=== PATIENT | female | born 1950 | race Caucasian/White ===

== ENCOUNTER → 2016-08-13 | Outpatient (CLI) | payer MEDICARE, OTHER ==
[2016-08-13 12:12] LABS: Basophils # (A) 0.1 k/uL (0-0.2); Basophils % (A) 1 %; CH 32.1; CHCM 31.8; Eosinophils # (A) 0.2 k/uL (0-0.7); Eosinophils % (A) 2 %; HCT 37.5 % (34.0-46.0); HDW 2.83; HGB 11.8 gm/dL (11.4-16.0); Hypochromasia Slight; Luc # (Auto) 0.12; Luc % (Auto) 2; Lymphocytes # (A) 3.8 k/uL (1.0-4.8); Lymphocytes % (A) 47 %; MCHC 31.5 g/dL (31.0-37.0); MCV 101.5 fL (80.0-100.0); Macrocytosis Slight; Mean Platelet Volume 7.6; Monocytes # (A) 0.3 k/uL (0-1.0); Monocytes % (A) 4 %; Neutrophils # (A) 3.6 k/uL (1.3-7.7); Neutrophils % (A) 45 %; RDW 14.5 % (11.5-15.5); WBC (Perox) 8.42
[2016-08-13 12:37] LABS: ALT 26 U/L (9-52); AST 19 U/L (14-36); Alkaline Phosphatase 141 U/L (38-126); Anion Gap 15 mmol/L; Blood Urea Nitrogen 16 mg/dL (7-17); Calcium 9.3 mg/dL (8.4-10.2); Carbon Dioxide 22 mmol/L (22-30); Chloride 106 mmol/L (98-107); Glucose 99 mg/dL (74-99); Non-African American GFR(MDRD) 53 (>60 ml/min/1.73 sqM); Potassium 3.7 mmol/L (3.5-5.1); Sodium 143 mmol/L (137-145); Total Bilirubin 0.4 mg/dL (0.2-1.3); Total Protein 7.9 g/dL (6.3-8.2)
[2016-08-13 13:02] LABS: Hepatitis B Surface Ag Index 0.06
[2016-08-13 13:08] LABS: Hepatitis B Core IgM Index 0.02
[2016-08-13 13:19] LABS: Hepatitis C Virus IgG Index 3.09
[2016-08-13 13:22] LABS: Hepatitis C Virus IgG Ab Reactive (Negative)
== END | disposition home or self-care (01) ==
LOC: LABWHC1 11:02
PROVIDERS: ATTEND Physician Assistant
DX: R19.7 Diarrhea, unspecified (principal)
CPT/HCPCS: 36415; 80053; 80074; 85025

== ENCOUNTER → 2016-08-23 | Outpatient (CLI) | payer MEDICARE, OTHER ==
--- NOTE | 2016-08-23 12:42 | MR ---
EXAMINATION TYPE: MR cervical spine wo con DATE OF EXAM: 08/23/2016 11:46 AM COMPARISON: NONE HISTORY: 66-year-old female neck pain TECHNIQUE: Multiplanar, multisequence images of the cervical spine were acquired. FINDINGS: No craniocervical junction abnormality, predental space widening, or prevertebral soft tissue swellin g. Multilevel mild to moderate variable disc desiccation. There is mild disc interspace narrowing at C5- C6 with disc osteophyte complex formation and contiguous left uncovertebral joint arthropathy. Scattered ligamentum flavum thickening and facet arthropathy is also present. Hyperintense round lesion within the left C7 vertebral body compatible with a matrix hemangioma. Jeffry tional hemangioma seen within T1 and T4 vertebral bodies. No suspicious bone marrow replacement. Alignment is maintained. At C2-C3, there is ligamentum flavum thickening and facet arthropathy. Changes result in no significa nt spinal canal or neuroforaminal stenosis. At C3-C4, there is mild uncovertebral joint and facet degenerative change. Changes minimally narrow t he left neuroforamen. No spinal canal stenosis. At C4-C5, there is minimal disc osteophyte complex with ligamentum flavum thickening and mild facet a nd uncovertebral joint arthropathy. Changes result in minimal bilateral neuroforaminal narrowing with out significant spinal canal stenosis. At C5-C6, there is disc osteophyte complex formation eccentric toward the left with contiguous uncove rtebral joint arthropathy. There is ligamentum flavum thickening with facet degenerative changes well . Changes result in moderate narrowing of the spinal canal with abutment of both the ventral and dors al cord and ventral cord flattening. There is also moderate left greater than right neuroforaminal st enosis. Small amount of increased midline dorsal T2 cord signal change is present at this level. At C6-C7, there is mild disc osteophyte complex with facet and uncovertebral joint arthropathy. Holman es result in mild narrowing of the spinal canal with abutment of the ventral cord. Additional right d orsal cord signal change is present along the midline at this level. There is mild bilateral neurofor aminal stenosis. At C7-T1, facet degenerative change without significant spinal canal or neuroforaminal stenosis. 9 mm T2 hyperintense nodule within the right lobe of the thyroid gland. No craniocervical junction abnormality, predental space widening, or prevertebral soft tissue swellin g. IMPRESSION: 1. Moderate multilevel spondylotic change. Degenerative disc disease with ligamentum flavum thickenin g is greatest at C5-C6 with changes causing moderate spinal canal stenosis. There is abutment of both the dorsal and ventral cord with slight ventral cord flattening and the appearance of some compressi ve myelomalacia in the dorsal cord at this level. 2. Along with facet and uncovertebral joint arthropathy, there is moderate left greater than right ne uroforaminal stenoses here at C5-C6. 3. Mild overall spinal canal stenosis at C6-C7 with additional compressive myelomalacia in the dorsal cord here. 4. Variable minimal to mild neuroforaminal stenoses as outlined above.
== END | disposition home or self-care (01) ==
LOC: RADMRIMAIN 11:05
PROVIDERS: ATTEND Physician Assistant
DX: M48.02 Spinal stenosis, cervical region (principal); M99.71 Connective tissue and disc stenosis of intervertebral foramina of cervical region; M50.322 Other cervical disc degeneration at C5-C6 level; M47.812 Spondylosis without myelopathy or radiculopathy, cervical region
CPT/HCPCS: 72141

== ENCOUNTER 2016-08-29 08:38 | Day surgery (SDC) | payer MEDICARE, OTHER ==
[2016-08-24 10:00] VITALS: BMI 23.8
[~2016-08-29 08:38] MED LIST: LACTATED RINGERS 1,000 ML IV SCH; LIDOCAINE 1% 20 ML VIAL (10MG/ML) FOR IV START INTRADERMA PRN
[2016-08-29] MEDS ORDERED: LIDOCAINE 1% 20 ML VIAL (10MG/ML) FOR IV START INTRADERMA ONE (09:32)
[2016-08-29 09:35] VITALS: RESP 18; TEMP 969
[2016-08-29] MEDS ORDERED: PROPOFOL 10 MG/ML 20 ML VIAL IV ONE (10:06)
--- NOTE | 2016-08-29 10:27 | P.PCN ---
Date of Procedure: 08/29/16 Procedure(s) Performed: Brief history: Patient is a pleasant 65-year-old white female, scheduled for an elective upper endoscopy as well as colonoscopy as a part of evaluation of abdominal pain, severe diarrhea for the last few months duration. She is lately have been having bowel movements anywhere from rectum to 8 a day which are loose to watery in consistency but denies any blood or mucus in the stool. Procedure performed: Esophagogastroduodenoscopy with biopsy Colonoscopy with biopsies Preoperative diagnosis: Abdominal pain and chronic diarrhea Anesthesia: MAC Procedure: After informed consent was obtained from the patient was brought into the endoscopy unit and IV conscious sedation was administered by anesthesia under continuous monitoring. Initially upper endoscopy was done. The Olympus GF 160 video endoscope was inserted inserted into the mouth and esophagus intubated without any difficulty and was gradually advanced into the stomach and duodenum and carefully examined. The bulb and second part of the duodenum appeared normal. Biopsies were done from this area to rule out celiac disease. The scope was then withdrawn into the stomach adequately insufflated with air and upon careful examination the antrum had mild gastritis and biopsies were also done from this area. The body, cardia and fundus appeared normal. The scope was then withdrawn into the esophagus. The GE junction was located at 40 cm to the incisors. It appeared regular with no erythema erosions or ulcerations. Rest of the esophagus appeared normal. Patient tolerated the procedure well. At this time the patient continued to remain sedation. Initial digital rectal examination was normal. Olympus CF 160 video colonoscope was then inserted into the rectum and gradually advanced to the cecum without any difficulty. Careful examination was performed as the scope was gradually being withdrawn. The prep was excellent. The cecum, ascending colon, transverse colon, descending colon, sigmoid colon and rectum appeared normal. There was a 5 mL proximal rectal polyp that was removed by biopsy. Random biopsies were done from ascending and descending colon to rule out microscopic/collagenous colitis Retroflexion was performed in the rectum and no lesions were noted. Scattered sigmoid diverticulosis seen. Patient tolerated the procedure well. Impression: 1. Upper endoscopy revealed mild antral diffuse gastritis but no evidence of peptic ulcer disease or esophagitis 2. Colonoscopy revealed 5 mm proximal rectal polyp and scattered sigmoid diverticulosis. Recommendations: Findings of this examination were discussed with the patient as well as her family. She was advised to follow with the biopsy results. In the meantime she 'll continue with her current medications and she'll be seen in the office in 2- 3 weeks.
[2016-08-29 11:04] VITALS: BP 132/77; PULSE 74
[2016-08-29] MEDS ORDERED: LACTATED RINGERS 1,000 ML IV ONE (11:09)
== END 2016-08-29 11:25 | disposition home or self-care (01) ==
LOC: ORWHC2ENDO 08:38
PROVIDERS: ATTEND Internal Medicine Gastroenterology
DX: K29.50 Unspecified chronic gastritis without bleeding (principal); K62.1 Rectal polyp; K57.30 Diverticulosis of large intestine without perforation or abscess without bleeding; I25.10 Atherosclerotic heart disease of native coronary artery without angina pectoris; I10 Essential (primary) hypertension; E78.5 Hyperlipidemia, unspecified; Z95.5 Presence of coronary angioplasty implant and graft; J44.9 Chronic obstructive pulmonary disease, unspecified; F41.9 Anxiety disorder, unspecified; K21.9 Gastro-esophageal reflux disease without esophagitis; Z79.02 Long term (current) use of antithrombotics/antiplatelets; Z79.891 Long term (current) use of opiate analgesic; Z79.899 Other long term (current) drug therapy; Z88.2 Allergy status to sulfonamides; Z88.8 Allergy status to other drugs, medicaments and biological substances; Z91.09 Other allergy status, other than to drugs and biological substances; Z72.0 Tobacco use
CPT/HCPCS: 88305; 88342; 45380; 43239; J2704; 99153

== ENCOUNTER → 2016-09-06 | Outpatient (CLI) | payer MEDICARE, OTHER ==
[2016-09-06 15:33] LABS: CH 32.7; CHCM 32.2; MCHC 32.4 g/dL (31.0-37.0); Macrocytosis Slight; Mean Platelet Volume 6.5; RBC 3.63 m/uL (3.80-5.40); RDW 14.1 % (11.5-15.5); WBC 6.3 k/uL (3.8-10.6)
[2016-09-06 15:42] LABS: Calcium 9.7 mg/dL (8.4-10.2); Magnesium 1.6 mg/dL (1.6-2.3); Potassium 3.5 mmol/L (3.5-5.1); Total Bilirubin 0.4 mg/dL (0.2-1.3)
[2016-09-06 15:51] LABS: % Iron Saturation 16.2 % (20-50)
[2016-09-07 15:25] LABS: HCV Qualitative Result Not detected (Not detected)
== END | disposition home or self-care (01) ==
LOC: LABWHC1 14:52
PROVIDERS: ATTEND Physician Assistant
DX: D63.1 Anemia in chronic kidney disease (principal); N18.2 Chronic kidney disease, stage 2 (mild); F41.9 Anxiety disorder, unspecified; B18.2 Chronic viral hepatitis C
CPT/HCPCS: 36415; 80053; 82607; 82728; 82746; 83540; 83550; 83735; 84439; 84481; 85027; 87522

== ENCOUNTER → 2016-10-18 | Outpatient (CLI) | payer MEDICARE, OTHER ==
[2016-10-18 14:18] LABS: CH 32.7; CHCM 32.6; HCT 36.6 % (34.0-46.0); HDW 2.59; HGB 12.2 gm/dL (11.4-16.0); MCH 33.5 pg (25.0-35.0); MCHC 33.2 g/dL (31.0-37.0); MCV 100.7 fL (80.0-100.0); Mean Platelet Volume 6.7; RBC 3.64 m/uL (3.80-5.40); RDW 13.4 % (11.5-15.5); WBC 8.4 k/uL (3.8-10.6)
[2016-10-18 14:35] LABS: Calcium 9.5 mg/dL (8.4-10.2); Potassium 3.6 mmol/L (3.5-5.1); Total Bilirubin 0.5 mg/dL (0.2-1.3); Total Protein 7.7 g/dL (6.3-8.2)
== END ==
LOC: LABWHC1 13:29
PROVIDERS: ATTEND Physician Assistant
DX: R19.7 Diarrhea, unspecified (principal); B99.9 Unspecified infectious disease
CPT/HCPCS: 36415; 80053; 82705; 85027; 87045; 87046; 87324; 87328; 87329

== ENCOUNTER 2016-10-19 18:00 | Emergency (ER) | payer MEDICARE, OTHER ==
[2016-10-19 18:17] VITALS: RESP 18
[2016-10-19] MEDS ORDERED: SODIUM CHLORIDE 0.9% 1,000 ML IV STA (18:36)
[2016-10-19 19:37] LABS: Basophils % (A) 1 %; CHCM 33.2; Eosinophils # (A) 0.2 k/uL (0-0.7); Eosinophils % (A) 2 %; HCT 38.4 % (34.0-46.0); HDW 2.61; HGB 12.8 gm/dL (11.4-16.0); Luc # (Auto) 0.17; Luc % (Auto) 3; Lymphocytes # (A) 3.1 k/uL (1.0-4.8); Lymphocytes % (A) 44 %; MCH 33.4 pg (25.0-35.0); MCHC 33.4 g/dL (31.0-37.0); MCV 99.9 fL (80.0-100.0); Mean Platelet Volume 7.7; Monocytes # (A) 0.3 k/uL (0-1.0); Monocytes % (A) 4 %; Neutrophils # (A) 3.2 k/uL (1.3-7.7); Neutrophils % (A) 47 %; RBC 3.84 m/uL (3.80-5.40); RDW 13.5 % (11.5-15.5); WBC 6.9 k/uL (3.8-10.6); WBC (Perox) 7.04
--- NOTE | 2016-10-19 19:37 | ED ---
Recheck HPI - General Chief Complaint: Recheck/Abnormal Lab/Rx Stated Complaint: abnormal labs Time Seen by Provider: 10/19/16 18:36 Source: patient Mode of arrival: ambulatory Limitations: no limitations - History of Present Illness Initial Comments: This patient is 66-year-old woman who presents after receiving a call from her primary physician. The patient has history of chronic urinary tract infections. She states that over the last 1-2 weeks she has been following up with the urologist in an attempt to get to the bottom of this. She states that a urinary sample was sent when she was in the clinic, and she received a call today that the antibiotic coverage needs to be changed based on the results of the culture. The patient phoned Dr. Ponce who is going to see her on Saturday. When the patient called her primary physician back to let him know about this he felt she should be seen in the emergency department to ensure that nothing needed to be done over the weekend. The patient states she does not feel any different than she usually does. She has some suprapubic pressure type pain but states that this is been there for quite a long time and it has not worsened. She is denying fever or chills. No palpitations or syncope. MD Complaint: abnormal lab -: days(s) Returns Today for: Called Because of Abnormal Lab/Test Symptoms Since Prior Visit: no new symptoms Context: called for abnormal lab result Associated Symptoms: none - Related Data Home Medications Medication Instructions Recorded Confirmed Ergocalciferol [Vitamin D2 50,000 unit PO MOFR 01/17/15 10/19/16 (DRISDOL)] Montelukast Sodium [Singulair] 10 mg PO DAILY 02/11/15 10/19/16 HYDROcodone/APAP 10-325MG [Paton 1 tab PO TID PRN 10/21/15 10/19/16 10-325] tiZANidine [Zanaflex] 4 mg PO QID PRN 10/21/15 10/19/16 ALPRAZolam [Xanax] 2 mg PO QID 04/09/16 10/19/16 Lidocaine 5% Patch [Lidoderm 5% 1 patch TRANSDERM DAILY 04/09/16 10/19/16 Patch] Lipase/Protease/Amylase [Pancreaze 4,200 unit PO AC-TID 04/09/16 10/19/16 Dr] Loperamide [Imodium] 4 mg PO QID PRN 04/09/16 10/19/16 cycloSPORINE 0.05% OPHTH SOLN 1 drop BOTH EYES BID 04/09/16 10/19/16 [Restasis] Albuterol Nebulized [Ventolin 2.5 mg INHALATION RT-QID PRN 04/26/16 10/19/16 Nebulized] Budesonide-Formot 160-4.5 Mcg 2 puff INHALATION RT-BID 04/26/16 10/19/16 [Symbicort 160-4.5 Mcg Inhaler] Formoterol Fumarate [Perforomist] 20 mcg INHALATION RT-TID 04/26/16 10/19/16 Potassium Chloride 10 % Oral Liquid 1 tbsp PO TID 04/26/16 10/19/16 Aspirin EC [Ecotrin] 325 mg PO DAILY 08/24/16 10/19/16 Clopidogrel [Plavix] 75 mg PO DAILY 08/24/16 10/19/16 Fenofibrate Nanocrystallized 145 mg PO DAILY 08/24/16 10/19/16 [Tricor] Magnesium Oxide [Mag-Ox] 400 mg PO DAILY 08/24/16 10/19/16 [place]-3 Acid Ethyl Esters [Lovaza] 1 gm PO BID 08/24/16 10/19/16 Ondansetron HCl [Zofran] 8 mg PO Q6H PRN 08/24/16 10/19/16 Pantoprazole Sodium [Protonix] 40 mg PO DAILY 08/24/16 10/19/16 Rosuvastatin Calcium [Crestor] 40 mg PO DAILY 08/24/16 10/19/16 Previous Rx's Medication Instructions Recorded Nitroglycerin Sl Tabs [Nitrostat] 0.4 mg SUBLINGUAL Q5M PRN #25 tab 02/15/15 Nitrofurantoin Monohyd/M-Cryst 100 mg PO Q12HR #6 cap 10/19/16 [Macrobid] Allergies Allergy/AdvReac Type Severity Reaction Status Date / Time cortisone [Cortisone] Allergy Swelling Verified 10/19/16 18:55 NSAIDS (Non-Steroidal Allergy Nausea & Verified 10/19/16 18:55 Anti-Inflamma Vomiting & Diarrhea Sulfa (Sulfonamide Allergy Rash/Hives Verified 10/19/16 18:55 Antibiotics) tetracaine Allergy Unknown Verified 10/19/16 18:55 tetracaine HCl Allergy Unknown Verified 10/19/16 18:55 [From Pontocaine] adhesive AdvReac blisters Verified 10/19/16 18:55 aspirin AdvReac Unknown Verified 10/19/16 18:55 merocaine Allergy Unknown Uncoded 10/19/16 18:17 Review of Systems ROS Statement: Those systems with pertinent positive or pertinent negative responses have been documented in the HPI. ROS Other: All systems not noted in ROS Statement are negative. Constitutional: Denies: fever, chills Respiratory: Denies: cough, dyspnea Cardiovascular: Denies: chest pain, palpitations, syncope Gastrointestinal: Reports: as per HPI, abdominal pain, diarrhea, constipation. Denies: nausea, vomiting, melena, hematochezia Genitourinary: Reports: dysuria, hematuria. Denies: urgency, frequency Musculoskeletal: Denies: back pain Skin: Denies: rash Neurological: Denies: headache, weakness, numbness Past Medical History Past Medical History: Coronary Artery Disease (CAD), CVA/TIA Additional Past Medical History / Comment(s): HX OF TIA'S -RIGHT SIDED WEAKNESS , IBS, NEUROPATHY IN HANDS & FEET., HERNIATED DISC, OSTEOPOROSIS, BACK PAIN, HIATAL HERNIA, USES C-PAP MACHINE, DISCOID LUPUS, HX OF STOMACH BLEED FROM MOTRIN, STATES 61 % KIDNEY FUNCTION, HX OF MULTIPLE UTI'S., BELLS PALSY (1999), OCCASIONAL FALLS- BROKE HER RIGHT FOOT 5 WEEKS AGO, USES WALKER- HAS ORDERED A MOTOR W/C., HAVING DIFFICULTY SWALLOWING. History of Any Multi-Drug Resistant Organisms: ESBL Date of last positivie culture/infection: 06/04/15 MDRO Source:: Urine-ESBL E.coli Past Surgical History: Heart Catheterization With Stent Additional Past Surgical History / Comment(s): HEART CATHS WITH STENTS(1999) & ( DECEMBER 2014), UMBILICAL HERNIA, HAMMER TOES, BUNIONS , SURGERY FOR PHLEBITIS IN HER LEG. Past Anesthesia/Blood Transfusion Reactions: No Reported Reaction Date of Last Stent Placement:: 2014 Past Psychological History: Anxiety, Depression, Panic Disorder Smoking Status: Current every day smoker Past Alcohol Use History: None Reported Additional Past Alcohol Use History / Comment(s): SMOKES 1/2 PPD OR LESS. HAS BEEN SMOKING SINCE 28 YRS OLD ( 39YEARS) Past Drug Use History: None Reported - Past Family History Sister(s) Family Medical History: Cancer, CVA/TIA Mother Family Medical History: Coronary Artery Disease (CAD) Father Family Medical History: Cancer, CVA/TIA, Diabetes Mellitus, Hyperlipidemia, Hypertension Additional Family Medical History / Comment(s): ETOH, BLADDER CANCER, BELLS PALSY General Exam Limitations: no limitations General appearance: alert, in no apparent distress Head exam: Present: atraumatic, normocephalic Eye exam: Present: normal appearance. Absent: scleral icterus, conjunctival injection ENT exam: Present: mucous membranes dry Respiratory exam: Present: wheezes (Trace expiratory wheeze). Absent: respiratory distress, rales, rhonchi, stridor Cardiovascular Exam: Present: regular rate, normal rhythm, normal heart sounds. Absent: systolic murmur, diastolic murmur, rubs, gallop GI/Abdominal exam: Present: soft, normal bowel sounds. Absent: distended, tenderness, guarding, rebound, rigid, mass, pulsatile mass Extremities exam: Present: normal inspection, normal capillary refill. Absent: pedal edema, calf tenderness Back exam: Present: normal inspection. Absent: CVA tenderness (R), CVA tenderness (L) Neurological exam: Present: alert Skin exam: Present: warm, dry, intact, normal color. Absent: rash Course Vital Signs 10/19/16 10/19/16 18:14 20:49 Temperature 98.3 F 98.1 F Pulse Rate 93 81 Respiratory 18 18 Rate Blood Pressure 126/59 111/62 O2 Sat by Pulse 95 96 Oximetry Medical Decision Making - Lab Data Result diagrams: 10/19/16 19:10 10/19/16 19:10 Lab Results 10/19/16 10/19/16 10/19/16 Range/Units 19:10 19:10 19:10 WBC 6.9 (3.8-10.6) k/uL RBC 3.84 (3.80-5.40) m/uL Hgb 12.8 (11.4-16.0) gm/dL Hct 38.4 (34.0-46.0) % MCV 99.9 (80.0-100.0) fL MCH 33.4 (25.0-35.0) pg MCHC 33.4 (31.0-37.0) g/dL RDW 13.5 (11.5-15.5) % Plt Count 203 (150-450) k/uL Neutrophils % 47 % Lymphocytes % 44 % Monocytes % 4 % Eosinophils % 2 % Basophils % 1 % Neutrophils # 3.2 (1.3-7.7) k/uL Lymphocytes # 3.1 (1.0-4.8) k/uL Monocytes # 0.3 (0-1.0) k/uL Eosinophils # 0.2 (0-0.7) k/uL Basophils # 0.0 (0-0.2) k/uL Sodium 143 (137-145) mmol/L Potassium 3.4 L (3.5-5.1) mmol/L Chloride 106 (98-107) mmol/L Carbon Dioxide 22 (22-30) mmol/L Anion Gap 15 mmol/L BUN 14 (7-17) mg/dL Creatinine 1.13 H (0.52-1.04) mg/dL Est GFR (MDRD) Af Amer 59 (>60 ml/min/1.73 sqM) Est GFR (MDRD) Non-Af 48 (>60 ml/min/1.73 sqM) Glucose 91 (74-99) mg/dL Calcium 9.3 (8.4-10.2) mg/dL Phosphorus 4.4 (2.5-4.5) mg/dL Magnesium 1.7 (1.6-2.3) mg/dL Total Bilirubin 0.7 (0.2-1.3) mg/dL AST 17 (14-36) U/L ALT 13 (9-52) U/L Alkaline Phosphatase 113 (38-126) U/L Total Creatine Kinase 50 (30-135) U/L CK-MB (CK-2) 0.7 (0.0-2.4) ng/mL CK-MB (CK-2) Rel Index 1.4 Troponin I <0.012 (0.000-0.034) ng/mL Total Protein 7.9 (6.3-8.2) g/dL Albumin 4.4 (3.5-5.0) g/dL Urine Color Urine Appearance (Clear) Urine pH (5.0-8.0) Ur Specific [place] (1.001-1.035) Urine Protein (Negative) Urine Glucose (UA) (Negative) Urine Ketones (Negative) Urine Blood (Negative) Urine Nitrite (Negative) Urine Bilirubin (Negative) Urine Urobilinogen (<2.0) mg/dL Ur Leukocyte Esterase (Negative) Urine RBC (0-5) /hpf Urine WBC (0-5) /hpf Ur Squamous Epith Cells (0-4) /hpf Urine Bacteria (None) /hpf Urine Mucus (None) /hpf 10/19/16 Range/Units 19:33 WBC (3.8-10.6) k/uL RBC (3.80-5.40) m/uL Hgb (11.4-16.0) gm/dL Hct (34.0-46.0) % MCV (80.0-100.0) fL MCH (25.0-35.0) pg MCHC (31.0-37.0) g/dL RDW (11.5-15.5) % Plt Count (150-450) k/uL Neutrophils % % Lymphocytes % % Monocytes % % Eosinophils % % Basophils % % Neutrophils # (1.3-7.7) k/uL Lymphocytes # (1.0-4.8) k/uL Monocytes # (0-1.0) k/uL Eosinophils # (0-0.7) k/uL Basophils # (0-0.2) k/uL Sodium (137-145) mmol/L Potassium (3.5-5.1) mmol/L Chloride (98-107) mmol/L Carbon Dioxide (22-30) mmol/L Anion Gap mmol/L BUN (7-17) mg/dL Creatinine (0.52-1.04) mg/dL Est GFR (MDRD) Af Amer (>60 ml/min/1.73 sqM) Est GFR (MDRD) Non-Af (>60 ml/min/1.73 sqM) Glucose (74-99) mg/dL Calcium (8.4-10.2) mg/dL Phosphorus (2.5-4.5) mg/dL Magnesium (1.6-2.3) mg/dL Total Bilirubin (0.2-1.3) mg/dL AST (14-36) U/L ALT (9-52) U/L Alkaline Phosphatase (38-126) U/L Total Creatine Kinase (30-135) U/L CK-MB (CK-2) (0.0-2.4) ng/mL CK-MB (CK-2) Rel Index Troponin I (0.000-0.034) ng/mL Total Protein (6.3-8.2) g/dL Albumin (3.5-5.0) g/dL Urine Color Light Yellow Urine Appearance Cloudy H (Clear) Urine pH 6.0 (5.0-8.0) Ur Specific [place] 1.005 (1.001-1.035) Urine Protein Negative (Negative) Urine Glucose (UA) Negative (Negative) Urine Ketones Negative (Negative) Urine Blood Negative (Negative) Urine Nitrite Negative (Negative) Urine Bilirubin Negative (Negative) Urine Urobilinogen <2.0 (<2.0) mg/dL Ur Leukocyte Esterase Moderate H (Negative) Urine RBC 2 (0-5) /hpf Urine WBC 10 H (0-5) /hpf Ur Squamous Epith Cells 5 H (0-4) /hpf Urine Bacteria Rare H (None) /hpf Urine Mucus Rare H (None) /hpf Disposition Clinical Impression: Urinary tract infection Disposition: HOME SELF-CARE Condition: Good Instructions: Urinary Tract Infection in Women (ED) Prescriptions: Nitrofurantoin Monohyd/M-Cryst [Macrobid] 100 mg PO Q12HR #6 cap Referrals: Pilar George DO [Primary Care Provider] - 1-2 days
[2016-10-19 19:43] LABS: Calcium 9.3 mg/dL (8.4-10.2); Magnesium 1.7 mg/dL (1.6-2.3); Phosphorous 4.4 mg/dL (2.5-4.5); Potassium 3.4 mmol/L (3.5-5.1); Total Bilirubin 0.7 mg/dL (0.2-1.3); Total Protein 7.9 g/dL (6.3-8.2)
[2016-10-19 19:49] LABS: Creatine Kinase 50 U/L (30-135)
[2016-10-19 20:02] LABS: Appearance,Urine Cloudy (Clear); Bacteria,Urine Rare /hpf; Bilirubin,Urine Negative (Negative); Glucose,Urine (UA) Negative (Negative); Ketones,Urine Negative (Negative); Leukocyte Esterase,Urine Moderate (Negative); Mucus,Urine Rare /hpf; Nitrite,Urine Negative (Negative); Particle Count 7249; Protein,Urine Negative (Negative); RBC,Urine 2 /hpf (0-5); Specific Gravity,Urine 1.005 (1.001-1.035); Squamous Epithelial Cell,Urine 5 /hpf (0-4); UA Billing (MACRO vs. MICRO) MICRO; Urobilinogen,Urine <2.0 mg/dL (<2.0); WBC,Urine 10 /hpf (0-5)
[2016-10-19 20:02] LABS: Creatine Kinase MB 0.7 ng/mL (0.0-2.4); Troponin I <0.012 ng/mL (0.000-0.034)
[2016-10-19] MEDS ORDERED: HYDROcodone/APAP 5-325MG 1 EACH TAB PO STA (21:23)
[2016-10-19] MEDS ORDERED: NITROFURANTOIN MONOHYD/M-CRYST 100 MG CAP PO STA (21:23)
[2016-10-19 21:37] VITALS: BP 142/71; PULSE 90; TEMP 98.5
== END 2016-10-19 21:36 | disposition home or self-care (01) ==
LOC: EC 18:00
DX: N39.0 Urinary tract infection, site not specified (principal); I25.10 Atherosclerotic heart disease of native coronary artery without angina pectoris; F41.9 Anxiety disorder, unspecified; Z79.82 Long term (current) use of aspirin; Z79.899 Other long term (current) drug therapy; Z79.02 Long term (current) use of antithrombotics/antiplatelets; Z95.5 Presence of coronary angioplasty implant and graft; Z87.440 Personal history of urinary (tract) infections; Z86.73 Personal history of transient ischemic attack (TIA), and cerebral infarction without residual deficits; Z88.1 Allergy status to other antibiotic agents; F17.200 Nicotine dependence, unspecified, uncomplicated; Z88.6 Allergy status to analgesic agent; Z88.4 Allergy status to anesthetic agent; Z88.8 Allergy status to other drugs, medicaments and biological substances; Z88.2 Allergy status to sulfonamides
CPT/HCPCS: 36415; 80053; 82550; 82553; 83735; 84100; 84484; 85025; 81001; 87040; 87086; 96365; 96360; 99283; J0696

== ENCOUNTER → 2016-12-17 | Outpatient (CLI) | payer MEDICARE, OTHER ==
[2016-12-17 11:28] LABS: Appearance,Urine Clear (Clear); Bilirubin,Urine Negative (Negative); Glucose,Urine (UA) Negative (Negative); Ketones,Urine Negative (Negative); Leukocyte Esterase,Urine Negative (Negative); Nitrite,Urine Negative (Negative); Protein,Urine Negative (Negative); Specific Gravity,Urine 1.005 (1.001-1.035); UA Billing (MACRO vs. MICRO) CHEM; Urobilinogen,Urine <2.0 mg/dL (<2.0)
[2016-12-17 11:33] LABS: Basophils # (A) 0.1 k/uL (0-0.2); Basophils % (A) 1 %; CHCM 32.3; Eosinophils # (A) 0.1 k/uL (0-0.7); Eosinophils % (A) 2 %; HCT 39.5 % (34.0-46.0); HDW 2.62; HGB 12.5 gm/dL (11.4-16.0); Luc # (Auto) 0.14; Luc % (Auto) 2; Lymphocytes # (A) 2.9 k/uL (1.0-4.8); Lymphocytes % (A) 36 %; MCH 32.4 pg (25.0-35.0); MCHC 31.5 g/dL (31.0-37.0); MCV 102.7 fL (80.0-100.0); Macrocytosis Slight; Mean Platelet Volume 7.4; Monocytes # (A) 0.2 k/uL (0-1.0); Monocytes % (A) 3 %; Neutrophils # (A) 4.6 k/uL (1.3-7.7); Neutrophils % (A) 57 %; RBC 3.85 m/uL (3.80-5.40); RDW 13.3 % (11.5-15.5); WBC 8.2 k/uL (3.8-10.6); WBC (Perox) 8.12
[2016-12-17 12:24] LABS: Anion Gap 15 mmol/L; Blood Urea Nitrogen 16 mg/dL (7-17); Calcium 9.5 mg/dL (8.4-10.2); Carbon Dioxide 23 mmol/L (22-30); Chloride 110 mmol/L (98-107); Glucose 78 mg/dL (74-99); Iron 69 ug/dL (37-170); Magnesium 1.6 mg/dL (1.6-2.3); Non-African American GFR(MDRD) 50 (>60 ml/min/1.73 sqM); Phosphorous 3.5 mg/dL (2.5-4.5); Potassium 3.9 mmol/L (3.5-5.1); Sodium 148 mmol/L (137-145); Uric Acid 4.8 mg/dL (3.7-7.4)
[2016-12-17 12:36] LABS: Total Iron Binding Capacity 313 ug/dL (265-497)
== END | disposition home or self-care (01) ==
LOC: LABWHC1 10:19
PROVIDERS: ATTEND Nurse Practitioner Family
DX: N25.81 Secondary hyperparathyroidism of renal origin (principal); E55.9 Vitamin D deficiency, unspecified; M10.9 Gout, unspecified; N39.0 Urinary tract infection, site not specified; N18.3 Chronic kidney disease, stage 3 (moderate)
CPT/HCPCS: 36415; 80048; 81003; 82306; 82728; 83540; 83550; 83735; 83970; 84100; 84550; 85025

== ENCOUNTER → 2016-12-31 | Outpatient (CLI) | payer MEDICARE, OTHER ==
--- NOTE | 2016-12-31 14:15 | US ---
EXAMINATION TYPE: US liver DATE OF EXAM: 12/31/2016 COMPARISON: ct abdomen and pelvis August 30, 2015. CLINICAL HISTORY: B18.2 Chronic viral hep c. EXAM MEASUREMENTS: Liver Length: 12.6 cm Gallbladder Wall: Surgically absent cm CBD: 0.7 cm Right Kidney: 9.8 x 5.0 x 5.1 cm Pancreas: Obscured by bowel gas Liver: wnl Gallbladder: Surgically absent Evidence for sonographic Marroquin's sign: No CBD: wnl Right Kidney: multiple cysts medial 1.2 x 1.3 x 1.2 cm, mid 4.5 x 4.3 x 4.6 cm Pancreas suboptimally evaluated on images saved secondary to body habitus and overlying bowel gas. Vi sualized liver is fairly homogeneous echotexture without worrisome intrahepatic mass or hepatic ducta l dilatation seen. A few simple appearing cysts are scattered throughout the visualized right kidney less numerous than seen on comparison CT, largest is exophytically lower pole level right kidney alison uring 4.6 cm on long axis. IMPRESSION: No worrisome intrahepatic mass or intrahepatic ductal dilatation is seen.
== END | disposition home or self-care (01) ==
LOC: RADUSWWP 13:35
PROVIDERS: ATTEND Internal Medicine Gastroenterology
DX: B18.2 Chronic viral hepatitis C (principal)
CPT/HCPCS: 76705

== ENCOUNTER → 2017-03-04 | Outpatient (CLI) | payer MEDICARE, OTHER ==
[2017-03-04 16:22] LABS: Basophils # (A) 0.1 k/uL (0-0.2); Basophils % (A) 1 %; CH 32.8; CHCM 31.9; Eosinophils # (A) 0.1 k/uL (0-0.7); Eosinophils % (A) 2 %; HCT 38.3 % (34.0-46.0); HDW 2.64; HGB 12.1 gm/dL (11.4-16.0); Luc % (Auto) 1; Lymphocytes # (A) 2.9 k/uL (1.0-4.8); Lymphocytes % (A) 34 %; MCH 32.4 pg (25.0-35.0); MCHC 31.4 g/dL (31.0-37.0); MCV 103.2 fL (80.0-100.0); Macrocytosis Slight; Mean Platelet Volume 7.4; Monocytes # (A) 0.3 k/uL (0-1.0); Monocytes % (A) 4 %; Neutrophils # (A) 4.9 k/uL (1.3-7.7); Neutrophils % (A) 59 %; RBC 3.72 m/uL (3.80-5.40); RDW 14.3 % (11.5-15.5); WBC 8.4 k/uL (3.8-10.6); WBC (Perox) 8.65
[2017-03-04 16:32] LABS: Calcium 9.5 mg/dL (8.4-10.2); Magnesium 1.8 mg/dL (1.6-2.3); Phosphorous 3.7 mg/dL (2.5-4.5); Potassium 3.6 mmol/L (3.5-5.1); Uric Acid 5.1 mg/dL (3.7-7.4)
[2017-03-04 16:33] LABS: Appearance,Urine Clear (Clear); Bacteria,Urine Rare /hpf; Bilirubin,Urine Negative (Negative); Glucose,Urine (UA) Negative (Negative); Ketones,Urine Negative (Negative); Leukocyte Esterase,Urine Moderate (Negative); Nitrite,Urine Negative (Negative); PH, Urine 5.5 (5.0-8.0); Particle Count 2159; Protein,Urine Negative (Negative); RBC,Urine 2 /hpf (0-5); Specific Gravity,Urine 1.004 (1.001-1.035); Squamous Epithelial Cell,Urine 5 /hpf (0-4); UA Billing (MACRO vs. MICRO) MICRO; Urobilinogen,Urine <2.0 mg/dL (<2.0); WBC,Urine 4 /hpf (0-5)
== END | disposition home or self-care (01) ==
LOC: LABWHC1 15:50
PROVIDERS: ATTEND Nurse Practitioner Family
DX: E55.9 Vitamin D deficiency, unspecified (principal); E21.3 Hyperparathyroidism, unspecified; D50.9 Iron deficiency anemia, unspecified; N18.3 Chronic kidney disease, stage 3 (moderate); N39.0 Urinary tract infection, site not specified; N25.81 Secondary hyperparathyroidism of renal origin; M10.9 Gout, unspecified
CPT/HCPCS: 36415; 80048; 81001; 82306; 82728; 83540; 83550; 83735; 83970; 84100; 84550; 85025

== ENCOUNTER → 2017-04-22 | Outpatient (CLI) | payer MEDICARE, OTHER ==
[2017-04-22 13:49] LABS: Basophils # (A) 0.1 k/uL (0-0.2); Basophils % (A) 1 %; CH 33.2; CHCM 32.7; Eosinophils # (A) 0.2 k/uL (0-0.7); Eosinophils % (A) 2 %; HCT 39.4 % (34.0-46.0); HDW 2.65; HGB 12.6 gm/dL (11.4-16.0); Luc # (Auto) 0.18; Luc % (Auto) 2; Lymphocytes # (A) 3.7 k/uL (1.0-4.8); Lymphocytes % (A) 42 %; MCH 32.7 pg (25.0-35.0); MCV 102.2 fL (80.0-100.0); Macrocytosis Slight; Mean Platelet Volume 7.1; Monocytes # (A) 0.3 k/uL (0-1.0); Monocytes % (A) 4 %; Neutrophils # (A) 4.3 k/uL (1.3-7.7); Neutrophils % (A) 49 %; RBC 3.85 m/uL (3.80-5.40); RDW 15.1 % (11.5-15.5); WBC 8.8 k/uL (3.8-10.6); WBC (Perox) 8.89
[2017-04-22 14:02] LABS: Calcium 9.6 mg/dL (8.4-10.2); Magnesium 1.7 mg/dL (1.6-2.3); Phosphorous 4.3 mg/dL (2.5-4.5); Potassium 4.1 mmol/L (3.5-5.1); Total Bilirubin 0.2 mg/dL (0.2-1.3); Total Protein 8.2 g/dL (6.3-8.2); Uric Acid 5.1 mg/dL (3.7-7.4)
[2017-04-22 20:43] LABS: Iron Saturation 16.72 (12.00-45.00)
== END | disposition home or self-care (01) ==
LOC: LABWHC1 13:16
PROVIDERS: ATTEND Nurse Practitioner Family
DX: N18.3 Chronic kidney disease, stage 3 (moderate) (principal); E55.9 Vitamin D deficiency, unspecified; E21.3 Hyperparathyroidism, unspecified; M10.9 Gout, unspecified; R80.9 Proteinuria, unspecified
CPT/HCPCS: 36415; 80053; 82306; 82728; 83540; 83550; 83735; 83970; 84100; 84550; 85025

== ENCOUNTER → 2017-08-05 | Outpatient (CLI) | payer MEDICARE, OTHER ==
--- NOTE | 2017-08-06 08:30 | MR ---
EXAMINATION TYPE: MR brain wo con DATE OF EXAM: 08/05/2017 COMPARISON: 04/09/2016 HISTORY: Fainting spells, TIA TECHNIQUE: Multiplanar, multisequence images of the brain and brainstem is performed without intravenous contras t. FINDINGS: Diffusion weighted images demonstrate no evidence of a recent infarct or other diffusion ab normality. There is no extra-axial fluid collection. Similar to the prior exam of 2015 there is a pu nctate focus of T2/IR hyperintensity within the right [place] such as on IR fat sat axial image 9 repres enting an old lacunar injury. Confluent patchy areas of T2/FLAIR increased signal are seen within the subcortical and periventricular white matter that is at least moderate burden for the patient's age. These appear overall similar in comparison to the exam of 04/09/2016 both in size and number. Basal g anglia are preserved. Major intracranial flow voids are preserved. The ventricular system and cister nal spaces are normal in size and appearance. The brain volume is age appropriate. Midline structures demonstrate normal morphology. The craniocervical junction appears within normal limits. The globes are intact. Skin mucosal thickening is seen within the ethmoid sinuses and within the right maxillary sinus. Remaining paranasal sinuses and mastoid air cells are well aerated. Small amount of retained mucosal debris is seen within the posterior nasopharynx. IMPRESSION: 1. At least moderate burden periventricular and subcortical nonspecific white matter change. The sinu ses pronounced for the patient's age. Considerations are for advanced sequela of microangiopathy, vas culitis, and demyelinating disease. Findings similar to the exam of 04/09/2016. 2. Old right pontine lacunar injury. 3. Mild paranasal sinus disease.
== END | disposition home or self-care (01) ==
LOC: RADMRIMAIN 19:45
PROVIDERS: ATTEND Physician Assistant
DX: R90.89 Other abnormal findings on diagnostic imaging of central nervous system (principal)
CPT/HCPCS: 70551

== ENCOUNTER 2017-10-02 12:29 | Inpatient (IN) | payer MEDICARE, OTHER ==
[2017-10-02 14:36] LABS: Appearance,Urine Cloudy (Clear); Bacteria,Urine Rare /hpf; Bilirubin,Urine Negative (Negative); Blood,Urine Trace (Negative); Color,Urine Light Yellow; Glucose,Urine (UA) Negative (Negative); Ketones,Urine Negative (Negative); Leukocyte Esterase,Urine Large (Negative); Nitrite,Urine Positive (Negative); PH, Urine 5.5 (5.0-8.0); Protein,Urine Trace (Negative); RBC,Urine 10 /hpf (0-5); Specific Gravity,Urine 1.009 (1.001-1.035); Squamous Epithelial Cell,Urine 6 /hpf (0-4); Urobilinogen,Urine <2.0 mg/dL (<2.0); WBC,Urine >182 /hpf (0-5)
[2017-10-02] MEDS ORDERED: SODIUM CHLORIDE 0.9% 500 ML IV STA (15:11)
[2017-10-02] MEDS ORDERED: SODIUM CHLORIDE 0.9% 1,000 ML IV STA (15:11)
[2017-10-02] MEDS ORDERED: cefTRIAXone IN SWFI 2,000 MG/20 ML SYRINGE IVP STA (15:12)
--- NOTE | 2017-10-02 15:34 | ED ---
General Adult HPI - General Chief complaint: Urogenital Stated complaint: UTI-Sent by Time Seen by Provider: 10/02/17 14:56 Source: patient, RN notes reviewed Mode of arrival: ambulatory Limitations: no limitations - History of Present Illness Initial comments: Patient 67-year-old female who presents emergency room today with a chief complaint of abdominal pain with increased urinary frequency. Patient admits that she began having increased frequency and dysuria 4 days ago. She admits that she's also expensive some lower back pain bilaterally. Patient does admit to a history of urosepsis. She states that she was seen by the family physician who advised to come here to the emergency room for further evaluation. Patient denies any recent fever, chills, shortness of breath, chest pain, numbness or tingling, dysuria or hematuria, constipation or diarrhea, headaches or visual changes, or any other complaints. - Related Data Home Medications Medication Instructions Recorded Confirmed HYDROcodone/APAP 10-325MG [[place] 1 tab PO DAILY PRN 10/21/15 10/02/17 10-325] tiZANidine [Zanaflex] 4 mg PO QID 10/21/15 10/02/17 ALPRAZolam [Xanax] 2 mg PO QID 04/09/16 10/02/17 Lidocaine 5% Patch [Lidoderm 5% 1 patch TRANSDERM DAILY 04/09/16 10/02/17 Patch] Lipase/Protease/Amylase [Pancreaze 4,200 unit PO AC-TID 04/09/16 10/02/17 ] Aspirin EC [Ecotrin] 325 mg PO DAILY 08/24/16 10/02/17 Betamethasone Dipropionate 1 applic TOPICAL BID PRN 10/02/17 10/02/17 [Diprolene AF 0.05% Cream] Econazole 1% Cream [Spectazole] 1 applic TOPICAL DAILY PRN 10/02/17 10/02/17 Hydrocortisone Oint 1 applic TOPICAL BID PRN 10/02/17 10/02/17 [Hydrocortisone 2.5% Oint] Nystatin 100,000 Unit/gm Powd 1 applic TOPICAL BID PRN 10/02/17 10/02/17 [Mycostatin Powder] Promethazine HCl 12.5 mg PO BID PRN 10/02/17 10/02/17 Allergies Allergy/AdvReac Type Severity Reaction Status Date / Time cortisone [Cortisone] Allergy Swelling Verified 10/02/17 16:20 NSAIDS (Non-Steroidal Allergy Nausea & Verified 10/02/17 16:20 Anti-Inflamma Vomiting & Diarrhea Sulfa (Sulfonamide Allergy Rash/Hives Verified 10/02/17 16:20 Antibiotics) tetracaine Allergy Unknown Verified 10/02/17 16:20 tetracaine HCl Allergy Unknown Verified 10/02/17 16:20 [From Pontocaine] adhesive AdvReac blisters Verified 10/02/17 16:20 aspirin AdvReac Unknown Verified 10/02/17 16:20 merocaine Allergy Unknown Uncoded 10/19/16 18:17 Review of Systems ROS Statement: Those systems with pertinent positive or pertinent negative responses have been documented in the HPI. ROS Other: All systems not noted in ROS Statement are negative. Past Medical History Past Medical History: Asthma, Chest Pain / Angina, COPD, CVA/TIA, Fibromyalgia, GERD/Reflux, GI Bleed, Hypertension, Musculoskeletal Disorder, Neurologic Disorder, Osteoarthritis (OA), Renal Disease, Skin Disorder, Sleep Apnea/CPAP/ BIPAP Additional Past Medical History / Comment(s): HX OF TIA'S -RIGHT SIDED WEAKNESS , IBS, NEUROPATHY IN HANDS & FEET., HERNIATED DISC, OSTEOPOROSIS, BACK PAIN, HIATAL HERNIA, USES C-PAP MACHINE, DISCOID LUPUS, HX OF STOMACH BLEED FROM MOTRIN, STATES 61 % KIDNEY FUNCTION, HX OF MULTIPLE UTI'S., BELLS PALSY (1999), OCCASIONAL FALLS- BROKE HER RIGHT FOOT 5 WEEKS AGO, USES WALKER- HAS ORDERED A MOTOR W/C., HAVING DIFFICULTY SWALLOWING. History of Any Multi-Drug Resistant Organisms: ESBL Date of last positivie culture/infection: 09/26/2017 MDRO Source:: Urine-ESBL E.coli Past Surgical History: Appendectomy, Cholecystectomy, Heart Catheterization With Stent, Hernia Repair, Hysterectomy, Orthopedic Surgery Additional Past Surgical History / Comment(s): HEART CATHS WITH STENTS(1999) & ( DECEMBER 2014), UMBILICAL HERNIA, HAMMER TOES, BUNIONS , SURGERY FOR PHLEBITIS IN HER LEG. Past Anesthesia/Blood Transfusion Reactions: No Reported Reaction Date of Last Stent Placement:: 2014 Past Psychological History: Anxiety, Depression, Panic Disorder Smoking Status: Current every day smoker Past Alcohol Use History: None Reported Past Drug Use History: None Reported - Past Family History Sister(s) Family Medical History: Cancer, CVA/TIA Mother Family Medical History: Coronary Artery Disease (CAD) Father Family Medical History: Cancer, CVA/TIA, Diabetes Mellitus, Hyperlipidemia, Hypertension Additional Family Medical History / Comment(s): ETOH, BLADDER CANCER, BELLS PALSY General Exam - General Exam Comments Initial Comments: General: The patient is awake and alert, in no distress, and does not appear acutely ill. Eye: Pupils are equal, round and reactive to light, extra-ocular movements are intact. No nystagmus. There is normal conjunctiva bilaterally. No signs of icterus. Ears, nose, mouth and throat: There are moist mucous membranes and no oral lesions. Neck: The neck is supple, there is no tenderness or JVD. Cardiovascular: There is a regular rate and rhythm. No murmur, rub or gallop is appreciated. Respiratory: Lungs are clear to auscultation, respirations are non-labored, breath sounds are equal. No wheezes, stridor, rales, or rhonchi. Gastrointestinal: Abdomen soft on palpation. Patient does have tenderness midline suprapubic over the bladder. Mild tenderness both left and right flank. No rebound tenderness. No guarding. Musculoskeletal: Normal ROM, no tenderness. Strength 5/5. Sensation intact. Pulses equal bilaterally 2+. Neurological: A&O x 3. CN II-XII intact, There are no obvious motor or sensory deficits. Coordination appears grossly intact. Speech is normal. Skin: Skin is warm and dry and no rashes or lesions are noted. Psychiatric: Cooperative, appropriate mood & affect, normal judgment. Limitations: no limitations Course Vital Signs 10/02/17 10/02/17 10/02/17 12:36 15:04 16:04 Temperature 97.5 F L Pulse Rate 90 78 75 Respiratory 20 19 18 Rate Blood Pressure 138/61 146/65 157/70 O2 Sat by Pulse 96 96 97 Oximetry Medical Decision Making - Medical Decision Making Patient's labs been reviewed. Kidney function compared to previous visits and shows similar. Patient's urinalysis does show evidence for a urinary tract infection. Patient does have tenderness to the flanks. Patient admits to a history of urosepsis. Will be admitted to the Hospital was been started on antibiotics 2 g Rocephin given here in emergency room. - Lab Data Result diagrams: 10/02/17 16:00 10/02/17 16:00 Lab Results 10/02/17 10/02/17 10/02/17 Range/Units 13:45 16:00 16:00 WBC 7.9 (3.8-10.6) k/uL RBC 3.73 L (3.80-5.40) m/uL Hgb 12.3 (11.4-16.0) gm/dL Hct 35.6 (34.0-46.0) % MCV 95.5 (80.0-100.0) fL MCH 32.9 (25.0-35.0) pg MCHC 34.5 (31.0-37.0) g/dL RDW 13.4 (11.5-15.5) % Plt Count 226 (150-450) k/uL Neutrophils % 54 % Lymphocytes % 39 % Monocytes % 3 % Eosinophils % 2 % Basophils % 1 % Neutrophils # 4.2 (1.3-7.7) k/uL Lymphocytes # 3.1 (1.0-4.8) k/uL Monocytes # 0.2 (0-1.0) k/uL Eosinophils # 0.2 (0-0.7) k/uL Basophils # 0.1 (0-0.2) k/uL Sodium 144 (137-145) mmol/L Potassium 3.9 (3.5-5.1) mmol/L Chloride 109 H (98-107) mmol/L Carbon Dioxide 20 L (22-30) mmol/L Anion Gap 15 mmol/L BUN 22 H (7-17) mg/dL Creatinine 1.60 H (0.52-1.04) mg/dL Est GFR (CKD-EPI)AfAm 39 (>60 ml/min/1.73 sqM) Est GFR (CKD-EPI)NonAf 33 (>60 ml/min/1.73 sqM) Glucose 95 (74-99) mg/dL Plasma Lactic Acid Keith (0.7-2.0) mmol/L Calcium 9.3 (8.4-10.2) mg/dL Total Bilirubin 0.4 (0.2-1.3) mg/dL AST 19 (14-36) U/L ALT 20 (9-52) U/L Alkaline Phosphatase 126 (38-126) U/L Total Protein 8.0 (6.3-8.2) g/dL Albumin 4.4 (3.5-5.0) g/dL Urine Color Light Yellow Urine Appearance Cloudy H (Clear) Urine pH 5.5 (5.0-8.0) Ur Specific [employer] 1.009 (1.001-1.035) Urine Protein Trace H (Negative) Urine Glucose (UA) Negative (Negative) Urine Ketones Negative (Negative) Urine Blood Trace H (Negative) Urine Nitrite Positive H (Negative) Urine Bilirubin Negative (Negative) Urine Urobilinogen <2.0 (<2.0) mg/dL Ur Leukocyte Esterase Large H (Negative) Urine RBC 10 H (0-5) /hpf Urine WBC >182 H (0-5) /hpf Urine WBC Clumps Moderate H (None) /hpf Ur Squamous Epith Cells 6 H (0-4) /hpf Urine Bacteria Rare H (None) /hpf 10/02/17 Range/Units 16:00 WBC (3.8-10.6) k/uL RBC (3.80-5.40) m/uL Hgb (11.4-16.0) gm/dL Hct (34.0-46.0) % MCV (80.0-100.0) fL MCH (25.0-35.0) pg MCHC (31.0-37.0) g/dL RDW (11.5-15.5) % Plt Count (150-450) k/uL Neutrophils % % Lymphocytes % % Monocytes % % Eosinophils % % Basophils % % Neutrophils # (1.3-7.7) k/uL Lymphocytes # (1.0-4.8) k/uL Monocytes # (0-1.0) k/uL Eosinophils # (0-0.7) k/uL Basophils # (0-0.2) k/uL Sodium (137-145) mmol/L Potassium (3.5-5.1) mmol/L Chloride (98-107) mmol/L Carbon Dioxide (22-30) mmol/L Anion Gap mmol/L BUN (7-17) mg/dL Creatinine (0.52-1.04) mg/dL Est GFR (CKD-EPI)AfAm (>60 ml/min/1.73 sqM) Est GFR (CKD-EPI)NonAf (>60 ml/min/1.73 sqM) Glucose (74-99) mg/dL Plasma Lactic Acid Keith 1.2 (0.7-2.0) mmol/L Calcium (8.4-10.2) mg/dL Total Bilirubin (0.2-1.3) mg/dL AST (14-36) U/L ALT (9-52) U/L Alkaline Phosphatase (38-126) U/L Total Protein (6.3-8.2) g/dL Albumin (3.5-5.0) g/dL Urine Color Urine Appearance (Clear) Urine pH (5.0-8.0) Ur Specific [employer] (1.001-1.035) Urine Protein (Negative) Urine Glucose (UA) (Negative) Urine Ketones (Negative) Urine Blood (Negative) Urine Nitrite (Negative) Urine Bilirubin (Negative) Urine Urobilinogen (<2.0) mg/dL Ur Leukocyte Esterase (Negative) Urine RBC (0-5) /hpf Urine WBC (0-5) /hpf Urine WBC Clumps (None) /hpf Ur Squamous Epith Cells (0-4) /hpf Urine Bacteria (None) /hpf Disposition Clinical Impression: Acute pyelonephritis Disposition: ADMITTED IP TO THIS HOSP Condition: Good Referrals: Pilar George DO [Primary Care Provider] - 1-2 days Time of Disposition: 17:12
[2017-10-02 16:10] LABS: Basophils # (A) 0.1 k/uL (0-0.2); Basophils % (A) 1 %; Eosinophils # (A) 0.2 k/uL (0-0.7); Eosinophils % (A) 2 %; HCT 35.6 % (34.0-46.0); HGB 12.3 gm/dL (11.4-16.0); Lymphocytes # (A) 3.1 k/uL (1.0-4.8); Lymphocytes % (A) 39 %; MCH 32.9 pg (25.0-35.0); MCHC 34.5 g/dL (31.0-37.0); MCV 95.5 fL (80.0-100.0); Mean Platelet Volume 7.1; Monocytes # (A) 0.2 k/uL (0-1.0); Monocytes % (A) 3 %; Neutrophils # (A) 4.2 k/uL (1.3-7.7); Neutrophils % (A) 54 %; Platelet Count 226 k/uL (150-450); RBC 3.73 m/uL (3.80-5.40); RDW 13.4 % (11.5-15.5); WBC 7.9 k/uL (3.8-10.6)
[2017-10-02 16:24] LABS: Albumin 4.4 g/dL (3.5-5.0); Calcium 9.3 mg/dL (8.4-10.2); Potassium 3.9 mmol/L (3.5-5.1); Total Bilirubin 0.4 mg/dL (0.2-1.3)
[2017-10-02] MEDS ORDERED: ONDANSETRON 4 MG/2 ML VIAL IVP PRN (17:14)
[2017-10-02] MEDS ORDERED: NALOXONE 0.4 MG/ML 1 ML VIAL IV PRN (17:14)
[2017-10-02] MEDS ORDERED: MORPHINE SULFATE 4 MG/ML SYRINGE IV PRN (17:14)
[2017-10-02] MEDS ORDERED: ACETAMINOPHEN TAB 325 MG TAB PO PRN (17:14)
[2017-10-02] MEDS ORDERED: NYSTATIN 100,000 UNIT/GM POWD 15 GM TOPICAL PRN (18:57)
[2017-10-02] MEDS ORDERED: PROMETHAZINE 25 MG TAB PO PRN (18:57)
[2017-10-02] MEDS ORDERED: KETOCONAZOLE 2% SHAMPOO 1 APPLIC/ML TOPICAL PRN (18:57)
[2017-10-02] MEDS ORDERED: HYDROCORTISONE 1% OINT 28.35 GM TUBE TOPICAL PRN (18:57)
[2017-10-02] MEDS: HYDROcodone/APAP 10-325MG 1 EACH TAB PO PRN (19:46)
[2017-10-02] MEDS: ALPRAZolam 1 MG TAB PO SCH (22:41)
[2017-10-02] MEDS: tiZANidine 4 MG TAB PO SCH (22:42)
[2017-10-03] MEDS: ATORVASTATIN 80 MG TAB PO SCH (08:05)
[2017-10-03] MEDS: ALPRAZolam 1 MG TAB PO SCH ×4 (08:05→21:00)
[2017-10-03] MEDS: LIPASE 5,000/PROTEASE 17,000/AMYLASE 27,0000 PO SCH ×3 (08:05→17:14)
[2017-10-03] MEDS: CLOPIDOGREL 75 MG TAB PO SCH (08:05)
[2017-10-03] MEDS: ASPIRIN 325 MG TAB PO SCH (08:05)
[2017-10-03] MEDS: MONTELUKAST 10 MG TAB PO SCH (08:05)
[2017-10-03] MEDS: LIDOCAINE 5% PATCH TOPICAL SCH (08:05)
[2017-10-03] MEDS: cefTRIAXone IN SWFI 1,000 MG/10 ML SYRINGE IVP SCH (08:05)
[2017-10-03] MEDS: tiZANidine 4 MG TAB PO SCH ×4 (08:05→21:00)
[2017-10-03] MEDS: FORMOTEROL FUMARATE 20 MCG/2 ML NEBU INHALATION SCH ×3 (08:11→20:46)
[2017-10-03 09:29] LABS: Basophils # (A) 0.1 k/uL (0-0.2); Basophils % (A) 1 %; Eosinophils # (A) 0.1 k/uL (0-0.7); Eosinophils % (A) 2 %; HCT 33.9 % (34.0-46.0); HGB 11.3 gm/dL (11.4-16.0); Lymphocytes # (A) 3.2 k/uL (1.0-4.8); Lymphocytes % (A) 55 %; MCH 31.9 pg (25.0-35.0); MCHC 33.2 g/dL (31.0-37.0); MCV 96.1 fL (80.0-100.0); Mean Platelet Volume 7.5; Monocytes # (A) 0.2 k/uL (0-1.0); Monocytes % (A) 4 %; Neutrophils % (A) 35 %; Platelet Count 207 k/uL (150-450); RBC 3.52 m/uL (3.80-5.40); RDW 13.3 % (11.5-15.5); WBC 5.8 k/uL (3.8-10.6)
[2017-10-03 09:48] LABS: Albumin 3.8 g/dL (3.5-5.0); Calcium 8.9 mg/dL (8.4-10.2); Potassium 3.9 mmol/L (3.5-5.1); Total Bilirubin 0.3 mg/dL (0.2-1.3)
[2017-10-03] MEDS ORDERED: MORPHINE ORAL SOLN 10 MG/5 ML CUP PO PRN (13:03)
--- NOTE | 2017-10-03 14:48 | P.HPIM ---
History of Present Illness H&P Date: 10/03/17 Chief Complaint: Urinary frequency with abdominal pain and flank pain This is a 67-year-old female with a known past medical history of UTI with sepsis, recurrent UTIs, asthma, COPD, TIA and CVAs, fibromyalgia, lupus, chronic kidney disease and previous GI bleed secondary to Motrin. She patient does admit to smoking about half a pack a day. She reports that she has multiple urinary tract infections throughout the year. She was told by her PCP Dr. George that her urinalysis in the office did show some signs of a UTI. However patient reports having fevers at home with flank pain and lower abdominal pain and was directed to come to the emergency room. She's been admitted to the hospital with an acute pyelonephritis. She's been started on IV Rocephin. Urine culture is pending. Patient does report a history of VRE in the urine. She denies any nausea or vomiting, bowel movement changes. Denies any chest pain or shortness of breath. Review of Systems Please refer to HPI otherwise unremarkable Past Medical History Past Medical History: Asthma, Chest Pain / Angina, COPD, CVA/TIA, Fibromyalgia, GERD/Reflux, GI Bleed, Musculoskeletal Disorder, Neurologic Disorder, Osteoarthritis (OA), Renal Disease, Skin Disorder Additional Past Medical History / Comment(s): HX OF TIA'S -RIGHT SIDED WEAKNESS , IBS, NEUROPATHY IN HANDS & FEET., HERNIATED DISC, OSTEOPOROSIS, BACK PAIN, HIATAL HERNIA, , DISCOID LUPUS, HX OF STOMACH BLEED FROM MOTRIN, STATES 61 % KIDNEY FUNCTION, HX OF MULTIPLE UTI'S., BELLS PALSY (1999), OCCASIONAL FALLS- BROKE HER RIGHT FOOT 5 WEEKS AGO, USES WALKER- HAS ORDERED A MOTOR W/C., HAVING DIFFICULTY SWALLOWING. History of Any Multi-Drug Resistant Organisms: ESBL Date of last positivie culture/infection: 09/26/2017 MDRO Source:: Urine-ESBL E.coli Past Surgical History: Appendectomy, Cholecystectomy, Heart Catheterization With Stent, Hernia Repair, Hysterectomy, Orthopedic Surgery Additional Past Surgical History / Comment(s): HEART CATHS WITH STENTS(1999) & ( DECEMBER 2014), UMBILICAL HERNIA, HAMMER TOES, BUNIONS , SURGERY FOR PHLEBITIS IN HER LEG. Past Anesthesia/Blood Transfusion Reactions: No Reported Reaction Date of Last Stent Placement:: 2014 Past Psychological History: Anxiety, Depression, Panic Disorder Smoking Status: Current every day smoker Past Alcohol Use History: None Reported Additional Past Alcohol Use History / Comment(s): SMOKES 1/2 PPD OR LESS. HAS BEEN SMOKING SINCE 28 YRS OLD ( 39YEARS) Past Drug Use History: None Reported - Past Family History Sister(s) Family Medical History: Cancer, CVA/TIA Mother Family Medical History: Coronary Artery Disease (CAD) Father Family Medical History: Cancer, CVA/TIA, Diabetes Mellitus, Hyperlipidemia, Hypertension Additional Family Medical History / Comment(s): ETOH, BLADDER CANCER, BELLS PALSY Medications and Allergies Home Medications Medication Instructions Recorded Confirmed Type HYDROcodone/APAP 10-325MG [[place] 1 tab PO DAILY PRN 10/21/15 10/02/17 History 10-325] tiZANidine [Zanaflex] 4 mg PO QID 10/21/15 10/02/17 History ALPRAZolam [Xanax] 2 mg PO QID 04/09/16 10/02/17 History Lipase/Protease/Amylase [Pancreaze 4,200 unit PO AC-TID 04/09/16 10/02/[address]] Aspirin EC [Ecotrin] 325 mg PO DAILY 08/24/16 10/02/17 History Betamethasone Dipropionate 1 applic TOPICAL BID PRN 10/02/17 10/02/17 History [Diprolene AF 0.05% Cream] Clopidogrel [Plavix] 75 mg PO DAILY 10/02/17 10/02/17 History Econazole 1% Cream [Spectazole] 1 applic TOPICAL DAILY PRN 10/02/17 10/02/17 History Formoterol Fumarate [Perforomist] 20 mcg INHALATION RT-TID 10/02/17 10/02/17 History Hydrocortisone Oint 1 applic TOPICAL BID PRN 10/02/17 10/02/17 History [Hydrocortisone 2.5% Oint] Montelukast [Singulair] 10 mg PO DAILY 10/02/17 10/02/17 History Nystatin 100,000 Unit/gm Powd 1 applic TOPICAL BID PRN 10/02/17 10/02/17 History [Mycostatin Powder] Promethazine HCl 12.5 mg PO BID PRN 10/02/17 10/02/17 History Rosuvastatin Calcium [Crestor] 40 mg PO DAILY 10/02/17 10/02/17 History Allergies Allergy/AdvReac Type Severity Reaction Status Date / Time amitriptyline [From Elavil] Allergy Rash/Hives Verified 10/02/17 19:49 cortisone [Cortisone] Allergy Swelling Verified 10/02/17 16:20 NSAIDS (Non-Steroidal Allergy Nausea & Verified 10/02/17 16:20 Anti-Inflamma Vomiting & Diarrhea Sulfa (Sulfonamide Allergy Rash/Hives Verified 10/02/17 16:20 Antibiotics) tetracaine Allergy Unknown Verified 10/02/17 16:20 tetracaine HCl Allergy Unknown Verified 10/02/17 16:20 [From Pontocaine] aspirin AdvReac Mild Unknown Verified 10/02/17 19:09 adhesive AdvReac blisters Verified 10/02/17 16:20 merocaine Allergy Unknown Uncoded 10/19/16 18:17 contrast/dye AdvReac Unknown Uncoded 10/03/17 06:31 Physical Exam Vitals: Vital Signs Temp Pulse Pulse Resp BP BP BP 10/03/17 14:13 61 14 10/03/17 14:06 63 14 10/03/17 08:20 84 14 10/03/17 08:12 81 14 10/03/17 07:00 98.0 F 71 16 164/70 10/02/17 23:00 98.1 F 73 14 133/65 10/02/17 18:38 97.9 F 81 16 181/73 10/02/17 18:23 98.2 F 76 18 140/64 10/02/17 16:04 75 18 157/70 10/02/17 15:04 78 19 146/65 Pulse Ox 10/03/17 14:13 10/03/17 14:06 10/03/17 08:20 10/03/17 08:12 10/03/17 07:00 96 10/02/17 23:00 94 L 10/02/17 18:38 97 10/02/17 18:23 96 10/02/17 16:04 97 10/02/17 15:04 96 Intake and Output 10/02/17 10/03/17 10/03/17 22:59 06:59 14:59 Intake Total 605 Balance 605 Intake: Oral 605 Other: Voiding Method Toilet Toilet Bedside Commode Bedside Commode # Voids 1 2 2 Head normocephalic Neck supple Lungs clear to auscultation bilaterally no wheezing or crackles Heart regular rate and rhythm S1-S2, no rub or gallop Abdomen is soft nontender nondistended positive bowel sounds no hepatosplenomegaly. Flank tenderness bilaterally Extremities no edema Neuro alert and orientated to 3 Results CBC & Chem 7: 10/03/17 08:02 10/03/17 08:02 Labs: Abnormal Lab Results - Last 24 Hours (Table) 10/02/17 10/02/17 10/03/17 Range/Units 16:00 16:00 08:02 RBC 3.73 L 3.52 L (3.80-5.40) m/uL Hgb 11.3 L (11.4-16.0) gm/dL Hct 33.9 L (34.0-46.0) % Chloride 109 H (98-107) mmol/L Carbon Dioxide 20 L (22-30) mmol/L BUN 22 H (7-17) mg/dL Creatinine 1.60 H (0.52-1.04) mg/dL 10/03/17 Range/Units 08:02 RBC (3.80-5.40) m/uL Hgb (11.4-16.0) gm/dL Hct (34.0-46.0) % Chloride 110 H (98-107) mmol/L Carbon Dioxide 21 L (22-30) mmol/L BUN 19 H (7-17) mg/dL Creatinine 1.34 H (0.52-1.04) mg/dL Microbiology - Last 24 Hours (Table) 10/02/17 13:45 Urine Culture - Preliminary Urine,Voided Thrombosis Risk Factor Assmnt - Choose All That Apply Any of the Below Risk Factors Present?: No Other Risk Factors: Yes Each Risk Factor Represents 2 Points: Age 61-74 years Other congenital or acquired thrombophilia - If yes, enter type in comment: No Thrombosis Risk Factor Assessment Total Risk Factor Score: 2 Thrombosis Risk Factor Assessment Level: Low Risk Assessment and Plan Assessment: 1. Acute pyelonephritis present on admission: Patient's been started on IV Rocephin. Await urine culture. 2. History of recurrent UTIs and a UTI with sepsis 3. Acute on Chronic kidney disease, stage III. Conduction improving with IV fluids. Creatinine down to 1.34. We'll continue normal saline at 50 mL an hour. Repeat labs in a.m. 4. History of COPD: No evidence of exacerbation 5. History of CVA 6. History of fibromyalgia 7. History of lupus GI prophylaxis omeprazole and DVT prophylaxis subcu heparin Time with Patient: Greater than 30 (Greater than 50% of the total time spent in counseling and coordination of care. I performed an examination of the patient and discussed their management with the physician Performance Improvement Analyst. I have reviewed the Physician Performance Improvement Analyst's notes and agree with the documented findings and plan of care)
[2017-10-03] MEDS: SODIUM CHLORIDE 0.9% 1,000 ML IV SCH (15:59)
[2017-10-03] MEDS: HEPARIN SODIUM,PORCINE 5,000 UNIT/ML 1 ML VIAL SQ SCH (21:00)
[2017-10-04] MEDS: HYDROcodone/APAP 10-325MG 1 EACH TAB PO PRN (04:31)
[2017-10-04 07:27] VITALS: BP 145/75; RESP 16; TEMP 97
[2017-10-04] MEDS: CLOPIDOGREL 75 MG TAB PO SCH (08:56)
[2017-10-04] MEDS: LIPASE 5,000/PROTEASE 17,000/AMYLASE 27,0000 PO SCH (08:56)
[2017-10-04] MEDS: HEPARIN SODIUM,PORCINE 5,000 UNIT/ML 1 ML VIAL SQ SCH (08:56)
[2017-10-04] MEDS: ASPIRIN 325 MG TAB PO SCH (08:56)
[2017-10-04] MEDS: LIDOCAINE 5% PATCH TOPICAL SCH (08:57)
[2017-10-04] MEDS: cefTRIAXone IN SWFI 1,000 MG/10 ML SYRINGE IVP SCH (08:57)
[2017-10-04] MEDS: ATORVASTATIN 80 MG TAB PO SCH ×2 (08:57→08:59)
[2017-10-04] MEDS: tiZANidine 4 MG TAB PO SCH (08:58)
[2017-10-04] MEDS: MONTELUKAST 10 MG TAB PO SCH (08:58)
[2017-10-04] MEDS ORDERED: FAMOTIDINE 20 MG TAB PO SCH (09:00)
[2017-10-04] MEDS: ALPRAZolam 1 MG TAB PO SCH (09:05)
[2017-10-04] MEDS: SODIUM CHLORIDE 0.9% 1,000 ML IV SCH (09:06)
[2017-10-04 09:11] LABS: Basophils % (A) 1 %; Eosinophils # (A) 0.2 k/uL (0-0.7); Eosinophils % (A) 3 %; HCT 31.4 % (34.0-46.0); HGB 10.4 gm/dL (11.4-16.0); Lymphocytes # (A) 2.8 k/uL (1.0-4.8); Lymphocytes % (A) 49 %; MCH 32.2 pg (25.0-35.0); MCHC 33.1 g/dL (31.0-37.0); MCV 97.2 fL (80.0-100.0); Mean Platelet Volume 8.2; Monocytes # (A) 0.3 k/uL (0-1.0); Monocytes % (A) 5 %; Neutrophils # (A) 2.3 k/uL (1.3-7.7); Neutrophils % (A) 40 %; Platelet Count 171 k/uL (150-450); RBC 3.23 m/uL (3.80-5.40); RDW 13.4 % (11.5-15.5); WBC 5.7 k/uL (3.8-10.6)
[2017-10-04 09:26] LABS: Albumin 3.6 g/dL (3.5-5.0); Calcium 8.9 mg/dL (8.4-10.2); Potassium 4.2 mmol/L (3.5-5.1); Total Bilirubin 0.3 mg/dL (0.2-1.3); Total Protein 6.7 g/dL (6.3-8.2)
[2017-10-04] MEDS: FORMOTEROL FUMARATE 20 MCG/2 ML NEBU INHALATION SCH ×2 (10:04→13:21)
[2017-10-04 10:11] VITALS: PULSE 63
--- NOTE | 2017-10-04 13:31 | P.DS ---
Providers Date of admission: 10/02/17 17:09 Expected date of discharge: 10/04/17 Attending physician: Armando Tran Primary care physician: Pilar Georeg Hospital Course: Discharge diagnosis 1. Acute pyelonephritis present on admission: Patient's been started on IV Rocephin. Urine culture growing gram-negative bacilli. Patient's symptoms have improved. We'll send her home with Ceftin 500 mg twice a day for 7 days 2. History of recurrent UTIs and a UTI with sepsis 3. Acute on Chronic kidney disease, stage III. Creatinine is coming back down to patient's baseline at 1.21. Improved with IV fluids 4. History of COPD: No evidence of exacerbation 5. History of CVA 6. History of fibromyalgia 7. History of lupus Hospital course This is a 67-year-old female with a known past medical history of UTI with sepsis, recurrent UTIs, asthma, COPD, TIA and CVAs, fibromyalgia, lupus, chronic kidney disease and previous GI bleed secondary to Motrin. She patient does admit to smoking about half a pack a day. She reports that she has multiple urinary tract infections throughout the year. She was told by her PCP Dr. George that her urinalysis in the office did show some signs of a UTI. However patient reports having fevers at home with flank pain and lower abdominal pain and was directed to come to the emergency room. She's been admitted to the hospital with an acute pyelonephritis. She's been started on IV Rocephin. Urine culture is pending. Patient does report a history of VRE in the urine. She denies any nausea or vomiting, bowel movement changes. Denies any chest pain or shortness of breath. Patient treated with IV Rocephin for her acute pyelonephritis. Symptoms have improved. Urine culture growing gram-negative bacilli. Patient is eager for discharge home. She'll be discharged home with Ceftin. Also given IV fluids for her acute kidney injury. Creatinine 1.6 on admission has gone down to 1.21. Patient is medical stable for discharge and will have her follow-up with her PCP in 1 week. I performed an examination of the patient and discussed their management with the physician [employer] Wafer Breaker. I have reviewed the Physician [employer] Wafer Breaker's notes and agree with the documented findings and plan of care Patient Condition at Discharge: Stable Plan - Discharge Summary Discharge Rx Participant: No New Discharge Prescriptions: New Cefuroxime Axetil [Ceftin] 500 mg PO BID #14 tab Continue tiZANidine [Zanaflex] 4 mg PO QID HYDROcodone/APAP 10-325MG [[place] 10-325] 1 tab PO DAILY PRN PRN Reason: Pain Lipase/Protease/Amylase [Abhi Foster] 4,200 unit PO AC-TID ALPRAZolam [Xanax] 2 mg PO QID Aspirin EC [Ecotrin] 325 mg PO DAILY Promethazine HCl 12.5 mg PO BID PRN PRN Reason: Nausea Nystatin 100,000 Unit/gm Powd [Mycostatin Powder] 1 applic TOPICAL BID PRN PRN Reason: YEAST INFECTION Hydrocortisone Oint [Hydrocortisone 2.5% Oint] 1 applic TOPICAL BID PRN PRN Reason: Rash Econazole 1% Cream [Spectazole] 1 applic TOPICAL DAILY PRN PRN Reason: YEAST INFECTION Betamethasone Dipropionate [Diprolene AF 0.05% Cream] 1 applic TOPICAL BID PRN PRN Reason: Rash Rosuvastatin Calcium [Crestor] 40 mg PO DAILY Montelukast [Singulair] 10 mg PO DAILY Clopidogrel [Plavix] 75 mg PO DAILY Formoterol Fumarate [Perforomist] 20 mcg INHALATION RT-TID Discharge Medication List HYDROcodone/APAP 10-325MG [[place] 10-325] 1 tab PO DAILY PRN 10/21/15 [History] tiZANidine [Zanaflex] 4 mg PO QID 10/21/15 [History] ALPRAZolam [Xanax] 2 mg PO QID 04/09/16 [History] Lipase/Protease/Amylase [Abhi Foster] 4,200 unit PO AC-TID 04/09/16 [History] Aspirin EC [Ecotrin] 325 mg PO DAILY 08/24/16 [History] Betamethasone Dipropionate [Diprolene AF 0.05% Cream] 1 applic TOPICAL BID PRN 10/02/17 [History] Clopidogrel [Plavix] 75 mg PO DAILY 10/02/17 [History] Econazole 1% Cream [Spectazole] 1 applic TOPICAL DAILY PRN 10/02/17 [History] Formoterol Fumarate [Perforomist] 20 mcg INHALATION RT-TID 10/02/17 [History] Hydrocortisone Oint [Hydrocortisone 2.5% Oint] 1 applic TOPICAL BID PRN [History] Montelukast [Singulair] 10 mg PO DAILY 10/02/17 [History] Nystatin 100,000 Unit/gm Powd [Mycostatin Powder] 1 applic TOPICAL BID PRN 10/02 [History] Promethazine HCl 12.5 mg PO BID PRN 10/02/17 [History] Rosuvastatin Calcium [Crestor] 40 mg PO DAILY 10/02/17 [History] Cefuroxime Axetil [Ceftin] 500 mg PO BID #14 tab 10/04/17 [Rx] Follow up Appointment(s)/Referral(s): Pilar George DO [Primary Care Provider] - 1 Week (Pt wishes to make own appointment. ) Patient Instructions/Handouts: Kidney Infection (DC) Activity/Diet/Wound Care/Special Instructions: Low fat diet. NO smoking, cessation information provided. Discharge Disposition: HOME SELF-CARE
== END 2017-10-04 14:06 | disposition home or self-care (01) | DRG 690 ==
LOC: EC 12:29 → 4MS4W 17:09
PROVIDERS: ADMIT Internal Medicine; ATTEND Internal Medicine
DX: N10 Acute pyelonephritis (principal); N17.9 Acute kidney failure, unspecified; J44.9 Chronic obstructive pulmonary disease, unspecified; B96.81 Helicobacter pylori [H. pylori] as the cause of diseases classified elsewhere; F17.210 Nicotine dependence, cigarettes, uncomplicated; F32.9 Major depressive disorder, single episode, unspecified; F41.0 Panic disorder [episodic paroxysmal anxiety]; G47.30 Sleep apnea, unspecified; I12.9 Hypertensive chronic kidney disease with stage 1 through stage 4 chronic kidney disease, or unspecified chronic kidney disease; K21.9 Gastro-esophageal reflux disease without esophagitis; K58.9 Irritable bowel syndrome, unspecified; L93.0 Discoid lupus erythematosus; M79.7 Fibromyalgia; M81.0 Age-related osteoporosis without current pathological fracture; N18.3 Chronic kidney disease, stage 3 (moderate); Z79.02 Long term (current) use of antithrombotics/antiplatelets; Z79.82 Long term (current) use of aspirin; Z79.899 Other long term (current) drug therapy; Z80.52 Family history of malignant neoplasm of bladder; Z82.49 Family history of ischemic heart disease and other diseases of the circulatory system; Z83.3 Family history of diabetes mellitus; Z86.72 Personal history of thrombophlebitis; Z86.73 Personal history of transient ischemic attack (TIA), and cerebral infarction without residual deficits; Z87.440 Personal history of urinary (tract) infections; Z90.710 Acquired absence of both cervix and uterus; Z16.12 Extended spectrum beta lactamase (ESBL) resistance
CPT/HCPCS: 36415; 80053; 81001; 83605; 85025; 87040; 87077; 87086; 87186; 94640; 96361; 96374; 99284

== ENCOUNTER → 2017-11-27 | Outpatient (CLI) | payer MEDICARE, OTHER ==
[2017-11-27 13:13] LABS: HCT 32.8 % (34.0-46.0); HGB 11.2 gm/dL (11.4-16.0); MCH 33.1 pg (25.0-35.0); MCHC 34.2 g/dL (31.0-37.0); MCV 96.8 fL (80.0-100.0); Platelet Count 218 k/uL (150-450); RBC 3.39 m/uL (3.80-5.40); RDW 14.5 % (11.5-15.5); WBC 7.6 k/uL (3.8-10.6)
[2017-11-27 13:27] LABS: Albumin 4.3 g/dL (3.5-5.0); Calcium 9.1 mg/dL (8.4-10.2); Potassium 3.9 mmol/L (3.5-5.1); Total Bilirubin 0.4 mg/dL (0.2-1.3); Total Protein 7.3 g/dL (6.3-8.2)
[2017-11-27 13:44] LABS: T4, Free (Free Thyroxine) 0.68 ng/dL (0.78-2.19)
[2017-11-27 19:11] LABS: Rheumatoid Factor 8 IU/mL (0-15)
[2017-11-27 20:52] LABS: Hemoglobin A1C 5.6 % (4.0-6.0)
== END | disposition home or self-care (01) ==
LOC: LABWHC1 12:18
PROVIDERS: ATTEND Physician Assistant
DX: L93.0 Discoid lupus erythematosus (principal); I10 Essential (primary) hypertension; E11.9 Type 2 diabetes mellitus without complications
CPT/HCPCS: 36415; 80053; 83036; 84439; 84443; 85027; 86038; 86431

== ENCOUNTER → 2018-01-01 | Outpatient (CLI) | payer MEDICARE, OTHER ==
[2018-01-01 16:11] LABS: Basophils % (A) 1 %; Eosinophils # (A) 0.2 k/uL (0-0.7); Eosinophils % (A) 2 %; HCT 31.7 % (34.0-46.0); HGB 10.5 gm/dL (11.4-16.0); Lymphocytes # (A) 3.8 k/uL (1.0-4.8); Lymphocytes % (A) 45 %; MCH 32.7 pg (25.0-35.0); MCV 99.1 fL (80.0-100.0); Monocytes # (A) 0.2 k/uL (0-1.0); Monocytes % (A) 3 %; Neutrophils # (A) 4.2 k/uL (1.3-7.7); Neutrophils % (A) 48 %; Platelet Count 257 k/uL (150-450); RDW 14.6 % (11.5-15.5); WBC 8.6 k/uL (3.8-10.6)
[2018-01-01 16:25] LABS: Albumin 3.7 g/dL (3.5-5.0); Calcium 8.6 mg/dL (8.4-10.2); Magnesium 1.4 mg/dL (1.6-2.3); Phosphorus 3.7 mg/dL (2.5-4.5); Potassium 4.2 mmol/L (3.5-5.1); Total Bilirubin 0.4 mg/dL (0.2-1.3); Total Protein 6.6 g/dL (6.3-8.2); Uric Acid 5.9 mg/dL (3.7-7.4)
[2018-01-01 17:02] LABS: Mucus,Urine Rare /hpf; RBC,Urine 10 /hpf (0-5); Squamous Epithelial Cell,Urine 7 /hpf (0-4); WBC,Urine >182 /hpf (0-5)
[2018-01-01 17:34] LABS: Appearance,Urine Turbid (Clear); Bilirubin,Urine Negative (Negative); Blood,Urine Small (Negative); Color,Urine Yellow; Glucose,Urine (UA) Negative (Negative); Ketones,Urine Negative (Negative); Leukocyte Esterase,Urine Large (Negative); Nitrite,Urine Positive (Negative); Protein,Urine 1+ (Negative); Specific Gravity,Urine 1.015 (1.001-1.035); Urobilinogen,Urine <2.0 mg/dL (<2.0)
[2018-01-02 02:27] LABS: Iron Saturation 14.39 (12.00-45.00)
[2018-01-02 03:11] LABS: Parathyroid Hormone Intact 280.9 pg/mL (14.0-72.0)
== END | disposition home or self-care (01) ==
LOC: LABWHC1 15:20
PROVIDERS: ATTEND Nurse Practitioner Family
DX: E11.9 Type 2 diabetes mellitus without complications (principal); E78.4 Other hyperlipidemia; I10 Essential (primary) hypertension; N18.3 Chronic kidney disease, stage 3 (moderate); E21.3 Hyperparathyroidism, unspecified; E55.9 Vitamin D deficiency, unspecified; D64.9 Anemia, unspecified; M10.9 Gout, unspecified; N39.0 Urinary tract infection, site not specified
CPT/HCPCS: 36415; 80053; 80061; 81001; 82043; 82570; 82728; 83540; 83550; 83735; 83970; 84100; 84550; 85025

== ENCOUNTER → 2018-03-11 | Outpatient (CLI) | payer MEDICARE, OTHER ==
[2018-03-11 13:43] LABS: Basophils % (A) 1 %; Eosinophils # (A) 0.1 k/uL (0-0.7); Eosinophils % (A) 2 %; HCT 34.9 % (34.0-46.0); HGB 11.5 gm/dL (11.4-16.0); Lymphocytes # (A) 2.2 k/uL (1.0-4.8); Lymphocytes % (A) 36 %; MCH 32.4 pg (25.0-35.0); MCHC 32.8 g/dL (31.0-37.0); MCV 98.8 fL (80.0-100.0); Mean Platelet Volume 6.7; Monocytes # (A) 0.2 k/uL (0-1.0); Monocytes % (A) 4 %; Neutrophils # (A) 3.5 k/uL (1.3-7.7); Neutrophils % (A) 56 %; Platelet Count 208 k/uL (150-450); RBC 3.54 m/uL (3.80-5.40); RDW 14.2 % (11.5-15.5); WBC 6.2 k/uL (3.8-10.6)
== END | disposition home or self-care (01) ==
LOC: LABWHC1 12:37
PROVIDERS: ATTEND Internal Medicine Nephrology
DX: N18.3 Chronic kidney disease, stage 3 (moderate) (principal); M32.10 Systemic lupus erythematosus, organ or system involvement unspecified
CPT/HCPCS: 36415; 82565; 82955; 84450; 84460; 84520; 85025

== ENCOUNTER → 2018-03-26 | Outpatient (CLI) | payer MEDICARE, OTHER ==
[2018-03-26 15:07] LABS: Basophils # (A) 0.1 k/uL (0-0.2); Basophils % (A) 1 %; Eosinophils # (A) 0.3 k/uL (0-0.7); Eosinophils % (A) 2 %; HCT 39.7 % (34.0-46.0); HGB 12.2 gm/dL (11.4-16.0); Hypochromasia Slight; Lymphocytes # (A) 4.1 k/uL (1.0-4.8); Lymphocytes % (A) 38 %; MCH 31.9 pg (25.0-35.0); MCHC 30.8 g/dL (31.0-37.0); MCV 103.6 fL (80.0-100.0); Macrocytosis Slight; Mean Platelet Volume 6.9; Monocytes # (A) 0.4 k/uL (0-1.0); Monocytes % (A) 4 %; Neutrophils # (A) 5.8 k/uL (1.3-7.7); Neutrophils % (A) 54 %; Platelet Count 272 k/uL (150-450); RBC 3.83 m/uL (3.80-5.40); WBC 10.7 k/uL (3.8-10.6)
== END | disposition home or self-care (01) ==
LOC: LABWHC1 14:43
PROVIDERS: ATTEND Dermatology
DX: M32.10 Systemic lupus erythematosus, organ or system involvement unspecified (principal)
CPT/HCPCS: 36415; 82565; 82955; 84450; 84460; 84520; 85025

== ENCOUNTER 2018-06-15 12:23 | Emergency (ER) | payer MEDICARE, OTHER ==
[2018-06-15 12:35] VITALS: TEMP 97.6
[2018-06-15] MEDS ORDERED: MORPHINE SULFATE 2 MG/ML SYRINGE IM STA ×2 (12:45→14:36)
--- NOTE | 2018-06-15 12:58 | ED ---
General Adult HPI - General Chief complaint: Extremity Injury, Upper Stated complaint: Fall, Left Shoulder Injury/Head Injury Source: patient, RN notes reviewed, old records reviewed Mode of arrival: wheelchair Limitations: no limitations - History of Present Illness Initial comments: 67-year-old female patient presents to ED after sustaining fall in jew approximately 1.5 hours ago. Patient states that she was walking up a step when she tripped, fell forward, hitting her head on a pole, and injured her shoulder. Patient is on Plavix for stents. Patient primary complaint is pain in left shoulder. Patient states she has mild frontal lobe headache. Patient denies neck pain. Patient denies changes in vision. Patient denies new onset weakness paresthesias in extremities. Patient not using left arm secondary to pain in left shoulder. Patient denies chest pain, abdominal pain, nausea vomiting diarrhea, change in vision, shortness of breath. Systemic: Pt denies fatigue, myalgia, fever/chills, rash. Pt denies weakness, night sweats, weight loss. Neuro: Pt denies visual disturbances, syncope or pre-syncope. HEENT: Pt denies ocular discharge or irritation, otalgia, rhinorrhea, pharyngitis or notable lymphadenopathy. Cardiopulmonary: Pt denies chest pain, SOB, heart palpitations, dyspnea on exertion. Abdominal/GI: Pt denies abdominal pain, n/v/d. : Pt denies dysuria, burning w/ urination, frequency/urgency. Denies new onset urinary or bowel incontinence. MSK: Pt denies myalgia. - Related Data Home Medications Medication Instructions Recorded Confirmed HYDROcodone/APAP 10-325MG [[place] 1 tab PO DAILY PRN 10/21/15 10/02/17 10-325] tiZANidine [Zanaflex] 4 mg PO QID 10/21/15 10/02/17 ALPRAZolam [Xanax] 2 mg PO QID 04/09/16 10/02/17 Lipase/Protease/Amylase [Pancreaze 4,200 unit PO AC-TID 04/09/16 10/02/17 ] Aspirin EC [Ecotrin] 325 mg PO DAILY 08/24/16 10/02/17 Betamethasone Dipropionate 1 applic TOPICAL BID PRN 10/02/17 10/02/17 [Diprolene AF 0.05% Cream] Clopidogrel [Plavix] 75 mg PO DAILY 10/02/17 10/02/17 Econazole 1% Cream [Spectazole] 1 applic TOPICAL DAILY PRN 10/02/17 10/02/17 Formoterol Fumarate [Perforomist] 20 mcg INHALATION RT-TID 10/02/17 10/02/17 Hydrocortisone Oint 1 applic TOPICAL BID PRN 10/02/17 10/02/17 [Hydrocortisone 2.5% Oint] Montelukast [Singulair] 10 mg PO DAILY 10/02/17 10/02/17 Nystatin 100,000 Unit/gm Powd 1 applic TOPICAL BID PRN 10/02/17 10/02/17 [Mycostatin Powder] Promethazine HCl 12.5 mg PO BID PRN 10/02/17 10/02/17 Rosuvastatin Calcium [Crestor] 40 mg PO DAILY 10/02/17 10/02/17 Previous Rx's Medication Instructions Recorded Cefuroxime Axetil [Ceftin] 500 mg PO BID #14 tab 10/04/17 Allergies Allergy/AdvReac Type Severity Reaction Status Date / Time amitriptyline [From Elavil] Allergy Rash/Hives Verified 06/15/18 12:35 cortisone [Cortisone] Allergy Swelling Verified 06/15/18 12:35 NSAIDS (Non-Steroidal Allergy Nausea & Verified 06/15/18 12:35 Anti-Inflamma Vomiting & Diarrhea Sulfa (Sulfonamide Allergy Rash/Hives Verified 06/15/18 12:35 Antibiotics) tetracaine Allergy Unknown Verified 06/15/18 12:35 tetracaine HCl Allergy Unknown Verified 06/15/18 12:35 [From Pontocaine] aspirin AdvReac Mild Unknown Verified 06/15/18 12:35 adhesive AdvReac blisters Verified 06/15/18 12:35 merocaine Allergy Unknown Uncoded 06/15/18 12:35 contrast/dye AdvReac Unknown Uncoded 06/15/18 12:35 Review of Systems ROS Statement: Those systems with pertinent positive or pertinent negative responses have been documented in the HPI. ROS Other: All systems not noted in ROS Statement are negative. Past Medical History Past Medical History: Asthma, Chest Pain / Angina, COPD, CVA/TIA, Fibromyalgia, GERD/Reflux, GI Bleed, Musculoskeletal Disorder, Neurologic Disorder, Osteoarthritis (OA), Renal Disease, Skin Disorder Additional Past Medical History / Comment(s): HX OF TIA'S -RIGHT SIDED WEAKNESS , IBS, NEUROPATHY IN HANDS & FEET., HERNIATED DISC, OSTEOPOROSIS, BACK PAIN, HIATAL HERNIA, , DISCOID LUPUS, HX OF STOMACH BLEED FROM MOTRIN, STATES 60 % KIDNEY FUNCTION, HX OF MULTIPLE UTI'S., BELLS PALSY (1999), OCCASIONAL FALLS- BROKE HER RIGHT FOOT 5 WEEKS AGO, USES WALKER- HAS ORDERED A MOTOR W/C., HAVING DIFFICULTY SWALLOWING. History of Any Multi-Drug Resistant Organisms: ESBL Date of last positivie culture/infection: 10/02/17 MDRO Source:: Urine-ESBL E.coli Past Surgical History: Appendectomy, Cholecystectomy, Heart Catheterization With Stent, Hernia Repair, Hysterectomy, Orthopedic Surgery Additional Past Surgical History / Comment(s): HEART CATHS WITH STENTS(1999) & ( DECEMBER 2014), UMBILICAL HERNIA, HAMMER TOES, BUNIONS , SURGERY FOR PHLEBITIS IN HER LEG. Past Anesthesia/Blood Transfusion Reactions: No Reported Reaction Date of Last Stent Placement:: 2014 Past Psychological History: Anxiety, Depression, Panic Disorder Smoking Status: Current every day smoker Past Alcohol Use History: None Reported Past Drug Use History: None Reported - Past Family History Sister(s) Family Medical History: Cancer, CVA/TIA Mother Family Medical History: Coronary Artery Disease (CAD) Father Family Medical History: Cancer, CVA/TIA, Diabetes Mellitus, Hyperlipidemia, Hypertension Additional Family Medical History / Comment(s): ETOH, BLADDER CANCER, BELLS PALSY General Exam - General Exam Comments Initial Comments: Constitutional: NAD, AOX3, Pt has pleasant affect. HEENT: NC/AT, trachea midline, neck supple, no lymphadenopathy. Posterior pharynx non erythematous, without exudates. External ears appear normal, without discharge. Mucous membranes moist. Eyes PERRLA, EOM intact. There is no scleral icterus. No pallor noted. Cardiopulmonary: RRR, no murmurs, rubs or gallops, no JVD noted. Lungs CTAB in anterior and posterior dominguez. No peripheral edema. Abdominal exam: Abdomen soft and non-distended. Abdomen non-tender to palpation in all 4 quadrants. Bowel sounds active in LLQ. No hepatosplenomegaly. Neuro: CN II-XII intact. No focal deficit, no facial droop, no difficulty speaking, C3,4,5 sensation intact bilaterally. C5-T1 intact bilaterally. MSK: No cervical spinal tenderness. Radial pulse +2 bilaterally. Capillary refill less than 2 seconds bilaterally. Patient refuses to actively range left arm due to pain shoulder. Pt sensation intact in arms bilaterally. Limitations: no limitations Course Vital Signs 06/15/18 06/15/18 12:32 13:56 Temperature 97.6 F Pulse Rate 90 81 Respiratory 20 18 Rate Blood Pressure 132/65 144/76 O2 Sat by Pulse 100 98 Oximetry Medical Decision Making - Medical Decision Making 67-year-old female patient presents to ED after mechanical fall. Patient had trauma to head and left shoulder. Patient primary complaint is left shoulder pain. Patient denies changes in vision, loss of consciousness, on plavix. Physical exam revealed a normal neurological exam. No cervical spinal tenderness. Pain in left arm. Full sensation C3,4,5, C5-T1 bilaterally. Physical exam was otherwise benign. Imaging investigations revealed a possible , thought to be stable C1 fracture, and a minimally displaced, minimally angulated fracture of the neck of the left humerus. Patient placed in c- collar. Patient placed in a posterior mold splint on L arm prior to transfer. Patient to be transferred to Dr. Dover at [facility]. Case discussed in depth with Dr. Root. Disposition Clinical Impression: Humerus fracture, Cervical spine fracture Disposition: OTHER INSTITUTION NOT DEFINED Condition: Good Is patient prescribed a controlled substance at d/c from ED?: No Referrals: Pilar George DO [Primary Care Provider] - 1-2 days - Out of Hospital Transfer - Req. Specs Out of Hospital Transfer - Requested Specifics: Other Emergency Center
--- NOTE | 2018-06-15 13:43 | CT ---
EXAMINATION TYPE: CT brain anita george DATE OF EXAM: 06/15/2018 COMPARISON: Previous CT scan of the brain dated 04/09/2016 HISTORY: Fall CT DLP: 780.3 mGycm Automated exposure control for dose reduction was used. TECHNIQUE: CT scan of the head and cervical spine are performed without contrast. FINDINGS: BRAIN: There are generalized changes of sulcal prominence and ventriculomegaly, compatible with atrop hic change. There is diffuse periventricular white matter lucency, compatible with chronic white osiel er ischemic change. There is no acute focal lesion, mass effect or midline shift identified. I do not see evidence of intracranial blood. There is minimal mucoperiosteal thickening involving the left maxillary sinus. Paranasal sinuses and mastoids are otherwise clear. The bony calvarium is intact. IMPRESSION: 1. NO ACUTE INTRACRANIAL ABNORMALITY. 2. DEGENERATIVE CHANGE. 3. MINIMAL, CHRONIC LEFT MAXILLARY SINUS MUCOSAL DISEASE. CERVICAL SPINE: There are severe emphysematous changes within the lungs. Prevertebral soft tissues appear normal. No definite protrusion is seen. There is a break in the left arch of C1. This appears slightly irregular and does not appear to be si mply incomplete arch. I could not exclude a fracture in this location. There is however no adjacent s oft tissue swelling. No other fractures are seen. Vertebral body height and alignment are maintained. Atlantoaxial relationships are normal. There is m ild degenerative disc disease present at C5-6. There is mild uncovertebral joint disease at this leve l as well. IMPRESSION: 1. I CANNOT EXCLUDE A FRACTURE OF THE LEFT ARCH OF C1. 2. MILD DEGENERATIVE CHANGE. 3. SEVERE DEGENERATIVE DISC DISEASE. CODE A: INITIAL ENCOUNTER FOR CLOSED FRACTURE.
--- NOTE | 2018-06-15 13:48 | XR ---
EXAMINATION TYPE: XR shoulder complete LT , 3 VIEWS DATE OF EXAM ORDERED: 06/15/2018 HISTORY: Pain. COMPARISON: None. FINDINGS: There is a mildly displaced fracture of the neck of the left humerus. There is mild angula tion and minimal foreshortening. IMPRESSION: MILDLY DISPLACED, MINIMALLY ANGULATED AND MILDLY FORESHORTENED FRACTURE OF THE NECK OF TH E LEFT HUMERUS. CODE A: INITIAL ENCOUNTER FOR CLOSED FRACTURE.
--- NOTE | 2018-06-15 13:50 | XR ---
EXAMINATION TYPE: XR chest 2V DATE OF EXAM: 06/15/2018 HISTORY: Pain. REFERENCE: Previous study dated 10/21/2015. FINDINGS: The heart is mildly enlarged. The lungs are clear. Pleural spaces are clear. IMPRESSION: MILD CARDIOMEGALY.
[2018-06-15 13:57] VITALS: BP 144/76; PULSE 81; RESP 18
== END 2018-06-15 15:37 | disposition other institution (70) ==
LOC: EC 12:23
DX: S12.000A Unspecified displaced fracture of first cervical vertebra, initial encounter for closed fracture (principal); S42.292A Other displaced fracture of upper end of left humerus, initial encounter for closed fracture; I20.9 Angina pectoris, unspecified; J44.9 Chronic obstructive pulmonary disease, unspecified; F41.9 Anxiety disorder, unspecified; F32.9 Major depressive disorder, single episode, unspecified; L93.0 Discoid lupus erythematosus; F17.200 Nicotine dependence, unspecified, uncomplicated; Z86.73 Personal history of transient ischemic attack (TIA), and cerebral infarction without residual deficits; Z87.19 Personal history of other diseases of the digestive system; Z90.49 Acquired absence of other specified parts of digestive tract; Z90.710 Acquired absence of both cervix and uterus; Z95.5 Presence of coronary angioplasty implant and graft; Z98.890 Other specified postprocedural states; Z79.02 Long term (current) use of antithrombotics/antiplatelets; Z79.51 Long term (current) use of inhaled steroids; Z79.899 Other long term (current) drug therapy; Z88.2 Allergy status to sulfonamides; Z88.4 Allergy status to anesthetic agent; Z88.6 Allergy status to analgesic agent; Z88.8 Allergy status to other drugs, medicaments and biological substances; Z91.041 Radiographic dye allergy status; Z91.048 Other nonmedicinal substance allergy status; W10.9XXA Fall (on) (from) unspecified stairs and steps, initial encounter; Y92.22 Religious institution as the place of occurrence of the external cause; Y93.01 Activity, walking, marching and hiking
CPT/HCPCS: 73030; 71046; 72125; 70450; 99285; 96372 ×2; J2270

== ENCOUNTER → 2018-09-24 | Outpatient (CLI) | payer MEDICARE, OTHER ==
[2018-09-24 12:01] LABS: Basophils # (A) 0.1 k/uL (0-0.2); Basophils % (A) 1 %; Eosinophils # (A) 0.2 k/uL (0-0.7); Eosinophils % (A) 2 %; HCT 40.8 % (34.0-46.0); HGB 12.7 gm/dL (11.4-16.0); Hypochromasia Slight; Lymphocytes # (A) 3.1 k/uL (1.0-4.8); Lymphocytes % (A) 42 %; MCH 31.9 pg (25.0-35.0); MCHC 31.2 g/dL (31.0-37.0); MCV 102.2 fL (80.0-100.0); Macrocytosis Slight; Mean Platelet Volume 6.5; Monocytes # (A) 0.3 k/uL (0-1.0); Monocytes % (A) 4 %; Neutrophils # (A) 3.7 k/uL (1.3-7.7); Neutrophils % (A) 50 %; Platelet Count 227 k/uL (150-450); RBC 3.99 m/uL (3.80-5.40); RDW 14.9 % (11.5-15.5); WBC 7.3 k/uL (3.8-10.6)
[2018-09-24 14:10] LABS: Amorphous Sediment,Urine Occasional /hpf; Appearance,Urine Cloudy (Clear); Bacteria,Urine Occasional /hpf; Bilirubin,Urine Negative (Negative); Blood,Urine Negative (Negative); Color,Urine Light Yellow; Glucose,Urine (UA) Negative (Negative); Ketones,Urine Negative (Negative); Leukocyte Esterase,Urine Large (Negative); Mucus,Urine Rare /hpf; Nitrite,Urine Negative (Negative); PH, Urine 5.5 (5.0-8.0); Protein,Urine Trace (Negative); RBC,Urine 1 /hpf (0-5); Specific Gravity,Urine 1.013 (1.001-1.035); Squamous Epithelial Cell,Urine 16 /hpf (0-4); Urobilinogen,Urine <2.0 mg/dL (<2.0); WBC,Urine 152 /hpf (0-5)
[2018-09-24 16:46] LABS: Parathyroid Hormone Intact 113.4 pg/mL (14.0-72.0)
[2018-09-24 16:57] LABS: Iron Saturation 26.87 (12.00-45.00)
[2018-09-24 16:59] LABS: Albumin 4.2 g/dL (3.80-4.90); Albumin/Globulin Ratio 1.35 (1.60-3.17); Anion Gap 8.2 mmol/L (4.00-12.00); Calcium 9.1 mg/dL (8.7-10.3); Carbon Dioxide 23.8 mmol/L (21.6-31.8); Globulin 3.1 g/dL (1.6-3.3); LDL Cholesterol,Calculated 144.4 mg/dL (0.0-131.0); Magnesium 1.8 mg/dL (1.5-2.4); Phosphorus 3.2 mg/dL (2.4-5.1); Potassium 4.1 mmol/L (3.5-5.5); Total Bilirubin 0.3 mg/dL (0.3-1.2); Total Protein 7.3 g/dL (6.2-8.2); Uric Acid 4.2 mg/dL (2.9-7.7); VLDL Calculation 71.6 mg/dL (5.00-40.00)
== END | disposition home or self-care (01) ==
LOC: LABWHC1 09-22 12:44
PROVIDERS: ATTEND Physician Assistant
DX: E78.5 Hyperlipidemia, unspecified (principal); E78.1 Pure hyperglyceridemia; N18.3 Chronic kidney disease, stage 3 (moderate); D63.1 Anemia in chronic kidney disease; N25.81 Secondary hyperparathyroidism of renal origin; E55.9 Vitamin D deficiency, unspecified; M10.9 Gout, unspecified; N39.0 Urinary tract infection, site not specified
CPT/HCPCS: 36415; 80053; 80061; 81001; 82728; 83540; 83550; 83735; 83970; 84100; 84443; 84550; 85025

== ENCOUNTER → 2018-12-08 | Outpatient (CLI) | payer MEDICARE, OTHER ==
--- NOTE | 2018-12-08 15:06 | US ---
EXAMINATION TYPE: US kidneys/renal and bladder DATE OF EXAM: 12/08/2018 COMPARISON: NONE CLINICAL HISTORY: 68-year-old female N18.3 Chronic Kidney Disease Stage 3. CKD, multiple cysts, h/o r ight renal artery aneurysm TECHNIQUE: Multiple sonographic images of the kidneys and bladder are obtained. FINDINGS: EXAM MEASUREMENTS: Right Kidney: 10.3 x 3.9 x 5.0 cm Left Kidney: 10.4 x 5.1 x 5.1 cm Right Kidney: multiple cysts seen, largest inferior pole measures 5.6 cm. There is a shadowing echoge shawanda focus seen medially measuring 1.0cm Left Kidney: multiple cysts seen, largest at the midpole measures 3.0cm Bladder: wnl Bilateral Jets seen: only the left IMPRESSION: 1. Multiple bilateral renal cysts, largest measuring 5.6 cm on the right and 3.0 cm on the left. 2. Nonobstructive 1 cm right renal calculus. 3. No hydronephrosis. 4. 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
== END | disposition home or self-care (01) ==
LOC: RADUSWWP 12:17
PROVIDERS: ATTEND Nurse Practitioner Family
DX: N28.1 Cyst of kidney, acquired (principal); N20.0 Calculus of kidney; N18.3 Chronic kidney disease, stage 3 (moderate)
CPT/HCPCS: 76770

== ENCOUNTER → 2019-03-16 | Outpatient (CLI) | payer MEDICARE, OTHER ==
[2019-03-16 13:31] LABS: Basophils % (A) 1 %; Eosinophils # (A) 0.1 k/uL (0-0.7); Eosinophils % (A) 2 %; HCT 38.6 % (34.0-46.0); HGB 12.3 gm/dL (11.4-16.0); Hypochromasia Slight; Lymphocytes # (A) 1.9 k/uL (1.0-4.8); Lymphocytes % (A) 33 %; MCH 32.5 pg (25.0-35.0); MCV 101.6 fL (80.0-100.0); Macrocytosis Slight; Monocytes # (A) 0.2 k/uL (0-1.0); Monocytes % (A) 3 %; Neutrophils # (A) 3.5 k/uL (1.3-7.7); Neutrophils % (A) 60 %; Platelet Count 215 k/uL (150-450); RDW 14.5 % (11.5-15.5); WBC 5.8 k/uL (3.8-10.6)
[2019-03-16 13:36] LABS: Appearance,Urine Cloudy (Clear); Bacteria,Urine Occasional /hpf; Bilirubin,Urine Negative (Negative); Blood,Urine Negative (Negative); Color,Urine Light Yellow; Glucose,Urine (UA) Negative (Negative); Ketones,Urine Negative (Negative); Leukocyte Esterase,Urine Large (Negative); Mucus,Urine Rare /hpf; Nitrite,Urine Negative (Negative); PH, Urine 5.5 (5.0-8.0); Protein,Urine Trace (Negative); RBC,Urine 8 /hpf (0-5); Specific Gravity,Urine 1.006 (1.001-1.035); Squamous Epithelial Cell,Urine 20 /hpf (0-4); Urobilinogen,Urine <2.0 mg/dL (<2.0); WBC,Urine 19 /hpf (0-5)
[2019-03-16 18:49] LABS: Iron Saturation 20.55 (12.00-45.00)
[2019-03-16 18:58] LABS: Ferritin 206.1 ng/mL (10.0-291.0)
[2019-03-16 19:12] LABS: African American GFR (CKD) 49.2 (60.0-200.0); Anion Gap 7.1 mmol/L (4.00-12.00); BUN/Creat Ratio 13.08 Ratio (12.00-20.00); Carbon Dioxide 22.9 mmol/L (21.6-31.8); Magnesium 1.6 mg/dL (1.5-2.4); Non-African American GFR(CKD) 42.4 (60.0-200.0); Phosphorus 2.1 mg/dL (2.4-5.1); Potassium 3.5 mmol/L (3.5-5.5); Uric Acid 5.5 mg/dL (2.9-7.7)
== END | disposition home or self-care (01) ==
LOC: LABWHC1 12:39
PROVIDERS: ATTEND Nurse Practitioner Family
DX: N18.3 Chronic kidney disease, stage 3 (moderate) (principal); D63.1 Anemia in chronic kidney disease; E55.9 Vitamin D deficiency, unspecified; E21.3 Hyperparathyroidism, unspecified
CPT/HCPCS: 36415; 80048; 81001; 82728; 83540; 83550; 83735; 83970; 84100; 84550; 85025

== ENCOUNTER → 2019-03-24 | Outpatient (CLI) | payer MEDICARE, OTHER ==
--- NOTE | 2019-03-26 08:49 | MM ---
Reason for exam: screening (asymptomatic). Last mammogram was performed 3 years ago. History: Patient is postmenopausal. Family history of breast cancer in maternal grandmother. Physical Findings: A clinical breast exam by your physician is recommended on an annual basis and results should be correlated with mammographic findings. MG Screening Mammo w CAD Bilateral CC and MLO view(s) were taken. Prior study comparison: March 20, 2016, bilateral MG screening mammo w CAD. November 16, 2013, CAD bilateral diagnostic mammogram. There are scattered fibroglandular densities. There is chronic nodularity bilaterally. Focal asymmetry x 2 left breast. This finding is changed when compared with previous exams. ASSESSMENT: Incomplete: need additional imaging evaluation, BI-RAD 0 RECOMMENDATION: Special view mammogram of the left breast. If lesion persists on supplemental views, image directed ultrasound is recommended. [facility] will attempt to contact patient to return for supplemental views and ultrasound if indicated.
== END | disposition home or self-care (01) ==
LOC: RADMAMWWP 14:35
PROVIDERS: ATTEND Family Medicine
DX: Z12.31 Encounter for screening mammogram for malignant neoplasm of breast (principal); Z80.3 Family history of malignant neoplasm of breast
CPT/HCPCS: 77067

== ENCOUNTER → 2019-04-07 | Outpatient (CLI) | payer MEDICARE, OTHER ==
--- NOTE | 2019-04-07 11:40 | MM ---
Reason for exam: additional evaluation requested from abnormal screening. Last mammogram was performed less than 1 month ago. History: Patient is postmenopausal. Family history of breast cancer in maternal grandmother and breast cancer in sister at age 65. Physical Findings: Nurse did not find any significant physical abnormalities on exam. MG Work Up Mamm w CAD LT Spot compression CC, spot compression MLO, MLO, CC, XCCL, and ML view(s) were taken of the left breast. Prior study comparison: March 24, 2019, bilateral MG screening mammo w CAD. March 20, 2016, bilateral MG screening mammo w CAD. The breast tissue is heterogeneously dense. This may lower the sensitivity of mammography. There are persistent masses both measuring 5mm on the left in the lower outer quadrant at anterior depth and upper outer quadrant at posterior depth. Ultrasound will be performed. These results were verbally communicated with the patient and result sheet given to the patient on 04/07/19. ASSESSMENT: Incomplete: need additional imaging evaluation, BI-RAD 0 RECOMMENDATION: Ultrasound of the left breast.
--- NOTE | 2019-04-07 11:42 | USB ---
Reason for exam: additional evaluation requested from abnormal screening. History: Patient is postmenopausal. Family history of breast cancer in maternal grandmother and breast cancer in sister at age 65. US Breast Workup Limited LT Left limited breast ultrasound including focal area of concern, retroareolar and axilla demonstrates a 0.4 x 0.4 x 0.3cm oval, cystic lesion at 12 o'clock corresponds with mammogram, mammogram similar to priors, a 0.5 x 0.3 x 0.2cm oval, cystic lesion at 3 o'clock and a 0.6 x 0.6 x 0.4cm oval, complicated, cystic cluster at 4 o'clock, corresponds with mammographic findings. These results were verbally communicated with the patient and result sheet given to the patient on 04/07/19. ASSESSMENT: Benign, BI-RAD 2 RECOMMENDATION: Return to routine screening mammogram schedule for both breasts.
== END | disposition home or self-care (01) ==
LOC: RADMAMWWP 08:54
PROVIDERS: ATTEND Family Medicine
DX: R92.8 Other abnormal and inconclusive findings on diagnostic imaging of breast (principal)
CPT/HCPCS: 77065

== ENCOUNTER → 2019-04-16 | Outpatient (CLI) | payer MEDICARE, OTHER ==
[2019-04-16 19:03] LABS: African American GFR (CKD) 44.9 (60.0-200.0); Anion Gap 11.9 mmol/L (4.00-12.00); BUN/Creat Ratio 15.71 Ratio (12.00-20.00); Calcium 9.5 mg/dL (8.7-10.3); Carbon Dioxide 22.1 mmol/L (21.6-31.8)
== END | disposition home or self-care (01) ==
LOC: LABWHC1 13:01
PROVIDERS: ATTEND Internal Medicine Nephrology
DX: N18.3 Chronic kidney disease, stage 3 (moderate) (principal)
CPT/HCPCS: 36415; 80048

== ENCOUNTER → 2019-05-12 | Outpatient (CLI) | payer MEDICARE, OTHER ==
[2019-05-12 16:24] LABS: Basophils # (A) 0.1 k/uL (0-0.2); Basophils % (A) 1 %; Eosinophils # (A) 0.2 k/uL (0-0.7); Eosinophils % (A) 3 %; HCT 37.7 % (34.0-46.0); HGB 11.7 gm/dL (11.4-16.0); Hypochromasia Slight; Lymphocytes # (A) 2.5 k/uL (1.0-4.8); Lymphocytes % (A) 39 %; MCH 32.7 pg (25.0-35.0); MCV 105.6 fL (80.0-100.0); Macrocytosis Moderate; Mean Platelet Volume 6.6; Monocytes # (A) 0.3 k/uL (0-1.0); Monocytes % (A) 4 %; Neutrophils # (A) 3.2 k/uL (1.3-7.7); Neutrophils % (A) 50 %; Platelet Count 219 k/uL (150-450); RBC 3.57 m/uL (3.80-5.40); WBC 6.3 k/uL (3.8-10.6)
[2019-05-13 07:51] LABS: African American GFR (CKD) 49.2 (60.0-200.0); Albumin 4.3 g/dL (3.80-4.90); Albumin/Globulin Ratio 1.72 (1.60-3.17); BUN/Creat Ratio 11.54 Ratio (12.00-20.00); Calcium 9.2 mg/dL (8.7-10.3); Globulin 2.5 g/dL (1.6-3.3); Potassium 4.6 mmol/L (3.5-5.5); Total Bilirubin 0.2 mg/dL (0.2-1.2); Total Protein 6.8 g/dL (6.2-8.2)
== END ==
LOC: LABWHC1 14:41
PROVIDERS: ATTEND Nurse Practitioner
DX: L93.0 Discoid lupus erythematosus (principal)
CPT/HCPCS: 36415; 80053; 85025

== ENCOUNTER → 2019-06-22 | Outpatient (CLI) | payer MEDICARE, OTHER ==
[2019-06-22 14:26] LABS: Basophils # (A) 0.1 k/uL (0-0.2); Basophils % (A) 2 %; Eosinophils # (A) 0.1 k/uL (0-0.7); Eosinophils % (A) 1 %; HCT 38.3 % (34.0-46.0); HGB 12.4 gm/dL (11.4-16.0); Lymphocytes # (A) 1.8 k/uL (1.0-4.8); Lymphocytes % (A) 27 %; MCH 33.5 pg (25.0-35.0); MCHC 32.5 g/dL (31.0-37.0); MCV 103.3 fL (80.0-100.0); Macrocytosis Slight; Mean Platelet Volume 6.6; Monocytes # (A) 0.2 k/uL (0-1.0); Monocytes % (A) 4 %; Neutrophils # (A) 4.2 k/uL (1.3-7.7); Neutrophils % (A) 64 %; Platelet Count 229 k/uL (150-450); RBC 3.71 m/uL (3.80-5.40); RDW 13.3 % (11.5-15.5); WBC 6.5 k/uL (3.8-10.6)
[2019-06-22 14:39] LABS: Appearance,Urine Cloudy (Clear); Bacteria,Urine Occasional /hpf; Bilirubin,Urine Negative (Negative); Blood,Urine Trace (Negative); Color,Urine Yellow; Glucose,Urine (UA) Negative (Negative); Ketones,Urine Negative (Negative); Leukocyte Esterase,Urine Large (Negative); Mucus,Urine Rare /hpf; Nitrite,Urine Positive (Negative); PH, Urine 5.5 (5.0-8.0); Protein,Urine 1+ (Negative); RBC,Urine 9 /hpf (0-5); Squamous Epithelial Cell,Urine 4 /hpf (0-4); Urobilinogen,Urine <2.0 mg/dL (<2.0); WBC,Urine >182 /hpf (0-5)
[2019-06-22 19:30] LABS: % Iron Saturation 18.36 (12.00-45.00); African American GFR (CKD) 53.8 (60.0-200.0); Albumin 4.6 g/dL (3.80-4.90); Albumin/Globulin Ratio 1.7 (1.60-3.17); Anion Gap 12.4 mmol/L (4.00-12.00); BUN/Creat Ratio 15.83 Ratio (12.00-20.00); Calcium 9.4 mg/dL (8.7-10.3); Carbon Dioxide 21.6 mmol/L (21.6-31.8); Globulin 2.7 g/dL (1.6-3.3); Magnesium 1.7 mg/dL (1.5-2.4); Non-African American GFR(CKD) 46.4 (60.0-200.0); Phosphorus 2.9 mg/dL (2.4-5.1); Potassium 3.7 mmol/L (3.5-5.5); Total Bilirubin 0.2 mg/dL (0.3-1.2); Total Protein 7.3 g/dL (6.2-8.2); Uric Acid 4.3 mg/dL (2.9-7.7)
[2019-06-22 19:42] LABS: Ferritin 200.1 ng/mL (10.0-291.0)
[2019-06-22 21:02] LABS: Creatinine,Urine Random 111.5 mg/dL
[2019-06-22 21:34] LABS: Total Protein,Urine Random 64.9 mg/dL (0.0-13.5)
== END | disposition home or self-care (01) ==
LOC: LABWHC1 12:42
PROVIDERS: ATTEND Dermatology
DX: N18.3 Chronic kidney disease, stage 3 (moderate) (principal); D63.1 Anemia in chronic kidney disease; N39.0 Urinary tract infection, site not specified; E21.3 Hyperparathyroidism, unspecified; R80.9 Proteinuria, unspecified; M32.10 Systemic lupus erythematosus, organ or system involvement unspecified; M10.9 Gout, unspecified
CPT/HCPCS: 36415; 80053; 81001; 82306; 82570; 82728; 83540; 83550; 83735; 83970; 84100; 84156; 84550; 85025; 87077; 87086; 87186

== ENCOUNTER → 2019-08-07 | Outpatient (CLI) | payer MEDICARE, OTHER ==
[2019-08-07 11:55] LABS: Basophils # (A) 0.1 k/uL (0-0.2); Basophils % (A) 2 %; Eosinophils # (A) 0.1 k/uL (0-0.7); Eosinophils % (A) 2 %; HCT 40.7 % (34.0-46.0); HGB 12.8 gm/dL (11.4-16.0); Hypochromasia Marked; Lymphocytes # (A) 2.8 k/uL (1.0-4.8); Lymphocytes % (A) 46 %; MCH 33.1 pg (25.0-35.0); MCHC 31.5 g/dL (31.0-37.0); Macrocytosis Moderate; Mean Platelet Volume 8.9; Monocytes # (A) 0.1 k/uL (0-1.0); Monocytes % (A) 2 %; Neutrophils # (A) 2.9 k/uL (1.3-7.7); Neutrophils % (A) 47 %; Platelet Count 262 k/uL (150-450); RBC 3.87 m/uL (3.80-5.40); RDW 14.6 % (11.5-15.5); WBC 6.2 k/uL (3.8-10.6)
[2019-08-07 12:01] LABS: Appearance,Urine Cloudy (Clear); Bacteria,Urine Few /hpf; Bilirubin,Urine Negative (Negative); Blood,Urine Negative (Negative); Color,Urine Light Yellow; Glucose,Urine (UA) Negative (Negative); Ketones,Urine Negative (Negative); Leukocyte Esterase,Urine Large (Negative); Mucus,Urine Occasional /hpf; Nitrite,Urine Negative (Negative); PH, Urine 5.5 (5.0-8.0); Protein,Urine Trace (Negative); RBC,Urine 11 /hpf (0-5); Specific Gravity,Urine 1.013 (1.001-1.035); Squamous Epithelial Cell,Urine 27 /hpf (0-4); Urobilinogen,Urine <2.0 mg/dL (<2.0); WBC,Urine 70 /hpf (0-5)
[2019-08-07 18:28] LABS: Ferritin 259.7 ng/mL (10.0-291.0)
[2019-08-07 18:31] LABS: % Iron Saturation 22.74 (12.00-45.00); African American GFR (CKD) 44.6 (60.0-200.0); Anion Gap 13.4 mmol/L (4.00-12.00); BUN/Creat Ratio 13.57 Ratio (12.00-20.00); Calcium 9.6 mg/dL (8.7-10.3); Carbon Dioxide 18.6 mmol/L (21.6-31.8); Magnesium 1.7 mg/dL (1.5-2.4); Non-African American GFR(CKD) 38.5 (60.0-200.0); Phosphorus 3.9 mg/dL (2.4-5.1); Potassium 3.5 mmol/L (3.5-5.5)
== END | disposition home or self-care (01) ==
LOC: LABWHC1 11:08
PROVIDERS: ATTEND Internal Medicine Nephrology
DX: N18.3 Chronic kidney disease, stage 3 (moderate) (principal); N39.0 Urinary tract infection, site not specified; D63.1 Anemia in chronic kidney disease; D50.9 Iron deficiency anemia, unspecified; E21.3 Hyperparathyroidism, unspecified; N25.81 Secondary hyperparathyroidism of renal origin; M10.9 Gout, unspecified; E55.9 Vitamin D deficiency, unspecified; E83.39 Other disorders of phosphorus metabolism
CPT/HCPCS: 36415; 80048; 81001; 82728; 83540; 83550; 83735; 83970; 84100; 84550; 85025

== ENCOUNTER → 2019-12-31 | Outpatient (CLI) | payer MEDICARE, OTHER ==
[2019-12-31 12:29] LABS: HCT 39.5 % (34.0-46.0); HGB 12.3 gm/dL (11.4-16.0); Hypochromasia Moderate; MCH 33.5 pg (25.0-35.0); MCHC 31.1 g/dL (31.0-37.0); MCV 107.4 fL (80.0-100.0); Macrocytosis Marked; Mean Platelet Volume 7.7; Platelet Count 202 k/uL (150-450); RBC 3.68 m/uL (3.80-5.40); RDW 14.5 % (11.5-15.5); WBC 5.9 k/uL (3.8-10.6)
[2019-12-31 13:36] LABS: Eosinophils # (M) 0.12 k/uL (0-0.7); Lymphocytes # (M) 2.18 k/uL (1.0-4.8); Neutrophils % (M) 56 %; Nucleated Red Blood Cells 0 /100 WBC (0-0); Total Cells Counted 100
[2019-12-31 13:37] LABS: Anisocytosis (M) Present; Poikilocytosis (M) Present
[2019-12-31 21:44] LABS: % Iron Saturation 22.56 (12.00-45.00); African American GFR (CKD) 30.9 (60.0-200.0); Albumin 4.6 g/dL (3.80-4.90); Anion Gap 9.7 mmol/L (4.00-12.00); BUN/Creat Ratio 16.32 Ratio (12.00-20.00); Calcium 9.4 mg/dL (8.7-10.3); Carbon Dioxide 16.3 mmol/L (21.6-31.8); Magnesium 1.6 mg/dL (1.5-2.4); Non-African American GFR(CKD) 26.6 (60.0-200.0); Phosphorus 3.4 mg/dL (2.4-5.1); Potassium 3.9 mmol/L (3.5-5.5); Uric Acid 6.2 mg/dL (2.9-7.7)
[2019-12-31 21:46] LABS: Ferritin 347.5 ng/mL (10.0-291.0)
== END | disposition home or self-care (01) ==
LOC: LABWHC1 11:22
PROVIDERS: ATTEND Nurse Practitioner Family
DX: M10.9 Gout, unspecified (principal); N39.0 Urinary tract infection, site not specified; R80.9 Proteinuria, unspecified; N18.3 Chronic kidney disease, stage 3 (moderate); E21.3 Hyperparathyroidism, unspecified
CPT/HCPCS: 36415; 80048; 82040; 82306; 82728; 83540; 83550; 83735; 83970; 84100; 84550; 85025

== ENCOUNTER → 2020-03-16 | Outpatient (CLI) | payer MEDICARE, OTHER ==
[2020-03-16 09:59] LABS: Basophils # (A) 0.1 k/uL (0-0.2); Basophils % (A) 1 %; Eosinophils # (A) 0.1 k/uL (0-0.7); Eosinophils % (A) 2 %; HCT 35.3 % (34.0-46.0); HGB 10.7 gm/dL (11.4-16.0); Hypochromasia Marked; Lymphocytes # (A) 3.2 k/uL (1.0-4.8); Lymphocytes % (A) 48 %; MCH 32.8 pg (25.0-35.0); MCHC 30.4 g/dL (31.0-37.0); MCV 107.9 fL (80.0-100.0); Macrocytosis Moderate; Monocytes # (A) 0.2 k/uL (0-1.0); Monocytes % (A) 3 %; Neutrophils # (A) 3.1 k/uL (1.3-7.7); Neutrophils % (A) 46 %; Platelet Count 210 k/uL (150-450); RBC 3.27 m/uL (3.80-5.40); RDW 13.7 % (11.5-15.5); WBC 6.7 k/uL (3.8-10.6)
[2020-03-16 10:45] LABS: Appearance,Urine Turbid (Clear); Bacteria,Urine Many /hpf; Bilirubin,Urine Negative (Negative); Blood,Urine Trace (Negative); Color,Urine Yellow; Glucose,Urine (UA) Negative (Negative); Ketones,Urine Negative (Negative); Leukocyte Esterase,Urine Large (Negative); Mucus,Urine Rare /hpf; Nitrite,Urine Positive (Negative); PH, Urine 5.5 (5.0-8.0); Protein,Urine 1+ (Negative); RBC,Urine 4 /hpf (0-5); Specific Gravity,Urine 1.018 (1.001-1.035); Squamous Epithelial Cell,Urine 10 /hpf (0-4); Urobilinogen,Urine <2.0 mg/dL (<2.0); WBC,Urine >182 /hpf (0-5)
[2020-03-16 10:59] LABS: Protein/Creatinine Ratio,Urine 0.379
[2020-03-16 18:21] LABS: Ferritin 276.6 ng/mL (10.0-291.0)
[2020-03-16 18:38] LABS: Magnesium 1.1 mg/dL (1.5-2.4); Phosphorus 3.3 mg/dL (2.4-5.1)
[2020-03-16 18:39] LABS: % Iron Saturation 23.44 (12.00-45.00); African American GFR (CKD) 24.5 (60.0-200.0); Albumin 4.3 g/dL (3.80-4.90); Anion Gap 13.8 mmol/L (4.00-12.00); BUN/Creat Ratio 17.83 Ratio (12.00-20.00); Calcium 8.6 mg/dL (8.7-10.3); Carbon Dioxide 14.2 mmol/L (21.6-31.8); Non-African American GFR(CKD) 21.1 (60.0-200.0); Potassium 3.6 mmol/L (3.5-5.5); Uric Acid 7.5 mg/dL (2.9-7.7)
== END | disposition home or self-care (01) ==
LOC: LABWHC1 08:55
PROVIDERS: ATTEND Nurse Practitioner Family
DX: N18.3 Chronic kidney disease, stage 3 (moderate) (principal); D63.1 Anemia in chronic kidney disease; M10.9 Gout, unspecified; N25.81 Secondary hyperparathyroidism of renal origin; E55.9 Vitamin D deficiency, unspecified; R80.9 Proteinuria, unspecified; E21.3 Hyperparathyroidism, unspecified; R82.81 Pyuria
CPT/HCPCS: 36415; 80048; 81001; 82040; 82306; 82570; 82728; 83540; 83550; 83735; 83970; 84100; 84156; 84550; 85025; 87086

== ENCOUNTER → 2020-12-16 | Outpatient (CLI) | payer MEDICARE, OTHER ==
[2020-12-16 14:12] LABS: Appearance,Urine Turbid (Clear); Bacteria,Urine Many /hpf; Bilirubin,Urine Negative (Negative); Blood,Urine Small (Negative); Color,Urine Yellow; Glucose,Urine (UA) Negative (Negative); Ketones,Urine Negative (Negative); Leukocyte Esterase,Urine Large (Negative); Mucus,Urine Few /hpf; Nitrite,Urine Positive (Negative); PH, Urine 5.5 (5.0-8.0); Protein,Urine 1+ (Negative); RBC,Urine 26 /hpf (0-5); Specific Gravity,Urine 1.019 (1.001-1.035); Squamous Epithelial Cell,Urine 7 /hpf (0-4); Urobilinogen,Urine <2.0 mg/dL (<2.0); WBC,Urine >182 /hpf (0-5)
[2020-12-16 14:28] LABS: Creatinine,Urine Random 103.6 mg/dL; Protein/Creatinine Ratio,Urine 0.29
[2020-12-16 20:53] LABS: % Iron Saturation 22.27 (12.00-45.00); African American GFR (CKD) 32.7 (60.0-200.0); Albumin 3.8 g/dL (3.80-4.90); Anion Gap 11.9 mmol/L (4.00-12.00); BUN/Creat Ratio 12.78 Ratio (12.00-20.00); Calcium 8.8 mg/dL (8.7-10.3); Carbon Dioxide 17.1 mmol/L (21.6-31.8); Magnesium 1.3 mg/dL (1.5-2.4); Non-African American GFR(CKD) 28.2 (60.0-200.0); Phosphorus 3.8 mg/dL (2.4-5.1); Uric Acid 6.4 mg/dL (2.9-7.7)
[2020-12-16 20:54] LABS: HCT 33.2 % (37.2-46.3); HGB 10.2 g/dL (12.0-15.0); MCH 33.4 pg (27.0-32.0); MCHC 30.7 g/dL (32.0-37.0); MCV 108.9 fL (80.0-97.0); Mean Platelet Volume 10.9 fL (9.5-12.2); Platelet Count 221 X 10*3/uL (140-440); RBC 3.05 X 10*6/uL (4.10-5.20); RDW 13.3 % (11.5-14.5); WBC 7.72 X 10*3/uL (4.50-10.00)
[2020-12-16 21:14] LABS: Ferritin 432.9 ng/mL (10.0-291.0)
[2020-12-16 21:30] LABS: Basophils # (A) 0.07 X 10*3/uL (0.00-0.10); Basophils % (A) 0.9 %; Eosinophils # (A) 0.21 X 10*3/uL (0.04-0.35); Eosinophils % (A) 2.7 %; Lymphocytes # (A) 3.12 X 10*3/uL (0.90-5.00); Lymphocytes % (A) 40.4 %; Monocytes % (A) 5.2 %; Neutrophils # (A) 3.89 X 10*3/uL (1.80-7.70); Neutrophils % (A) 50.4 %
== END | disposition home or self-care (01) ==
LOC: LABWHC1 11:57
PROVIDERS: ATTEND Nurse Practitioner Family
DX: N18.32 Chronic kidney disease, stage 3b (principal)
CPT/HCPCS: 36415; 80048; 81001; 82040; 82570; 82728; 83540; 83550; 83735; 84100; 84156; 84550; 85025

== ENCOUNTER → 2021-01-24 | Outpatient (CLI) | payer MEDICARE, OTHER ==
--- NOTE | 2021-01-24 17:16 | CT ---
EXAMINATION TYPE: CT abdomen pelvis wo con DATE OF EXAM: 01/24/2021 COMPARISON: August 30, 2015 HISTORY: nausea, vomiting, significant weight loss CT DLP: 243.4 mGycm Examination of the solid and hollow viscera is limited given the lack of contrast. FINDINGS: LUNG BASES: No evidence for nodule. No evidence for infiltrate. LIVER/GB: The gallbladder is surgically absent. No space-occupying hepatic lesion. PANCREAS: No pancreatic mass identified. No inflammatory process seen. SPLEEN: No evidence for splenomegaly. No intrasplenic lesions seen. ADRENALS: No adrenal nodules identified. No evidence for thickening. KIDNEYS: Hypoattenuating renal lesions may reflect multiple bilateral renal cysts. No nephrolithiasis . No hydronephrosis. BOWEL: Appendix has a normal appearance. No evidence of bowel obstruction. No inflammatory process. Lymph nodes: No evidence for adenopathy greater than 1 cm. Abdominal aorta: Atheromatous changes seen. No evidence for aneurysm. Genital organs: No significant abnormality. Other: No significant abnormality. IMPRESSION: No significant abnormality to account for the patient's symptoms.
== END | disposition home or self-care (01) ==
LOC: RADCTMAIN 14:41
PROVIDERS: ATTEND Internal Medicine Gastroenterology
DX: R11.2 Nausea with vomiting, unspecified (principal)
CPT/HCPCS: 74176

== ENCOUNTER 2021-02-03 10:30 | Day surgery (SDC) | payer MEDICARE, OTHER ==
[2021-02-02 13:47] VITALS: BMI 18.4
[2021-02-03 11:08] VITALS: TEMP 97.6
[2021-02-03] MEDS: LACTATED RINGERS 1,000 ML IV SCH ×2 (11:55→11:58)
[2021-02-03] MEDS ORDERED: PROPOFOL 10 MG/ML 20 ML VIAL IV ONE (11:58)
[2021-02-03] MEDS ORDERED: LIDOCAINE 1% INJ 10MG/ML (20 ML MDV) ONE (11:58)
--- NOTE | 2021-02-03 12:13 | P.PCN ---
Date of Procedure: 02/03/21 Procedure(s) Performed: BRIEF HISTORY: Patient is a 70 year-old, pleasant, white female scheduled for an upper endoscopy as a part of evaluation of intermittent episodes of nausea vomiting and progressive weight loss of almost 30 pounds in the last [address] of abdomen and pelvis done without contrast was unremarkable. PROCEDURE PERFORMED: Esophagogastroduodenoscopy with biopsy . PREOPERATIVE DIAGNOSIS: intermittent nausea vomiting of 2 months duration with progressive weight loss of 30 pounds IV sedation per anesthesia. PROCEDURE: After informed consent was obtained, the patient was brought into the endoscopy unit. IV sedation was administered by Anesthesia under continuous monitoring. Initially the Olympus GIF-140 video endoscope was inserted into the mouth. Esophagus intubated without any difficulty. It was gradually advanced into the stomach and duodenum and carefully examined. The bulb and the second part of the duodenum appeared normal. biopsies were done from the duodenum. there wassome duodenitis noted along the duodenal sweep but no duodenal stricture identified.The scope at this time was withdrawn to the stomach, adequately insufflated with air, and upon careful examination, mucosa of the antrum had mild diffuse gastritis and biopsies were done from this area. The , body, cardia and the fundus appeared normal. The scope was then withdrawn into the esophagus. The GE junction was located at 39 cm from the incisors. The esophagus appeared normal. There were no erosions or ulcerations seen and the patient tolerated the procedure well. IMPRESSION: 1. Mild antral gastritis but no evidence of peptic ulcer disease or gastric outlet obstruction. 2. Mild duodenitis but no evidence of duodenal stricture. RECOMMENDATIONS: The findings of this examination were discussed with the patient as well as a family. She was advised to follow with the biopsy results. She will continue with Protonix 40 mg daily and Zofran as needed for the nausea vomiting. She will be seen back in office in 3-4 weeks.
[2021-02-03 12:39] VITALS: BP 168/52; PULSE 53; RESP 16
== END 2021-02-03 12:59 | disposition home or self-care (01) ==
LOC: ORWHC2ENDO 10:30
PROVIDERS: ATTEND Internal Medicine Gastroenterology
DX: K29.50 Unspecified chronic gastritis without bleeding (principal); K29.80 Duodenitis without bleeding; J44.9 Chronic obstructive pulmonary disease, unspecified; F17.200 Nicotine dependence, unspecified, uncomplicated; R53.83 Other fatigue; Z86.73 Personal history of transient ischemic attack (TIA), and cerebral infarction without residual deficits; Z79.02 Long term (current) use of antithrombotics/antiplatelets; M79.7 Fibromyalgia; G47.33 Obstructive sleep apnea (adult) (pediatric); Z99.81 Dependence on supplemental oxygen
CPT/HCPCS: 43239; 88305; J2001; J2704

== ENCOUNTER 2021-09-21 13:24 | Emergency (ER) | payer MEDICARE, OTHER ==
[2021-09-21 13:38] VITALS: BP 152/65; PULSE 95; RESP 18; TEMP 97.6
[2021-09-21] MEDS ORDERED: NITROFURANTOIN MONOHYD/M-CRYST 100 MG CAP PO STA (14:12)
[2021-09-21 14:38] LABS: Appearance,Urine Clear (Clear); Bacteria,Urine Few /hpf; Bilirubin,Urine Negative (Negative); Blood,Urine Negative (Negative); Color,Urine Light Yellow; Glucose,Urine (UA) Negative (Negative); Hyaline Casts,Urine 1 /lpf (0-2); Ketones,Urine Negative (Negative); Leukocyte Esterase,Urine Moderate (Negative); Mucus,Urine Rare /hpf; Nitrite,Urine Positive (Negative); PH, Urine 5.5 (5.0-8.0); Protein,Urine Trace (Negative); RBC,Urine 3 /hpf (0-5); Specific Gravity,Urine 1.013 (1.001-1.035); Squamous Epithelial Cell,Urine 1 /hpf (0-4); Urobilinogen,Urine <2.0 mg/dL (<2.0); WBC,Urine 55 /hpf (0-5)
--- NOTE | 2021-09-21 14:46 | ED ---
Female Urogenital HPI - General Chief complaint: Urogenital Stated complaint: UTI Source: patient Mode of arrival: wheelchair - History of Present Illness Initial comments: 71-year-old female presents emergency Department under the direction of her primary care physician. States that she had laboratory studies and a urinalysis completed on Saturday and she does have a follow-up appointment with the neph rologist coming up. She denies any symptoms. She was called at home today and told that she had to come into the hospital because she had a urinary tract infection. Patient denies any symptoms to include fevers, suprapubic abdominal pain. No dysuria, hematuria or different voiding. Has a history of chronic kidney disease but continues to make good urine. No other alleviating, industrial servicer modifying factors - Related Data Home Medications Medication Instructions Recorded Confirmed tiZANidine [Zanaflex] 4 mg PO QID 10/21/15 02/03/21 ALPRAZolam [Xanax] 2 mg PO QID 04/09/16 02/03/21 Lipase/Protease/Amylase [Pancreaze 4,200 unit PO AC-TID 04/09/16 02/03/21 ] Aspirin EC [Ecotrin] 325 mg PO DAILY 08/24/16 02/03/21 Betamethasone Dipropionate 1 applic TOPICAL BID PRN 10/02/17 02/03/21 [Diprolene AF 0.05% Cream] Clopidogrel [Plavix] 75 mg PO DAILY 10/02/17 02/03/21 Econazole 1% Cream [Spectazole] 1 applic TOPICAL DAILY PRN 10/02/17 02/03/21 Formoterol Fumarate [Perforomist] 20 mcg INHALATION RT-TID 10/02/17 02/03/21 Montelukast [Singulair] 10 mg PO DAILY 10/02/17 02/03/21 Nystatin 100,000 Unit/gm Powd 1 applic TOPICAL BID PRN 10/02/17 02/03/21 [Mycostatin Powder] Promethazine HCl 12.5 mg PO BID PRN 10/02/17 02/03/21 Rosuvastatin Calcium [Crestor] 40 mg PO DAILY 10/02/17 02/03/21 Previous Rx's Medication Instructions Recorded Nitrofurantoin Monohyd/M-Cryst 100 mg PO Q12HR #14 cap 09/21/21 [Macrobid] Allergies Allergy/AdvReac Type Severity Reaction Status Date / Time amitriptyline [From Elavil] Allergy Rash/Hives Verified 09/21/21 13:39 cortisone [Cortisone] Allergy throat Verified 09/21/21 13:39 Swelling NSAIDS (Non-Steroidal Allergy Nausea & Verified 09/21/21 13:39 Anti-Inflamma Vomiting & Diarrhea/ GI bleed Sulfa (Sulfonamide Allergy Rash/Hives, Verified 09/21/21 13:39 Antibiotics) blisters tetracaine Allergy Unknown Verified 09/21/21 13:39 tetracaine HCl Allergy Unknown Verified 09/21/21 13:39 [From Pontocaine] aspirin AdvReac Mild GI Bleed Verified 09/21/21 13:39 adhesive AdvReac blisters Verified 09/21/21 13:39 merocaine Allergy Unknown Uncoded 02/03/21 10:52 contrast/dye AdvReac Unknown Uncoded 02/03/21 10:52 Review of Systems ROS Statement: Those systems with pertinent positive or pertinent negative responses have been documented in the HPI. ROS Other: All systems not noted in ROS Statement are negative. Past Medical History Past Medical History: Asthma, Chest Pain / Angina, COPD, CVA/TIA, Fibromyalgia, GERD/Reflux, GI Bleed, Musculoskeletal Disorder, Neurologic Disorder, Osteoarthritis (OA), Renal Disease, Skin Disorder Additional Past Medical History / Comment(s): HX OF TIA'S -RIGHT SIDED WEAKNESS, IBS, NEUROPATHY IN HANDS & FEET., HERNIATED DISC, OSTEOPOROSIS, BACK PAIN, HIATAL HERNIA, , DISCOID LUPUS, HX OF STOMACH BLEED FROM MOTRIN, STATES 60 % KIDNEY FUNCTION, HX OF MULTIPLE UTI'S., BELLS PALSY (1999), OCCASIONAL FALLS- BROKE HER RIGHT FOOT 5 WEEKS AGO, USES WALKER- HAS ORDERED A MOTOR W/C., HAVING DIFFICULTY SWALLOWING. History of Any Multi-Drug Resistant Organisms: ESBL Date of last positivie culture/infection: 09/18/21 MDRO Source:: Urine-ESBL E.coli Past Surgical History: Appendectomy, Cholecystectomy, Heart Catheterization With Stent, Hernia Repair, Hysterectomy, Orthopedic Surgery Additional Past Surgical History / Comment(s): HEART CATHS WITH STENTS(1999) & (DECEMBER 2014), UMBILICAL HERNIA, HAMMER TOES, BUNIONS , SURGERY FOR PHLEBITIS IN HER LEG. Past Anesthesia/Blood Transfusion Reactions: No Reported Reaction Date of Last Stent Placement:: 2014 Past Psychological History: Anxiety, Depression, Panic Disorder Smoking Status: Current every day smoker Past Alcohol Use History: None Reported Past Drug Use History: None Reported - Past Family History Sister(s) Family Medical History: Cancer, CVA/TIA Mother Family Medical History: Coronary Artery Disease (CAD) Father Family Medical History: Cancer, CVA/TIA, Diabetes Mellitus, Hyperlipidemia, Hypertension Additional Family Medical History / Comment(s): ETOH, BLADDER CANCER, BELLS PALSY Course Vital Signs 09/21/21 13:35 Temperature 97.6 F Pulse Rate 95 Respiratory 18 Rate Blood Pressure 152/65 O2 Sat by Pulse 99 Oximetry Medical Decision Making - Medical Decision Making Upon arrival patient was placed into room 29. I did review the patient's laboratory studies. Kidney function is impaired with a creatinine of 2. Urinalysis demonstrates positive nitrites. I did review the patient's neck biology which demonstrated an ESBL E. coli infection. Patient provided a urine specimen today which continues to demonstrate positive nitrites, moderate leukocyte esterase, 55 white blood cells with few bacteria. Patient's specimen is sensitive to Macrobid. She'll be discharged home on a prescription for this. Instructed to follow up with her communications designer at her upcoming appointment. Return for any new or worsening symptoms. Patient agreed to plan and was discharged home in stable condition - Lab Data Lab Results 09/21/21 Range/Units Unknown Urine Color Light Yellow Urine Appearance Clear (Clear) Urine pH 5.5 (5.0-8.0) Ur Specific [place] 1.013 (1.001-1.035) Urine Protein Trace H (Negative) Urine Glucose (UA) Negative (Negative) Urine Ketones Negative (Negative) Urine Blood Negative (Negative) Urine Nitrite Positive H (Negative) Urine Bilirubin Negative (Negative) Urine Urobilinogen <2.0 (<2.0) mg/dL Ur Leukocyte Esterase Moderate H (Negative) Urine RBC 3 (0-5) /hpf Urine WBC 55 H (0-5) /hpf Ur Squamous Epith Cells 1 (0-4) /hpf Urine Bacteria Few H (None) /hpf Hyaline Casts 1 (0-2) /lpf Urine Mucus Rare H (None) /hpf Disposition Clinical Impression: Urinary tract infection Disposition: HOME SELF-CARE Condition: Stable Instructions (If sedation given, give patient instructions): Urinary Tract Infection in Women (ED) Additional Instructions: Please follow-up with the communications designer for your scheduled appointment. Return for any new or worsening symptoms. Take the antibiotics as directed and return if you have worsening symptoms or develop fevers Prescriptions: Nitrofurantoin Monohyd/M-Cryst [Macrobid] 100 mg PO Q12HR #14 cap Is patient prescribed a controlled substance at d/c from ED?: No Referrals: Ja Schaeffer MD [Primary Care Provider] - 1-2 days Time of Disposition: 14:45
== END 2021-09-21 14:58 | disposition home or self-care (01) ==
LOC: EC 13:24
DX: N39.0 Urinary tract infection, site not specified (principal); J44.9 Chronic obstructive pulmonary disease, unspecified; K21.9 Gastro-esophageal reflux disease without esophagitis; M79.7 Fibromyalgia; M19.90 Unspecified osteoarthritis, unspecified site; M18.0 Bilateral primary osteoarthritis of first carpometacarpal joints; G62.9 Polyneuropathy, unspecified; F32.A Depression, unspecified; F41.9 Anxiety disorder, unspecified; F17.200 Nicotine dependence, unspecified, uncomplicated; Z79.82 Long term (current) use of aspirin; Z79.899 Other long term (current) drug therapy
CPT/HCPCS: 81001; 99283

== ENCOUNTER → 2021-11-13 | Outpatient (CLI) | payer MEDICARE ==
[2021-11-13 11:18] LABS: Appearance,Urine Clear (Clear); Bacteria,Urine Rare /hpf; Bilirubin,Urine Negative (Negative); Blood,Urine Negative (Negative); Color,Urine Light Yellow; Glucose,Urine (UA) Negative (Negative); Hyaline Casts,Urine 1 /lpf (0-2); Ketones,Urine Negative (Negative); Leukocyte Esterase,Urine Moderate (Negative); Mucus,Urine Rare /hpf; Nitrite,Urine Negative (Negative); PH, Urine 5.5 (5.0-8.0); Protein,Urine Trace (Negative); RBC,Urine 1 /hpf (0-5); Specific Gravity,Urine 1.019 (1.001-1.035); Squamous Epithelial Cell,Urine 1 /hpf (0-4); Urobilinogen,Urine <2.0 mg/dL (<2.0); WBC,Urine 5 /hpf (0-5)
[2021-11-13 11:34] LABS: Creatinine,Urine Random 76.2 mg/dL; Protein/Creatinine Ratio,Urine 0.407
[2021-11-13 14:38] LABS: Basophils # (A) 0.03 X 10*3/uL (0.00-0.10); Basophils % (A) 0.5 %; Eosinophils # (A) 0.14 X 10*3/uL (0.04-0.35); Eosinophils % (A) 2.2 %; HCT 34.4 % (37.2-46.3); HGB 10.9 g/dL (12.0-15.0); Immature Grans, Automated 0.2 %; Lymphocytes % (A) 55.4 %; MCH 34.2 pg (27.0-32.0); MCHC 31.7 g/dL (32.0-37.0); MCV 107.8 fL (80.0-97.0); Monocytes # (A) 0.41 X 10*3/uL (0.20-1.00); Monocytes % (A) 6.3 %; NRBC Per 100 WBC 0 /100 WBCS (0.0-0.0); Neutrophils # (A) 2.31 X 10*3/uL (1.80-7.70); Neutrophils % (A) 35.4 %; Platelet Count 211 X 10*3/uL (140-440); RBC 3.19 X 10*6/uL (4.10-5.20)
[2021-11-13 15:40] LABS: % Iron Saturation 18.53 (12.00-45.00); African American GFR (CKD) 40.5 (60.0-200.0); Anion Gap 15.9 mmol/L (10.00-18.00); BUN/Creat Ratio 27.67 Ratio (12.00-20.00); Blood Urea Nitrogen 41.5 mg/dL (9.0-27.0); Calcium 10.2 mg/dL (8.7-10.3); Carbon Dioxide 13.1 mmol/L (20.0-27.5); Non-African American GFR(CKD) 34.9 (60.0-200.0); Phosphorus 4.9 mg/dL (2.4-5.1); Potassium 3.9 mmol/L (3.5-5.5); Uric Acid 3.6 mg/dL (2.9-7.7)
[2021-11-13 16:56] LABS: Albumin 4.6 g/dL (3.8-4.9)
== END | disposition home or self-care (01) ==
LOC: LABWHC1 09:51
PROVIDERS: ATTEND Nurse Practitioner Family
DX: N25.81 Secondary hyperparathyroidism of renal origin (principal); N18.32 Chronic kidney disease, stage 3b; M10.9 Gout, unspecified; D64.9 Anemia, unspecified; R80.9 Proteinuria, unspecified; N39.0 Urinary tract infection, site not specified; E55.9 Vitamin D deficiency, unspecified
CPT/HCPCS: 36415; 80048; 81001; 82040; 82306; 82570; 82728; 83540; 83550; 83735; 83970; 84100; 84156; 84550; 85025; 87086

== ENCOUNTER → 2022-01-10 | Outpatient (CLI) | payer MEDICARE ==
[2022-01-10 11:14] LABS: Creatinine,Urine Random 60.1 mg/dL; Protein/Creatinine Ratio,Urine 0.532
[2022-01-10 11:52] LABS: Appearance,Urine Clear (Clear); Bacteria,Urine Occasional /hpf; Bilirubin,Urine Negative (Negative); Blood,Urine Negative (Negative); Color,Urine Light Yellow; Glucose,Urine (UA) Negative (Negative); Ketones,Urine Negative (Negative); Leukocyte Esterase,Urine Moderate (Negative); Mucus,Urine Rare /hpf; Nitrite,Urine Negative (Negative); Protein,Urine 1+ (Negative); RBC,Urine 1 /hpf (0-5); Specific Gravity,Urine 1.019 (1.001-1.035); Squamous Epithelial Cell,Urine 1 /hpf (0-4); Urobilinogen,Urine <2.0 mg/dL (<2.0); WBC,Urine 35 /hpf (0-5)
[2022-01-10 15:43] LABS: Basophils # (A) 0.04 X 10*3/uL (0.00-0.10); Basophils % (A) 0.7 %; Eosinophils # (A) 0.15 X 10*3/uL (0.04-0.35); Eosinophils % (A) 2.6 %; HCT 30.3 % (37.2-46.3); HGB 9.5 g/dL (12.0-15.0); Immature Grans, Automated 0.2 %; Lymphocytes # (A) 2.97 X 10*3/uL (0.90-5.00); Lymphocytes % (A) 51.5 %; MCH 33.3 pg (27.0-32.0); MCHC 31.4 g/dL (32.0-37.0); MCV 106.3 fL (80.0-97.0); Mean Platelet Volume 10.8 fL (9.5-12.2); Monocytes # (A) 0.43 X 10*3/uL (0.20-1.00); Monocytes % (A) 7.5 %; NRBC Per 100 WBC 0 /100 WBCS (0.0-0.0); Neutrophils # (A) 2.17 X 10*3/uL (1.80-7.70); Neutrophils % (A) 37.5 %; Platelet Count 180 X 10*3/uL (140-440); RBC 2.85 X 10*6/uL (4.10-5.20); WBC 5.77 X 10*3/uL (4.50-10.00)
[2022-01-10 15:48] LABS: % Iron Saturation 25.29 (12.00-45.00); African American GFR (CKD) 42.9 (60.0-200.0); Anion Gap 13.4 mmol/L (10.00-18.00); BUN/Creat Ratio 34.34 Ratio (12.00-20.00); Blood Urea Nitrogen 49.1 mg/dL (9.0-27.0); Calcium 9.7 mg/dL (8.7-10.3); Carbon Dioxide 16.9 mmol/L (20.0-27.5); Magnesium 1.9 mg/dL (1.5-2.4); Phosphorus 3.8 mg/dL (2.4-5.1); Potassium 4.1 mmol/L (3.5-5.5); Uric Acid 3.2 mg/dL (2.9-7.7)
[2022-01-10 16:08] LABS: Albumin 4.2 g/dL (3.8-4.9)
== END | disposition home or self-care (01) ==
LOC: LABWHC1 09:43
PROVIDERS: ATTEND Internal Medicine Nephrology
DX: N18.32 Chronic kidney disease, stage 3b (principal); M10.9 Gout, unspecified; D64.9 Anemia, unspecified; R80.9 Proteinuria, unspecified; N39.0 Urinary tract infection, site not specified; E55.9 Vitamin D deficiency, unspecified; N25.81 Secondary hyperparathyroidism of renal origin
CPT/HCPCS: 36415; 80048; 81001; 82040; 82306; 82570; 82728; 83540; 83550; 83735; 83970; 84100; 84156; 84550; 85025

== ENCOUNTER → 2022-01-15 | Outpatient (CLI) | payer MEDICARE ==
[2022-01-15 13:40] LABS: African American GFR (CKD) 37 (>60 ml/min/1.73 sqM); Anion Gap 9 mmol/L; Blood Urea Nitrogen 45 mg/dL (7-17); Calcium 8.7 mg/dL (8.4-10.2); Carbon Dioxide 27 mmol/L (22-30); Chloride 107 mmol/L (98-107); Glucose 107 mg/dL (74-99); Non-African American GFR(CKD) 32 (>60 ml/min/1.73 sqM); Potassium 3.3 mmol/L (3.5-5.1); Sodium 143 mmol/L (137-145)
== END | disposition home or self-care (01) ==
LOC: LABWHC1 12:00
PROVIDERS: ATTEND Nurse Practitioner Family
DX: N18.32 Chronic kidney disease, stage 3b (principal)
CPT/HCPCS: 36415; 80048

== ENCOUNTER → 2022-03-14 | Outpatient (CLI) | payer MEDICARE ==
--- NOTE | 2022-03-15 19:20 | MM ---
Reason for Exam: Screening (asymptomatic). Last mammogram was performed 3 year(s) and 0 month(s) ago. Patient History: Menarche at age 13. First Full-Term at age 22. Left ovary removed at age 37. Right ovary removed at age 37. Hysterectomy at age 37. Postmenopausal. Maternal grandmother had breast cancer, age 45. Sister had breast cancer, age 65. Risk Values: Mary 5 year model risk: 3.3%. NCI Lifetime model risk: 9.5%. Prior Study Comparison: 03/20/2016 Bilateral Screening Mammogram, [facility]. 03/24/2019 Bilateral Screening Mammogram, [facility]. 04/07/2019 Left Diagnostic Mammogram, [facility]. Tissue Density: There are scattered fibroglandular densities. Findings: Analyzed By CAD. There is chronic nodularity on both sides in an overall benign pattern. Vascular calcifications on the right. No significant change from prior exams. Overall Assessment: Benign, BI-RAD 2 Management: Screening Mammogram of both breasts in 1 year. 1. Patient should continue monthly self breast exams. 2. A clinical breast exam by your physician is recommended on an annual basis. 3. This exam should not preclude additional follow-up of suspicious palpable abnormalities. Electronically signed and approved by: Rohan Adams M.D. Radiologist
== END | disposition home or self-care (01) ==
LOC: RADMAMWWP 15:46
PROVIDERS: ATTEND Family Medicine
DX: Z12.31 Encounter for screening mammogram for malignant neoplasm of breast (principal); Z78.0 Asymptomatic menopausal state; Z80.3 Family history of malignant neoplasm of breast
CPT/HCPCS: 77063; 77067

== ENCOUNTER 2023-02-17 13:23 | Inpatient (IN) | payer MEDICARE, OTHER ==
[2023-02-17] MEDS ORDERED: SODIUM CHLORIDE 0.9% 1,000 ML IV STA (13:49)
--- NOTE | 2023-02-17 13:53 | ED ---
General Adult HPI - General Chief complaint: Weakness Stated complaint: failure to thrive Time Seen by Provider: 02/17/23 13:29 Source: patient, family, RN notes reviewed Mode of arrival: EMS Limitations: no limitations, physical limitation - History of Present Illness Initial comments: Patient is a pleasant 72-year-old female presenting to emergency department and weakness. Patient did have a fall 1 week ago and did hurt her upper arm. Patient has not Not in bed. has provided medications. Daughter is present that provides history. Patient is a poor historian. Patient has had decreased oral intake. Daughter states patient is having a difficult time even feeding herself and does need assistance with that now. She is concern for de hydration. Patient only complains of right upper arm/shoulder pain. Patient has no other complaints. - Related Data Home Medications Medication Instructions Recorded Confirmed tiZANidine [Zanaflex] 4 mg PO QID 10/21/15 02/03/21 ALPRAZolam [Xanax] 2 mg PO QID 04/09/16 02/03/21 Lipase/Protease/Amylase [Pancreaze 4,200 unit PO AC-TID 04/09/16 02/03/21 ] Aspirin EC [Ecotrin] 325 mg PO DAILY 08/24/16 02/03/21 Betamethasone Dipropionate 1 applic TOPICAL BID PRN 10/02/17 02/03/21 [Diprolene AF 0.05% Cream] Clopidogrel [Plavix] 75 mg PO DAILY 10/02/17 02/03/21 Econazole 1% Cream [Spectazole] 1 applic TOPICAL DAILY PRN 10/02/17 02/03/21 Formoterol Fumarate [Perforomist] 20 mcg INHALATION RT-TID 10/02/17 02/03/21 Montelukast [Singulair] 10 mg PO DAILY 10/02/17 02/03/21 Nystatin 100,000 Unit/gm Powd 1 applic TOPICAL BID PRN 10/02/17 02/03/21 [Mycostatin Powder] Promethazine HCl 12.5 mg PO BID PRN 10/02/17 02/03/21 Rosuvastatin Calcium [Crestor] 40 mg PO DAILY 10/02/17 02/03/21 Previous Rx's Medication Instructions Recorded Nitrofurantoin Monohyd/M-Cryst 100 mg PO Q12HR #14 cap 09/21/21 [Macrobid] Allergies Allergy/AdvReac Type Severity Reaction Status Date / Time amitriptyline [From Elavil] Allergy Rash/Hives Verified 02/17/23 13:36 cortisone [Cortisone] Allergy throat Verified 02/17/23 13:36 Swelling NSAIDS (Non-Steroidal Allergy Nausea & Verified 02/17/23 13:36 Anti-Inflamma Vomiting & Diarrhea/ GI bleed Sulfa (Sulfonamide Allergy Rash/Hives, Verified 02/17/23 13:36 Antibiotics) blisters tetracaine Allergy Unknown Verified 02/17/23 13:36 tetracaine HCl Allergy Unknown Verified 02/17/23 13:36 [From Pontocaine] aspirin AdvReac Mild GI Bleed Verified 02/17/23 13:36 adhesive AdvReac blisters Verified 02/17/23 13:36 merocaine Allergy Unknown Uncoded 02/17/23 13:36 contrast/dye AdvReac Unknown Uncoded 02/17/23 13:36 Review of Systems ROS Statement: Those systems with pertinent positive or pertinent negative responses have been documented in the HPI. ROS Other: All systems not noted in ROS Statement are negative. Constitutional: Denies: fever Eyes: Denies: eye pain ENT: Denies: ear pain Endocrine: Reports: as per HPI, fatigue Gastrointestinal: Denies: abdominal pain Neurological: Reports: as per HPI Past Medical History Past Medical History: Asthma, Chest Pain / Angina, COPD, CVA/TIA, Fibromyalgia, GERD/Reflux, GI Bleed, Musculoskeletal Disorder, Neurologic Disorder, Osteoarthritis (OA), Renal Disease, Skin Disorder Additional Past Medical History / Comment(s): HX OF TIA'S -RIGHT SIDED WEAKNESS, IBS, NEUROPATHY IN HANDS & FEET., HERNIATED DISC, OSTEOPOROSIS, BACK PAIN, HIATAL HERNIA, , DISCOID LUPUS, HX OF STOMACH BLEED FROM MOTRIN, STATES 61 % KIDNEY FUNCTION, HX OF MULTIPLE UTI'S., BELLS PALSY (1999), OCCASIONAL FALLS- BROKE HER RIGHT FOOT 5 WEEKS AGO, USES WALKER- HAS ORDERED A MOTOR W/C., HAVING DIFFICULTY SWALLOWING. History of Any Multi-Drug Resistant Organisms: ESBL Date of last positivie culture/infection: 09/18/21 MDRO Source:: Urine-ESBL E.coli Past Surgical History: Appendectomy, Cholecystectomy, Heart Catheterization With Stent, Hernia Repair, Hysterectomy, Orthopedic Surgery Additional Past Surgical History / Comment(s): HEART CATHS WITH STENTS(1999) & (DECEMBER 2014), UMBILICAL HERNIA, HAMMER TOES, BUNIONS , SURGERY FOR PHLEBITIS IN HER LEG. Past Anesthesia/Blood Transfusion Reactions: No Reported Reaction Date of Last Stent Placement:: 2014 Past Psychological History: Anxiety, Depression, Panic Disorder Smoking Status: Current every day smoker Past Alcohol Use History: None Reported Past Drug Use History: None Reported - Past Family History Sister(s) Family Medical History: Cancer, CVA/TIA Mother Family Medical History: Coronary Artery Disease (CAD) Father Family Medical History: Cancer, CVA/TIA, Diabetes Mellitus, Hyperlipidemia, Hypertension Additional Family Medical History / Comment(s): ETOH, BLADDER CANCER, BELLS PALSY General Exam Limitations: no limitations, physical limitation General appearance: alert, in no apparent distress, cachectic Head exam: Present: normocephalic Eye exam: Present: normal appearance, PERRL, EOMI ENT exam: Present: mucous membranes dry Neck exam: Present: normal inspection. Absent: tenderness Respiratory exam: Present: normal lung sounds bilaterally Cardiovascular Exam: Present: regular rate, irregular rhythm GI/Abdominal exam: Present: soft. Absent: tenderness Extremities exam: Present: normal inspection Neurological exam: Present: alert. Absent: motor sensory deficit Psychiatric exam: Present: flat affect Skin exam: Present: normal color Course Vital Signs 02/17/23 02/17/23 13:29 15:06 Temperature 96.5 F L Pulse Rate 100 101 H Respiratory 16 18 Rate Blood Pressure 128/65 131/55 O2 Sat by Pulse 100 97 Oximetry EKG Findings - EKG Results: EKG: interpreted by ERMD, normal axis, normal QRS, normal ST/T EKG shows: atrial fibrillation Medical Decision Making - Medical Decision Making Was pt. sent in by a medical professional or institution (, PA, PAIRER INSPECTOR, urgent care, hospital, or skilled nursing...) When possible be specific @ -No Did you speak to anyone other than the patient for history (EMS, parent, family, police, friend...)? What history was obtained from this source @ -Daughter arrives and pelvis right history as patient is a poor historian. Did you review nursing and triage notes (agree or disagree)? Why? @ -I reviewed and agree with nursing and triage notes Were old charts reviewed (outside hosp., previous admission, EMS record, old EKG, old radiological studies, urgent care reports/EKG's, skilled nursing records)? Report findings @ -Previous chart reviewed without history of atrial fibrillation Differential Diagnosis (chest pain, altered mental status, abdominal pain women, abdominal pain men, vaginal bleeding, weakness, fever, dyspnea, syncope, headache, dizziness, GI bleed, back pain, seizure, CVA, palpatations, mental he alth, musculoskeletal)? @ -Differential Weakness: Hypoglycemia, shock, sepsis, hyponatremia, anemia, infection, ND, ETOH, adverse medicine reaction, overdose, stroke, this is not meant to be an all-inclusive list. EKG interpreted by me (3pts min.). @ -As above X-rays interpreted by me (1pt min.). @ -Chest x-ray, right humerus x-ray show no acute process CT interpreted by me (1pt min.). @ -CT brain without obvious large mass or hemorrhage U/S interpreted by me (1pt. min.). @ -None done What testing was considered but not performed or refused? (CT, X-rays, U/S, labs)? Why? @ -None What meds were considered but not given or refused? Why? @ -None Did you discuss the management of the patient with other professionals (professionals i.e. , PA, PAIRER INSPECTOR, lab, RT, psych nurse, social science research assistant, counter waiter, teacher, community cultural development officer, manager treasury)? Give summary @ -[facility] physician, Dr. Hua case discussed who will admit covering Dr. George Was smoking cessation discussed for >3mins.? @ -No Was critical care preformed (if so, how long)? @ -32 minutes critical care time Were there social determinants of health that impacted care today? How? (Homelessness, low income, unemployed, alcoholism, drug addiction, transportation, low edu. Level, literacy, decrease access to med. care, nursing home, rehab)? @ -No Was there de-escalation of care discussed even if they declined (Discuss DNR or withdrawal of care, Hospice)? DNR status @ -No What co-morbidities impacted this encounter? (DM, HTN, Smoking, COPD, CAD, Cancer, CVA, ARF, Chemo, Hep., AIDS, mental health diagnosis, sleep apnea, morbid obesity)? @ -None Was patient admitted / discharged? Hospital course, mention meds given and route, prescriptions, significant lab abnormalities, going to OR and other pertinent info. @ -Patient reevaluated. Patient family updated. No history of atrial fibrillation, I also be consult. Patient has severe acute kidney injury and will be admitted with IV fluids and nephrology consult. Undiagnosed new problem with uncertain prognosis? @ -No Drug Therapy requiring intensive monitoring for toxicity (Heparin, Nitro, Insulin, Cardizem)? @ -No Were any procedures done? @ -No Diagnosis/symptom? @ -Acute kidney injury Acute, or Chronic, or Acute on Chronic? @ -Acute Uncomplicated (without systemic symptoms) or Complicated (systemic symptoms)? @ -default Side effects of treatment? @ -No Exacerbation, Progression, or Severe Exacerbation? @ -No Poses a threat to life or bodily function? How? (Chest pain, USA, ND, pneumonia, PE, COPD, DKA, ARF, appy, cholecystitis, CVA, Diverticulitis, Homicidal, Suicidal, threat to staff... and all critical care pts) @ -No - Lab Data Result diagrams: 02/17/23 14:45 02/17/23 14:45 Lab Results 02/17/23 02/17/23 02/17/23 Range/Units 14:45 14:45 14:45 WBC 18.2 H (3.8-10.6) k/uL RBC 2.13 L (3.80-5.40) m/uL Hgb 7.3 L (11.4-16.0) gm/dL Hct 23.6 L (34.0-46.0) % MCV 111.2 H (80.0-100.0) fL MCH 34.4 (25.0-35.0) pg MCHC 30.9 L (31.0-37.0) g/dL RDW 15.5 (11.5-15.5) % Plt Count 220 (150-450) k/uL MPV 9.8 Hypochromasia Marked Poikilocytosis Slight Macrocytosis Marked A PT 10.1 (9.0-12.0) sec INR 0.9 (<1.2) APTT 28.9 (22.0-30.0) sec Sodium (137-145) mmol/L Potassium (3.5-5.1) mmol/L Chloride (98-107) mmol/L Carbon Dioxide (22-30) mmol/L Anion Gap mmol/L BUN (7-17) mg/dL Creatinine (0.52-1.04) mg/dL Est GFR (CKD-EPI)AfAm (>60 ml/min/1.73 sqM) Est GFR (CKD-EPI)NonAf (>60 ml/min/1.73 sqM) Glucose (74-99) mg/dL Plasma Lactic Acid Keith (0.7-2.0) mmol/L Calcium (8.4-10.2) mg/dL Phosphorus (2.5-4.5) mg/dL Magnesium (1.6-2.3) mg/dL Total Bilirubin (0.2-1.3) mg/dL AST (14-36) U/L ALT (4-34) U/L Alkaline Phosphatase (38-126) U/L Creatine Kinase (30-135) U/L Troponin I (0.000-0.034) ng/mL Total Protein (6.3-8.2) g/dL Albumin (3.5-5.0) g/dL TSH (0.465-4.680) mIU/L Free T4 (0.78-2.19) ng/dL Free T3 pg/mL (2.8-5.3) pg/ml Urine Color Light Yellow Urine Appearance Cloudy H (Clear) Urine pH 5.5 (5.0-8.0) Ur Specific [place] 1.013 (1.001-1.035) Urine Protein 1+ H (Negative) Urine Glucose (UA) Negative (Negative) Urine Ketones Negative (Negative) Urine Blood Small H (Negative) Urine Nitrite Negative (Negative) Urine Bilirubin Negative (Negative) Urine Urobilinogen <2.0 (<2.0) mg/dL Ur Leukocyte Esterase Negative (Negative) Urine RBC 4 (0-5) /hpf Urine WBC 8 H (0-5) /hpf Ur Squamous Epith Cells 1 (0-4) /hpf Urine Bacteria Rare H (None) /hpf Hyaline Casts 9 H (0-2) /lpf Granular Casts 3 (0) /lpf Urine Mucus Rare H (None) /hpf 07/23/23 07/23/23 07/23/23 Range/Units 14:45 14:45 14:45 WBC (3.8-10.6) k/uL RBC (3.80-5.40) m/uL Hgb (11.4-16.0) gm/dL Hct (34.0-46.0) % MCV (80.0-100.0) fL MCH (25.0-35.0) pg MCHC (31.0-37.0) g/dL RDW (11.5-15.5) % Plt Count (150-450) k/uL MPV Hypochromasia Poikilocytosis Macrocytosis PT (9.0-12.0) sec INR (<1.2) APTT (22.0-30.0) sec Sodium 144 (137-145) mmol/L Potassium 4.1 (3.5-5.1) mmol/L Chloride 115 H (98-107) mmol/L Carbon Dioxide <5 L* (22-30) mmol/L Anion Gap mmol/L BUN 150 H* (7-17) mg/dL Creatinine 8.52 H* (0.52-1.04) mg/dL Est GFR (CKD-EPI)AfAm 5 (>60 ml/min/1.73 sqM) Est GFR (CKD-EPI)NonAf 4 (>60 ml/min/1.73 sqM) Glucose 89 (74-99) mg/dL Plasma Lactic Acid Keith 0.6 L (0.7-2.0) mmol/L Calcium 8.9 (8.4-10.2) mg/dL Phosphorus 9.1 H* (2.5-4.5) mg/dL Magnesium 2.3 (1.6-2.3) mg/dL Total Bilirubin 0.6 (0.2-1.3) mg/dL AST 21 (14-36) U/L ALT 13 (4-34) U/L Alkaline Phosphatase 87 (38-126) U/L Creatine Kinase 64 (30-135) U/L Troponin I 0.021 (0.000-0.034) ng/mL Total Protein 7.4 (6.3-8.2) g/dL Albumin 3.5 (3.5-5.0) g/dL TSH 1.450 (0.465-4.680) mIU/L Free T4 0.57 L (0.78-2.19) ng/dL Free T3 pg/mL 3.8 (2.8-5.3) pg/ml Urine Color Urine Appearance (Clear) Urine pH (5.0-8.0) Ur Specific [place] (1.001-1.035) Urine Protein (Negative) Urine Glucose (UA) (Negative) Urine Ketones (Negative) Urine Blood (Negative) Urine Nitrite (Negative) Urine Bilirubin (Negative) Urine Urobilinogen (<2.0) mg/dL Ur Leukocyte Esterase (Negative) Urine RBC (0-5) /hpf Urine WBC (0-5) /hpf Ur Squamous Epith Cells (0-4) /hpf Urine Bacteria (None) /hpf Hyaline Casts (0-2) /lpf Granular Casts (0) /lpf Urine Mucus (None) /hpf Critical Care Time Critical Care Time: Yes Total Critical Care Time: 32 Disposition Clinical Impression: Acute kidney injury Disposition: ADMITTED IP TO THIS [facility] Condition: Serious Is patient prescribed a controlled substance at d/c from ED?: No Referrals: None,Stated [Primary Care Provider] - 1-2 days Time of Disposition: 15:41
--- NOTE | 2023-02-17 14:34 | CT ---
EXAMINATION TYPE: CT brain wo con CT DLP: 1154.8 mGycm, Automated exposure control for dose reduction was used. DATE OF EXAM: 02/17/2023 2:13 PM COMPARISON: 06/15/2018. CLINICAL INDICATION:Female, 72 years old with history of weakness, weakness TECHNIQUE: Brain: Axial CT images of the brain were obtained with coronal and sagittal reformats created and rev iewed. Contrast used: None. Oral contrast used: None. FINDINGS: Brain: Extra-axial spaces: No abnormal extra-axial fluid collections. Ventricular system: Dilatation in proportion to cerebral atrophy. Cerebral parenchyma: Cerebral atrophy. Remote left basal ganglia lacunar injury. No acute intraparenc hymal hemorrhage or mass effect. The grimm-white junction is well differentiated. Scattered hypoatten uating areas are seen within the white matter. Cerebellum: Unremarkable. Mass effect: No evidence of midline shift. Intracranial vasculature: Atherosclerotic calcifications of the intracranial vessels. Soft tissues: Normal. Calvarium/osseous structures: No depressed skull fracture. Paranasal sinuses and mastoid air cells: Mild scattered paranasal sinus disease. Visualized orbits: Bilateral aphakia IMPRESSION: 1. No acute intracranial process. 2. Nonspecific white matter changes, likely secondary to chronic small vessel ischemic disease. 3. New from prior in 2018, left basal ganglia lacunar injury.
--- NOTE | 2023-02-17 14:37 | XR ---
EXAMINATION TYPE: XR humerus RT DATE OF EXAM: 02/17/2023 2:22 PM INDICATION: Patient age:Female; 72 years old; Reason for study: fall; [facility]. COMPARISON: None TECHNIQUE: The right humerus was examined in frontal and lateral projections. FINDINGS: No evidence of acute osseous pathology, joint dislocation, or soft tissue swelling. The rem aining portions of the visualized chest are unremarkable. IMPRESSION: No acute osseous pathology.
--- NOTE | 2023-02-17 14:38 | XR ---
EXAMINATION TYPE: XR chest 2V DATE OF EXAM: 02/17/2023 2:22 PM COMPARISON: Chest radiographs from on 2017 TECHNIQUE: XR chest 2V Frontal and lateral views of the chest. CLINICAL INDICATION:Female, 72 years old with history of Weakness; FINDINGS: Lungs/Pleura: There is no evidence of pleural effusion, focal consolidation, or pneumothorax. Pulmonary vascularity: Unremarkable. Heart/mediastinum: Cardiomediastinal silhouette is unremarkable. Musculoskeletal: No acute osseous pathology. Resident visualized fixation hardware of the proximal left humerus. IMPRESSION: No acute cardiopulmonary disease/process.
[2023-02-17 15:06] LABS: Basophils % (A) 0 %; Eosinophils # (A) 0.2 k/uL (0-0.7); Eosinophils % (A) 1 %; HCT 23.6 % (34.0-46.0); HGB 7.3 gm/dL (11.4-16.0); Hypochromasia Marked; Lymphocytes # (A) 1.1 k/uL (1.0-4.8); Lymphocytes % (A) 6 %; MCH 34.4 pg (25.0-35.0); MCHC 30.9 g/dL (31.0-37.0); MCV 111.2 fL (80.0-100.0); Macrocytosis Marked; Mean Platelet Volume 9.8; Monocytes # (A) 0.9 k/uL (0-1.0); Monocytes % (A) 5 %; Neutrophils # (A) 15.8 k/uL (1.3-7.7); Neutrophils % (A) 87 %; Platelet Count 220 k/uL (150-450); Poikilocytosis Slight; RBC 2.13 m/uL (3.80-5.40); RDW 15.5 % (11.5-15.5); WBC 18.2 k/uL (3.8-10.6)
[2023-02-17 15:12] LABS: ALT 13 U/L (4-34); AST 21 U/L (14-36); African American GFR (CKD) 5 (>60 ml/min/1.73 sqM); Albumin 3.5 g/dL (3.5-5.0); Alkaline Phosphatase 87 U/L (38-126); Calcium 8.9 mg/dL (8.4-10.2); Chloride 115 mmol/L (98-107); Creatine Kinase 64 U/L (30-135); Glucose 89 mg/dL (74-99); Magnesium 2.3 mg/dL (1.6-2.3); Non-African American GFR(CKD) 4 (>60 ml/min/1.73 sqM); Potassium 4.1 mmol/L (3.5-5.1); Sodium 144 mmol/L (137-145); Total Bilirubin 0.6 mg/dL (0.2-1.3); Total Protein 7.4 g/dL (6.3-8.2)
[2023-02-17 15:15] LABS: INR 0.9 (<1.2); Partial Thromboplastin Time 28.9 sec (22.0-30.0); Prothrombin Time 10.1 sec (9.0-12.0)
[2023-02-17 15:25] LABS: Blood Urea Nitrogen 150 mg/dL (7-17); Carbon Dioxide <5 mmol/L (22-30)
[2023-02-17 15:26] LABS: Phosphorus 9.1 mg/dL (2.5-4.5)
[2023-02-17 15:28] LABS: T4, Free (Free Thyroxine) 0.57 ng/dL (0.78-2.19)
[2023-02-17 15:34] LABS: Appearance,Urine Cloudy (Clear); Bacteria,Urine Rare /hpf; Bilirubin,Urine Negative (Negative); Blood,Urine Small (Negative); Color,Urine Light Yellow; Glucose,Urine (UA) Negative (Negative); Granular Casts,Urine 3 /lpf (0); Hyaline Casts,Urine 9 /lpf (0-2); Ketones,Urine Negative (Negative); Leukocyte Esterase,Urine Negative (Negative); Mucus,Urine Rare /hpf; Nitrite,Urine Negative (Negative); PH, Urine 5.5 (5.0-8.0); Protein,Urine 1+ (Negative); RBC,Urine 4 /hpf (0-5); Specific Gravity,Urine 1.013 (1.001-1.035); Squamous Epithelial Cell,Urine 1 /hpf (0-4); Urobilinogen,Urine <2.0 mg/dL (<2.0); WBC,Urine 8 /hpf (0-5)
[2023-02-17] MEDS ORDERED: NALOXONE 0.4 MG/ML 1 ML VIAL IV PRN (15:36)
[2023-02-17] MEDS ORDERED: SODIUM CHLORIDE 0.9% 500 ML 500 ML IV STA (15:43)
[2023-02-17] MEDS ORDERED: SODIUM CHLORIDE 0.9% 1,000 ML IV SCH (15:45)
[2023-02-17] MEDS ORDERED: NICOTINE 7MG/24HR PATCH TRANSDERM ONE (16:15)
--- NOTE | 2023-02-17 20:13 | P.NPCON ---
History of Present Illness - Reason for Consult acute renal failure - History of Present Illness Patient is a 72-year-old female with history of COPD, CVA/TIA history of chronic kidney disease NKF stage IIIa with previous creatinine at 1.4-1.5 mg/dL in December and October 2021. Patient is admitted to the hospital with complaints of increased weakness. She has had decreased oral intake. No significant reports of diarrhea or vomiting. Patient currently has an indwelling Henley catheter. 700 mL of urine is noted. Serum creatinine was 8.5 mg/dL with CO2 of less than 5 and potassium of 4.1. No NSAIDs or DRAKE inhibitor as noted on home medications. No hypotension noted. Patient was hypothermic with temperature of 96.5F on initial admission. Review of Systems As per HPI Past Medical History Past Medical History: Asthma, Chest Pain / Angina, COPD, CVA/TIA, Fibromyalgia, GERD/Reflux, GI Bleed, Musculoskeletal Disorder, Neurologic Disorder, Osteoarthritis (OA), Renal Disease, Skin Disorder Additional Past Medical History / Comment(s): HX OF TIA'S -RIGHT SIDED WEAKNESS, IBS, NEUROPATHY IN HANDS & FEET., HERNIATED DISC, OSTEOPOROSIS, BACK PAIN, HIATAL HERNIA, , DISCOID LUPUS, HX OF STOMACH BLEED FROM MOTRIN, STATES 60 % KIDNEY FUNCTION, HX OF MULTIPLE UTI'S., BELLS PALSY (1999), OCCASIONAL FALLS- BROKE HER RIGHT FOOT 5 WEEKS AGO, USES WALKER- HAS ORDERED A MOTOR W/C., HAVING DIFFICULTY SWALLOWING. History of Any Multi-Drug Resistant Organisms: ESBL Date of last positivie culture/infection: 09/18/21 MDRO Source:: Urine-ESBL E.coli Past Surgical History: Appendectomy, Cholecystectomy, Heart Catheterization With Stent, Hernia Repair, Hysterectomy, Orthopedic Surgery Additional Past Surgical History / Comment(s): HEART CATHS WITH STENTS(1999) & (DECEMBER 2014), UMBILICAL HERNIA, HAMMER TOES, BUNIONS , SURGERY FOR PHLEBITIS IN HER LEG. Past Anesthesia/Blood Transfusion Reactions: No Reported Reaction Date of Last Stent Placement:: 2014 Past Psychological History: Anxiety, Depression, Panic Disorder Smoking Status: Current every day smoker Past Alcohol Use History: None Reported Additional Past Alcohol Use History / Comment(s): SMOKES 1/2 PPD OR LESS. HAS BEEN SMOKING SINCE 28 YRS OLD ( 39YEARS) Past Drug Use History: None Reported - Past Family History Sister(s) Family Medical History: Cancer, CVA/TIA Mother Family Medical History: Coronary Artery Disease (CAD) Father Family Medical History: Cancer, CVA/TIA, Diabetes Mellitus, Hyperlipidemia, Hypertension Additional Family Medical History / Comment(s): ETOH, BLADDER CANCER, BELLS PALSY Medications and Allergies Home Medications Medication Instructions Recorded Confirmed Type ALPRAZolam [Xanax] 1 mg PO TID PRN 02/17/23 02/17/23 History Pantoprazole Sodium [Protonix] 40 mg PO BID 02/17/23 02/17/23 History atenoloL [Tenormin] 25 mg PO DAILY 02/17/23 02/17/23 History Allergies Allergy/AdvReac Type Severity Reaction Status Date / Time amitriptyline [From Elavil] Allergy Rash/Hives Verified 02/17/23 16:17 cortisone [Cortisone] Allergy throat Verified 02/17/23 16:17 Swelling NSAIDS (Non-Steroidal Allergy Nausea & Verified 02/17/23 16:17 Anti-Inflamma Vomiting & Diarrhea/ GI bleed Sulfa (Sulfonamide Allergy Rash/Hives, Verified 02/17/23 16:17 Antibiotics) blisters tetracaine Allergy Unknown Verified 02/17/23 16:17 tetracaine HCl Allergy Unknown Verified 02/17/23 16:17 [From Pontocaine] aspirin AdvReac Mild GI Bleed Verified 02/17/23 16:17 adhesive AdvReac blisters Verified 02/17/23 16:17 merocaine Allergy Unknown Uncoded 02/17/23 16:17 contrast/dye AdvReac Unknown Uncoded 02/17/23 16:17 Physical Exam Vitals: Vital Signs Temp Pulse Pulse Resp BP BP Pulse Ox 02/17/23 17:10 97.4 F L 100 18 134/69 99 02/17/23 16:09 96 20 137/65 100 02/17/23 15:06 101 H 18 131/55 97 02/17/23 13:29 96.5 F L 100 16 128/65 100 Intake and Output 02/17/23 02/17/23 02/17/23 06:59 14:59 22:59 Intake Total 118 Output Total 700 Balance -582 Intake: Oral 118 Output: Urine 700 Uretheral (Henley) 700 Other: Voiding Method Indwelling Catheter Weight 43.772 kg 43.772 kg Patient is awake, comfortable, no acute distress She is able to answer simple questions. Examination of the heart S1 and S2 Examination of the lungs bilateral breath sounds are heard Abdomen is soft nontender Examination of the lower extremities shows no significant edema [employer] exam shows patient is able to move all 4 extremities Results - Lab Results Most recent lab results Calcium 8.9 mg/dL (8.4-10.2) 02/17/23 14:45 Phosphorus 9.1 mg/dL (2.5-4.5) H* 02/17/23 14:45 Magnesium 2.3 mg/dL (1.6-2.3) 02/17/23 14:45 02/17/23 14:45 02/17/23 14:45 Assessment and Plan Assessment: 1. Acute kidney injury ATN, rule out obstructive uropathy. UA shows 1+ protein small blood and WBCs 8 2. Severe metabolic acidosis secondary to severe acute kidney injury 3. Hyperphosphatemia associated with acute kidney injury 4. Anemia rule out iron deficiency 5. History of hypertension, blood pressure is currently not elevated or low Plan: Start IV bicarb Check ultrasound of the kidneys Repeat labs in a.m. If renal function does not improve patient will need to be dialyzed especially EF she continues to have intractable metabolic acidosis. Maintain accurate I's and O's Avoid nephrotoxic agents. Next Thank you for the consultation. We will continue to follow the patient with you during her hospitalization.
[2023-02-17] MEDS: SODIUM BICARBONATE TAB 650 MG TAB PO SCH (20:48)
[2023-02-17] MEDS: FAMOTIDINE 20 MG TAB PO SCH (20:48)
[2023-02-17] MEDS: DEXTROSE 5% IN WATER 1,000 ML with SODIUM BICARB (1 MEQ/ML) 150 ML IV SCH (21:45)
[2023-02-18] MEDS: CALCIUM ACETATE 667 MG TAB PO SCH ×3 (06:51→17:48)
--- NOTE | 2023-02-18 07:13 | US ---
EXAMINATION TYPE: US kidneys/renal and bladder DATE OF EXAM: 02/17/2023 COMPARISON: CT 2020, US 2018 CLINICAL INDICATION: Female, 72 years old with history of alexi; ALEXI EXAM MEASUREMENTS: Right Kidney: Unable to get accurate measurement, borders not well seen, measured at 9.9 x 5.1 x 5.7 cm Left Kidney: 12.6 x 5.2 x 6.3 cm -Exam is limited due to gas and rib shadow. Right Kidney: Numerous anechoic areas seen, largest at lower pole: 6.0 x 5.6 x 4.7 cm. Left Kidney: Slightly enlarged. Numerous anechoic areas seen, largest at mid: 4.0 x 3.0 x 3.1 cm. -Septated/complex area seen at lower pole: 2.8 x 1.7 x 1.8 cm. Bladder: No, catheter in place. Bilateral Jets seen: No IMPRESSION: 1. No evidence of Quinby nephrosis. 2. Bilateral renal cysts some of which have thin septations. 3. Henley catheter in place.
[2023-02-18] MEDS: SODIUM BICARBONATE TAB 650 MG TAB PO SCH ×3 (07:58→21:22)
[2023-02-18] MEDS: DEXTROSE 5% IN WATER 1,000 ML with SODIUM BICARB (1 MEQ/ML) 150 ML IV SCH ×2 (07:59→21:22)
[2023-02-18 08:31] LABS: ALT 14 U/L (4-34); AST 20 U/L (14-36); African American GFR (CKD) 6 (>60 ml/min/1.73 sqM); Albumin 2.9 g/dL (3.5-5.0); Alkaline Phosphatase 90 U/L (38-126); Anion Gap 23 mmol/L; Calcium 7.6 mg/dL (8.4-10.2); Chloride 112 mmol/L (98-107); Glucose 137 mg/dL (74-99); Non-African American GFR(CKD) 5 (>60 ml/min/1.73 sqM); Potassium 2.8 mmol/L (3.5-5.1); Sodium 142 mmol/L (137-145); Total Bilirubin 0.4 mg/dL (0.2-1.3); Total Protein 5.8 g/dL (6.3-8.2)
[2023-02-18 08:32] LABS: Basophils % (A) 0 %; Eosinophils # (A) 0.3 k/uL (0-0.7); Eosinophils % (A) 2 %; Hypochromasia Marked; Lymphocytes # (A) 0.8 k/uL (1.0-4.8); Lymphocytes % (A) 6 %; MCH 36.4 pg (25.0-35.0); MCHC 32.8 g/dL (31.0-37.0); MCV 110.8 fL (80.0-100.0); Macrocytosis Marked; Mean Platelet Volume 9.8; Monocytes # (A) 0.7 k/uL (0-1.0); Monocytes % (A) 5 %; Neutrophils # (A) 13.1 k/uL (1.3-7.7); Neutrophils % (A) 87 %; Platelet Count 200 k/uL (150-450); Poikilocytosis Slight; RBC 1.67 m/uL (3.80-5.40); RDW 15.7 % (11.5-15.5)
[2023-02-18 08:38] LABS: HGB 6.1 gm/dL (11.4-16.0)
[2023-02-18 08:40] LABS: HCT 18.5 % (34.0-46.0)
[2023-02-18 08:43] LABS: Carbon Dioxide 7 mmol/L (22-30)
[2023-02-18 08:44] LABS: Blood Urea Nitrogen 136 mg/dL (7-17)
[2023-02-18] MEDS: METOPROLOL TARTRATE 12.5 MG TAB PO SCH ×3 (11:12→21:22)
[2023-02-18 11:33] LABS: % Iron Saturation 15.75 (12.00-45.00); Iron 23 UG/DL (50-170); Total Iron Binding Capacity 146 UG/DL (228-460)
--- NOTE | 2023-02-18 11:51 | P.CRDCN ---
History of Present Illness History of present illness: HISTORY OF PRESENT ILLNESS: This is a 72 year old female with a past medical history significant for coronary artery disease with previous angioplasty, hypertension, hyperlipidemia, and diabetes. Patient follows in the office with Dr. Rivera. We have been asked to see the patient in consultation for A. fib with RVR. Patient examined at the bedside. The patient presented to the hospital with a chief complaint of generalized weakness. She also reports having a fall approximately one week prior to coming to the hospital. Apparently, the patient is also not been eating or drinking well at home. The patient was found to be in acute renal failure. The patient was also found to be in A. fib with RVR. The patient does not have a history of atrial fibrillation. At the time of examination she remains in atrial fibrillation with heart rate between [id number]. She denies any chest pain or pressure. She denies any shortness of breath. She is very thin and appears frail. Her BMI is 18.2. * EKG reveals atrial fibrillation with RVR * Chest xray no acute cardiopulmonary process * Laboratory data: WBC 15.0. Hemoglobin 6.1. Platelet count 200. Sodium 142. Potassium 2.8. BUN 136. Creatinine 6.99. TSH 1.450. * Current home cardiac medications include atenolol 25 mg daily * Most recent echocardiogram obtained in December 2016 at the office revealed ejection fraction 55%, moderate concentric hypertrophy, mild mitral regurgitation, and mild tricuspid regurgitation * Patient underwent dobutamine stress test and December 2016 which was negative for ischemia * Cardiac catheterization history: September 2015 with stenting of the RCA REVIEW OF SYSTEMS: At the time of my exam: CONSTITUTIONAL: Denies fever or chills. HEENT: Denies blurred vision, vision changes, or eye pain. Denies hemoptysis CARDIOVASCULAR: Denies chest pain. Denies orthopnea. Denies PND. Denies palpitations RESPIRATORY: Denies shortness of breath. GASTROINTESTINAL: Denies abdominal pain. Denies nausea or vomiting. HEMATOLOGIC: Denies bleeding disorders. GENITOURINARY: Denies any blood in urine. SKIN: Denies pruitis. Denies rash. PHYSICAL EXAM: VITAL SIGNS: Reviewed. GENERAL: Well-developed in no acute distress. HEENT: Head is normocephalic. Pupils are equal, round. Sclerae anicteric. Mucous membranes of the mouth are moist. Neck supple. No JVD or thyromegaly LUNGS: Respirations even and unlabored. Lungs essentially clear to auscultation bilaterally. HEART: Regular rate and rhythm. S1 and S2 heard. ABDOMEN: Soft. Nondistended. Nontender. EXTREMITIES: Normal range of motion. No clubbing or cyanosis. Peripheral pulses intact. No lower extremity edema NEUROLOGIC: Awake and alert. Oriented x 3. ASSESSMENT: Generalized weakness Status post fall at home New-onset atrial fibrillation with RVR Acute renal failure Metabolic acidosis Anemia Hypokalemia Coronary artery disease with previous stenting of the RCA, September 2015 Hypertension Hyperlipidemia Diabetes Nicotine dependence PLAN: Obtain 2-D echo to assess cardiac structure and function Add metoprolol tartrate 2.5 mg 3 times a day Add atorvastatin 20 mg at night secondary to hx of HLD and CAD Patient is not a candidate for anticoagulation at this time secondary to recent fall and acute anemia Continue telemetry monitoring Further recommendations pending patient course Nurse practitioner note has been reviewed by physician. Signing provider agrees with the documented findings, assessment, and plan of care. Past Medical History Past Medical History: Asthma, Chest Pain / Angina, COPD, CVA/TIA, Fibromyalgia, GERD/Reflux, GI Bleed, Musculoskeletal Disorder, Neurologic Disorder, Osteoarthritis (OA), Renal Disease, Skin Disorder Additional Past Medical History / Comment(s): HX OF TIA'S -RIGHT SIDED WEAKNESS, IBS, NEUROPATHY IN HANDS & FEET., HERNIATED DISC, OSTEOPOROSIS, BACK PAIN, HIATAL HERNIA, , DISCOID LUPUS, HX OF STOMACH BLEED FROM MOTRIN, STATES 60 % KIDNEY FUNCTION, HX OF MULTIPLE UTI'S., BELLS PALSY (1999), OCCASIONAL FALLS- BROKE HER RIGHT FOOT 5 WEEKS AGO, USES WALKER- HAS ORDERED A MOTOR W/C., HAVING DIFFICULTY SWALLOWING. History of Any Multi-Drug Resistant Organisms: ESBL Date of last positivie culture/infection: 09/18/21 MDRO Source:: Urine-ESBL E.coli Past Surgical History: Appendectomy, Cholecystectomy, Heart Catheterization With Stent, Hernia Repair, Hysterectomy, Orthopedic Surgery Additional Past Surgical History / Comment(s): HEART CATHS WITH STENTS(1999) & (DECEMBER 2014), UMBILICAL HERNIA, HAMMER TOES, BUNIONS , SURGERY FOR PHLEBITIS IN HER LEG. Past Anesthesia/Blood Transfusion Reactions: No Reported Reaction Date of Last Stent Placement:: 2014 Past Psychological History: Anxiety, Depression, Panic Disorder Smoking Status: Current every day smoker Past Alcohol Use History: None Reported Additional Past Alcohol Use History / Comment(s): SMOKES 1/2 PPD OR LESS. HAS BEEN SMOKING SINCE 28 YRS OLD ( 39YEARS) Past Drug Use History: None Reported - Past Family History Sister(s) Family Medical History: Cancer, CVA/TIA Mother Family Medical History: Coronary Artery Disease (CAD) Father Family Medical History: Cancer, CVA/TIA, Diabetes Mellitus, Hyperlipidemia, Hypertension Additional Family Medical History / Comment(s): ETOH, BLADDER CANCER, BELLS PALSY Medications and Allergies Home Medications Medication Instructions Recorded Confirmed Type ALPRAZolam [Xanax] 1 mg PO TID PRN 02/17/23 02/17/23 History Pantoprazole Sodium [Protonix] 40 mg PO BID 02/17/23 02/17/23 History atenoloL [Tenormin] 25 mg PO DAILY 02/17/23 02/17/23 History Allergies Allergy/AdvReac Type Severity Reaction Status Date / Time amitriptyline [From Elavil] Allergy Rash/Hives Verified 02/17/23 16:17 cortisone [Cortisone] Allergy throat Verified 02/17/23 16:17 Swelling NSAIDS (Non-Steroidal Allergy Nausea & Verified 02/17/23 16:17 Anti-Inflamma Vomiting & Diarrhea/ GI bleed Sulfa (Sulfonamide Allergy Rash/Hives, Verified 02/17/23 16:17 Antibiotics) blisters tetracaine Allergy Unknown Verified 02/17/23 16:17 tetracaine HCl Allergy Unknown Verified 02/17/23 16:17 [From Pontocaine] aspirin AdvReac Mild GI Bleed Verified 02/17/23 16:17 adhesive AdvReac blisters Verified 02/17/23 16:17 merocaine Allergy Unknown Uncoded 02/17/23 16:17 contrast/dye AdvReac Unknown Uncoded 02/17/23 16:17 Physical Exam Vitals: Vital Signs Temp Pulse Pulse Resp BP BP Pulse Ox 02/18/23 07:57 98.2 F 102 H 19 125/65 99 02/18/23 04:00 106 H 18 139/70 99 02/18/23 00:00 97.5 F L 101 H 18 132/71 98 02/17/23 20:00 97.6 F 97 18 147/73 100 02/17/23 17:10 97.4 F L 100 18 134/69 99 02/17/23 16:09 96 20 137/65 100 02/17/23 15:06 101 H 18 131/55 97 02/17/23 13:29 96.5 F L 100 16 128/65 100 Intake and Output 02/17/23 02/18/23 02/18/23 22:59 06:59 14:59 Intake Total 118 118 Output Total 700 950 Balance -582 -950 118 Intake: Oral 118 118 Output: Urine 700 950 Uretheral (Henley) 700 Other: Voiding Method Indwelling Catheter Indwelling Catheter Indwelling Catheter Weight 43.772 kg Results 02/18/23 07:26 02/18/23 07:26 Cardiac Enzymes 02/17/23 02/17/23 02/18/23 Range/Units 14:45 14:45 07:26 AST 21 20 (14-36) U/L Troponin I 0.021 (0.000-0.034) ng/mL Coagulation 02/17/23 Range/Units 14:45 PT 10.1 (9.0-12.0) sec APTT 28.9 (22.0-30.0) sec CBC 02/17/23 02/18/23 Range/Units 14:45 07:26 WBC 18.2 H 15.0 H (3.8-10.6) k/uL RBC 2.13 L 1.67 L (3.80-5.40) m/uL Hgb 7.3 L 6.1 L* (11.4-16.0) gm/dL Hct 23.6 L 18.5 L* (34.0-46.0) % Plt Count 220 200 (150-450) k/uL Comprehensive Metabolic Panel 02/17/23 02/18/23 Range/Units 14:45 07:26 Sodium 144 142 (137-145) mmol/L Potassium 4.1 2.8 L (3.5-5.1) mmol/L Chloride 115 H 112 H (98-107) mmol/L Carbon Dioxide <5 L* 7 L* (22-30) mmol/L BUN 150 H* 136 H* (7-17) mg/dL Creatinine 8.52 H* 6.99 H (0.52-1.04) mg/dL Glucose 89 137 H (74-99) mg/dL Calcium 8.9 7.6 L (8.4-10.2) mg/dL AST 21 20 (14-36) U/L ALT 13 14 (4-34) U/L Alkaline Phosphatase 87 90 (38-126) U/L Total Protein 7.4 5.8 L (6.3-8.2) g/dL Albumin 3.5 2.9 L (3.5-5.0) g/dL Current Medications Generic Name Dose Route Start Last Admin Trade Name Freq PRN Reason Stop Dose Admin Acetaminophen 650 mg 02/17/23 15:36 Acetaminophen Tab 325 Mg Tab PO Q6HR PRN Mild Pain or Fever > 100.5 Calcium Acetate 667 mg 02/18/23 07:30 02/18/23 06:51 Calcium Acetate 667 Mg Tab PO 667 mg TID-W/MEALS SORAYA Administration Famotidine 20 mg 02/17/23 21:00 02/17/23 20:48 Famotidine 20 Mg Tab PO 20 mg HS SORAYA Administration Sodium Bicarbonate 150 ml/ 1,150 mls @ 100 mls/hr 02/17/23 21:00 02/18/23 07:59 Dextrose/Water IV 100 mls/hr .[id number] SORAYA Administration Metoprolol Tartrate 12.5 mg 02/18/23 10:15 Metoprolol Tartrate 12.5 Mg Tab PO TID SORAYA Naloxone HCl 0.2 mg 02/17/23 15:36 Naloxone 0.4 Mg/Ml 1 Ml Vial IV Q2M PRN Opioid Reversal Sodium Bicarbonate 650 mg 02/17/23 22:00 02/18/23 07:58 Sodium Bicarbonate Tab 650 Mg Tab PO 650 mg TID SORAYA Administration Intake and Output 02/17/23 02/18/23 02/18/23 22:59 06:59 14:59 Intake Total 118 118 Output Total 700 950 Balance -582 -950 118 Intake: Oral 118 118 Output: Urine 700 950 Uretheral (Henley) 700 Other: Voiding Method Indwelling Catheter Indwelling Catheter Indwelling Catheter Weight 43.772 kg 02/18/23 07:26 02/18/23 07:26
[2023-02-18] MEDS ORDERED: SODIUM BICARB 8.4% 50 ML SYR (1 MEQ/ML) IV STA (13:11)
--- NOTE | 2023-02-18 13:15 | P.PN ---
Subjective Patient is seen in follow-up for acute kidney injury. Renal function improving. Nonoliguric. Still quite acidotic but improving. Currently on bicarb drip. Awake and alert. Vital signs are stable. General: No acute distress. HEENT: Head exam is unremarkable. LUNGS: No audible rhonchi or wheezes. HEART: Rate and Rhythm are regular. ABDOMEN: Nontender. EXTREMITITES: No edema. Objective - Vital Signs Vital signs: Vital Signs Temp 98.2 F 02/18/23 07:57 Pulse 93 02/18/23 13:03 Resp 16 02/18/23 11:11 BP 132/77 02/18/23 13:03 Pulse Ox 99 02/18/23 13:03 FiO2 Intake & Output 02/17/23 02/18/23 02/18/23 18:59 06:59 18:59 Intake Total 118 118 Output Total 700 950 300 Balance -582 -950 -182 Weight 43.772 kg Intake: Oral 118 118 Blood Product 0 Rc As-1 Unit 0 [id number] Output: Urine 700 950 300 Uretheral (Henley) 700 Other: Voiding Method Indwelling Catheter Indwelling Catheter Indwelling Catheter - Labs CBC & Chem 7: 02/18/23 07:26 02/18/23 07:26 Labs: Abnormal Lab Results - Last 24 Hours (Table) 02/17/23 02/17/23 02/17/23 Range/Units 14:45 14:45 14:45 WBC 18.2 H (3.8-10.6) k/uL RBC 2.13 L (3.80-5.40) m/uL Hgb 7.3 L (11.4-16.0) gm/dL Hct 23.6 L (34.0-46.0) % MCV 111.2 H (80.0-100.0) fL MCH (25.0-35.0) pg MCHC 30.9 L (31.0-37.0) g/dL RDW (11.5-15.5) % Neutrophils # 15.8 H (1.3-7.7) k/uL Lymphocytes # (1.0-4.8) k/uL Macrocytosis Marked A Potassium (3.5-5.1) mmol/L Chloride 115 H (98-107) mmol/L Carbon Dioxide <5 L* (22-30) mmol/L BUN 150 H* (7-17) mg/dL Creatinine 8.52 H* (0.52-1.04) mg/dL Glucose (74-99) mg/dL Plasma Lactic Acid Keith (0.7-2.0) mmol/L Calcium (8.4-10.2) mg/dL Phosphorus 9.1 H* (2.5-4.5) mg/dL Iron (50-170) UG/DL TIBC (228-460) UG/DL Transferrin (204.0-354.0) mg/dL Total Protein (6.3-8.2) g/dL Albumin (3.5-5.0) g/dL Free T4 0.57 L (0.78-2.19) ng/dL Urine Appearance Cloudy H (Clear) Urine Protein 1+ H (Negative) Urine Blood Small H (Negative) Urine WBC 8 H (0-5) /hpf Urine Bacteria Rare H (None) /hpf Hyaline Casts 9 H (0-2) /lpf Urine Mucus Rare H (None) /hpf Crossmatch 02/17/23 02/18/23 02/18/23 Range/Units 14:45 07:26 07:26 WBC 15.0 H (3.8-10.6) k/uL RBC 1.67 L (3.80-5.40) m/uL Hgb 6.1 L* (11.4-16.0) gm/dL Hct 18.5 L* (34.0-46.0) % MCV 110.8 H (80.0-100.0) fL MCH 36.4 H (25.0-35.0) pg MCHC (31.0-37.0) g/dL RDW 15.7 H (11.5-15.5) % Neutrophils # 13.1 H (1.3-7.7) k/uL Lymphocytes # 0.8 L (1.0-4.8) k/uL Macrocytosis Marked A Potassium 2.8 L (3.5-5.1) mmol/L Chloride 112 H (98-107) mmol/L Carbon Dioxide 7 L* (22-30) mmol/L BUN 136 H* (7-17) mg/dL Creatinine 6.99 H (0.52-1.04) mg/dL Glucose 137 H (74-99) mg/dL Plasma Lactic Acid Keith 0.6 L (0.7-2.0) mmol/L Calcium 7.6 L (8.4-10.2) mg/dL Phosphorus (2.5-4.5) mg/dL Iron 23 L (50-170) UG/DL TIBC 146 L (228-460) UG/DL Transferrin 104.0 L (204.0-354.0) mg/dL Total Protein 5.8 L (6.3-8.2) g/dL Albumin 2.9 L (3.5-5.0) g/dL Free T4 (0.78-2.19) ng/dL Urine Appearance (Clear) Urine Protein (Negative) Urine Blood (Negative) Urine WBC (0-5) /hpf Urine Bacteria (None) /hpf Hyaline Casts (0-2) /lpf Urine Mucus (None) /hpf Crossmatch 02/18/23 Range/Units 10:33 WBC (3.8-10.6) k/uL RBC (3.80-5.40) m/uL Hgb (11.4-16.0) gm/dL Hct (34.0-46.0) % MCV (80.0-100.0) fL MCH (25.0-35.0) pg MCHC (31.0-37.0) g/dL RDW (11.5-15.5) % Neutrophils # (1.3-7.7) k/uL Lymphocytes # (1.0-4.8) k/uL Macrocytosis Potassium (3.5-5.1) mmol/L Chloride (98-107) mmol/L Carbon Dioxide (22-30) mmol/L BUN (7-17) mg/dL Creatinine (0.52-1.04) mg/dL Glucose (74-99) mg/dL Plasma Lactic Acid Keith (0.7-2.0) mmol/L Calcium (8.4-10.2) mg/dL Phosphorus (2.5-4.5) mg/dL Iron (50-170) UG/DL TIBC (228-460) UG/DL Transferrin (204.0-354.0) mg/dL Total Protein (6.3-8.2) g/dL Albumin (3.5-5.0) g/dL Free T4 (0.78-2.19) ng/dL Urine Appearance (Clear) Urine Protein (Negative) Urine Blood (Negative) Urine WBC (0-5) /hpf Urine Bacteria (None) /hpf Hyaline Casts (0-2) /lpf Urine Mucus (None) /hpf Crossmatch See Detail Assessment and Plan Plan: Assessment: 1. Acute kidney injury secondary to ATN secondary to hypovolemia and hemodynamic instability. Creatinine 8.5-1 admission and is 6.99 today. Creatinine 1.4-1.6 in December 2021. No hydronephrosis noted on kidney ultrasound. 2. Acute blood loss anemia with hemoglobin of 6.1 today. Concern for uremic bleed. 3. Metabolic acidosis secondary to acute kidney injury. 4. A. fib with RVR. Cardiology following. 5. Coronary disease status post cardiac stenting in the past. 6. Hypokalemia from intrasellar shifting from IV bicarb and poor intake. 7. Hyperphosphatemia secondary to acute kidney injury maintained on PhosLo. Plan: Maintain bicarb drip. 2 A of sodium bicarb IV push today. Scheduled to receive a unit of blood. IV DDAVP 1 dose today. Replace potassium. Due to severely impaired renal function, acidosis and concern for uremic bleed, initiat renal replacement therapy. Plan for first treatment today and second treatment tomorrow. Expect improvement in renal function.
[2023-02-18] MEDS: POTASSIUM CHLORIDE ER 20 MEQ TAB.ER PO SCH ×3 (13:24→17:32)
[2023-02-18] MEDS ORDERED: DESMOPRESSIN ACETATE 14 MCG in SODIUM CHLORIDE 0.9% 50 ML IVPB ONE (13:45)
[2023-02-18] MEDS ORDERED: LIDOCAINE 1% INJ 10MG/ML (30 ML VIAL-PF) SQ ONE (14:55)
[2023-02-18] MEDS ORDERED: IV FLUID CONTINUATION 1,000 ML IV ONE (16:56)
[2023-02-18] MEDS ORDERED: MIDAZOLAM 2 MG/2 ML VIAL IVP ONE (16:56)
--- NOTE | 2023-02-18 17:04 | P.GSCN ---
History of Present Illness History of present illness: 72-year-old white female, patient has history of acute chronic renal failure consulted for placement of a dialysis catheter. Patient also has a history of 4 acute blood loss. Patient has history A. fib and coronary artery disease Chest examination chest few crackles the lung bases first and second sound present Abdomen soft nontender Femorals are 2+ bilateral patient has a high BUN/creatinine plan is a placement of a dialysis catheter risk and complication discussed Past Medical History Past Medical History: Asthma, Chest Pain / Angina, COPD, CVA/TIA, Fibromyalgia, GERD/Reflux, GI Bleed, Musculoskeletal Disorder, Neurologic Disorder, Ost eoarthritis (OA), Renal Disease, Skin Disorder Additional Past Medical History / Comment(s): HX OF TIA'S -RIGHT SIDED WEAKNESS, IBS, NEUROPATHY IN HANDS & FEET., HERNIATED DISC, OSTEOPOROSIS, BACK PAIN, HIATAL HERNIA, , DISCOID LUPUS, HX OF STOMACH BLEED FROM MOTRIN, STATES 60 % KIDNEY FUNCTION, HX OF MULTIPLE UTI'S., BELLS PALSY (1999), OCCASIONAL FALLS- BROKE HER RIGHT FOOT 5 WEEKS AGO, USES WALKER- HAS ORDERED A MOTOR W/C., HAVING DIFFICULTY SWALLOWING. History of Any Multi-Drug Resistant Organisms: ESBL Year Discovered:: 09/18/21 MDRO Source:: Urine-ESBL E.coli Past Surgical History: Appendectomy, Cholecystectomy, Heart Catheterization With Stent, Hernia Repair, Hysterectomy, Orthopedic Surgery Additional Past Surgical History / Comment(s): HEART CATHS WITH STENTS(1999) & (DECEMBER 2014), UMBILICAL HERNIA, HAMMER TOES, BUNIONS , SURGERY FOR PHLEBITIS IN HER LEG. Past Anesthesia/Blood Transfusion Reactions: No Reported Reaction Date of Last Stent Placement:: 2014 Past Psychological History: Anxiety, Depression, Panic Disorder Smoking Status: Current every day smoker Past Alcohol Use History: None Reported Additional Past Alcohol Use History / Comment(s): SMOKES 1/2 PPD OR LESS. HAS BEEN SMOKING SINCE 28 YRS OLD ( 39YEARS) Past Drug Use History: None Reported - Past Family History Sister(s) Family Medical History: Cancer, CVA/TIA Mother Family Medical History: Coronary Artery Disease (CAD) Father Family Medical History: Cancer, CVA/TIA, Diabetes Mellitus, Hyperlipidemia, Hypertension Additional Family Medical History / Comment(s): ETOH, BLADDER CANCER, BELLS PALSY Medications and Allergies Home Medications Medication Instructions Recorded Confirmed Type ALPRAZolam [Xanax] 1 mg PO TID PRN 02/17/23 02/17/23 History Pantoprazole Sodium [Protonix] 40 mg PO BID 02/17/23 02/17/23 History atenoloL [Tenormin] 25 mg PO DAILY 02/17/23 02/17/23 History Allergies Allergy/AdvReac Type Severity Reaction Status Date / Time amitriptyline [From Elavil] Allergy Rash/Hives Verified 02/17/23 16:17 cortisone [Cortisone] Allergy throat Verified 02/17/23 16:17 Swelling NSAIDS (Non-Steroidal Allergy Nausea & Verified 02/17/23 16:17 Anti-Inflamma Vomiting & Diarrhea/ GI bleed Sulfa (Sulfonamide Allergy Rash/Hives, Verified 02/17/23 16:17 Antibiotics) blisters tetracaine Allergy Unknown Verified 02/17/23 16:17 tetracaine HCl Allergy Unknown Verified 02/17/23 16:17 [From Pontocaine] aspirin AdvReac Mild GI Bleed Verified 02/17/23 16:17 adhesive AdvReac blisters Verified 02/17/23 16:17 merocaine Allergy Unknown Uncoded 02/17/23 16:17 contrast/dye AdvReac Unknown Uncoded 02/17/23 16:17 Surgical - Exam Vital Signs Temp Pulse Resp BP Pulse Ox 96.5 F L 100 16 128/65 100 02/17/23 13:29 02/17/23 13:29 02/17/23 13:29 02/17/23 13:29 02/17/23 13:29 Results - Labs 02/18/23 07:26 02/18/23 07:26 Abnormal Lab Results - Last 24 Hours (Table) 02/18/23 02/18/23 02/18/23 Range/Units 07:26 07:26 10:33 WBC 15.0 H (3.8-10.6) k/uL RBC 1.67 L (3.80-5.40) m/uL Hgb 6.1 L* (11.4-16.0) gm/dL Hct 18.5 L* (34.0-46.0) % MCV 110.8 H (80.0-100.0) fL MCH 36.4 H (25.0-35.0) pg RDW 15.7 H (11.5-15.5) % Neutrophils # 13.1 H (1.3-7.7) k/uL Lymphocytes # 0.8 L (1.0-4.8) k/uL Macrocytosis Marked A Potassium 2.8 L (3.5-5.1) mmol/L Chloride 112 H (98-107) mmol/L Carbon Dioxide 7 L* (22-30) mmol/L BUN 136 H* (7-17) mg/dL Creatinine 6.99 H (0.52-1.04) mg/dL Glucose 137 H (74-99) mg/dL Calcium 7.6 L (8.4-10.2) mg/dL Iron 23 L (50-170) UG/DL TIBC 146 L (228-460) UG/DL Transferrin 104.0 L (204.0-354.0) mg/dL Total Protein 5.8 L (6.3-8.2) g/dL Albumin 2.9 L (3.5-5.0) g/dL Crossmatch See Detail Diabetes panel 02/18/23 Range/Units 07:26 Sodium 142 (137-145) mmol/L Potassium 2.8 L (3.5-5.1) mmol/L Chloride 112 H (98-107) mmol/L Carbon Dioxide 7 L* (22-30) mmol/L BUN 136 H* (7-17) mg/dL Creatinine 6.99 H (0.52-1.04) mg/dL Glucose 137 H (74-99) mg/dL Calcium 7.6 L (8.4-10.2) mg/dL AST 20 (14-36) U/L ALT 14 (4-34) U/L Alkaline Phosphatase 90 (38-126) U/L Total Protein 5.8 L (6.3-8.2) g/dL Albumin 2.9 L (3.5-5.0) g/dL Calcium panel 02/18/23 Range/Units 07:26 Calcium 7.6 L (8.4-10.2) mg/dL Albumin 2.9 L (3.5-5.0) g/dL Pituitary panel 02/18/23 Range/Units 07:26 Sodium 142 (137-145) mmol/L Potassium 2.8 L (3.5-5.1) mmol/L Chloride 112 H (98-107) mmol/L Carbon Dioxide 7 L* (22-30) mmol/L BUN 136 H* (7-17) mg/dL Creatinine 6.99 H (0.52-1.04) mg/dL Glucose 137 H (74-99) mg/dL Calcium 7.6 L (8.4-10.2) mg/dL Adrenal panel 02/18/23 Range/Units 07:26 Sodium 142 (137-145) mmol/L Potassium 2.8 L (3.5-5.1) mmol/L Chloride 112 H (98-107) mmol/L Carbon Dioxide 7 L* (22-30) mmol/L BUN 136 H* (7-17) mg/dL Creatinine 6.99 H (0.52-1.04) mg/dL Glucose 137 H (74-99) mg/dL Calcium 7.6 L (8.4-10.2) mg/dL Total Bilirubin 0.4 (0.2-1.3) mg/dL AST 20 (14-36) U/L ALT 14 (4-34) U/L Alkaline Phosphatase 90 (38-126) U/L Total Protein 5.8 L (6.3-8.2) g/dL Albumin 2.9 L (3.5-5.0) g/dL
--- NOTE | 2023-02-18 17:05 | P.PCN ---
Description of Procedure: Preoperative diagnoses is acute chronic renal failure Post same Procedure is front of a dialysis catheter right femoral approach patient brought to the Medical Insurance Coder right groin was prepped and draped for sterile manner 1% lidocaine for infected left groin area. Ultrasound-guided micropuncture introduced right femoral vein micropuncture access was passed and 4-Korean dilator was top the guidewire then we passed a regular guidewire without any resistance dilator was advanced on the top of guidewire then we placed a dialysis catheter the top of guidewire guidewire was removed flushed with heparin saline and Hep-Lock dressing applied patient tolerated the procedure well
[2023-02-18] MEDS ORDERED: atenoloL 25 MG TAB PO SCH (21:00)
[2023-02-18] MEDS: PANTOPRAZOLE 40 MG TABLET PO SCH (21:22)
[2023-02-18] MEDS: ATORVASTATIN 20 MG TAB PO SCH (21:22)
[2023-02-18] MEDS: FAMOTIDINE 20 MG TAB PO SCH (21:22)
[2023-02-19] MEDS: ALPRAZolam 1 MG TAB PO PRN ×2 (04:27→21:26)
[2023-02-19] MEDS ORDERED: METOPROLOL TARTRATE 25 MG TAB PO STA (05:10)
[2023-02-19] MEDS: CALCIUM ACETATE 667 MG TAB PO SCH ×3 (06:23→17:14)
--- NOTE | 2023-02-19 07:33 | CA ---
Transthoracic Echo Report Name: Morena Contreras Age: 72 Gender: F : 1950 Exam Date: 02/18/2023 10:47 Exam Location: [place] [facility] Ht (in): 61 Wt (lb): 96 Ordering Physician: Gris Snider Attending/Referring Phys: [id number], Agatha Reamer Hand Isabella Glez [facility] Procedure CPT: Indications: LV function Cardiac Hx: Technical Quality: Fair Contrast 1: Total Dose (mL): Contrast 2: Total Dose (mL): MEASUREMENTS (Male / Female) Normal Values 2D ECHO LV Diastolic Diameter PLAX 4.1 cm 4.2 - 5.9 / 3.9 - 5.3 cm LV Systolic Diameter PLAX 2.8 cm IVS Diastolic Thickness 1.0 cm 0.6 - 1.0 / 0.6 - 0.9 cm LVPW Diastolic Thickness 1.0 cm 0.6 - 1.0 / 0.6 - 0.9 cm LV Relative Wall Thickness 0.5 LVOT Diameter 2.0 cm Ascending Aorta Diameter 3.0 cm M-MODE Aortic Root Diameter MM 3.4 cm LA Systolic Diameter MM 3.5 cm LA Ao Ratio MM 1.0 AV Cusp Separation MM 1.9 cm DOPPLER AV Peak Velocity 147.5 cm/s AV Peak Gradient 8.7 mmHg AV Mean Velocity 98.7 cm/s AV Mean Gradient 4.4 mmHg AV Velocity Time Integral 24.6 cm LVOT Peak Velocity 134.1 cm/s LVOT Peak Gradient 7.2 mmHg LVOT Velocity Time Integral 20.9 cm LVOT Stroke Volume 63.4 cm??? LVOT Stroke Volume Index 45.9 ml/m??? LVOT Cardiac Index 5441.9 cm???/min???m??? AV Area Cont Eq vti 2.6 cm??? AV Area Cont Eq pk 2.8 cm??? Mitral E Point Velocity 72.6 cm/s Mitral A Point Velocity 92.8 cm/s Mitral E to A Ratio 0.8 MV Deceleration Time 152.6 ms LV E' Lateral Velocity 11.1 cm/s Mitral E to LV E' Lateral Ratio 6.6 LV E' Septal Velocity 6.8 cm/s Mitral E to LV E' Septal Ratio 10.6 TR Peak Velocity 216.3 cm/s TR Peak Gradient 18.7 mmHg Right Atrial Pressure 3.0 mmHg Pulmonary Artery Systolic Pressu 21.7 mmHg Right Ventricular Systolic Press 21.7 mmHg PV Peak Velocity 256.9 cm/s PV Peak Gradient 26.4 mmHg FINDINGS Left Ventricle Normal Left ventricular size, wall thickness, systolic function with no obvious regional wall motion abnormalities. Left ventricular ejection fraction is estimated at 55-60%. Right Ventricle Right ventricle at upper limits of normal. Right Atrium Right atrium not well visualized. Left Atrium Normal left atrial size. Mitral Valve Structurally normal mitral valve. Mild mitral annular calcification. Trace mitral regurgitation. Aortic Valve Trileaflet aortic valve. No aortic regurgitation. Tricuspid Valve Structurally normal tricuspid valve. Trace tricuspid regurgitation. Pulmonic Valve Pulmonic valve not well visualized. No pulmonic regurgitation. Pericardium No pericardial effusion. Echo free space anterior to the right ventricle likely represents a fat pad. Aorta Normal size aortic root and proximal ascending aorta. CONCLUSIONS 1. Normal ventricle size and systolic function 2. Trace mitral and tricuspid regurgitation Previewed by: Dr. Ely Campos MD (Electronically Signed) Final Date: 19 February 2023 07:32
--- NOTE | 2023-02-19 08:29 | CT ---
EXAMINATION TYPE: CT chest wo con CT DLP: 284.5 mGycm, Automated exposure control for dose reduction was used. DATE OF EXAM: 02/19/2023 7:46 AM COMPARISON: Chest radiograph 02/17/2023 CLINICAL INDICATION:Female, 72 years old with history of copd; PHH, COPD TECHNIQUE: Multiple axial images were obtained through the chest. Sagittal and coronal reformats were created for review. Contrast used: mL of (None if empty) Oral contrast used: (None if empty) FINDINGS: LUNGS/ PLEURA: Moderate to severe emphysema changes with in the lung apices. No focal consolidation, pneumothorax or pleural effusion. AIRWAY: Patent and unremarkable. HEART: Is mildly enlarged for size. There is mild coronary artery cusp patient's. MEDIASTINUM: No gross evidence of adenopathy. VASCULATURE: Atherosclerotic calcifications are present throughout the aorta and its branches. MUSCULOSKELETAL: Mild disc degeneration changes are present throughout the thoracolumbar spine. Parti ally visualized fixation hardware in the left proximal humerus appears intact. SOFT TISSUES/LYMPH NODES: Unremarkable. LOWER NECK: No significant findings. UPPER ABDOMEN: Multiple renal cysts bilaterally some of which are higher attenuation. Smaller simple renal cysts also present. IMPRESSION: 1. Moderate to severe emphysema changes. 2. Mild cardiomegaly with severe coronary artery calcifications. 3. Bilateral hypodense renal cysts which be further evaluated with MRI abdomen renal mass protocol.
[2023-02-19] MEDS: PANTOPRAZOLE 40 MG TABLET PO SCH ×2 (08:55→21:26)
[2023-02-19] MEDS: SODIUM BICARBONATE TAB 650 MG TAB PO SCH (08:55)
[2023-02-19] MEDS: METOPROLOL TARTRATE 12.5 MG TAB PO SCH (08:55)
[2023-02-19] MEDS: DEXTROSE 5% IN WATER 1,000 ML with SODIUM BICARB (1 MEQ/ML) 150 ML IV SCH (08:56)
[2023-02-19] MEDS ORDERED: METOPROLOL TARTRATE 12.5 MG TAB PO STA (09:27)
--- NOTE | 2023-02-19 11:20 | P.PN ---
Subjective HISTORY OF PRESENT ILLNESS: This is a 72 year old female with a past medical history significant for coronary artery disease with previous angioplasty, hypertension, hyperlipidemia, and diabetes. Patient follows in the office with Dr. Rivera. We have been asked to see the patient in consultation for A. fib with RVR. Patient examined at the bedside. The patient presented to the hospital with a chief complaint of generalized weakness. She also reports having a fall approximately one week prior to coming to the hospital. Apparently, the patient is also not been eating or drinking well at home. The patient was found to be in acute renal failure. The patient was also found to be in A. fib with RVR. The patient does not have a history of atrial fibrillation. At the time of examination she remains in atrial fibrillation with heart rate between [id number]. She denies any chest pain or pressure. She denies any shortness of breath. She is very thin and appears frail. Her BMI is 18.2. * EKG reveals atrial fibrillation with RVR * Chest xray no acute cardiopulmonary process * Laboratory data: WBC 15.0. Hemoglobin 6.1. Platelet count 200. Sodium 142. Potassium 2.8. BUN 136. Creatinine 6.99. TSH 1.450. * Current home cardiac medications include atenolol 25 mg daily * Most recent echocardiogram obtained in December 2016 at the office revealed ejection fraction 55%, moderate concentric hypertrophy, mild mitral re gurgitation, and mild tricuspid regurgitation * Patient underwent dobutamine stress test and December 2016 which was negative for ischemia * Cardiac catheterization history: September 2015 with stenting of the RCA 02/19/2023 Patient examined this morning the bedside. Patient denies chest pain or pressure. She currently denies shortness of breath. Telemetry reveals sinus mechanism with heart rate between [id number]. Echocardiogram completed revealing ejection fraction 55-60%, trace mitral regurgitation, trace tricuspid regurgitation PHYSICAL EXAM: VITAL SIGNS: Reviewed. GENERAL: Well-developed in no acute distress. HEENT: Head is normocephalic. Pupils are equal, round. Sclerae anicteric. Mucous membranes of the mouth are moist. Neck supple. No JVD or thyromegaly LUNGS: Respirations even and unlabored. Lungs essentially clear to auscultation bilaterally. HEART: Regular rate and rhythm. S1 and S2 heard. ABDOMEN: Soft. Nondistended. Nontender. EXTREMITIES: Normal range of motion. No clubbing or cyanosis. Peripheral pulses intact. No lower extremity edema NEUROLOGIC: Awake and alert. Oriented x 3. ASSESSMENT: Generalized weakness Status post fall at home New-onset atrial fibrillation with RVR currently maintaining sinus mechanism Acute renal failure Metabolic acidosis Anemia Hypokalemia Coronary artery disease with previous stenting of the RCA, September 2015 Hypertension Hyperlipidemia Diabetes Nicotine dependence PLAN: Increase metoprolol to 25 mg 3 times a day Continue additional cardiac medications Patient is not a candidate for anticoagulation at this time secondary to recent fall and acute anemia Continue telemetry monitoring Patient is currently stable from a cardiac perspective with no further inpatient recommendations We will sign off. Please reconsult if needed. Nurse practitioner note has been reviewed by physician. Signing provider agrees with the documented findings, assessment, and plan of care. Objective - Vital Signs Vital signs: Vital Signs Temp 98.7 F 02/19/23 08:53 Pulse 102 H 02/19/23 08:58 Resp 17 02/19/23 08:53 BP 125/60 02/19/23 08:53 Pulse Ox 94 L 02/19/23 08:53 FiO2 Intake & Output 02/18/23 02/19/23 02/19/23 18:59 06:59 18:59 Intake Total 714 1089 Output Total 550 725 Balance 164 364 Weight 43.772 kg Intake: IV 50 10 Invasive Line 1 10 Oral 354 Blood Product 310 279 Rc As-1 Unit 310 [id number] Rc Pheresis 2 As3 Unit 279 [id number] Hemodialysis 800 Output: Urine 550 225 Hemodialysis 500 Other: Voiding Method Indwelling Catheter Indwelling Catheter Indwelling Catheter # Bowel Movements 1 - Labs CBC & Chem 7: 02/18/23 07:26 02/18/23 07:26 Labs: Abnormal Lab Results - Last 24 Hours (Table) 02/18/23 02/18/23 Range/Units 07:26 10:33 Iron 23 L (50-170) UG/DL TIBC 146 L (228-460) UG/DL Transferrin 104.0 L (204.0-354.0) mg/dL Crossmatch See Detail
--- NOTE | 2023-02-19 11:23 | P.PN ---
Subjective Patient is seen in follow-up for acute kidney injury. Started on dialysis 02/18/2023. No problems with dialysis yesterday. Scheduled for another treatment today. Nonoliguric. On bicarb drip. Hemodynamically stable. Vital signs are stable. General: No acute distress. HEENT: Head exam is unremarkable. LUNGS: No audible rhonchi or wheezes. HEART: Rate and Rhythm are regular. ABDOMEN: Nontender. EXTREMITITES: No edema. Objective - Vital Signs Vital signs: Vital Signs Temp 98.7 F 02/19/23 08:53 Pulse 102 H 02/19/23 08:58 Resp 17 02/19/23 08:53 BP 125/60 02/19/23 08:53 Pulse Ox 94 L 02/19/23 08:53 FiO2 Intake & Output 02/18/23 02/19/23 02/19/23 18:59 06:59 18:59 Intake Total 714 1089 Output Total 550 725 Balance 164 364 Weight 43.772 kg Intake: IV 50 10 Invasive Line 1 10 Oral 354 Blood Product 310 279 Rc As-1 Unit 310 [id number] Rc Pheresis 2 As3 Unit 279 [id number] Hemodialysis 800 Output: Urine 550 225 Hemodialysis 500 Other: Voiding Method Indwelling Catheter Indwelling Catheter Indwelling Catheter # Bowel Movements 1 - Labs CBC & Chem 7: 02/18/23 07:26 02/18/23 07:26 Labs: Abnormal Lab Results - Last 24 Hours (Table) 02/18/23 02/18/23 Range/Units 07:26 10:33 Iron 23 L (50-170) UG/DL TIBC 146 L (228-460) UG/DL Transferrin 104.0 L (204.0-354.0) mg/dL Crossmatch See Detail Assessment and Plan Plan: Assessment: 1. Acute kidney injury secondary to ATN secondary to hypovolemia and hemodynamic instability. Creatinine 8.52 admission - 6.99 yesterday. Creatinine 1.4-1.6 in December 2021. No hydronephrosis noted on kidney ultrasound. 2. Acute blood loss anemia with hemoglobin of 6.1 dated 02/18/2023. Status post blood transfusion. Concern for uremic bleed. Also received IV DDAVP. 3. Metabolic acidosis secondary to acute kidney injury. On bicarb drip. Expect further improvement post dialysis. 4. A. fib with RVR. Cardiology following. 5. Coronary disease status post cardiac stenting in the past. 6. Hypokalemia from intrasellar shifting from IV bicarb and poor intake. Replaced. 7. Hyperphosphatemia secondary to acute kidney injury maintained on PhosLo. Plan: Second treatment of hemodialysis today. Maintain bicarb drip for now. Add IV iron. Continue to assess daily for any for renal replacement therapy. Expect improvement in renal function. Morning labs pending.
[2023-02-19 11:48] LABS: Anisocytosis Slight; Basophils % (A) 0 %; Eosinophils # (A) 0.2 k/uL (0-0.7); Eosinophils % (A) 1 %; HCT 25.1 % (34.0-46.0); Lymphocytes # (A) 0.8 k/uL (1.0-4.8); Lymphocytes % (A) 5 %; MCH 33.7 pg (25.0-35.0); MCHC 35.9 g/dL (31.0-37.0); Macrocytosis Slight; Mean Platelet Volume 9.7; Monocytes # (A) 0.7 k/uL (0-1.0); Monocytes % (A) 5 %; Neutrophils % (A) 88 %; Platelet Count 166 k/uL (150-450); Poikilocytosis Slight; RBC 2.67 m/uL (3.80-5.40); WBC 14.7 k/uL (3.8-10.6)
[2023-02-19 11:51] LABS: MCV 93.8 fL (80.0-100.0)
[2023-02-19 11:54] LABS: ALT 16 U/L (4-34); AST 26 U/L (14-36); African American GFR (CKD) 14 (>60 ml/min/1.73 sqM); Albumin 2.6 g/dL (3.5-5.0); Alkaline Phosphatase 90 U/L (38-126); Anion Gap 11 mmol/L; Blood Urea Nitrogen 67 mg/dL (7-17); Calcium 6.7 mg/dL (8.4-10.2); Carbon Dioxide 29 mmol/L (22-30); Chloride 95 mmol/L (98-107); Glucose 227 mg/dL (74-99); Magnesium 1.5 mg/dL (1.6-2.3); Non-African American GFR(CKD) 12 (>60 ml/min/1.73 sqM); Sodium 135 mmol/L (137-145); Total Bilirubin 0.6 mg/dL (0.2-1.3); Total Protein 5.3 g/dL (6.3-8.2)
[2023-02-19 11:56] LABS: Potassium 2.5 mmol/L (3.5-5.1)
[2023-02-19] MEDS: POTASSIUM CHLORIDE ER 20 MEQ TAB.ER PO SCH ×2 (12:12→14:16)
[2023-02-19] MEDS: SODIUM FERRIC GLUCONAT-SUCROSE 125 MG in SODIUM CHLORIDE 0.9% 100 ML IVPB SCH (12:17)
[2023-02-19] MEDS: SODIUM CHLORIDE 0.9% 1,000 ML IV SCH (14:16)
[2023-02-19 15:21] LABS: ALT 17 U/L (4-34); AST 27 U/L (14-36); African American GFR (CKD) 14 (>60 ml/min/1.73 sqM); Albumin 2.5 g/dL (3.5-5.0); Alkaline Phosphatase 89 U/L (38-126); Anion Gap 12 mmol/L; Blood Urea Nitrogen 66 mg/dL (7-17); Calcium 6.8 mg/dL (8.4-10.2); Carbon Dioxide 27 mmol/L (22-30); Chloride 96 mmol/L (98-107); Glucose 226 mg/dL (74-99); Non-African American GFR(CKD) 12 (>60 ml/min/1.73 sqM); Sodium 135 mmol/L (137-145); Total Bilirubin 0.5 mg/dL (0.2-1.3); Total Protein 5.3 g/dL (6.3-8.2)
[2023-02-19 15:30] LABS: Potassium 2.5 mmol/L (3.5-5.1)
[2023-02-19 16:32] LABS: Hepatitis B Surface AB- Quant 3.5 mIU/mL; Hepatitis B Surface Antigen Nonreactive
[2023-02-19] MEDS: METOPROLOL TARTRATE 25 MG TAB PO SCH ×2 (17:14→21:26)
--- NOTE | 2023-02-19 17:16 | P.CONS ---
History of Present Illness - Reason for Consult Consult date: 02/19/23 anemia Requesting physician: Abelardo Reardon - Chief Complaint Failure to thrive - History of Present Illness Mrs. Contreras is a 72-year-old female we have been asked to see in regards to severe anemia. Patient presented to the ER with family who report progressive weakness, having a hard time with ADLs. Pt reported 2 falls within the last couple of weeks, decreased appetite, which is chronic for her, and progressive generalized weakness. Chart reviewed for other information as patient was overall a poor historian. On chart review she's been anemic since at least 2 020. She has evidence of chronic kidney disease since 2014. Her home med list includes a beta deb, Protonix and Xanax. Patient states that she takes a B12 and folic acid supplement. She denies any known history of anemia. No bleeding, recent illnesses, unusual shortness of breath, she reports that she smokes once in a while, no vomiting, hematemesis, acute changes in bowel or bladder habits, hematochezia or melena, no other bleeding to report. 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 History of Any Multi-Drug Resistant Organisms: ESBL Year Discovered:: 09/18/21 MDRO Source:: Urine-ESBL E.coli Past Surgical History: Appendectomy, Cholecystectomy, Heart Catheterization With Stent, Hernia Repair, Hysterectomy, Orthopedic Surgery Additional Past Surgical History / Comment(s): HEART CATHS WITH STENTS(1999) & (DECEMBER 2014), UMBILICAL HERNIA, HAMMER TOES, BUNIONS , SURGERY FOR PHLEBITIS IN HER LEG. Past Anesthesia/Blood Transfusion Reactions: No Reported Reaction Date of Last Stent Placement:: 2014 Past Psychological History: Anxiety, Depression, Panic Disorder Smoking Status: Current every day smoker Past Alcohol Use History: None Reported Additional Past Alcohol Use History / Comment(s): SMOKES 1/2 PPD OR LESS. HAS BEEN SMOKING SINCE 28 YRS OLD ( 39YEARS) Past Drug Use History: None Reported - Past Family History Sister(s) Family Medical History: Cancer, CVA/TIA Mother Family Medical History: Coronary Artery Disease (CAD) Father Family Medical History: Cancer, CVA/TIA, Diabetes Mellitus, Hyperlipidemia, Hypertension Additional Family Medical History / Comment(s): ETOH, BLADDER CANCER, BELLS PALSY Medications and Allergies Home Medications Medication Instructions Recorded Confirmed Type ALPRAZolam [Xanax] 1 mg PO TID PRN 02/17/23 02/17/23 History Pantoprazole Sodium [Protonix] 40 mg PO BID 02/17/23 02/17/23 History atenoloL [Tenormin] 25 mg PO DAILY 02/17/23 02/17/23 History Allergies Allergy/AdvReac Type Severity Reaction Status Date / Time amitriptyline [From Elavil] Allergy Rash/Hives Verified 02/17/23 16:17 cortisone [Cortisone] Allergy throat Verified 02/17/23 16:17 Swelling NSAIDS (Non-Steroidal Allergy Nausea & Verified 02/17/23 16:17 Anti-Inflamma Vomiting & Diarrhea/ GI bleed Sulfa (Sulfonamide Allergy Rash/Hives, Verified 02/17/23 16:17 Antibiotics) blisters tetracaine Allergy Unknown Verified 02/17/23 16:17 tetracaine HCl Allergy Unknown Verified 02/17/23 16:17 [From Pontocaine] aspirin AdvReac Mild GI Bleed Verified 02/17/23 16:17 adhesive AdvReac blisters Verified 02/17/23 16:17 merocaine Allergy Unknown Uncoded 02/17/23 16:17 contrast/dye AdvReac Unknown Uncoded 02/17/23 16:17 Physical Exam Vitals: Vital Signs Temp Pulse Pulse Resp BP BP Pulse Ox 02/19/23 15:29 96 125/60 96 02/19/23 12:10 87 17 129/62 97 02/19/23 08:58 102 H 02/19/23 08:53 98.7 F 107 H 17 125/60 94 L 02/19/23 04:00 98.0 F 126 H 18 139/63 94 L 02/19/23 00:00 98.2 F 94 18 113/57 96 02/18/23 20:30 97.5 F L 96 111/52 96 02/18/23 20:29 97.5 F L 18 123/54 02/18/23 19:39 97.6 F 100 108/45 97 02/18/23 19:19 98 18 111/64 96 02/18/23 19:18 98 18 111/64 96 02/18/23 19:10 102 H 17 108/49 Intake and Output 02/19/23 02/19/23 02/19/23 06:59 14:59 22:59 Output Total 225 Balance -225 Output: Urine 225 Other: Voiding Method Indwelling Catheter Indwelling Catheter - Constitutional General appearance: cooperative, no acute distress, thin - EENT Glossitis Eyes: anicteric sclerae, EOMI ENT: hearing grossly normal - Respiratory Respiratory: bilateral: CTA - Cardiovascular Rhythm: regular Heart sounds: normal: S1, S2 Abnormal Heart Sounds: no systolic murmur, no diastolic murmur, no rub, no S3 Gallop, no S4 Gallop, no click, no other leg Peripheral Edema: bilateral: None - Gastrointestinal General gastrointestinal: no absent bowel sounds, no decreased bowel sounds, no distended, no hepatomegaly, no hyperactive bowel sounds, normal bowel sounds, no organomegaly, no rigid, no scaphoid, soft, no splenomegaly, no tenderness, no umbilical hernia, no ventral hernia - Integumentary Integumentary: normal - Neurologic Neurologic: CNII-XII intact - Musculoskeletal Musculoskeletal: generalized weakness - Psychiatric Psychiatric: A&O x's 3, appropriate affect, intact judgment & insight Results CBC & Chem 7: 02/19/23 10:42 02/19/23 11:23 Labs: Abnormal Lab Results - Last 24 Hours (Table) 02/18/23 02/19/23 02/19/23 Range/Units 10:33 10:42 10:42 WBC 14.7 H (3.8-10.6) k/uL RBC 2.67 L (3.80-5.40) m/uL Hgb 9.0 L D (11.4-16.0) gm/dL Hct 25.1 L (34.0-46.0) % RDW 18.0 H (11.5-15.5) % Neutrophils # 13.0 H (1.3-7.7) k/uL Lymphocytes # 0.8 L (1.0-4.8) k/uL Sodium 135 L (137-145) mmol/L Potassium 2.5 L* (3.5-5.1) mmol/L Chloride 95 L (98-107) mmol/L BUN 67 H (7-17) mg/dL Creatinine 3.50 H (0.52-1.04) mg/dL Glucose 227 H (74-99) mg/dL Calcium 6.7 L (8.4-10.2) mg/dL Magnesium 1.5 L (1.6-2.3) mg/dL Total Protein 5.3 L (6.3-8.2) g/dL Albumin 2.6 L (3.5-5.0) g/dL Crossmatch See Detail 02/19/23 Range/Units 11:23 WBC (3.8-10.6) k/uL RBC (3.80-5.40) m/uL Hgb (11.4-16.0) gm/dL Hct (34.0-46.0) % RDW (11.5-15.5) % Neutrophils # (1.3-7.7) k/uL Lymphocytes # (1.0-4.8) k/uL Sodium 135 L (137-145) mmol/L Potassium 2.5 L* (3.5-5.1) mmol/L Chloride 96 L (98-107) mmol/L BUN 66 H (7-17) mg/dL Creatinine 3.55 H (0.52-1.04) mg/dL Glucose 226 H (74-99) mg/dL Calcium 6.8 L (8.4-10.2) mg/dL Magnesium (1.6-2.3) mg/dL Total Protein 5.3 L (6.3-8.2) g/dL Albumin 2.5 L (3.5-5.0) g/dL Crossmatch Chest x-ray: report reviewed CT scan - chest: report reviewed CT Scan - head: report reviewed Assessment and Plan (1) Macrocytic anemia Current Visit: Yes Status: Acute Priority: High Code(s): D53.9 - NUTRITIONAL ANEMIA, UNSPECIFIED SNOMED Code(s): 99319513 Plan: Macrocytic anemia -Additional labs ordered for assessment of any other possible nutritional de ficits that could be contributing to anemia -Suspect a degree of chronic kidney disease contributing. Patient is been seen by Nephrology. Patient is going to be receiving iron and likely GRIFFIN support through Nephrology once iron sat adequate -Transfuse for hemoglobin less than 7. Patient was given 2 units of blood for hemoglobin of 6.1. Hemoglobin was 9 post transfusion. Anticipate hemoglobin would have been closer to 8 after 2 units. CBC in the a.m. -Will f/u in the AM attests: I have seen and examined patient, performed H&P, developed impression and plan of care. Discussed with dictator. Agree with documentation, dictated as a scribe. Time with Patient: Greater than 30
[2023-02-19] MEDS: ATORVASTATIN 20 MG TAB PO SCH (21:26)
[2023-02-19] MEDS: FAMOTIDINE 20 MG TAB PO SCH (21:26)
[2023-02-19] MEDS: IPRATROPIUM-ALBUTEROL 3 ML NEB INHALATION SCH (21:30)
[2023-02-19] MEDS: BUDESONIDE 0.5 MG/2 ML NEBU INHALATION SCH (21:30)
[2023-02-20] MEDS: SODIUM CHLORIDE 0.9% 1,000 ML IV SCH ×3 (02:45→16:36)
[2023-02-20] MEDS: CALCIUM ACETATE 667 MG TAB PO SCH (06:39)
[2023-02-20] MEDS: IPRATROPIUM-ALBUTEROL 3 ML NEB INHALATION SCH ×4 (08:12→22:04)
[2023-02-20] MEDS: BUDESONIDE 0.5 MG/2 ML NEBU INHALATION SCH ×2 (08:12→22:04)
[2023-02-20 08:43] LABS: African American GFR (CKD) 13 (>60 ml/min/1.73 sqM); Anion Gap 11 mmol/L; Blood Urea Nitrogen 69 mg/dL (7-17); Carbon Dioxide 24 mmol/L (22-30); Chloride 102 mmol/L (98-107); Glucose 180 mg/dL (74-99); Magnesium 1.4 mg/dL (1.6-2.3); Non-African American GFR(CKD) 11 (>60 ml/min/1.73 sqM); Phosphorus 2.4 mg/dL (2.5-4.5); Sodium 137 mmol/L (137-145)
[2023-02-20 08:47] LABS: Potassium 3.2 mmol/L (3.5-5.1)
[2023-02-20 09:06] LABS: Calcium 6.4 mg/dL (8.4-10.2)
[2023-02-20] MEDS ORDERED: Potassium Replacement Protocol 1 EACH MISC MISCELLANE PRN (09:26)
[2023-02-20] MEDS ORDERED: Magnesium Replacement Protocol 1 EACH MISC MISCELLANE PRN ×2 (09:27→17:39)
[2023-02-20] MEDS: ALPRAZolam 1 MG TAB PO PRN ×3 (09:39→21:52)
[2023-02-20] MEDS: POTASSIUM CHLORIDE ER 20 MEQ TAB.ER PO SCH ×4 (09:39→21:52)
[2023-02-20] MEDS: PANTOPRAZOLE 40 MG TABLET PO SCH ×2 (09:39→21:53)
[2023-02-20] MEDS: SODIUM FERRIC GLUCONAT-SUCROSE 125 MG in SODIUM CHLORIDE 0.9% 100 ML IVPB SCH (09:40)
[2023-02-20] MEDS: METOPROLOL TARTRATE 25 MG TAB PO SCH ×3 (09:40→21:53)
[2023-02-20] MEDS: MAGNESIUM SULFATE-D5W PMX 1 GM in DEXTROSE/WATER 1 100ML.BAG IVPB SCH ×4 (09:40→21:53)
[2023-02-20] MEDS ORDERED: POTASSIUM CHLORIDE ER 20 MEQ TAB.ER PO STA (12:13)
--- NOTE | 2023-02-20 12:17 | P.PN ---
Subjective Patient is seen in follow-up for acute kidney injury. Started on dialysis 02/18/2023. Refused dialysis yesterday. Creatinine worsened 3.81 today. Nonoliguric. On normal saline. Hemodynamically stable. Daughter present at bedside. Vital signs are stable. General: No acute distress. HEENT: Head exam is unremarkable. LUNGS: No audible rhonchi or wheezes. HEART: Rate and Rhythm are regular. ABDOMEN: Nontender. EXTREMITITES: No edema. Objective - Vital Signs Vital signs: Vital Signs Temp 98.7 F 02/20/23 08:00 Pulse 100 02/20/23 08:28 Resp 18 02/20/23 08:28 BP 130/62 02/20/23 08:00 Pulse Ox 95 02/20/23 08:00 FiO2 Intake & Output 02/19/23 02/20/23 02/20/23 18:59 06:59 18:59 Intake Total 310 Output Total 650 Balance -650 310 Weight 46.1 kg Intake: Intake, IV Titration 200 Amount Magnesium Sulfate-D5w Pmx 100 1 gm In Dextrose/Water 1 100ml.bag @ 100 mls/hr IVPB Q1H [facility] Rx#: [id number] Sodium Ferric Gluconat- 100 Sucrose 125 mg In Sodium Chloride 0.9% 100 ml @ 100 mls/hr IVPB DAILY [facility] Rx#:[id number] Oral 110 Output: Urine 650 Other: Voiding Method Indwelling Catheter Indwelling Catheter Indwelling Catheter - Labs CBC & Chem 7: 02/19/23 10:42 02/20/23 07:32 Labs: Abnormal Lab Results - Last 24 Hours (Table) 02/19/23 02/19/23 02/20/23 Range/Units 11:23 17:10 07:32 Sodium 135 L (137-145) mmol/L Potassium 2.5 L* 5.6 H 3.2 L (3.5-5.1) mmol/L Chloride 96 L (98-107) mmol/L BUN 66 H 69 H (7-17) mg/dL Creatinine 3.55 H 3.81 H (0.52-1.04) mg/dL Glucose 226 H 180 H (74-99) mg/dL Calcium 6.8 L 6.4 L* (8.4-10.2) mg/dL Phosphorus 2.4 L (2.5-4.5) mg/dL Magnesium 1.4 L (1.6-2.3) mg/dL Ferritin 1069.0 H (10.0-291.0) ng/mL Total Protein 5.3 L (6.3-8.2) g/dL Albumin 2.5 L (3.5-5.0) g/dL Assessment and Plan Plan: Assessment: 1. Acute kidney injury secondary to ATN secondary to hypovolemia and hemodynamic instability. Creatinine 8.52 admission - received 1 treatment of hemodialysis 02/18/2023. Refusing further dialysis. 1.4-1.6 in December 2021. No hydronephrosis noted on kidney ultrasound. 2. Acute blood loss anemia with hemoglobin of 6.1 dated 02/18/2023. Status post blood transfusion. Concern for uremic bleed. Also received IV DDAVP. 3. Metabolic acidosis secondary to acute kidney injury. s/p bicarb drip. Improved. 4. A. fib with RVR. Cardiology following. 5. Coronary disease status post cardiac stenting in the past. 6. Hypokalemia from intracellular shifting from IV bicarb and poor intake. Replaced. 7. Hyperphosphatemia secondary to acute kidney injury maintained on PhosLo. Phosphorus low at 2.4 today. say. Hypomagnesemia from poor intake. Plan: Maintain normal saline. Stop PhosLo. Continue IV iron. Replace magnesium. Replace potassium. Continue to assess daily for need for renal replacement therapy. Patient refusing at this time if dialysis needed. Check serologies. Quantify proteinuria. Kidney biopsy discussed for definitive diagnosis.
[2023-02-20] MEDS ORDERED: MAGNESIUM SULFATE-D5W PMX 1 GM in DEXTROSE/WATER 1 100ML.BAG IVPB SCH (12:30)
[2023-02-20 13:45] LABS: Creatinine,Urine Random 47.9 mg/dL; Protein/Creatinine Ratio,Urine 3.507
--- NOTE | 2023-02-20 14:46 | P.PN ---
Subjective Progress Note Date: 02/20/23 Principal diagnosis: Normocytic, normochromic Anemia In follow-up today patient denies fevers, nausea, vomiting, appetite is fair to poor, no bleeding Objective - Vital Signs Vital signs: Vital Signs Temp 98.7 F 02/20/23 08:00 Pulse 106 H 02/20/23 12:00 Resp 18 02/20/23 08:28 BP 146/63 02/20/23 12:00 Pulse Ox 96 02/20/23 12:00 FiO2 Intake & Output 02/19/23 02/20/23 02/20/23 18:59 06:59 18:59 Intake Total 420 Output Total 650 Balance -650 420 Weight 46.1 kg Intake: Intake, IV Titration 200 Amount Magnesium Sulfate-D5w Pmx 100 1 gm In Dextrose/Water 1 100ml.bag @ 100 mls/hr IVPB Q1H [facility] Rx#: [id number] Sodium Ferric Gluconat- 100 Sucrose 125 mg In Sodium Chloride 0.9% 100 ml @ 100 mls/hr IVPB DAILY [facility] Rx#:[id number] Oral 220 Output: Urine 650 Other: Voiding Method Indwelling Catheter Indwelling Catheter Indwelling Catheter - Constitutional General appearance: Present: cooperative, no acute distress, thin - EENT Eyes: Present: anicteric sclerae, EOMI ENT: Present: hearing grossly normal - Respiratory Respiratory: bilateral: CTA - Cardiovascular Rhythm: regular Heart sounds: normal: S1, S2 Abnormal Heart Sounds: Absent: systolic murmur, diastolic murmur, rub, S3 Gallop, S4 Gallop, click, other - Peripheral edema leg Peripheral Edema: bilateral: None - Gastrointestinal General gastrointestinal: Present: normal bowel sounds, soft - Integumentary Integumentary: Present: normal - Neurologic Neurologic: Present: CNII-XII intact - Musculoskeletal Musculoskeletal: Present: strength equal bilaterally - Psychiatric Psychiatric: Present: A&O x's 3, appropriate affect, intact judgment & insight - Labs CBC & Chem 7: 02/19/23 10:42 02/20/23 07:32 Labs: Abnormal Lab Results - Last 24 Hours (Table) 02/19/23 02/19/23 02/19/23 Range/Units 10:42 11:23 17:10 Sodium 135 L (137-145) mmol/L Potassium 2.5 L* 5.6 H (3.5-5.1) mmol/L Chloride 96 L (98-107) mmol/L BUN 66 H (7-17) mg/dL Creatinine 3.55 H (0.52-1.04) mg/dL Glucose 226 H (74-99) mg/dL Calcium 6.8 L (8.4-10.2) mg/dL Phosphorus (2.5-4.5) mg/dL Magnesium (1.6-2.3) mg/dL Ferritin 1069.0 H (10.0-291.0) ng/mL Total Protein 5.3 L (6.3-8.2) g/dL Albumin 2.5 L (3.5-5.0) g/dL Copper 677 L (810-1990) ug/L 02/20/23 Range/Units 07:32 Sodium (137-145) mmol/L Potassium 3.2 L (3.5-5.1) mmol/L Chloride (98-107) mmol/L BUN 69 H (7-17) mg/dL Creatinine 3.81 H (0.52-1.04) mg/dL Glucose 180 H (74-99) mg/dL Calcium 6.4 L* (8.4-10.2) mg/dL Phosphorus 2.4 L (2.5-4.5) mg/dL Magnesium 1.4 L (1.6-2.3) mg/dL Ferritin (10.0-291.0) ng/mL Total Protein (6.3-8.2) g/dL Albumin (3.5-5.0) g/dL Copper (810-1990) ug/L Assessment and Plan (1) Macrocytic anemia Current Visit: Yes Status: Acute Priority: High Code(s): D53.9 - NUTRITIONAL ANEMIA, UNSPECIFIED SNOMED Code(s): 13179600 Plan: Macrocytic anemia -Labs most consistent with anemia of inflammation, chronic kidney disease. Paraproteinemia labs pending -Nephrology has seen pt. Patient receiving iron. Pt declined dialysis -Transfuse for hemoglobin less than 7. Patient was given 2 units of blood for hemoglobin of 6.1. Hemoglobin was 9 post transfusion. Anticipate hemoglobin would have been closer to 8 after 2 units. CBC in the a.m.
--- NOTE | 2023-02-20 16:42 | HP ---
HISTORY AND PHYSICAL HISTORY OF PRESENT ILLNESS: A 72-year-old white female with failure to thrive and weakness. She came in with weakness, fell at home, decreased oral intake, difficulty feeding herself. She was dehydrated. Right upper shoulder pain. HOME MEDICATIONS: 1. Xanax 2 mg q.i.d. 2. Zanaflex 4 mg q.i.d. 3. She takes pancreas enzymes. 4. She is on betamethasone b.i.d. 5. Perforomist b.i.d. 6. Promethazine. 7. Crestor. ALLERGIES: 1. Amitriptyline. 2. Cortisone. 3. Steroid. 4. Sulfa. 5. Tetracaine. REVIEW OF SYSTEMS: Fourteen-point review of systems is otherwise negative. PAST MEDICAL HISTORY: Asthma, chest pain, angina, COPD, CVA, TIA, fibromyalgia, GERD/reflux, GI bleed, neurologic disorder, renal disease, skin disorder, history of TIAs. 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 PAST SURGICAL HISTORY: Appendectomy, cholecystectomy, hernia repair, hysterectomy, orthopedic surgery, heart catheterization with stents in 2014, and umbilical hernia repair. SOCIAL HISTORY: Anxiety, depression, and panic disorder. Current everyday smoker. FAMILY HISTORY: Sister, CVA and TIA. Mother with coronary artery disease. Father with diabetes mellitus, hypertension, CVA, and TIA. PHYSICAL EXAMINATION: GENERAL: Well-developed female, in no acute distress. She is cachectic. HEENT: Head, normocephalic and atraumatic. Pupils are equal, round, and reactive. RESPIRATORY: Decreased breath sounds x4. SKIN: Normal color. CARDIOVASCULAR: S1 and S2. NEUROLOGIC: Cranial nerves are intact. EXTREMITIES: No cyanosis, clubbing, or edema. VITAL SIGNS: Pulse rate is 100 to 101, temperature 96.5, blood pressure 128 to 131 over 60s to 50s, O2 of 97% to 100%. EKG: Normal sinus rhythm. ASSESSMENT: 1. Acute kidney injury. 2. [id number] anemia, unclear etiology. 3. Leukocytosis, unclear etiology. 4. End-stage renal disease. PLAN: Consult Nephrology and Infectious Disease. Continue with dialysis, etc. Prognosis is guarded. Please see further orders. MMODL / IJN: [id number] /
[2023-02-20 17:19] LABS: Magnesium 1.4 mg/dL (1.6-2.3); Potassium 3.3 mmol/L (3.5-5.1)
[2023-02-20 18:11] LABS: Hepatitis A Antibody IgM Nonreactive; Hepatitis B Core IgM Nonreactive; Hepatitis B Surface Antigen Nonreactive; Hepatitis C IgG Antibody Nonreactive
[2023-02-20 19:19] LABS: Anisocytosis Slight; Basophils % (A) 0 %; Eosinophils # (A) 0.3 k/uL (0-0.7); Eosinophils % (A) 3 %; HCT 24.6 % (34.0-46.0); Lymphocytes % (A) 8 %; MCH 32.1 pg (25.0-35.0); MCHC 32.6 g/dL (31.0-37.0); MCV 98.5 fL (80.0-100.0); Macrocytosis Slight; Mean Platelet Volume 9.7; Monocytes # (A) 0.7 k/uL (0-1.0); Monocytes % (A) 5 %; Neutrophils % (A) 83 %; Platelet Count 149 k/uL (150-450); Poikilocytosis Slight; RDW 18.3 % (11.5-15.5); WBC 13.2 k/uL (3.8-10.6)
[2023-02-20 20:31] LABS: DNA Double-Stranded Negative (Negative)
--- NOTE | 2023-02-20 20:36 | PN ---
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 A CAT scan of the chest shows severe COPD for which I started her on breathing treatments. She had an echo, showed trace mitral and tricuspid regurgitation. Pulmonary pressure is 21. She is weak, fatigued, cachectic. CARDIOVASCULAR: S1, S2. GI: Soft. HEMATOLOGY: Negative Homans. PSYCHIATRIC: Fair mood and affect. ASSESSMENT: Severe chronic obstructive pulmonary disease, severe coronary artery calcifications, renal cyst, unclear etiology. Nephrology has been consulted. Ultrasound of the abdomen and bladder were done. Ultrasound showed bilateral cysts. Await for Nephrology recommendations. Prognosis, guarded. Please see further orders. Treat for possible blood transfusions and COPD. We gave her breathing treatments. MMODL / IJN: [id number] /
[2023-02-20] MEDS: ATORVASTATIN 20 MG TAB PO SCH (21:53)
[2023-02-20] MEDS: FAMOTIDINE 20 MG TAB PO SCH (21:53)
[2023-02-20 22:54] LABS: Albumin 2.6 d/dL (3.8-4.9); Protein, Total 5.4 d/dL (6.2-8.2)
[2023-02-21 00:29] LABS: Magnesium 2.5 mg/dL (1.6-2.3); Potassium 3.8 mmol/L (3.5-5.1)
[2023-02-21] MEDS: SODIUM CHLORIDE 0.9% 1,000 ML IV SCH ×2 (02:37→09:13)
[2023-02-21] MEDS: ALPRAZolam 1 MG TAB PO PRN ×2 (04:30→20:16)
[2023-02-21] MEDS: IPRATROPIUM-ALBUTEROL 3 ML NEB INHALATION SCH ×4 (07:48→21:19)
[2023-02-21] MEDS: BUDESONIDE 0.5 MG/2 ML NEBU INHALATION SCH ×2 (07:48→21:18)
[2023-02-21 08:17] LABS: Methylmalonic Acid 0.63 umol/L (<0.40)
[2023-02-21] MEDS: METOPROLOL TARTRATE 25 MG TAB PO SCH ×3 (09:12→20:16)
[2023-02-21] MEDS: SODIUM FERRIC GLUCONAT-SUCROSE 125 MG in SODIUM CHLORIDE 0.9% 100 ML IVPB SCH (09:13)
[2023-02-21] MEDS: PANTOPRAZOLE 40 MG TABLET PO SCH ×2 (09:13→20:16)
[2023-02-21 10:03] LABS: Anisocytosis Slight; Basophils % (A) 0 %; Eosinophils # (A) 0.4 k/uL (0-0.7); Eosinophils % (A) 3 %; HCT 23.2 % (34.0-46.0); HGB 7.4 gm/dL (11.4-16.0); Hypochromasia Slight; Lymphocytes # (A) 1.2 k/uL (1.0-4.8); Lymphocytes % (A) 10 %; MCH 32.1 pg (25.0-35.0); MCHC 32.1 g/dL (31.0-37.0); MCV 100.2 fL (80.0-100.0); Macrocytosis Moderate; Mean Platelet Volume 9.7; Monocytes # (A) 0.5 k/uL (0-1.0); Monocytes % (A) 5 %; Neutrophils # (A) 9.3 k/uL (1.3-7.7); Neutrophils % (A) 80 %; Platelet Count 150 k/uL (150-450); Poikilocytosis Slight; RBC 2.32 m/uL (3.80-5.40); RDW 18.2 % (11.5-15.5); WBC 11.5 k/uL (3.8-10.6)
[2023-02-21 10:36] LABS: ALT 18 U/L (4-34); AST 29 U/L (14-36); African American GFR (CKD) 15 (>60 ml/min/1.73 sqM); Albumin 2.2 g/dL (3.5-5.0); Alkaline Phosphatase 103 U/L (38-126); Anion Gap 11 mmol/L; Blood Urea Nitrogen 65 mg/dL (7-17); Carbon Dioxide 17 mmol/L (22-30); Chloride 107 mmol/L (98-107); Glucose 170 mg/dL (74-99); Non-African American GFR(CKD) 13 (>60 ml/min/1.73 sqM); Phosphorus 2.2 mg/dL (2.5-4.5); Sodium 135 mmol/L (137-145); Total Bilirubin 0.3 mg/dL (0.2-1.3); Total Protein 4.9 g/dL (6.3-8.2)
[2023-02-21 10:55] LABS: Calcium 6.4 mg/dL (8.4-10.2)
[2023-02-21] MEDS ORDERED: CALCIUM GLUCONATE IN NACL 1 GM in SALINE 1 100ML.BAG IVPB ONE (11:45)
[2023-02-21] MEDS ORDERED: SODIUM BICARB 8.4% 50 ML SYR (1 MEQ/ML) IV STA (12:44)
--- NOTE | 2023-02-21 12:45 | P.PN ---
Subjective Patient is seen in follow-up for acute kidney injury. Underwent 1 treatment of dialysis on 02/18/2023. Refused dialysis yesterday. Renal function a little better today. Nonoliguric. On normal saline. Hemodynamically stable. Vital signs are stable. General: No acute distress. HEENT: Head exam is unremarkable. LUNGS: No audible rhonchi or wheezes. HEART: Rate and Rhythm are regular. ABDOMEN: Nontender. EXTREMITITES: No edema. Objective - Vital Signs Vital signs: Vital Signs Temp 99.6 F 02/21/23 08:00 Pulse 100 02/21/23 08:05 Resp 18 02/21/23 08:00 BP 155/57 02/21/23 08:00 Pulse Ox 95 02/21/23 08:00 FiO2 Intake & Output 02/20/23 02/21/23 02/21/23 18:59 06:59 18:59 Intake Total 530 420 Output Total 500 600 400 Balance 30 -600 20 Weight 46.1 kg Intake: Intake, IV Titration 200 Amount Magnesium Sulfate-D5w Pmx 100 1 gm In Dextrose/Water 1 100ml.bag @ 100 mls/hr IVPB Q1H [facility] Rx#: [id number] Sodium Ferric Gluconat- 100 Sucrose 125 mg In Sodium Chloride 0.9% 100 ml @ 100 mls/hr IVPB DAILY [facility] Rx#:[id number] Oral 330 420 Output: Urine 500 600 400 Uretheral (Henley) 500 Other: Voiding Method Indwelling Catheter Indwelling Catheter Indwelling Catheter # Voids 1 # Bowel Movements 1 - Labs CBC & Chem 7: 02/21/23 09:39 02/21/23 09:39 Labs: Abnormal Lab Results - Last 24 Hours (Table) 02/19/23 02/20/23 02/20/23 Range/Units 10:42 12:20 15:37 WBC (3.8-10.6) k/uL RBC (3.80-5.40) m/uL Hgb (11.4-16.0) gm/dL Hct (34.0-46.0) % MCV (80.0-100.0) fL RDW (11.5-15.5) % Plt Count (150-450) k/uL Neutrophils # (1.3-7.7) k/uL Sodium (137-145) mmol/L Potassium 3.3 L (3.5-5.1) mmol/L Carbon Dioxide (22-30) mmol/L BUN (7-17) mg/dL Creatinine (0.52-1.04) mg/dL Glucose (74-99) mg/dL Calcium (8.4-10.2) mg/dL Phosphorus (2.5-4.5) mg/dL Magnesium 1.4 L (1.6-2.3) mg/dL Total Protein (6.3-8.2) g/dL Total Protein (PEP) 5.4 L (6.2-8.2) d/dL Albumin (3.5-5.0) g/dL Albumin (PEP) 2.6 L (3.8-4.9) d/dL Methylmalonic Acid 0.63 H (<0.40) umol/L Copper 677 L (810-1990) ug/L 02/20/23 02/20/23 02/21/23 Range/Units 19:02 23:15 09:39 WBC 13.2 H 11.5 H (3.8-10.6) k/uL RBC 2.50 L 2.32 L (3.80-5.40) m/uL Hgb 8.0 L 7.4 L (11.4-16.0) gm/dL Hct 24.6 L 23.2 L (34.0-46.0) % MCV 100.2 H (80.0-100.0) fL RDW 18.3 H 18.2 H (11.5-15.5) % Plt Count 149 L (150-450) k/uL Neutrophils # 11.0 H 9.3 H (1.3-7.7) k/uL Sodium (137-145) mmol/L Potassium (3.5-5.1) mmol/L Carbon Dioxide (22-30) mmol/L BUN (7-17) mg/dL Creatinine (0.52-1.04) mg/dL Glucose (74-99) mg/dL Calcium (8.4-10.2) mg/dL Phosphorus (2.5-4.5) mg/dL Magnesium 2.5 H (1.6-2.3) mg/dL Total Protein (6.3-8.2) g/dL Total Protein (PEP) (6.2-8.2) d/dL Albumin (3.5-5.0) g/dL Albumin (PEP) (3.8-4.9) d/dL Methylmalonic Acid (<0.40) umol/L Copper (810-1990) ug/L 02/21/23 Range/Units 09:39 WBC (3.8-10.6) k/uL RBC (3.80-5.40) m/uL Hgb (11.4-16.0) gm/dL Hct (34.0-46.0) % MCV (80.0-100.0) fL RDW (11.5-15.5) % Plt Count (150-450) k/uL Neutrophils # (1.3-7.7) k/uL Sodium 135 L (137-145) mmol/L Potassium (3.5-5.1) mmol/L Carbon Dioxide 17 L (22-30) mmol/L BUN 65 H (7-17) mg/dL Creatinine 3.43 H (0.52-1.04) mg/dL Glucose 170 H (74-99) mg/dL Calcium 6.4 L* (8.4-10.2) mg/dL Phosphorus 2.2 L (2.5-4.5) mg/dL Magnesium (1.6-2.3) mg/dL Total Protein 4.9 L (6.3-8.2) g/dL Total Protein (PEP) (6.2-8.2) d/dL Albumin 2.2 L (3.5-5.0) g/dL Albumin (PEP) (3.8-4.9) d/dL Methylmalonic Acid (<0.40) umol/L Copper (810-1990) ug/L Assessment and Plan Plan: Assessment: 1. Acute kidney injury secondary to ATN secondary to hypovolemia, anemia and hemodynamic instability. Creatinine 8.52 admission - received 1 treatment of hemodialysis 02/18/2023. Creatinine 1.4-1.6 in December 2021. No hydronephrosis noted on kidney ultrasound. 2. Acute blood loss anemia with hemoglobin of 6.1 dated 02/18/2023. Status post blood transfusion. Concern for uremic bleed- received IV DDAVP. 3. Metabolic acidosis secondary to acute kidney injury. s/p bicarb drip. Acidosis worse today from normal saline. 4. A. fib with RVR. Cardiology following. 5. Coronary disease status post cardiac stenting in the past. 6. Hypokalemia from intracellular shifting from IV bicarb and poor intake. Replaced. Better. 7. Hyperphosphatemia secondary to acute kidney injury maintained on PhosLo. Phosphorus low at 2.2 today. 8. Hypomagnesemia from poor intake. Replaced. Better. 9. Hypocalcemia secondary to acute kidney injury. Corrected calcium near 7.9. Being replaced. Plan: Maintain normal saline. Encouraged oral intake. Stopped PhosLo. Continue IV iron. Add oral bicarb. Add neutro-phos. Continue to assess daily for need for renal replacement therapy. Patient refusing at this time if dialysis needed. Follow-up serologies. Negative so far. UPC 3.5 g. Kidney biopsy discussed for definitive diagnosis. Will schedule.
[2023-02-21] MEDS: SODIUM BICARBONATE TAB 650 MG TAB PO SCH ×3 (12:58→20:17)
[2023-02-21 13:14] LABS: C-ANCA <1:20 Titer (<1:20)
[2023-02-21] MEDS: POTAS-SOD-PHOS 278-164-250 MG 1 EACH PACKET PO SCH ×2 (15:31→20:16)
[2023-02-21 16:09] LABS: Immunoglobulin M <35.0 mg/dL (40.0-280.0)
[2023-02-21] MEDS: ATORVASTATIN 20 MG TAB PO SCH (20:16)
[2023-02-21] MEDS: FAMOTIDINE 20 MG TAB PO SCH (20:16)
[2023-02-22] MEDS: ACETAMINOPHEN TAB 325 MG TAB PO PRN (00:14)
[2023-02-22] MEDS: ALPRAZolam 1 MG TAB PO PRN ×2 (01:36→16:52)
[2023-02-22] MEDS: SODIUM CHLORIDE 0.9% 1,000 ML IV SCH ×3 (06:27→20:14)
[2023-02-22] MEDS: BUDESONIDE 0.5 MG/2 ML NEBU INHALATION SCH ×2 (08:17→20:34)
[2023-02-22] MEDS: IPRATROPIUM-ALBUTEROL 3 ML NEB INHALATION SCH ×4 (08:17→20:34)
[2023-02-22] MEDS: SODIUM FERRIC GLUCONAT-SUCROSE 125 MG in SODIUM CHLORIDE 0.9% 100 ML IVPB SCH (09:00)
[2023-02-22] MEDS: SODIUM BICARBONATE TAB 650 MG TAB PO SCH ×3 (09:00→20:14)
[2023-02-22] MEDS: PANTOPRAZOLE 40 MG TABLET PO SCH ×2 (09:00→20:14)
[2023-02-22] MEDS: METOPROLOL TARTRATE 25 MG TAB PO SCH ×3 (09:00→20:14)
--- NOTE | 2023-02-22 11:33 | P.PN ---
Subjective Patient is seen in follow-up for acute kidney injury. Underwent 1 treatment of dialysis on 02/18/2023. Refused further dialysis. Creatinine 3.43 yesterday. Nonoliguric. On normal saline. Hemodynamically stable. Vital signs are stable. General: No acute distress. HEENT: Head exam is unremarkable. LUNGS: No audible rhonchi or wheezes. HEART: Rate and Rhythm are regular. ABDOMEN: Nontender. EXTREMITITES: No edema. Objective - Vital Signs Vital signs: Vital Signs Temp 98.5 F 02/22/23 08:00 Pulse 98 02/22/23 08:00 Resp 18 02/22/23 08:00 BP 159/70 02/22/23 08:00 Pulse Ox 92 L 02/22/23 08:00 FiO2 Intake & Output 02/21/23 02/22/23 02/22/23 18:59 06:59 18:59 Intake Total 780 240 Output Total 900 1550 475 Balance -120 -1550 -235 Intake: Oral 780 240 Output: Urine 900 1550 475 Other: Voiding Method Indwelling Catheter Indwelling Catheter Indwelling Catheter # Bowel Movements 1 - Labs CBC & Chem 7: 02/21/23 09:39 02/21/23 09:39 Labs: Abnormal Lab Results - Last 24 Hours (Table) 02/20/23 02/21/23 Range/Units 12:20 11:54 Ionized Calcium [place] 4.0 L (4.5-5.3) mg/dL IgA 528.0 H (60.0-350.0) mg/dL IgM <35.0 L (40.0-280.0) mg/dL Assessment and Plan Plan: Assessment: 1. Acute kidney injury secondary to ATN secondary to hypovolemia, anemia and hemodynamic instability. Creatinine 8.52 admission - received 1 treatment of hemodialysis 02/18/2023. Creatinine 1.4-1.6 in December 2021 - likely has underlying chronic kidney disease. No hydronephrosis noted on kidney ultrasound. 2. Acute blood loss anemia with hemoglobin of 6.1 dated 02/18/2023. Status post blood transfusion. Concern for uremic bleed- received IV DDAVP. 3. Metabolic acidosis secondary to acute kidney injury. s/p bicarb drip. Acidosis worse today from normal saline. On oral bicarbonate. 4. A. fib with RVR. Cardiology following. 5. Coronary disease status post cardiac stenting in the past. 6. Hypokalemia from intracellular shifting from IV bicarb and poor intake. Replaced. Better. 7. Hyperphosphatemia secondary to acute kidney injury maintained on PhosLo. Dileep sphorus low at 2.2 today. PhosLo discontinued. Received Neutra-Phos. 8. Hypomagnesemia from poor intake. Replaced. Better. 9. Hypocalcemia secondary to acute kidney injury. Corrected calcium near 7.9. Replaced. Plan: Maintain IV fluids. Encouraged oral intake. Continue IV iron. Add Aranesp. Continue to assess daily for need for renal replacement therapy. Patient refusing at this time if dialysis needed. Follow-up serologies. Negative so far. UPC 3.5 g. Kidney biopsy discussed for definitive diagnosis. Radiologist not available to Saturday. May need to be done outpatient. Follow-up morning labs. Patient to follow-up outpatient to establish CKD care.
[2023-02-22 11:44] LABS: Anisocytosis Slight; Basophils % (A) 0 %; Eosinophils # (A) 0.4 k/uL (0-0.7); Eosinophils % (A) 3 %; HCT 23.2 % (34.0-46.0); HGB 7.5 gm/dL (11.4-16.0); Hypochromasia Marked; Lymphocytes # (A) 1.3 k/uL (1.0-4.8); Lymphocytes % (A) 10 %; MCHC 32.3 g/dL (31.0-37.0); MCV 102.1 fL (80.0-100.0); Macrocytosis Moderate; Mean Platelet Volume 9.4; Monocytes # (A) 0.5 k/uL (0-1.0); Monocytes % (A) 4 %; Neutrophils # (A) 10.9 k/uL (1.3-7.7); Neutrophils % (A) 82 %; Platelet Count 150 k/uL (150-450); RBC 2.27 m/uL (3.80-5.40); RDW 17.8 % (11.5-15.5); WBC 13.3 k/uL (3.8-10.6)
[2023-02-22 11:52] LABS: Gamma Globulin 0.64 d/dL (0.70-1.50)
[2023-02-22] MEDS ORDERED: DARBEPOETIN ALFA 40 MCG/0.4 ML SYRINGE SQ SCH (12:00)
[2023-02-22 12:09] LABS: African American GFR (CKD) 17 (>60 ml/min/1.73 sqM); Anion Gap 12 mmol/L; Blood Urea Nitrogen 59 mg/dL (7-17); Carbon Dioxide 19 mmol/L (22-30); Chloride 110 mmol/L (98-107); Glucose 112 mg/dL (74-99); Magnesium 1.5 mg/dL (1.6-2.3); Non-African American GFR(CKD) 15 (>60 ml/min/1.73 sqM); Phosphorus 4.3 mg/dL (2.5-4.5); Potassium 3.2 mmol/L (3.5-5.1); Sodium 141 mmol/L (137-145)
[2023-02-22 12:21] LABS: Calcium 6.3 mg/dL (8.4-10.2)
[2023-02-22] MEDS: POTASSIUM CHLORIDE ER 20 MEQ TAB.ER PO SCH ×2 (12:50→13:59)
[2023-02-22] MEDS: MAGNESIUM SULFATE-D5W PMX 1 GM in DEXTROSE/WATER 1 100ML.BAG IVPB SCH ×2 (12:50→13:58)
[2023-02-22] MEDS ORDERED: CALCIUM GLUCONATE IN NACL 2 GM in SALINE 1 100ML.BAG IVPB ONE (13:00)
--- NOTE | 2023-02-22 14:14 | P.PN ---
Subjective Progress Note Date: 02/22/23 Principal diagnosis: anemia, ALEXI At today's follow-up patient is resting comfortably in bed. She is reporting fatigue and shortness of breath. hemoglobin stable, 7.5. Creatinine improved at 3.06. Objective - Vital Signs Vital signs: Vital Signs Temp 98.8 F 02/22/23 11:32 Pulse 106 H 02/22/23 12:10 Resp 18 02/22/23 11:32 BP 167/66 02/22/23 11:32 Pulse Ox 93 L 02/22/23 11:32 FiO2 Intake & Output 02/21/23 02/22/23 02/22/23 18:59 06:59 18:59 Intake Total 780 240 Output Total 900 1550 1075 Balance -120 1550 -835 Intake: Oral 780 240 Output: Urine 900 1550 1075 Other: Voiding Method Indwelling Catheter Indwelling Catheter Indwelling Catheter # Bowel Movements 1 - Constitutional General appearance: Present: average body habitus, no acute distress - EENT Eyes: Present: anicteric sclerae, EOMI ENT: Present: hearing grossly normal - Respiratory Details: breathing labored - Cardiovascular Details: skin warm and dry - Gastrointestinal General gastrointestinal: Present: soft. Absent: tenderness - Integumentary Integumentary: Present: pale - Neurologic Neurologic Comment(s): grossly intact - Musculoskeletal Musculoskeletal: Present: generalized weakness - Psychiatric Psychiatric: Present: A&O x's 3, appropriate affect, intact judgment & insight - Labs CBC & Chem 7: 02/22/23 10:49 02/22/23 10:49 Labs: Abnormal Lab Results - Last 24 Hours (Table) 02/20/23 02/22/23 02/22/23 Range/Units 12:20 10:49 10:49 WBC 13.3 H (3.8-10.6) k/uL RBC 2.27 L (3.80-5.40) m/uL Hgb 7.5 L (11.4-16.0) gm/dL Hct 23.2 L (34.0-46.0) % MCV 102.1 H (80.0-100.0) fL RDW 17.8 H (11.5-15.5) % Neutrophils # 10.9 H (1.3-7.7) k/uL Potassium 3.2 L (3.5-5.1) mmol/L Chloride 110 H (98-107) mmol/L Carbon Dioxide 19 L (22-30) mmol/L BUN 59 H (7-17) mg/dL Creatinine 3.06 H (0.52-1.04) mg/dL Glucose 112 H (74-99) mg/dL Calcium 6.3 L* (8.4-10.2) mg/dL Magnesium 1.5 L (1.6-2.3) mg/dL Wffud-3-Qyfqigcrj 0.74 H (0.10-0.40) d/dL Ohnty-5-Dprrfmytq 1.06 H (0.60-1.00) d/dL Gamma Globulins 0.64 L (0.70-1.50) d/dL IgA 528.0 H (60.0-350.0) mg/dL IgM <35.0 L (40.0-280.0) mg/dL Assessment and Plan (1) Anemia Current Visit: Yes Status: Acute Priority: High Code(s): D64.9 - ANEMIA, UNSPECIFIED SNOMED Code(s): 954278468 (2) Acute kidney injury Current Visit: Yes Status: Acute Priority: High Code(s): N17.9 - ACUTE KIDNEY FAILURE, UNSPECIFIED SNOMED Code(s): 74789341 Plan: Macrocytic anemia -Labs most consistent with anemia of inflammation, chronic kidney disease. SPEP revealed acute phase reaction. Immunofixation showed no paraprotein. IgG 713, IgA 528, IgM < 35. [place] lambda light chains pending. -Nephrology has seen pt. Patient received parenteral iron x 4 doses. Receiving aranesp. Pt has declined dialysis. Creatinine has improved, 3.0 today -S/p 2 units PRBCs. Hemoglobin 7.5 today. Please transfuse for hemoglobin less than 7. -Will continue to monitor attests: I have performed H&P and developed impression and plan of care for patient, discussed with dictator. I agree with dictated note, documented as a scribe
--- NOTE | 2023-02-22 14:21 | PN ---
PROGRESS NOTE DATE OF SERVICE: 02/22/2023 I am covering for Dr. Reardon SUBJECTIVE: This is a 72-year-old woman who was admitted with acute kidney injury, possibly secondary to ATN, had hemodialysis. Subsequently, the patient apparently refused hemodialysis. Today labs, hemoglobin 7.5. creatinine is elevated up to 3.06. PAST MEDICAL HISTORY: Reviewed. REVIEW OF SYSTEMS: A 14-point review of systems is negative except as mentioned earlier. MEDICATIONS: Current medications reviewed include Pulmicort, dose and rest of medications noted. PHYSICAL EXAMINATION: VITAL SIGNS: Pulse is 98, blood pressure 116/62, and respirations 18. HEENT: Conjunctivae normal. NECK: No jugular venous distention. CARDIOVASCULAR: S1, S2 muffled. RESPIRATIONS: Few scattered rhonchi. ABDOMEN: Soft. NERVOUS SYSTEMS: Nonfocal. LABORATORY DATA: WBC 13.2, hemoglobin 7.5, rest of the labs are noted. ASSESSMENT: 1. Acute kidney injury secondary to ATN, hypovolemia, status post hemodialysis. 2. Atrial fibrillation with rapid ventricular rate. 3. Increased WBC. 4. Hypokalemia. 5. Hypocalcemia. 6. Multiple electrolyte abnormalities. 7. History of COPD. 8. History of GERD. RECOMMENDATIONS: Recommended to continue current management, continue symptomatic treatment, monitor creatinine closely. The patient seems to have some output. We will monitor closely, otherwise a chest CT was done 2 days ago, which I reviewed showed severe emphysematous changes and renal cyst. Recommend MRI outpatient otherwise prognosis guarded. Repeat chest x-ray to evaluate the fluid balance and calcium is being supplemented. Further recommendations to follow. MMODL / IJN: [id number] /
[2023-02-22] MEDS: FAMOTIDINE 20 MG TAB PO SCH (20:14)
[2023-02-22] MEDS: ATORVASTATIN 20 MG TAB PO SCH (20:14)
--- NOTE | 2023-02-23 07:11 | XR ---
EXAMINATION TYPE: XR chest 1V portable DATE OF EXAM: 02/23/2023 6:24 AM COMPARISON: Chest radiographs from 02/17/2023, CT chest 02/19/2023 TECHNIQUE: XR chest 1V portable Portable AP radiograph of the chest. CLINICAL INDICATION:Female, 72 years old with history of CHF; FINDINGS: Lungs/Pleura: There is flattening of the diaphragm with increased lucency of the lungs. No evidence o f pneumothorax, pleural effusion or focal consolidation. Increased course interstitial lung markings. Heart/mediastinum: Cardiomediastinal silhouette is unremarkable. Atherosclerotic calcifications are seen in the aorta. Musculoskeletal: No acute osseous pathology. Fixation hardware involving the left proximal humerus. IMPRESSION: 1. Mild pulmonary vascular congestion. 2. COPD changes.
--- NOTE | 2023-02-23 08:00 | IR ---
EXAMINATION TYPE: IR cvc insert non tunneled DATE OF EXAM: 02/18/2023 COMPARISON: NONE HISTORY: Renal failure, fluoroscopy time 0.1 minutes, DAP 0.0665 Fluoroscopy was provided to the referring clinician.
[2023-02-23] MEDS: METOPROLOL TARTRATE 25 MG TAB PO SCH ×3 (08:25→21:48)
[2023-02-23] MEDS: SODIUM BICARBONATE TAB 650 MG TAB PO SCH ×3 (08:25→21:48)
[2023-02-23] MEDS: PANTOPRAZOLE 40 MG TABLET PO SCH ×2 (08:25→21:48)
[2023-02-23] MEDS: ALPRAZolam 1 MG TAB PO PRN ×2 (08:27→16:32)
[2023-02-23] MEDS: IPRATROPIUM-ALBUTEROL 3 ML NEB INHALATION SCH ×4 (08:30→21:08)
[2023-02-23] MEDS: BUDESONIDE 0.5 MG/2 ML NEBU INHALATION SCH ×2 (08:30→21:08)
[2023-02-23 09:01] LABS: African American GFR (CKD) 19 (>60 ml/min/1.73 sqM); Anion Gap 11 mmol/L; Blood Urea Nitrogen 50 mg/dL (7-17); Calcium 7.6 mg/dL (8.4-10.2); Carbon Dioxide 21 mmol/L (22-30); Chloride 108 mmol/L (98-107); Glucose 97 mg/dL (74-99); Magnesium 1.9 mg/dL (1.6-2.3); Non-African American GFR(CKD) 16 (>60 ml/min/1.73 sqM); Phosphorus 4.3 mg/dL (2.5-4.5); Potassium 3.3 mmol/L (3.5-5.1); Sodium 140 mmol/L (137-145)
[2023-02-23 09:08] LABS: Anisocytosis Slight; Basophils % (A) 0 %; Eosinophils # (A) 0.4 k/uL (0-0.7); Eosinophils % (A) 3 %; HCT 26.2 % (34.0-46.0); HGB 8.4 gm/dL (11.4-16.0); Hypochromasia Slight; Lymphocytes # (A) 1.4 k/uL (1.0-4.8); Lymphocytes % (A) 9 %; MCH 32.8 pg (25.0-35.0); MCHC 32.3 g/dL (31.0-37.0); MCV 101.8 fL (80.0-100.0); Macrocytosis Moderate; Mean Platelet Volume 9.4; Monocytes # (A) 0.6 k/uL (0-1.0); Monocytes % (A) 4 %; Neutrophils # (A) 12.6 k/uL (1.3-7.7); Neutrophils % (A) 82 %; Platelet Count 160 k/uL (150-450); RBC 2.57 m/uL (3.80-5.40); RDW 17.8 % (11.5-15.5); WBC 15.3 k/uL (3.8-10.6)
[2023-02-23] MEDS: POTASSIUM CHLORIDE ER 10 MEQ TAB.ER.PRT PO SCH ×2 (12:40→13:58)
--- NOTE | 2023-02-23 14:25 | PN ---
PROGRESS NOTE DATE OF SERVICE: 02/23/2023 SUBJECTIVE: This 72-year-old woman was admitted with acute kidney injury, possibly secondary to ATN, was on hemodialysis. The creatinine is improving at 2.79. No chest pain, no palpitations. The patient continues to be confused. PHYSICAL EXAMINATION: VITAL SIGNS: Pulse is 95, blood pressure 150/76, respirations 16. CHEST: Few scattered rhonchi. ABDOMEN: Soft. NERVOUS SYSTEM. Nonfocal. LABORATORY DATA: Reviewed. ASSESSMENT: 1. Acute kidney injury secondary to ATN, hypovolemia, status post hemodialysis. 2. Atrial fibrillation with rapid ventricular rate. 3. Increased WBC. 4. Hypokalemia. 5. Hypocalcemia. 6. Multiple electrolyte abnormalities. 7. Chronic obstructive pulmonary disease. 8. Multiple medical problems. RECOMMENDATIONS: Recommended to continue current management, continue symptomatic treatment, labs. Closely follow with Nephrology guarded prognosis and Dr. Reardon will follow. MMODL / KEITHN: [id number] /
--- NOTE | 2023-02-23 16:24 | P.PN ---
Subjective Progress Note Date: 02/23/23 Follow-up for acute kidney injury. Underwent 1 treatment of dialysis on 02/18/2023. Refused further dialysis. Objective - Vital Signs Vital signs: Vital Signs Temp 98.4 F 02/23/23 08:00 Pulse 95 02/23/23 12:00 Resp 16 02/23/23 12:00 BP 151/73 02/23/23 12:00 Pulse Ox 91 L 02/23/23 12:00 FiO2 Intake & Output 02/22/23 02/23/23 02/23/23 18:59 06:59 18:59 Intake Total 240 1036 Output Total 1476 1700 1000 Balance -1236 -1700 36 Intake: Intake, IV Titration 800 Amount Sodium Chloride 0.9% 1, 800 000 ml @ 100 mls/hr IV . Q10H [facility] Rx#:[id number] Oral 240 236 Output: Urine 1475 1700 1000 Stool 1 Other: Voiding Method Indwelling Catheter Indwelling Catheter Indwelling Catheter # Bowel Movements 1 - Exam No acute distress S1-S2 heard Lungs clear Edema - Labs CBC & Chem 7: 02/23/23 07:42 02/23/23 07:42 Labs: Abnormal Lab Results - Last 24 Hours (Table) 02/23/23 02/23/23 Range/Units 07:42 07:42 WBC 15.3 H (3.8-10.6) k/uL RBC 2.57 L (3.80-5.40) m/uL Hgb 8.4 L (11.4-16.0) gm/dL Hct 26.2 L (34.0-46.0) % MCV 101.8 H (80.0-100.0) fL RDW 17.8 H (11.5-15.5) % Neutrophils # 12.6 H (1.3-7.7) k/uL Potassium 3.3 L (3.5-5.1) mmol/L Chloride 108 H (98-107) mmol/L Carbon Dioxide 21 L (22-30) mmol/L BUN 50 H (7-17) mg/dL Creatinine 2.79 H (0.52-1.04) mg/dL Calcium 7.6 L (8.4-10.2) mg/dL Assessment and Plan Assessment: #1 acute kidney injury secondary to ATN. Admission creatinine was 8.5 MG per DL. #2 CK D stage IIIB with a baseline creatinine of 1.4-1.6 MG per DL. #3 acute blood loss anemia with a hemoglobin of 6.1 on 02/18/2023. #4 A. fib with RVR #5 metabolic acidosis #6 coronary artery disease status post stent Plan: #1 renal function stable. #2 patient and family refusing dialysis. Awaiting kidney biopsy for definite diagnosis on Saturday. #3 serology pending. UPC are of 3.5 g.
[2023-02-23] MEDS: SODIUM CHLORIDE 0.9% 1,000 ML IV SCH ×3 (16:35→21:49)
[2023-02-23] MEDS: FAMOTIDINE 20 MG TAB PO SCH (21:48)
[2023-02-23] MEDS: ATORVASTATIN 20 MG TAB PO SCH (21:48)
[2023-02-24] MEDS: ALPRAZolam 1 MG TAB PO PRN ×3 (03:40→23:40)
[2023-02-24 06:17] LABS: Glucose,Whole Blood 142 mg/dL (70-110)
[2023-02-24 07:19] LABS: Anisocytosis Slight; Basophils % (A) 0 %; Eosinophils # (A) 0.4 k/uL (0-0.7); Eosinophils % (A) 3 %; HCT 22.8 % (34.0-46.0); HGB 7.4 gm/dL (11.4-16.0); Hypochromasia Moderate; Lymphocytes # (A) 1.6 k/uL (1.0-4.8); Lymphocytes % (A) 13 %; MCH 33.1 pg (25.0-35.0); MCHC 32.6 g/dL (31.0-37.0); MCV 101.4 fL (80.0-100.0); Macrocytosis Moderate; Mean Platelet Volume 8.7; Monocytes # (A) 0.5 k/uL (0-1.0); Monocytes % (A) 4 %; Neutrophils # (A) 9.9 k/uL (1.3-7.7); Neutrophils % (A) 79 %; Platelet Count 163 k/uL (150-450); RBC 2.25 m/uL (3.80-5.40); RDW 17.3 % (11.5-15.5); WBC 12.6 k/uL (3.8-10.6)
[2023-02-24 07:22] LABS: Potassium 3.9 mmol/L (3.5-5.1)
[2023-02-24 07:23] LABS: African American GFR (CKD) 20 (>60 ml/min/1.73 sqM); Anion Gap 10 mmol/L; Blood Urea Nitrogen 46 mg/dL (7-17); Calcium 7.4 mg/dL (8.4-10.2); Carbon Dioxide 18 mmol/L (22-30); Chloride 112 mmol/L (98-107); Glucose 89 mg/dL (74-99); Non-African American GFR(CKD) 18 (>60 ml/min/1.73 sqM); Sodium 140 mmol/L (137-145)
[2023-02-24] MEDS: SODIUM BICARBONATE TAB 650 MG TAB PO SCH ×3 (07:47→21:35)
[2023-02-24] MEDS: METOPROLOL TARTRATE 25 MG TAB PO SCH ×3 (07:47→21:35)
[2023-02-24] MEDS: PANTOPRAZOLE 40 MG TABLET PO SCH ×2 (07:47→21:35)
[2023-02-24] MEDS: BUDESONIDE 0.5 MG/2 ML NEBU INHALATION SCH ×2 (08:52→21:08)
[2023-02-24] MEDS: IPRATROPIUM-ALBUTEROL 3 ML NEB INHALATION SCH ×4 (08:52→21:08)
[2023-02-24 09:38] LABS: Free Kappa Lt Chain Qnt, Serum 11.17 mg/dL (0.33-1.94); Free Lambda Lt Chain Qnt, Seru 13.21 mg/dL (0.57-2.63)
--- NOTE | 2023-02-24 14:18 | PN ---
PROGRESS NOTE SUBJECTIVE: A 72-year-old white female with severe COPD. She is improving with DuoNeb and Pulmicort nebulizers. She feels much better. Her renal function has up to a GFR of 20. she is on sodium bicarb also 650 b.i.d., Lopressor for hypertension 25 t.i.d. She is on Aranesp for anemia, Pepcid for GI prophylaxis, Lipitor for dyslipidemia, and Xanax for anxiety. She appears to be improving from medical standpoint, although she is not getting out of bed much. She probably needs some PT/OT involved and try to get her up moving more. OBJECTIVE: LUNGS: Decreased breath sounds x4. CARDIOVASCULAR: S1, S2. OPHTHALMOLOGIC: Pupils are equal, round, and reactive. PSYCHIATRIC: Alert and oriented x3. PLAN: Continue with nephro diet. PT/OT. Prognosis is guarded. Please see further orders. MMODL / IJN: [id number] /
--- NOTE | 2023-02-24 14:21 | P.PN ---
Subjective Progress Note Date: 02/24/23 Follow-up for acute kidney injury. Underwent 1 treatment of dialysis on 02/18/2023. Refused further dialysis. Good urine output. Objective - Vital Signs Vital signs: Vital Signs Temp 99.2 F 02/24/23 07:43 Pulse 98 02/24/23 13:02 Resp 16 02/24/23 11:33 BP 162/67 02/24/23 11:33 Pulse Ox 91 L 02/24/23 11:33 FiO2 Intake & Output 02/23/23 02/24/23 02/24/23 18:59 06:59 18:59 Intake Total 1036 340 228 Output Total 1000 2001 Balance 36 -1662 228 Weight 48.7 kg Intake: Intake, IV Titration 800 200 Amount Sodium Chloride 0.9% 1, 800 200 000 ml @ 50 mls/hr IV . Q20H [facility] Rx#:[id number] Oral 236 140 228 Output: Urine 1000 2000 Stool 2 Other: Voiding Method Indwelling Catheter Indwelling Catheter Indwelling Catheter # Bowel Movements 1 1 1 - Exam No acute distress S1-S2 heard Lungs clear Edema - Labs CBC & Chem 7: 02/24/23 06:46 02/24/23 06:46 Labs: Abnormal Lab Results - Last 24 Hours (Table) 02/22/23 02/24/23 02/24/23 Range/Units 10:49 06:14 06:46 WBC 12.6 H (3.8-10.6) k/uL RBC 2.25 L (3.80-5.40) m/uL Hgb 7.4 L (11.4-16.0) gm/dL Hct 22.8 L (34.0-46.0) % MCV 101.4 H (80.0-100.0) fL RDW 17.3 H (11.5-15.5) % Neutrophils # 9.9 H (1.3-7.7) k/uL Chloride (98-107) mmol/L Carbon Dioxide (22-30) mmol/L BUN (7-17) mg/dL Creatinine (0.52-1.04) mg/dL POC Glucose (mg/dL) 142 H (70-110) mg/dL Calcium (8.4-10.2) mg/dL Free [place] LC, Quant 11.17 H (0.33-1.94) mg/dL Free Lambda LC, Quant 13.21 H (0.57-2.63) mg/dL 02/24/23 Range/Units 06:46 WBC (3.8-10.6) k/uL RBC (3.80-5.40) m/uL Hgb (11.4-16.0) gm/dL Hct (34.0-46.0) % MCV (80.0-100.0) fL RDW (11.5-15.5) % Neutrophils # (1.3-7.7) k/uL Chloride 112 H (98-107) mmol/L Carbon Dioxide 18 L (22-30) mmol/L BUN 46 H (7-17) mg/dL Creatinine 2.62 H (0.52-1.04) mg/dL POC Glucose (mg/dL) (70-110) mg/dL Calcium 7.4 L (8.4-10.2) mg/dL Free [place] LC, Quant (0.33-1.94) mg/dL Free Lambda LC, Quant (0.57-2.63) mg/dL Assessment and Plan Assessment: #1 acute kidney injury secondary to ATN. Admission creatinine was 8.5 MG per DL. #2 CK D stage IIIB with a baseline creatinine of 1.4-1.6 MG per DL. #3 acute blood loss anemia with a hemoglobin of 6.1 on 02/18/2023. #4 A. fib with RVR #5 metabolic acidosis #6 coronary artery disease status post stent Plan: #1 renal function stable. #2 Awaiting kidney biopsy for definite diagnosis on Saturday. #3 serology negative so far. UPCR of 3.5 g. #4 avoid nephrotoxic agents and hypotensive episodes.
[2023-02-24] MEDS: SODIUM CHLORIDE 0.9% 1,000 ML IV SCH (15:00)
[2023-02-24] MEDS: FAMOTIDINE 20 MG TAB PO SCH (21:35)
[2023-02-24] MEDS: ATORVASTATIN 20 MG TAB PO SCH (21:35)
[2023-02-25] MEDS: IPRATROPIUM-ALBUTEROL 3 ML NEB INHALATION SCH ×4 (08:31→21:11)
[2023-02-25] MEDS: BUDESONIDE 0.5 MG/2 ML NEBU INHALATION SCH ×2 (08:31→21:11)
[2023-02-25 09:47] LABS: Anisocytosis Slight; Basophils % (A) 0 %; Eosinophils # (A) 0.4 k/uL (0-0.7); Eosinophils % (A) 3 %; HCT 22.8 % (34.0-46.0); HGB 7.5 gm/dL (11.4-16.0); Hypochromasia Moderate; Lymphocytes # (A) 1.7 k/uL (1.0-4.8); Lymphocytes % (A) 17 %; MCH 33.4 pg (25.0-35.0); MCHC 32.8 g/dL (31.0-37.0); MCV 101.7 fL (80.0-100.0); Macrocytosis Moderate; Mean Platelet Volume 8.8; Monocytes # (A) 0.5 k/uL (0-1.0); Monocytes % (A) 5 %; Neutrophils # (A) 7.4 k/uL (1.3-7.7); Neutrophils % (A) 73 %; Platelet Count 178 k/uL (150-450); RBC 2.24 m/uL (3.80-5.40); WBC 10.1 k/uL (3.8-10.6)
[2023-02-25 10:01] LABS: ALT 24 U/L (4-34); AST 27 U/L (14-36); African American GFR (CKD) 23 (>60 ml/min/1.73 sqM); Albumin 2.6 g/dL (3.5-5.0); Alkaline Phosphatase 86 U/L (38-126); Anion Gap 11 mmol/L; Blood Urea Nitrogen 39 mg/dL (7-17); Calcium 7.3 mg/dL (8.4-10.2); Carbon Dioxide 17 mmol/L (22-30); Chloride 113 mmol/L (98-107); Glucose 100 mg/dL (74-99); Non-African American GFR(CKD) 20 (>60 ml/min/1.73 sqM); Potassium 3.4 mmol/L (3.5-5.1); Sodium 141 mmol/L (137-145); Total Bilirubin 0.4 mg/dL (0.2-1.3); Total Protein 5.5 g/dL (6.3-8.2)
[2023-02-25] MEDS: METOPROLOL TARTRATE 25 MG TAB PO SCH ×3 (12:58→21:33)
[2023-02-25] MEDS: SODIUM BICARBONATE TAB 650 MG TAB PO SCH ×3 (12:59→21:33)
--- NOTE | 2023-02-25 13:56 | P.PN ---
Subjective Patient is seen for follow-up for acute kidney injury status post 1 treatment of hemodialysis on 02/18/2023. Renal function has been improving. Serum creatinine down to 2.3 mg/dL from 8.5 on initial admission. 24 hour urine output at 2.5 L. Currently on saline at 50 mL an hour. Objective - Vital Signs Vital signs: Vital Signs Temp 98.0 F 02/25/23 12:00 Pulse 88 02/25/23 12:00 Resp 14 02/25/23 12:00 BP 157/77 02/25/23 12:00 Pulse Ox 97 02/25/23 12:00 FiO2 Intake & Output 02/24/23 02/25/23 02/25/23 18:59 06:59 18:59 Intake Total 588 Output Total 1050 1452 871 Balance -462 -1452 -871 Weight 75 kg 75 kg Intake: Oral 588 Output: Urine 1050 1450 870 Stool 2 1 Other: Voiding Method Indwelling Catheter Indwelling Catheter Indwelling Catheter # Bowel Movements 1 1 - Exam Patient is awake, comfortable, no acute distress Examination of the heart S1 and S2 Examination of the lungs decreased breath sounds at the bases Abdomen is soft nontender Examination of lower extremity shows no significant edema 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 Acute kidney injury ATN, status post one treatment of hemodialysis on 02/18/2023. Renal function has been recovering. UA shows 1+ protein small blood and WBCs 8. Protein creatinine ratio at 3.5. Awaiting kidney biopsy. Serologies are negative with free And lambda chains being elevated at 11.1 and 13.2. 2. Severe metabolic acidosis secondary to severe acute kidney injury, improved 3. Hyperphosphatemia associated with acute kidney injury, improved 4. A. fib with RVR 5. Acute blood loss anemia status post packed RBCs transfusion 6. Elevated kappa and lambda chains, being followed by hematology. Plan: Continue to hold the dialysis Switch IV fluids to IV bicarb Continue with oral sodium bicarb Replace potassium Repeat labs in a.m. Await kidney biopsy
[2023-02-25] MEDS ORDERED: POTASSIUM CHLORIDE ER 20 MEQ TAB.ER PO STA (13:57)
--- NOTE | 2023-02-25 14:10 | P.PN ---
Subjective Progress Note Date: 02/25/23 Principal diagnosis: anemia, ALEXI At today's follow-up patient is resting comfortably in bed. She is reporting fatigue. Hemoglobin stable, 7.5. Creatinine improved at 2.38 Objective - Vital Signs Vital signs: Vital Signs Temp 98.0 F 02/25/23 12:00 Pulse 88 02/25/23 12:00 Resp 14 02/25/23 12:00 BP 157/77 02/25/23 12:00 Pulse Ox 97 02/25/23 12:00 FiO2 Intake & Output 02/24/23 02/25/23 02/25/23 18:59 06:59 18:59 Intake Total 588 Output Total 1050 1452 871 Balance -462 -1452 -871 Weight 75 kg 75 kg Intake: Oral 588 Output: Urine 1050 1450 870 Stool 2 1 Other: Voiding Method Indwelling Catheter Indwelling Catheter Indwelling Catheter # Bowel Movements 1 1 - Constitutional General appearance: Present: average body habitus, no acute distress - EENT Eyes: Present: anicteric sclerae, EOMI ENT: Present: hearing grossly normal - Respiratory Details: breathing even and unlabored - Cardiovascular Details: skin warm and dry - Integumentary Integumentary: Present: pale - Musculoskeletal Musculoskeletal: Present: generalized weakness - Psychiatric Psychiatric: Present: A&O x's 3, appropriate affect, intact judgment & insight - Labs CBC & Chem 7: 02/25/23 08:47 02/25/23 08:47 Labs: Abnormal Lab Results - Last 24 Hours (Table) 02/25/23 02/25/23 Range/Units 08:47 08:47 RBC 2.24 L (3.80-5.40) m/uL Hgb 7.5 L (11.4-16.0) gm/dL Hct 22.8 L (34.0-46.0) % MCV 101.7 H (80.0-100.0) fL RDW 17.0 H (11.5-15.5) % Potassium 3.4 L (3.5-5.1) mmol/L Chloride 113 H (98-107) mmol/L Carbon Dioxide 17 L (22-30) mmol/L BUN 39 H (7-17) mg/dL Creatinine 2.38 H (0.52-1.04) mg/dL Glucose 100 H (74-99) mg/dL Calcium 7.3 L (8.4-10.2) mg/dL Total Protein 5.5 L (6.3-8.2) g/dL Albumin 2.6 L (3.5-5.0) g/dL Assessment and Plan (1) Anemia Current Visit: Yes Status: Acute Priority: High Code(s): D64.9 - ANEMIA, UNSPECIFIED SNOMED Code(s): 565115004 (2) Acute kidney injury Current Visit: Yes Status: Acute Priority: High Code(s): N17.9 - ACUTE KIDNEY FAILURE, UNSPECIFIED SNOMED Code(s): 66098545 Plan: Macrocytic anemia -SPEP revealed acute phase reaction. Immunofixation showed no paraprotein. IgG 713, IgA 528, IgM < 35. [place] lambda light chain ratio 0.84. Labs most consistent with anemia of inflammation and chronic kidney disease. -Nephrology has seen pt. Patient received parenteral iron x 4 doses. Receiving aranesp. Pt has declined dialysis. Creatinine has improved, 2.38 -S/p 2 units PRBCs. Hemoglobin 7.5 today. Please transfuse for hemoglobin less than 7. -Will continue to monitor
[2023-02-25] MEDS: PANTOPRAZOLE 40 MG TABLET PO SCH ×2 (14:58→21:33)
[2023-02-25] MEDS: DEXTROSE 5% IN WATER 1,000 ML with SODIUM BICARB (1 MEQ/ML) 150 ML IV SCH (14:58)
[2023-02-25] MEDS: ALPRAZolam 1 MG TAB PO PRN (14:58)
[2023-02-25] MEDS: FAMOTIDINE 20 MG TAB PO SCH (21:33)
[2023-02-25] MEDS: ATORVASTATIN 20 MG TAB PO SCH (21:33)
[2023-02-26] MEDS: ALPRAZolam 1 MG TAB PO PRN ×3 (00:33→18:48)
[2023-02-26] MEDS: BUDESONIDE 0.5 MG/2 ML NEBU INHALATION SCH ×2 (07:47→21:12)
[2023-02-26] MEDS: IPRATROPIUM-ALBUTEROL 3 ML NEB INHALATION SCH ×4 (07:47→21:12)
[2023-02-26] MEDS: SODIUM BICARBONATE TAB 650 MG TAB PO SCH ×3 (09:22→21:51)
[2023-02-26] MEDS: METOPROLOL TARTRATE 25 MG TAB PO SCH ×3 (09:22→21:51)
[2023-02-26] MEDS: PANTOPRAZOLE 40 MG TABLET PO SCH ×2 (09:23→20:15)
[2023-02-26 11:04] LABS: Anisocytosis Slight; HCT 22.2 % (34.0-46.0); HGB 7.1 gm/dL (11.4-16.0); Hypochromasia Moderate; MCH 32.7 pg (25.0-35.0); MCHC 32.2 g/dL (31.0-37.0); MCV 101.6 fL (80.0-100.0); Macrocytosis Moderate; Mean Platelet Volume 8.7; Platelet Count 182 k/uL (150-450); RBC 2.18 m/uL (3.80-5.40); WBC 8.9 k/uL (3.8-10.6)
[2023-02-26 11:23] LABS: Potassium 3.4 mmol/L (3.5-5.1)
[2023-02-26 11:24] LABS: African American GFR (CKD) 29 (>60 ml/min/1.73 sqM); Anion Gap 7 mmol/L; Blood Urea Nitrogen 29 mg/dL (7-17); Calcium 7.1 mg/dL (8.4-10.2); Carbon Dioxide 21 mmol/L (22-30); Chloride 109 mmol/L (98-107); Glucose 131 mg/dL (74-99); Non-African American GFR(CKD) 26 (>60 ml/min/1.73 sqM); Sodium 137 mmol/L (137-145)
[2023-02-26] MEDS: DEXTROSE 5% IN WATER 1,000 ML with SODIUM BICARB (1 MEQ/ML) 150 ML IV SCH (11:32)
[2023-02-26] MEDS: DARBEPOETIN ALFA 100MCG/0.5ML SYRINGE SQ SCH (11:32)
--- NOTE | 2023-02-26 12:39 | P.PN ---
Subjective Patient is seen for follow-up for acute kidney injury status post 1 treatment of hemodialysis on 02/18/2023. Renal function has been improving. Serum creatinine down to1.94 mg/dL from 8.5 on initial admission. 24 hour urine output at 2.4 L. Currently on IV bicarb at 50 mL an hour. Kidney biopsy held yesterday as hemoglobin was low at 7.5. Radiologist requesting hemoglobin above 7.5 g/dL for kidney biopsy to be performed. Objective - Vital Signs Vital signs: Vital Signs Temp 98.4 F 02/26/23 11:31 Pulse 84 02/26/23 11:31 Resp 16 02/26/23 11:31 BP 165/76 02/26/23 11:31 Pulse Ox 93 L 02/26/23 11:31 FiO2 Intake & Output 02/25/23 02/26/23 02/26/23 18:59 06:59 18:59 Intake Total 0 118 Output Total 1472 952 475 Balance -1472 -952 -357 Weight 75 kg 61 kg Intake: Oral 0 118 Output: Urine 1470 950 475 Stool 2 2 Other: Voiding Method Indwelling Catheter Indwelling Catheter Indwelling Catheter # Bowel Movements 1 1 - Exam Patient is awake, comfortable, no acute distress Examination of the heart S1 and S2 Examination of the lungs decreased breath sounds at the bases It edema noted in the right antecubital fossa with 2 indurated areas. 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 Acute kidney injury ATN, status post one treatment of hemodialysis on 02/18/2023. Renal function has been recovering. UA shows 1+ protein small blood and WBCs 8. Protein creatinine ratio at 3.5. Awaiting kidney biopsy. Serologies are negative with free And lambda chains being elevated at 11.1 and 13.2. 2. Severe metabolic acidosis secondary to severe acute kidney injury, improved 3. Hyperphosphatemia associated with acute kidney injury, improved 4. A. fib with RVR 5. Acute blood loss anemia status post packed RBCs transfusion 6. Elevated kappa and lambda chains, being followed by hematology. Plan: Continue to hold the dialysis Continue IV bicarb Transfuse 1 unit packed RBCs as radiology requesting hemoglobin above 7.5 for kidney biopsy. Hemoglobin has dropped to 7.1 from 7.5 yesterday. Continue with oral sodium bicarb Replace potassium Repeat labs in a.m. Await kidney biopsy
[2023-02-26] MEDS: amLODIPine 5 MG TAB PO SCH (17:26)
[2023-02-26] MEDS: ATORVASTATIN 20 MG TAB PO SCH (20:15)
[2023-02-26] MEDS: FAMOTIDINE 20 MG TAB PO SCH (20:15)
[2023-02-26] MEDS: hydrALAZINE HCL 20 MG/ML 1 ML VIAL IVP PRN (20:15)
--- NOTE | 2023-02-26 20:31 | PN ---
PROGRESS NOTE SUBJECTIVE: The patient's creatinine and GFR are getting better every day. Her GFR is currently at 29, potassium 3.4, sodium 137. Hemoglobin is 7.1, which is very low. We will get Hematology involved for severe anemia. Her blood pressure remains a little high. We are going to give her hydralazine through the IV if her blood pressure is over 160. The patient wants to go home soon. She is also getting a kidney biopsy, unsure about this. She has severe COPD. Continue on nebulizer treatments. OBJECTIVE: CARDIOVASCULAR: S1 and S2. LUNGS: Decreased breath sounds. HEMATOLOGY: Negative Homans. PSYCHIATRIC: Fair mood and affect. ASSESSMENT: 1. Chronic renal disease, much improved. 2. Chronic obstructive pulmonary disease, much improved. 3. Metabolic encephalopathy, much improved. 4. Hypokalemia. Potassium replacement protocol. 5. Gastroesophageal reflux disease. Continue current medicines. PLAN: I am not sure about the kidney biopsy. We will get the blood pressure down by adding some more blood pressure medicines. She is already on Lopressor 25 t.i.d. Possibly add amlodipine as the patient's prognosis is guarded or possibly some Hyzaar. Please see further orders. MMODL / IJN: [id number] /
[2023-02-26] MEDS: ALPRAZolam 1 MG TAB PO SCH (21:51)
[2023-02-26] MEDS: POTASSIUM CHLORIDE ER 20 MEQ TAB.ER PO SCH (23:38)
[2023-02-27] MEDS: POTASSIUM CHLORIDE ER 20 MEQ TAB.ER PO SCH (00:08)
[2023-02-27] MEDS: hydrALAZINE HCL 20 MG/ML 1 ML VIAL IVP PRN (04:54)
[2023-02-27] MEDS: IPRATROPIUM-ALBUTEROL 3 ML NEB INHALATION SCH ×4 (08:28→21:14)
[2023-02-27] MEDS: BUDESONIDE 0.5 MG/2 ML NEBU INHALATION SCH ×2 (08:28→21:15)
[2023-02-27 08:49] LABS: Anisocytosis Slight; Basophils % (A) 0 %; Eosinophils # (A) 0.2 k/uL (0-0.7); Eosinophils % (A) 1 %; HCT 28.6 % (34.0-46.0); Lymphocytes % (A) 8 %; MCH 31.7 pg (25.0-35.0); MCHC 32.9 g/dL (31.0-37.0); Macrocytosis Slight; Mean Platelet Volume 8.8; Monocytes # (A) 0.4 k/uL (0-1.0); Monocytes % (A) 3 %; Neutrophils # (A) 10.9 k/uL (1.3-7.7); Neutrophils % (A) 86 %; Platelet Count 207 k/uL (150-450); RBC 2.97 m/uL (3.80-5.40); RDW 18.7 % (11.5-15.5); WBC 12.6 k/uL (3.8-10.6)
[2023-02-27 08:51] LABS: ALT 29 U/L (4-34); AST 31 U/L (14-36); African American GFR (CKD) 23 (>60 ml/min/1.73 sqM); Albumin 2.7 g/dL (3.5-5.0); Alkaline Phosphatase 78 U/L (38-126); Anion Gap 10 mmol/L; Blood Urea Nitrogen 28 mg/dL (7-17); Calcium 7.1 mg/dL (8.4-10.2); Carbon Dioxide 24 mmol/L (22-30); Chloride 106 mmol/L (98-107); Glucose 123 mg/dL (74-99); Non-African American GFR(CKD) 20 (>60 ml/min/1.73 sqM); Sodium 140 mmol/L (137-145); Total Bilirubin 0.6 mg/dL (0.2-1.3); Total Protein 5.8 g/dL (6.3-8.2)
[2023-02-27 09:04] LABS: HGB 9.4 gm/dL (11.4-16.0); MCV 96.4 fL (80.0-100.0)
[2023-02-27 09:13] LABS: Potassium 2.9 mmol/L (3.5-5.1)
[2023-02-27] MEDS: SODIUM BICARBONATE TAB 650 MG TAB PO SCH (09:15)
[2023-02-27] MEDS: PANTOPRAZOLE 40 MG TABLET PO SCH ×2 (09:15→21:06)
[2023-02-27] MEDS: amLODIPine 5 MG TAB PO SCH (09:15)
[2023-02-27] MEDS: ALPRAZolam 1 MG TAB PO SCH ×3 (09:15→21:06)
[2023-02-27] MEDS: METOPROLOL TARTRATE 25 MG TAB PO SCH ×3 (09:15→21:06)
[2023-02-27] MEDS ORDERED: POTASSIUM CHLORIDE ER 20 MEQ TAB.ER PO STA (10:10)
[2023-02-27] MEDS ORDERED: DESMOPRESSIN ACETATE 16 MCG in SODIUM CHLORIDE 0.9% 50 ML IVPB ONE (12:01)
--- NOTE | 2023-02-27 12:56 | P.PN ---
Subjective Patient is seen for follow-up for acute kidney injury status post 1 treatment of hemodialysis on 02/18/2023. Renal function has been improving. Serum creatinine was down to1.94 mg/dL from 8.5 on initial admission. Increased to 2.4 today 24 hour urine output at 2.5 L. IV fluids discontinued yesterday Kidney biopsy scheduled for today. Patient did receive 1 unit packed RBCs for hemoglobin of 7.1 yesterday. Hemoglobin this morning was 9.4 In duration and erythema noted near right antecubital fossa, appears to be an abscess Objective - Vital Signs Vital signs: Vital Signs Temp 99.3 F 02/27/23 11:38 Pulse 101 H 02/27/23 11:38 Resp 18 02/27/23 11:38 BP 157/70 02/27/23 11:38 Pulse Ox 92 L 02/27/23 11:38 FiO2 Intake & Output 02/26/23 02/27/23 02/27/23 18:59 06:59 18:59 Intake Total 759 1080 10 Output Total 1175 1350 475 Balance -416 -265 -465 Intake: IV 10 Invasive Line 4 10 Intake, IV Titration 600 Amount Dextrose 5% in Water 1, 600 000 ml @ 50 mls/hr IV . Q23H SORAYA with Sodium Bicarb (1 Meq/ml) 150 ml Rx#:[id number] Oral 476 480 0 Blood Product 283 Rc Pheresis 2 As3 Unit 283 [id number] Output: Urine 1175 1350 475 Uretheral (Henley) 600 Other: Voiding Method Indwelling Catheter Indwelling Catheter Indwelling Catheter - Exam Patient is awake, comfortable, no acute distress Examination of the heart S1 and S2 Examination of the lungs decreased breath sounds at the bases It edema noted in the right antecubital fossa with 2 indurated areas. 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 - Labs CBC & Chem 7: 02/27/23 07:57 02/27/23 07:57 Labs: Abnormal Lab Results - Last 24 Hours (Table) 02/26/23 02/27/23 02/27/23 Range/Units 12:48 07:57 07:57 WBC 12.6 H (3.8-10.6) k/uL RBC 2.97 L (3.80-5.40) m/uL Hgb 9.4 L D (11.4-16.0) gm/dL Hct 28.6 L (34.0-46.0) % RDW 18.7 H (11.5-15.5) % Neutrophils # 10.9 H (1.3-7.7) k/uL Potassium 2.9 L (3.5-5.1) mmol/L BUN 28 H (7-17) mg/dL Creatinine 2.41 H (0.52-1.04) mg/dL Glucose 123 H (74-99) mg/dL Calcium 7.1 L (8.4-10.2) mg/dL Total Protein 5.8 L (6.3-8.2) g/dL Albumin 2.7 L (3.5-5.0) g/dL Crossmatch See Detail Assessment and Plan Assessment: 1. Acute kidney injury ATN, status post one treatment of hemodialysis on 02/18/2023. Renal function has been recovering. UA shows 1+ protein small blood and WBCs 8. Protein creatinine ratio at 3.5. Awaiting kidney biopsy. Serologies are negative with free And lambda chains being elevated at 11.1 and 13.2. Serum creatinine increased today after IV fluids were discontinued. I will re sume gentle IV hydration. 2. Severe metabolic acidosis secondary to severe acute kidney injury, improved 3. Hyperphosphatemia associated with acute kidney injury, improved 4. A. fib with RVR 5. Acute blood loss anemia status post packed RBCs transfusion 6. Elevated kappa and lambda chains, being followed by hematology. 7. Cellulitis with possible abscess right antecubital fossa Plan: Continue to hold the dialysis Resume IV fluids Consult ID Replace potassium Repeat labs in a.m. DDAVP 1 before kidney biopsy Await kidney biopsy
[2023-02-27] MEDS: SODIUM CHLORIDE 0.9% 1,000 ML IV SCH (13:44)
[2023-02-27] MEDS ORDERED: FLUMAZENIL 0.1 MG/ML 5 ML VIAL IVP PRN (16:33)
[2023-02-27 16:38] LABS: Glucose,Whole Blood 170 mg/dL (70-110)
--- NOTE | 2023-02-27 16:51 | P.PN ---
Subjective Progress Note Date: 02/27/23 Principal diagnosis: Normocytic, normochromic Anemia In follow-up today patient is very tired, she is hard to keep awake, she drifts back off to sleep During conversation. Objective - Vital Signs Vital signs: Vital Signs Temp 98.3 F 02/27/23 16:15 Pulse 103 H 02/27/23 16:15 Resp 18 02/27/23 16:15 BP 129/68 02/27/23 16:15 Pulse Ox 93 L 02/27/23 16:15 FiO2 Intake & Output 02/26/23 02/27/23 02/27/23 18:59 06:59 18:59 Intake Total 759 1080 220 Output Total 1175 1350 950 Balance -264 -897 -639 Intake: IV 20 Invasive Line 4 20 Intake, IV Titration 600 Amount Dextrose 5% in Water 1, 600 000 ml @ 50 mls/hr IV . Q23H SORAYA with Sodium Bicarb (1 Meq/ml) 150 ml Rx#:[id number] Oral 476 480 200 Blood Product 283 Rc Pheresis 2 As3 Unit 283 [id number] Output: Urine 1175 1350 950 Uretheral (Henley) 600 Other: Voiding Method Indwelling Catheter Indwelling Catheter Indwelling Catheter # Bowel Movements 1 - Constitutional Constitutional Comment(s): Thin, frail, looks over than stated age, very drowsy, opens her eyes to voice and touch, during conversation she falls back to sleep, respirations are even and unlabored - Labs CBC & Chem 7: 02/27/23 07:57 02/27/23 07:57 Labs: Abnormal Lab Results - Last 24 Hours (Table) 02/26/23 02/27/23 02/27/23 Range/Units 12:48 07:57 07:57 WBC 12.6 H (3.8-10.6) k/uL RBC 2.97 L (3.80-5.40) m/uL Hgb 9.4 L D (11.4-16.0) gm/dL Hct 28.6 L (34.0-46.0) % RDW 18.7 H (11.5-15.5) % Neutrophils # 10.9 H (1.3-7.7) k/uL Potassium 2.9 L (3.5-5.1) mmol/L BUN 28 H (7-17) mg/dL Creatinine 2.41 H (0.52-1.04) mg/dL Glucose 123 H (74-99) mg/dL POC Glucose (mg/dL) (70-110) mg/dL Calcium 7.1 L (8.4-10.2) mg/dL Total Protein 5.8 L (6.3-8.2) g/dL Albumin 2.7 L (3.5-5.0) g/dL Crossmatch See Detail 02/27/23 Range/Units 16:36 WBC (3.8-10.6) k/uL RBC (3.80-5.40) m/uL Hgb (11.4-16.0) gm/dL Hct (34.0-46.0) % RDW (11.5-15.5) % Neutrophils # (1.3-7.7) k/uL Potassium (3.5-5.1) mmol/L BUN (7-17) mg/dL Creatinine (0.52-1.04) mg/dL Glucose (74-99) mg/dL POC Glucose (mg/dL) 170 H (70-110) mg/dL Calcium (8.4-10.2) mg/dL Total Protein (6.3-8.2) g/dL Albumin (3.5-5.0) g/dL Crossmatch Assessment and Plan (1) Macrocytic anemia Current Visit: Yes Status: Acute Priority: High Code(s): D53.9 - NUTRITIONAL ANEMIA, UNSPECIFIED SNOMED Code(s): 34729921 Plan: Macrocytic anemia -Labs most consistent with anemia of inflammation, chronic kidney disease. -Paraproteinemia Workup negative. Cataract and lambda light chains both elevated, normal ratio. -B12 levels 400 range, elevated MMA. Parenteral B12 supplement can be given. -Nephrology has seen pt. Patient received IV iron, started on GRIFFIN. Pending renal biopsy -Transfuse for hemoglobin less than 7.
[2023-02-27 17:56] LABS: African American GFR (CKD) 24 (>60 ml/min/1.73 sqM); Anion Gap 10 mmol/L; Blood Urea Nitrogen 28 mg/dL (7-17); Calcium 6.9 mg/dL (8.4-10.2); Carbon Dioxide 23 mmol/L (22-30); Chloride 108 mmol/L (98-107); Glucose 132 mg/dL (74-99); Non-African American GFR(CKD) 21 (>60 ml/min/1.73 sqM); Potassium 3.6 mmol/L (3.5-5.1); Sodium 141 mmol/L (137-145)
[2023-02-27 18:10] LABS: Anisocytosis Slight; Basophils % (A) 0 %; Eosinophils % (A) 0 %; HCT 26.7 % (34.0-46.0); Hypochromasia Slight; Lymphocytes # (A) 0.8 k/uL (1.0-4.8); Lymphocytes % (A) 6 %; MCH 32.6 pg (25.0-35.0); MCHC 33.8 g/dL (31.0-37.0); MCV 96.6 fL (80.0-100.0); Macrocytosis Slight; Mean Platelet Volume 9.1; Monocytes # (A) 0.4 k/uL (0-1.0); Monocytes % (A) 3 %; Neutrophils # (A) 10.9 k/uL (1.3-7.7); Neutrophils % (A) 89 %; Platelet Count 187 k/uL (150-450); RBC 2.76 m/uL (3.80-5.40); RDW 18.4 % (11.5-15.5); WBC 12.3 k/uL (3.8-10.6)
[2023-02-27] MEDS ORDERED: LIDOCAINE 1% INJ 10MG/ML (20 ML MDV) SQ ONE ×2 (18:30→18:35)
--- NOTE | 2023-02-27 18:57 | P.PCN ---
Description of Procedure: Preop diagnoses is abscess and her right upper arm measurement is 2 x 1 cm Procedure I&D of the abscess right upper arm right arm is a prepped and draped applied sterile manner 1% lidocaine plain infiltrated using sharp knife we made a cruciate incision there was pus came out we took the culture for aerobic anaerobic abscess cavity was irrigated with saline pressure dressing applied patient are to the procedure well
[2023-02-27] MEDS: FAMOTIDINE 20 MG TAB PO SCH (21:06)
--- NOTE | 2023-02-27 22:11 | P.CONS ---
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 that has prompted this infe ctious disease consultation patient is currently stable lethargic and most information has been obtained from review the chart patient has been mostly afebrile during this hospital stay except a low-grade fever of 99.6 degree for night this morning patient did have white count of 12.3 with a left shift creatinine is 2.30 urine on admission was negative and the patient did have a negative hepatitis serology chest x-ray mild pulm vascular congestion COPD changes it is not very clear the patient did have an IV at that site as it was not confirmed by the nursing staff patient is lethargic and did not answer any question however the patient did grimicks in Pain when the affected area was touched or squeezed but no purulent material came out Past Medical History Past Medical History: Asthma, Chest Pain / Angina, COPD, CVA/TIA, Fibromyalgia, GERD/Reflux, GI Bleed, Musculoskeletal Disorder, Neurologic Disorder, Osteoarthritis (OA), Renal Disease, Skin Disorder Additional Past Medical History / Comment(s): HX OF TIA'S -RIGHT SIDED WEAKNESS, IBS, NEUROPATHY IN HANDS & FEET., HERNIATED DISC, OSTEOPOROSIS, BACK PAIN, HIATAL HERNIA, , DISCOID LUPUS, HX OF STOMACH BLEED FROM MOTRIN, STATES 60 % KIDNEY FUNCTION, HX OF MULTIPLE UTI'S., BELLS PALSY (1999), OCCASIONAL FALLS- BROKE HER RIGHT FOOT 5 WEEKS AGO, USES WALKER- HAS ORDERED A MOTOR W/C., HAVING DIFFICULTY SWALLOWING. History of Any Multi-Drug Resistant Organisms: ESBL Year Discovered:: 09/18/21 MDRO Source:: Urine-ESBL E.coli Past Surgical History: Appendectomy, Cholecystectomy, Heart Catheterization With Stent, Hernia Repair, Hysterectomy, Orthopedic Surgery Additional Past Surgical History / Comment(s): HEART CATHS WITH STENTS(1999) & (DECEMBER 2014), UMBILICAL HERNIA, HAMMER TOES, BUNIONS , SURGERY FOR PHLEBITIS IN HER LEG. Past Anesthesia/Blood Transfusion Reactions: No Reported Reaction Date of Last Stent Placement:: 2014 Past Psychological History: Anxiety, Depression, Panic Disorder Smoking Status: Current every day smoker Past Alcohol Use History: None Reported Additional Past Alcohol Use History / Comment(s): SMOKES 1/2 PPD OR LESS. HAS BEEN SMOKING SINCE 28 YRS OLD ( 39YEARS) Past Drug Use History: None Reported - Past Family History Sister(s) Family Medical History: Cancer, CVA/TIA Mother Family Medical History: Coronary Artery Disease (CAD) Father Family Medical History: Cancer, CVA/TIA, Diabetes Mellitus, Hyperlipidemia, Hyp ertension Additional Family Medical History / Comment(s): ETOH, BLADDER CANCER, BELLS PALSY Medications and Allergies Home Medications Medication Instructions Recorded Confirmed Type ALPRAZolam [Xanax] 1 mg PO TID PRN 02/17/23 02/17/23 History Pantoprazole Sodium [Protonix] 40 mg PO BID 02/17/23 02/17/23 History atenoloL [Tenormin] 25 mg PO DAILY 02/17/23 02/17/23 History Allergies Allergy/AdvReac Type Severity Reaction Status Date / Time amitriptyline [From Elavil] Allergy Rash/Hives Verified 02/17/23 16:17 cortisone [Cortisone] Allergy throat Verified 02/17/23 16:17 Swelling NSAIDS (Non-Steroidal Allergy Nausea & Verified 02/17/23 16:17 Anti-Inflamma Vomiting & Diarrhea/ GI bleed Sulfa (Sulfonamide Allergy Rash/Hives, Verified 02/17/23 16:17 Antibiotics) blisters tetracaine Allergy Unknown Verified 02/17/23 16:17 tetracaine HCl Allergy Unknown Verified 02/17/23 16:17 [From Pontocaine] aspirin AdvReac Mild GI Bleed Verified 02/17/23 16:17 adhesive AdvReac blisters Verified 02/17/23 16:17 merocaine Allergy Unknown Uncoded 02/17/23 16:17 contrast/dye AdvReac Unknown Uncoded 02/17/23 16:17 Physical Exam Vitals: Vital Signs Temp Pulse Pulse Resp BP BP Pulse Ox 02/27/23 11:38 99.3 F 101 H 18 157/70 92 L 02/27/23 11:29 96 02/27/23 11:15 98 02/27/23 09:11 99.6 F 108 H 18 126/57 97 08/02/23 08:39 98 02/27/23 08:29 100 96 02/27/23 04:00 99.2 F 90 18 165/71 96 02/27/23 01:47 16 02/26/23 23:44 97.8 F 89 16 144/66 97 02/26/23 21:22 96 02/26/23 21:12 95 02/26/23 20:38 98.2 F 85 18 189/81 95 02/26/23 17:59 97.4 F L 84 16 185/78 95 02/26/23 17:24 97.9 F 84 16 186/72 98 02/26/23 16:20 98.0 F 87 16 156/71 93 L 02/26/23 16:00 98.5 F 85 16 158/72 93 L 02/26/23 15:31 98.1 F 84 16 156/71 93 L Intake and Output 02/26/23 02/27/23 02/27/23 22:59 06:59 14:59 Intake Total 401 1080 10 Output Total 500 1350 475 Balance -99 -270 -465 Intake: IV 10 Invasive Line 4 10 Intake, IV Titration 600 Amount Dextrose 5% in Water 1, 600 000 ml @ 50 mls/hr IV . Q23H SORAYA with Sodium Bicarb (1 Meq/ml) 150 ml Rx#:[id number] Oral 118 480 0 Blood Product 283 Rc Pheresis 2 As3 Unit 283 [id number] Output: Urine 500 1350 475 Uretheral (Henley) 600 Other: Voiding Method Indwelling Catheter Indwelling Catheter Indwelling Catheter Results CBC & Chem 7: 02/27/23 17:23 02/27/23 17:23 Labs: Abnormal Lab Results - Last 24 Hours (Table) 02/26/23 02/27/23 02/27/23 Range/Units 12:48 07:57 07:57 WBC 12.6 H (3.8-10.6) k/uL RBC 2.97 L (3.80-5.40) m/uL Hgb 9.4 L D (11.4-16.0) gm/dL Hct 28.6 L (34.0-46.0) % RDW 18.7 H (11.5-15.5) % Neutrophils # 10.9 H (1.3-7.7) k/uL Potassium 2.9 L (3.5-5.1) mmol/L BUN 28 H (7-17) mg/dL Creatinine 2.41 H (0.52-1.04) mg/dL Glucose 123 H (74-99) mg/dL Calcium 7.1 L (8.4-10.2) mg/dL Total Protein 5.8 L (6.3-8.2) g/dL Albumin 2.7 L (3.5-5.0) g/dL Crossmatch See Detail Assessment and Plan Plan: Patient with right upper arm fluctuant area which is swollen red fluctuant and tender to touch in this patient with a low-grade fever elevated white count high clinic suspicious hypokalemia with we will proceed with possible related to an IV during this admission however that could not be confirmed and will need to cover for resistant gram-positive to be the likely pathogen 2-patient with renal insufficiency high risk of nephrotoxicity from vancomycin 3-we will obtain blood culture 4-discussed with vascular surgery for I&D of the area and to send the fluid for culture 5-we will empirically Start the patient on daptomycin while waiting for the cultures to be completed We will follow on clinical condition and cultures to further adjust medication if needed Thank you for this consultation we will follow the patient along with you Dictation was produced using [employer] dictation software. please excuse any grammatical, word or spelling errors. Time with Patient: Greater than 30
[2023-02-28 08:00] LABS: Anisocytosis Slight; Basophils % (A) 0 %; Eosinophils # (A) 0.1 k/uL (0-0.7); Eosinophils % (A) 1 %; HCT 27.3 % (34.0-46.0); HGB 9.1 gm/dL (11.4-16.0); Hypochromasia Slight; Lymphocytes # (A) 0.7 k/uL (1.0-4.8); Lymphocytes % (A) 7 %; MCH 32.2 pg (25.0-35.0); MCHC 33.2 g/dL (31.0-37.0); Macrocytosis Slight; Mean Platelet Volume 8.9; Monocytes # (A) 0.4 k/uL (0-1.0); Monocytes % (A) 4 %; Neutrophils # (A) 8.6 k/uL (1.3-7.7); Neutrophils % (A) 87 %; Platelet Count 201 k/uL (150-450); RBC 2.81 m/uL (3.80-5.40); RDW 18.2 % (11.5-15.5); WBC 9.9 k/uL (3.8-10.6)
[2023-02-28 08:07] LABS: INR 1.2 (<1.2); Prothrombin Time 12.1 sec (9.0-12.0)
[2023-02-28 08:19] LABS: ALT 29 U/L (4-34); AST 26 U/L (14-36); African American GFR (CKD) 25 (>60 ml/min/1.73 sqM); Albumin 2.8 g/dL (3.5-5.0); Alkaline Phosphatase 70 U/L (38-126); Anion Gap 13 mmol/L; Blood Urea Nitrogen 23 mg/dL (7-17); Calcium 7.3 mg/dL (8.4-10.2); Carbon Dioxide 18 mmol/L (22-30); Chloride 110 mmol/L (98-107); Glucose 117 mg/dL (74-99); Non-African American GFR(CKD) 21 (>60 ml/min/1.73 sqM); Potassium 3.5 mmol/L (3.5-5.1); Sodium 141 mmol/L (137-145); Total Bilirubin 0.6 mg/dL (0.2-1.3); Total Protein 6.1 g/dL (6.3-8.2)
[2023-02-28] MEDS: amLODIPine 5 MG TAB PO SCH (08:23)
[2023-02-28] MEDS: SODIUM BICARBONATE TAB 650 MG TAB PO SCH (08:23)
[2023-02-28] MEDS: PANTOPRAZOLE 40 MG TABLET PO SCH ×2 (08:24→20:47)
[2023-02-28] MEDS: METOPROLOL TARTRATE 25 MG TAB PO SCH ×3 (08:24→20:47)
[2023-02-28] MEDS: ACETAMINOPHEN TAB 325 MG TAB PO PRN (08:31)
[2023-02-28] MEDS: IPRATROPIUM-ALBUTEROL 3 ML NEB INHALATION SCH ×4 (08:49→23:53)
[2023-02-28] MEDS: BUDESONIDE 0.5 MG/2 ML NEBU INHALATION SCH ×2 (08:49→23:53)
--- NOTE | 2023-02-28 08:58 | PN ---
PROGRESS NOTE SUBJECTIVE: This is a 72-year-old white female who was more obtunded this afternoon, gave flumazenil with Romazicon to reverse anxiety medicines, although family says she takes more Xanax at home than she sign here. She became more obtunded today. We are going to put her on oxygen, breathing treatments, surgical evaluation for the right abscess on the right arm, do a septic workup, started on daptomycin, IV fluids for elevated creatinine after 1 unit of blood was given today. Creatinine went up to 2.4, but is now down to 2.3 with the fluid. I suspect she is dehydrated. She has hypoxemia to low 90s, we are going to put her on oxygen. We took scan the right upper arm, do septic workup. Continue current treatment. GFR is back down to 23. OBJECTIVE: VITAL SIGNS: Oxygen sat low 90s on room air. Blood pressure is 120 to 130s over 70s to 80s, pulse rate 94 to 103, respiratory rate 16 to 18, and temp 98.2. PSYCH: She is obtunded, lethargic. CARDIOVASCULAR: S1, S2. LUNGS: Decreased breath sounds x4. HEMATOLOGY: Negative for Homans. ASSESSMENT: Altered mental status, suspect sepsis. Do another cardiac workup on her. Also do an EKG and troponin if there are any abnormalities. Prognosis is guarded. Septic workup breathing treatments, oxygen. Prognosis guarded. MMODL / IJN: [id number] /
--- NOTE | 2023-02-28 11:10 | P.PN ---
Subjective Progress Note Date: 02/28/23 HISTORY OF PRESENT ILLNESS: This is a 72 year old female with a past medical history significant for co ronary artery disease with previous angioplasty, hypertension, hyperlipidemia, and diabetes. Patient follows in the office with Dr. Rivera. We have been asked to see the patient in consultation for A. fib with RVR. Patient examined at the bedside. The patient presented to the hospital with a chief complaint of generalized weakness. She also reports having a fall approximately one week prior to coming to the hospital. Apparently, the patient is also not been eating or drinking well at home. The patient was found to be in acute renal failure. The patient was also found to be in A. fib with RVR. The patient does not have a history of atrial fibrillation. At the time of examination she rem ains in atrial fibrillation with heart rate between [id number]. She denies any chest pain or pressure. She denies any shortness of breath. She is very thin and appears frail. Her BMI is 18.2. * EKG reveals atrial fibrillation with RVR * Chest xray no acute cardiopulmonary process * Laboratory data: WBC 15.0. Hemoglobin 6.1. Platelet count 200. Sodium 142. Potassium 2.8. BUN 136. Creatinine 6.99. TSH 1.450. * Current home cardiac medications include atenolol 25 mg daily * Most recent echocardiogram obtained in December 2016 at the office revealed ejection fraction 55%, moderate concentric hypertrophy, mild mitral regurgitation, and mild tricuspid regurgitation * Patient underwent dobutamine stress test and December 2016 which was negative for ischemia * Cardiac catheterization history: September 2015 with stenting of the RCA 02/19/2023 Patient examined this morning the bedside. Patient denies chest pain or pressure. She currently denies shortness of breath. Telemetry reveals sinus mechanism with heart rate between [id number]. Echocardiogram completed revealing ejection fraction 55-60%, trace mitral regurgitation, trace tricuspid regurgitation 02/28 Cardiology was previously seen the patient for A. fib with RVR. Cardiology signed off on 02/19. We have been reconsulted for hypertension. It appears patient had a blood pressure reading of 162/86 yesterday. She has also been febrile and heart rate 102. She is status post I&D of an abscess in the right upper arm by Dr. Davies patient is followed by Dr. Arias. Blood pressure this morning is 147/55. Patient opens her eyes to verbal stimuli but unable to answer any questions, quickly falls back to sleep. PHYSICAL EXAM: VITAL SIGNS: Reviewed. GENERAL: Thin cachectic appearing 72-year-old female in no acute distress. HEENT: Head is normocephalic. Pupils are equal, round. Sclerae anicteric. Mucous membranes of the mouth are dry. LUNGS: Respirations even and unlabored. Lungs essentially clear to auscultation bilaterally. HEART: Regular rate and rhythm. S1 and S2 heard. ABDOMEN: Soft. Nondistended. Nontender. EXTREMITIES: No lower extremity edema ASSESSMENT: Generalized weakness Status post fall at home New-onset atrial fibrillation with RVR currently maintaining sinus mechanism Acute renal failure Metabolic acidosis Anemia Hypokalemia Coronary artery disease with previous stenting of the RCA, September 2015 Hypertension Hyperlipidemia Diabetes Nicotine dependence Sepsis secondary to right arm abscess PLAN: Continue current cardiac medications Patient is not a candidate for anticoagulation at this time secondary to recent fall and acute anemia Nurse practitioner note has been reviewed by physician. Signing provider agrees with the documented findings, assessment, and plan of care. Objective - Vital Signs Vital signs: Vital Signs Temp 100.5 F H 02/28/23 08:20 Pulse 102 H 02/28/23 09:05 Resp 16 02/28/23 08:20 BP 147/55 02/28/23 08:20 Pulse Ox 943 H 02/28/23 08:50 FiO2 21 02/28/23 08:50 Intake & Output 02/27/23 02/28/23 02/28/23 18:59 06:59 18:59 Intake Total 220 400 Output Total 950 Balance -730 400 Weight 75 kg Intake: IV 20 Invasive Line 4 20 Oral 200 400 Output: Urine 950 Other: Voiding Method Indwelling Catheter Indwelling Catheter # Voids 1 # Bowel Movements 1 1 - Labs CBC & Chem 7: 02/28/23 07:45 02/28/23 07:45 Labs: Abnormal Lab Results - Last 24 Hours (Table) 02/27/23 02/27/23 02/27/23 Range/Units 16:36 17:23 17:23 WBC 12.3 H (3.8-10.6) k/uL RBC 2.76 L (3.80-5.40) m/uL Hgb 9.0 L (11.4-16.0) gm/dL Hct 26.7 L (34.0-46.0) % RDW 18.4 H (11.5-15.5) % Neutrophils # 10.9 H (1.3-7.7) k/uL Lymphocytes # 0.8 L (1.0-4.8) k/uL PT (9.0-12.0) sec INR (<1.2) Chloride 108 H (98-107) mmol/L Carbon Dioxide (22-30) mmol/L BUN 28 H (7-17) mg/dL Creatinine 2.30 H (0.52-1.04) mg/dL Glucose 132 H (74-99) mg/dL POC Glucose (mg/dL) 170 H (70-110) mg/dL Calcium 6.9 L (8.4-10.2) mg/dL Total Protein (6.3-8.2) g/dL Albumin (3.5-5.0) g/dL Procalcitonin (0.02-0.09) ng/mL 02/28/23 02/28/23 02/28/23 Range/Units 00:38 07:45 07:45 WBC (3.8-10.6) k/uL RBC 2.81 L (3.80-5.40) m/uL Hgb 9.1 L (11.4-16.0) gm/dL Hct 27.3 L (34.0-46.0) % RDW 18.2 H (11.5-15.5) % Neutrophils # 8.6 H (1.3-7.7) k/uL Lymphocytes # 0.7 L (1.0-4.8) k/uL PT 12.1 H (9.0-12.0) sec INR 1.2 H (<1.2) Chloride (98-107) mmol/L Carbon Dioxide (22-30) mmol/L BUN (7-17) mg/dL Creatinine (0.52-1.04) mg/dL Glucose (74-99) mg/dL POC Glucose (mg/dL) (70-110) mg/dL Calcium (8.4-10.2) mg/dL Total Protein (6.3-8.2) g/dL Albumin (3.5-5.0) g/dL Procalcitonin 1.75 H (0.02-0.09) ng/mL 08/03/23 Range/Units 07:45 WBC (3.8-10.6) k/uL RBC (3.80-5.40) m/uL Hgb (11.4-16.0) gm/dL Hct (34.0-46.0) % RDW (11.5-15.5) % Neutrophils # (1.3-7.7) k/uL Lymphocytes # (1.0-4.8) k/uL PT (9.0-12.0) sec INR (<1.2) Chloride 110 H (98-107) mmol/L Carbon Dioxide 18 L (22-30) mmol/L BUN 23 H (7-17) mg/dL Creatinine 2.26 H (0.52-1.04) mg/dL Glucose 117 H (74-99) mg/dL POC Glucose (mg/dL) (70-110) mg/dL Calcium 7.3 L (8.4-10.2) mg/dL Total Protein 6.1 L (6.3-8.2) g/dL Albumin 2.8 L (3.5-5.0) g/dL Procalcitonin (0.02-0.09) ng/mL
--- NOTE | 2023-02-28 12:43 | CT ---
EXAMINATION TYPE: CT humerus RT wo con CT DLP: 552.8 mGycm, Automated exposure control for dose reduction was used. DATE OF EXAM: 02/28/2023 12:20 PM COMPARISON: 02/17/2023. CLINICAL INDICATION:Female, 72 years old with history of abscess; TECHNIQUE: Axial images were obtained of the right humerus . Additional coronal and sagittal reforma tted images and soft tissue and bone window were obtained for review. 3-D reconstruction was created on a separate workstation. Contrast used: none Oral contrast used: None FINDINGS: No evidence for organizing fluid collection. There is no evidence of fracture, subluxation, or dislocation. No significant soft tissue swelling or joint effusion is identified. No focal muscu lar atrophy or edema is identified. No radiopaque foreign body identified. IMPRESSION: No evidence for organizing fluid collection to suggest abscess. No evidence for fracture.
[2023-02-28] MEDS: LACTATED RINGERS 1,000 ML IV SCH (12:55)
[2023-02-28] MEDS: SODIUM CHLORIDE 0.9% 1,000 ML IV SCH (12:55)
--- NOTE | 2023-02-28 12:57 | P.PN ---
Subjective Progress Note Date: 02/28/23 Principal diagnosis: Normocytic, normochromic Anemia In follow-up today patient is difficult to arouse, she does not answer questions. She had I&D on the RUE. Objective - Vital Signs Vital signs: Vital Signs Temp 100.5 F H 02/28/23 08:20 Pulse 100 02/28/23 11:52 Resp 16 02/28/23 08:20 BP 147/55 02/28/23 08:20 Pulse Ox 943 H 02/28/23 08:50 FiO2 21 02/28/23 08:50 Intake & Output 02/27/23 02/28/23 02/28/23 18:59 06:59 18:59 Intake Total 220 400 Output Total 950 Balance -730 400 Weight 75 kg Intake: IV 20 Invasive Line 4 20 Oral 200 400 Output: Urine 950 Other: Voiding Method Indwelling Catheter Indwelling Catheter Indwelling Catheter # Voids 1 # Bowel Movements 1 1 - Constitutional Constitutional Comment(s): looks older then chronological age, pt is diaphoretic and warm to touch General appearance: Present: no acute distress, thin - Respiratory Details: resp even and unlabored at rest - Cardiovascular Details: radial pulse tachy, regular rhythm - Peripheral edema leg Peripheral Edema: bilateral: None - Integumentary Integumentary Comment(s): RUE dressing C/D/I after I&D, no unusual redness or swelling above or below the dressing. - Psychiatric Psychiatric: Absent: A&O x's 3 - Labs CBC & Chem 7: 02/28/23 07:45 02/28/23 07:45 Labs: Abnormal Lab Results - Last 24 Hours (Table) 02/27/23 02/27/23 02/27/23 Range/Units 16:36 17:23 17:23 WBC 12.3 H (3.8-10.6) k/uL RBC 2.76 L (3.80-5.40) m/uL Hgb 9.0 L (11.4-16.0) gm/dL Hct 26.7 L (34.0-46.0) % RDW 18.4 H (11.5-15.5) % Neutrophils # 10.9 H (1.3-7.7) k/uL Lymphocytes # 0.8 L (1.0-4.8) k/uL PT (9.0-12.0) sec INR (<1.2) Chloride 108 H (98-107) mmol/L Carbon Dioxide (22-30) mmol/L BUN 28 H (7-17) mg/dL Creatinine 2.30 H (0.52-1.04) mg/dL Glucose 132 H (74-99) mg/dL POC Glucose (mg/dL) 170 H (70-110) mg/dL Calcium 6.9 L (8.4-10.2) mg/dL Total Protein (6.3-8.2) g/dL Albumin (3.5-5.0) g/dL Procalcitonin (0.02-0.09) ng/mL 02/28/23 02/28/23 02/28/23 Range/Units 00:38 07:45 07:45 WBC (3.8-10.6) k/uL RBC 2.81 L (3.80-5.40) m/uL Hgb 9.1 L (11.4-16.0) gm/dL Hct 27.3 L (34.0-46.0) % RDW 18.2 H (11.5-15.5) % Neutrophils # 8.6 H (1.3-7.7) k/uL Lymphocytes # 0.7 L (1.0-4.8) k/uL PT 12.1 H (9.0-12.0) sec INR 1.2 H (<1.2) Chloride (98-107) mmol/L Carbon Dioxide (22-30) mmol/L BUN (7-17) mg/dL Creatinine (0.52-1.04) mg/dL Glucose (74-99) mg/dL POC Glucose (mg/dL) (70-110) mg/dL Calcium (8.4-10.2) mg/dL Total Protein (6.3-8.2) g/dL Albumin (3.5-5.0) g/dL Procalcitonin 1.75 H (0.02-0.09) ng/mL 02/28/23 Range/Units 07:45 WBC (3.8-10.6) k/uL RBC (3.80-5.40) m/uL Hgb (11.4-16.0) gm/dL Hct (34.0-46.0) % RDW (11.5-15.5) % Neutrophils # (1.3-7.7) k/uL Lymphocytes # (1.0-4.8) k/uL PT (9.0-12.0) sec INR (<1.2) Chloride 110 H (98-107) mmol/L Carbon Dioxide 18 L (22-30) mmol/L BUN 23 H (7-17) mg/dL Creatinine 2.26 H (0.52-1.04) mg/dL Glucose 117 H (74-99) mg/dL POC Glucose (mg/dL) (70-110) mg/dL Calcium 7.3 L (8.4-10.2) mg/dL Total Protein 6.1 L (6.3-8.2) g/dL Albumin 2.8 L (3.5-5.0) g/dL Procalcitonin (0.02-0.09) ng/mL Assessment and Plan (1) Macrocytic anemia Current Visit: Yes Status: Acute Priority: High Code(s): D53.9 - NUTRITIONAL ANEMIA, UNSPECIFIED SNOMED Code(s): 62053093 Plan: Macrocytic anemia -Hgb stable today at 9.1 -Labs most consistent with anemia of inflammation, chronic kidney disease. Nephrology has seen pt. Patient received IV iron, started on GRIFFIN. Pending renal biopsy -Paraproteinemia Workup negative. [place] and lambda light chains both elevated, normal ratio. -B12 levels 400 range, elevated MMA. Parenteral B12 supplement can be given. -Transfuse for hemoglobin less than 7.
--- NOTE | 2023-02-28 13:21 | P.PN ---
Subjective Patient is seen for follow-up for acute kidney injury status post 1 treatment of hemodialysis on 02/18/2023. Renal function has been improving. Serum creatinine was down to1.94 mg/dL from 8.5 on initial admission. Increased to 2.4 and at 2.2 today. Patient was restarted on IV fluids yesterday. Kidney biopsy was not done as patient was noted to have low-grade temp. She has been cleared from ID. Blood cultures are negative thus far. Next Status post drainage of right arm abscess by vascular surgery. Urine output at 950 ML for 24 hours. Objective - Vital Signs Vital signs: Vital Signs Temp 99.3 F 02/28/23 12:50 Pulse 93 02/28/23 12:50 Resp 16 02/28/23 12:50 BP 136/64 02/28/23 12:50 Pulse Ox 92 L 02/28/23 12:50 FiO2 21 02/28/23 08:50 Intake & Output 02/27/23 02/28/23 02/28/23 18:59 06:59 18:59 Intake Total 220 400 250 Output Total 950 Balance -730 400 250 Weight 75 kg Intake: IV 20 Invasive Line 4 20 Intake, IV Titration 250 Amount Sodium Chloride 0.9% 1, 250 000 ml @ 50 mls/hr IV . Q20H [facility] Rx#:[id number] Oral 200 400 Output: Urine 950 Other: Voiding Method Indwelling Catheter Indwelling Catheter Indwelling Catheter # Voids 1 # Bowel Movements 1 1 1 - Exam Patient is awake, comfortable, no acute distress Examination of the heart S1 and S2 Examination of the lungs decreased breath sounds at the bases Dressing noted on the right arm Abdomen is soft nontender Examination of lower extremity shows no significant edema BID MANAGER exam grossly intact - Labs CBC & Chem 7: 02/28/23 07:45 02/28/23 07:45 Labs: Abnormal Lab Results - Last 24 Hours (Table) 02/27/23 02/27/23 02/27/23 Range/Units 16:36 17:23 17:23 WBC 12.3 H (3.8-10.6) k/uL RBC 2.76 L (3.80-5.40) m/uL Hgb 9.0 L (11.4-16.0) gm/dL Hct 26.7 L (34.0-46.0) % RDW 18.4 H (11.5-15.5) % Neutrophils # 10.9 H (1.3-7.7) k/uL Lymphocytes # 0.8 L (1.0-4.8) k/uL PT (9.0-12.0) sec INR (<1.2) Chloride 108 H (98-107) mmol/L Carbon Dioxide (22-30) mmol/L BUN 28 H (7-17) mg/dL Creatinine 2.30 H (0.52-1.04) mg/dL Glucose 132 H (74-99) mg/dL POC Glucose (mg/dL) 170 H (70-110) mg/dL Calcium 6.9 L (8.4-10.2) mg/dL Total Protein (6.3-8.2) g/dL Albumin (3.5-5.0) g/dL Procalcitonin (0.02-0.09) ng/mL 02/28/23 02/28/23 02/28/23 Range/Units 00:38 07:45 07:45 WBC (3.8-10.6) k/uL RBC 2.81 L (3.80-5.40) m/uL Hgb 9.1 L (11.4-16.0) gm/dL Hct 27.3 L (34.0-46.0) % RDW 18.2 H (11.5-15.5) % Neutrophils # 8.6 H (1.3-7.7) k/uL Lymphocytes # 0.7 L (1.0-4.8) k/uL PT 12.1 H (9.0-12.0) sec INR 1.2 H (<1.2) Chloride (98-107) mmol/L Carbon Dioxide (22-30) mmol/L BUN (7-17) mg/dL Creatinine (0.52-1.04) mg/dL Glucose (74-99) mg/dL POC Glucose (mg/dL) (70-110) mg/dL Calcium (8.4-10.2) mg/dL Total Protein (6.3-8.2) g/dL Albumin (3.5-5.0) g/dL Procalcitonin 1.75 H (0.02-0.09) ng/mL 02/28/23 Range/Units 07:45 WBC (3.8-10.6) k/uL RBC (3.80-5.40) m/uL Hgb (11.4-16.0) gm/dL Hct (34.0-46.0) % RDW (11.5-15.5) % Neutrophils # (1.3-7.7) k/uL Lymphocytes # (1.0-4.8) k/uL PT (9.0-12.0) sec INR (<1.2) Chloride 110 H (98-107) mmol/L Carbon Dioxide 18 L (22-30) mmol/L BUN 23 H (7-17) mg/dL Creatinine 2.26 H (0.52-1.04) mg/dL Glucose 117 H (74-99) mg/dL POC Glucose (mg/dL) (70-110) mg/dL Calcium 7.3 L (8.4-10.2) mg/dL Total Protein 6.1 L (6.3-8.2) g/dL Albumin 2.8 L (3.5-5.0) g/dL Procalcitonin (0.02-0.09) ng/mL Assessment and Plan Assessment: 1. Acute kidney injury ATN, status post one treatment of hemodialysis on 02/18/2023. Renal function has been recovering. UA shows 1+ protein small blood and WBCs 8. Protein creatinine ratio at 3.5. Awaiting kidney biopsy. Serologies are negative with free And lambda chains being elevated at 11.1 and 13.2. Serum creatinine had increased to 2.4 and it is back down to 2.2. Restarted IV fluids yesterday. 2. Severe metabolic acidosis secondary to severe acute kidney injury, improved 3. Hyperphosphatemia associated with acute kidney injury, improved 4. A. fib with RVR 5. Acute blood loss anemia status post packed RBCs transfusion 6. Elevated kappa and lambda chains, being followed by hematology. 7. Cellulitis with possible abscess right antecubital fossa Plan: Continue to hold the dialysis Continue IV fluids Continue antibiotics as per ID Okay to proceed with kidney biopsy Repeat labs in a.m. DDAVP 1 before kidney biopsy Await kidney biopsy
[2023-02-28] MEDS: ALPRAZolam 1 MG TAB PO PRN (20:47)
[2023-02-28] MEDS: FAMOTIDINE 20 MG TAB PO SCH (20:47)
[2023-03-01] MEDS: LACTATED RINGERS 1,000 ML IV SCH ×3 (01:49→22:20)
[2023-03-01] MEDS: METOPROLOL TARTRATE 25 MG TAB PO SCH ×3 (08:30→20:41)
[2023-03-01] MEDS: amLODIPine 5 MG TAB PO SCH (08:30)
[2023-03-01] MEDS: SODIUM BICARBONATE TAB 650 MG TAB PO SCH (08:30)
[2023-03-01] MEDS: PANTOPRAZOLE 40 MG TABLET PO SCH ×2 (08:30→20:41)
[2023-03-01] MEDS: ALPRAZolam 1 MG TAB PO PRN ×2 (08:36→20:41)
[2023-03-01] MEDS: IPRATROPIUM-ALBUTEROL 3 ML NEB INHALATION SCH ×4 (09:28→21:41)
[2023-03-01] MEDS: BUDESONIDE 0.5 MG/2 ML NEBU INHALATION SCH ×2 (09:28→21:41)
--- NOTE | 2023-03-01 13:05 | P.PN ---
Subjective Progress Note Date: 03/01/23 HISTORY OF PRESENT ILLNESS: This is a 72 year old female with a past medical history significant for co ronary artery disease with previous angioplasty, hypertension, hyperlipidemia, and diabetes. Patient follows in the office with Dr. Rivera. We have been asked to see the patient in consultation for A. fib with RVR. Patient examined at the bedside. The patient presented to the hospital with a chief complaint of generalized weakness. She also reports having a fall approximately one week prior to coming to the hospital. Apparently, the patient is also not been eating or drinking well at home. The patient was found to be in acute renal failure. The patient was also found to be in A. fib with RVR. The patient does not have a history of atrial fibrillation. At the time of examination she rem ains in atrial fibrillation with heart rate between [id number]. She denies any chest pain or pressure. She denies any shortness of breath. She is very thin and appears frail. Her BMI is 18.2. * EKG reveals atrial fibrillation with RVR * Chest xray no acute cardiopulmonary process * Laboratory data: WBC 15.0. Hemoglobin 6.1. Platelet count 200. Sodium 142. Potassium 2.8. BUN 136. Creatinine 6.99. TSH 1.450. * Current home cardiac medications include atenolol 25 mg daily * Most recent echocardiogram obtained in December 2016 at the office revealed ejection fraction 55%, moderate concentric hypertrophy, mild mitral regurgitation, and mild tricuspid regurgitation * Patient underwent dobutamine stress test and December 2016 which was negative for ischemia * Cardiac catheterization history: September 2015 with stenting of the RCA 02/19/2023 Patient examined this morning the bedside. Patient denies chest pain or pressure. She currently denies shortness of breath. Telemetry reveals sinus mechanism with heart rate between [id number]. Echocardiogram completed revealing ejection fraction 55-60%, trace mitral regurgitation, trace tricuspid regurgitation 02/28 Cardiology was previously seen the patient for A. fib with RVR. Cardiology signed off on 02/19. We have been reconsulted for hypertension. It appears patient had a blood pressure reading of 162/86 yesterday. She has also been febrile and heart rate 102. She is status post I&D of an abscess in the right upper arm by Dr. Davies patient is followed by Dr. Arias. Blood pressure this morning is 147/55. Patient opens her eyes to verbal stimuli but unable to answer any questions, quickly falls back to sleep. 03/01 Patient seen in follow-up. Patient has minimal response. She continues on treatment for sepsis and/abscess. Heart rate has been in the 80s and 90s, blood pressure 128/57. PHYSICAL EXAM: VITAL SIGNS: Reviewed. GENERAL: Thin cachectic appearing 72-year-old female in no acute distress. HEENT: Head is normocephalic. Pupils are equal, round. Sclerae anicteric. Mucous membranes of the mouth are dry. LUNGS: Respirations even and unlabored. Lungs essentially clear to auscultation bilaterally. HEART: Regular rate and rhythm. S1 and S2 heard. ABDOMEN: Soft. Nondistended. Nontender. EXTREMITIES: No lower extremity edema ASSESSMENT: Generalized weakness Status post fall at home New-onset atrial fibrillation with RVR currently maintaining sinus mechanism Acute renal failure Metabolic acidosis Anemia Hypokalemia Coronary artery disease with previous stenting of the RCA, September 2015 Hypertension Hyperlipidemia Diabetes Nicotine dependence Sepsis secondary to right arm abscess PLAN: Continue current cardiac medications Patient is not a candidate for anticoagulation at this time secondary to recent fall and acute anemia Nurse practitioner note has been reviewed by physician. Signing provider agrees with the documented findings, assessment, and plan of care. Objective - Vital Signs Vital signs: Vital Signs Temp 98.3 F 03/01/23 08:37 Pulse 88 03/01/23 09:29 Resp 18 03/01/23 08:37 BP 138/64 03/01/23 08:37 Pulse Ox 94 L 03/01/23 08:37 FiO2 21 02/28/23 08:50 Intake & Output 02/28/23 03/01/23 03/01/23 18:59 06:59 18:59 Intake Total 370 240 Output Total 400 650 800 Balance -30 -410 -800 Weight 60.4 kg Intake: Intake, IV Titration 250 Amount Sodium Chloride 0.9% 1, 250 000 ml @ 50 mls/hr IV . Q20H [facility] Rx#:[id number] Oral 120 240 Output: Urine 400 650 800 Uretheral ([place]) 650 Other: Voiding Method Indwelling Catheter Indwelling Catheter Indwelling Catheter # Bowel Movements 1 - Labs CBC & Chem 7: 02/28/23 07:45 02/28/23 07:45 Labs: Microbiology - Last 24 Hours (Table) 02/27/23 18:45 Gram Stain - Preliminary Arm - Right Wound Culture - Preliminary Gram Neg Bacilli 02/28/23 00:38 Blood Culture Gram Stain - Preliminary Blood 02/27/23 13:10 Blood Culture - Preliminary Blood
--- NOTE | 2023-03-01 14:29 | PN ---
PROGRESS NOTE SUBJECTIVE: A 72-year-old white female with acute kidney injury. Her creatinine is a little bit better. She is more alert today. She wants her Xanax renewed and we started, which we will and because she has not slept in days and she finally fell asleep. OBJECTIVE: VITAL SIGNS: Reviewed . NEUROLOGIC: Her mental status has greatly improved overnight. LUNGS: Transmitted upper sounds. HEMATOLOGY: Negative Homans. GI: Soft. PSYCH: Alert and oriented x3. LABORATORY DATA: Blood cultures were drawn. Urine culture was drawn . ASSESSMENT AND PLAN: Acute kidney injury, dehydration, prerenal azotemia, severe chronic obstructive pulmonary disease pulmonary hypertension. Continue with breathing treatments. Prognosis guarded. MMODL / IJN: [id number] /
[2023-03-01] MEDS ORDERED: CEFEPIME 2 GM in SODIUM CHLORIDE 0.9% 100 ML IVPB STA (14:59)
[2023-03-01] MEDS: FAMOTIDINE 20 MG TAB PO SCH (20:41)
[2023-03-01] MEDS: CEFEPIME 1 GM in SODIUM CHLORIDE 0.9% 50 ML IVPB SCH (22:17)
[2023-03-01] MEDS: ZOLPIDEM 5 MG TAB PO PRN (22:23)
--- NOTE | 2023-03-02 00:01 | P.PN ---
Subjective Patient is seen for follow-up for acute kidney injury status post 1 treatment of hemodialysis on 02/18/2023. Renal function has been improving. Serum creatinine was down to1.94 mg/dL from 8.5 on initial admission. Increased to 2.4 and at 2.2 yesterday. Patient was restarted on IV fluids. Kidney biopsy was not done as patient was noted to have low-grade temp. She has been cleared from ID. Blood cultures are negative thus far. Status post drainage of right arm abscess by vascular surgery. No complaints today. Objective - Vital Signs Vital signs: Vital Signs Temp 98.5 F 03/01/23 20:05 Pulse 88 03/01/23 21:51 Resp 20 03/01/23 20:05 BP 133/72 03/01/23 20:05 Pulse Ox 94 L 03/01/23 20:05 FiO2 21 02/28/23 08:50 Intake & Output 03/01/23 03/01/23 03/02/23 06:59 18:59 06:59 Intake Total 240 240 Output Total 650 1250 525 Balance -410 -1010 -525 Weight 60.4 kg Intake: Oral 240 240 Output: Urine 650 1250 525 Uretheral ([place]) 650 525 Other: Voiding Method Indwelling Catheter Indwelling Catheter Indwelling Catheter - Exam Patient is awake, comfortable, no acute distress Examination of the heart S1 and S2 Examination of the lungs decreased breath sounds at the bases Dressing noted on the right arm Abdomen is soft nontender Examination of lower extremity shows no significant edema STOCK GRADER exam grossly intact - Labs CBC & Chem 7: 02/28/23 07:45 02/28/23 07:45 Labs: Microbiology - Last 24 Hours (Table) 02/27/23 13:10 Blood Culture - Preliminary Blood 02/28/23 08:50 Urine Culture - Preliminary Urine,Catheterized Gram Neg Bacilli 02/27/23 18:45 Gram Stain - Preliminary Arm - Right Wound Culture - Preliminary Gram Neg Bacilli 02/28/23 00:38 Blood Culture Gram Stain - Preliminary Blood Assessment and Plan Assessment: 1. Acute kidney injury ATN, status post one treatment of hemodialysis on 02/18/2023. Renal function has been recovering. UA shows 1+ protein small blood and WBCs 8. Protein creatinine ratio at 3.5. Awaiting kidney biopsy. Serologies are negative with free And lambda chains being elevated at 11.1 and 13.2. Serum creatinine had increased to 2.4 and it is back down to 2.2. Restarted IV fluids. 2. Severe metabolic acidosis secondary to severe acute kidney injury, improved 3. Hyperphosphatemia associated with acute kidney injury, improved 4. A. fib with RVR 5. Acute blood loss anemia status post packed RBCs transfusion 6. Elevated kappa and lambda chains, being followed by hematology. 7. Cellulitis with possible abscess right antecubital fossa, s/p I and D Plan: Continue to hold the dialysis Continue IV fluids Continue antibiotics as per ID Judy to proceed with kidney biopsy Repeat labs in a.m. D/c dialysis cath in am. Await kidney biopsy
[2023-03-02] MEDS: BUDESONIDE 0.5 MG/2 ML NEBU INHALATION SCH ×2 (08:02→21:04)
[2023-03-02] MEDS: IPRATROPIUM-ALBUTEROL 3 ML NEB INHALATION SCH ×4 (08:02→21:05)
[2023-03-02 08:24] LABS: Anisocytosis Slight; Basophils % (A) 0 %; Eosinophils # (A) 0.2 k/uL (0-0.7); Eosinophils % (A) 2 %; HCT 23.7 % (34.0-46.0); HGB 7.5 gm/dL (11.4-16.0); Hypochromasia Moderate; Lymphocytes # (A) 1.5 k/uL (1.0-4.8); Lymphocytes % (A) 22 %; MCH 31.4 pg (25.0-35.0); MCHC 31.5 g/dL (31.0-37.0); MCV 99.4 fL (80.0-100.0); Macrocytosis Slight; Monocytes # (A) 0.4 k/uL (0-1.0); Monocytes % (A) 6 %; Neutrophils # (A) 4.6 k/uL (1.3-7.7); Neutrophils % (A) 66 %; Platelet Count 197 k/uL (150-450); RBC 2.38 m/uL (3.80-5.40); WBC 6.9 k/uL (3.8-10.6)
[2023-03-02 08:25] LABS: African American GFR (CKD) 29 (>60 ml/min/1.73 sqM); Anion Gap 8 mmol/L; Blood Urea Nitrogen 23 mg/dL (7-17); Calcium 7.4 mg/dL (8.4-10.2); Carbon Dioxide 18 mmol/L (22-30); Chloride 110 mmol/L (98-107); Glucose 112 mg/dL (74-99); Non-African American GFR(CKD) 25 (>60 ml/min/1.73 sqM); Potassium 3.9 mmol/L (3.5-5.1); Sodium 136 mmol/L (137-145)
[2023-03-02] MEDS: METOPROLOL TARTRATE 25 MG TAB PO SCH ×3 (09:24→20:18)
[2023-03-02] MEDS: SODIUM BICARBONATE TAB 650 MG TAB PO SCH (09:24)
[2023-03-02] MEDS: CEFEPIME 1 GM in SODIUM CHLORIDE 0.9% 50 ML IVPB SCH ×2 (09:24→20:18)
[2023-03-02] MEDS: amLODIPine 5 MG TAB PO SCH (09:24)
[2023-03-02] MEDS: PANTOPRAZOLE 40 MG TABLET PO SCH ×2 (09:24→20:18)
[2023-03-02] MEDS ORDERED: amLODIPine 5 MG TAB PO STA (11:53)
--- NOTE | 2023-03-02 12:19 | P.PN ---
Subjective Patient is seen for follow-up for acute kidney injury status post 1 treatment of hemodialysis on 02/18/2023. Renal function has been improving. Serum creatinine was down to1.94 mg/dL from 8.5 on initial admission. Increased to 2.4 and at 2.2 yesterday. Patient was restarted on IV fluids. Kidney biopsy was not done as patient was noted to have low-grade temp. blood cultures are growing gram-negative bacilli. Status post drainage of right arm abscess by vascular surgery. No complaints today. Objective - Vital Signs Vital signs: Vital Signs Temp 98.4 F 03/02/23 07:58 Pulse 86 03/02/23 08:19 Resp 18 03/02/23 08:00 BP 167/70 03/02/23 07:58 Pulse Ox 97 03/02/23 08:03 FiO2 21 02/28/23 08:50 Intake & Output 03/01/23 03/02/23 03/02/23 18:59 06:59 18:59 Intake Total 240 1080 Output Total 1250 1050 Balance -1010 30 Weight 77.5 kg Intake: Intake, IV Titration 700 Amount Cefepime 2 gm In Sodium 100 Chloride 0.9% 100 ml @ 200 mls/hr [facility] Rx#:[id number] Lactated Ringers 1,000 ml 600 @ 75 mls/hr IV .[id number] [facility] Rx#:[id number] Oral 240 380 Output: Urine 1250 1050 Uretheral ([place]) 525 Other: Voiding Method Indwelling Catheter Indwelling Catheter Indwelling Catheter - Exam Patient is awake, comfortable, no acute distress Examination of the heart S1 and S2 Examination of the lungs decreased breath sounds at the bases Dressing noted on the right arm Abdomen is soft nontender Examination of lower extremity shows no significant edema MONUMENT CARVER exam grossly intact - Labs CBC & Chem 7: 03/02/23 07:44 03/02/23 07:44 Labs: Abnormal Lab Results - Last 24 Hours (Table) 03/02/23 03/02/23 Range/Units 07:44 07:44 RBC 2.38 L (3.80-5.40) m/uL Hgb 7.5 L D (11.4-16.0) gm/dL Hct 23.7 L (34.0-46.0) % RDW 18.0 H (11.5-15.5) % Sodium 136 L (137-145) mmol/L Chloride 110 H (98-107) mmol/L Carbon Dioxide 18 L (22-30) mmol/L BUN 23 H (7-17) mg/dL Creatinine 1.99 H (0.52-1.04) mg/dL Glucose 112 H (74-99) mg/dL Calcium 7.4 L (8.4-10.2) mg/dL Microbiology - Last 24 Hours (Table) 02/27/23 18:45 Gram Stain - Preliminary Arm - Right Wound Culture - Preliminary Enterobacter cloacae 02/28/23 00:38 Blood Culture Gram Stain - Preliminary Blood Blood Culture - Preliminary Gram Neg Bacilli 02/27/23 13:10 Blood Culture - Preliminary Blood 02/28/23 08:50 Urine Culture - Preliminary Urine,Catheterized Gram Neg Bacilli Assessment and Plan Assessment: 1. Acute kidney injury ATN, status post one treatment of hemodialysis on 02/18/2023. Renal function has been recovering. UA shows 1+ protein small blood and WBCs 8. Protein creatinine ratio at 3.5. Okay to postpone kidney biopsy to outpatient given the improvement in renal function as well as gram- negative bacteremia. Serologies are negative with free And lambda chains being elevated at 11.1 and 13.2. 2. Severe metabolic acidosis secondary to severe acute kidney injury, improved 3. Hyperphosphatemia associated with acute kidney injury, improved 4. A. fib with RVR 5. Acute blood loss anemia status post packed RBCs transfusion. No active bleeding noted. 6. Elevated kappa and lambda chains, being followed by hematology. 7. Cellulitis with possible abscess right antecubital fossa, s/p I and D 8. Gram-negative bacteremia associated with abscess right arm status post IND and maintained on antibiotics. Plan: Continue IV fluids Continue antibiotics as per ID DC dialysis catheter
--- NOTE | 2023-03-02 12:33 | P.PN ---
Subjective Progress Note Date: 03/02/23 HISTORY OF PRESENT ILLNESS: This is a 72 year old female with a past medical history significant for co ronary artery disease with previous angioplasty, hypertension, hyperlipidemia, and diabetes. Patient follows in the office with Dr. Rivera. We have been asked to see the patient in consultation for A. fib with RVR. Patient examined at the bedside. The patient presented to the hospital with a chief complaint of generalized weakness. She also reports having a fall approximately one week prior to coming to the hospital. Apparently, the patient is also not been eating or drinking well at home. The patient was found to be in acute renal failure. The patient was also found to be in A. fib with RVR. The patient does not have a history of atrial fibrillation. At the time of examination she rem ains in atrial fibrillation with heart rate between [id number]. She denies any chest pain or pressure. She denies any shortness of breath. She is very thin and appears frail. Her BMI is 18.2. * EKG reveals atrial fibrillation with RVR * Chest xray no acute cardiopulmonary process * Laboratory data: WBC 15.0. Hemoglobin 6.1. Platelet count 200. Sodium 142. Potassium 2.8. BUN 136. Creatinine 6.99. TSH 1.450. * Current home cardiac medications include atenolol 25 mg daily * Most recent echocardiogram obtained in December 2016 at the office revealed ejection fraction 55%, moderate concentric hypertrophy, mild mitral regurgitation, and mild tricuspid regurgitation * Patient underwent dobutamine stress test and December 2016 which was negative for ischemia * Cardiac catheterization history: September 2015 with stenting of the RCA 02/19/2023 Patient examined this morning the bedside. Patient denies chest pain or pressure. She currently denies shortness of breath. Telemetry reveals sinus mechanism with heart rate between [id number]. Echocardiogram completed revealing ejection fraction 55-60%, trace mitral regurgitation, trace tricuspid regurgitation 02/28 Cardiology was previously seen the patient for A. fib with RVR. Cardiology signed off on 02/19. We have been reconsulted for hypertension. It appears patient had a blood pressure reading of 162/86 yesterday. She has also been febrile and heart rate 102. She is status post I&D of an abscess in the right upper arm by Dr. Davies patient is followed by Dr. Arias. Blood pressure this morning is 147/55. Patient opens her eyes to verbal stimuli but unable to answer any questions, quickly falls back to sleep. 03/01 Patient seen in follow-up. Patient has minimal response. She continues on treatment for sepsis and/abscess. Heart rate has been in the 80s and 90s, blood pressure 128/57. 03/02 Patient is seen today in follow-up. Patient is sitting up in a chair and awake and alert. She states that her right arm is still quite painful where the I&D was done. No chest pain or palpitations, no lightheadedness or dizziness. Blood pressure remains slightly elevated and amlodipine will be increased. PHYSICAL EXAM: VITAL SIGNS: Reviewed. GENERAL: Thin cachectic appearing 72-year-old female in no acute distress. HEENT: Head is normocephalic. Pupils are equal, round. Sclerae anicteric. Mucous membranes of the mouth are dry. LUNGS: Respirations even and unlabored. Lungs essentially clear to auscultation bilaterally. HEART: Regular rate and rhythm. S1 and S2 heard. ABDOMEN: Soft. Nondistended. Nontender. EXTREMITIES: No lower extremity edema ASSESSMENT: Generalized weakness Status post fall at home New-onset atrial fibrillation with RVR currently maintaining sinus mechanism Acute renal failure Metabolic acidosis Anemia Hypokalemia Coronary artery disease with previous stenting of the RCA, September 2015 Hypertension Hyperlipidemia Diabetes Nicotine dependence Sepsis secondary to right arm abscess PLAN: Continue current cardiac medications Increase amlodipine to 10 mg daily for better blood pressure control. Patient is not a candidate for anticoagulation at this time secondary to recent fall and acute anemia Nurse practitioner note has been reviewed by physician. Signing provider agrees with the documented findings, assessment, and plan of care. Objective - Vital Signs Vital signs: Vital Signs Temp 98.4 F 03/02/23 07:58 Pulse 86 03/02/23 08:19 Resp 18 03/02/23 08:00 BP 167/70 03/02/23 07:58 Pulse Ox 97 03/02/23 08:03 FiO2 21 02/28/23 08:50 Intake & Output 03/01/23 03/02/23 03/02/23 18:59 06:59 18:59 Intake Total 240 1080 Output Total 1250 1050 Balance -1010 30 Weight 77.5 kg Intake: Intake, IV Titration 700 Amount Cefepime 2 gm In Sodium 100 Chloride 0.9% 100 ml @ 200 mls/hr IVPB ONCE STA Rx#:[id number] Lactated Ringers 1,000 ml 600 @ 75 mls/hr IV .[id number] [facility] Rx#:[id number] Oral 240 380 Output: Urine 1250 1050 Uretheral (Hen[place]) 525 Other: Voiding Method Indwelling Catheter Indwelling Catheter Indwelling Catheter - Labs CBC & Chem 7: 03/02/23 07:44 03/02/23 07:44 Labs: Abnormal Lab Results - Last 24 Hours (Table) 03/02/23 03/02/23 Range/Units 07:44 07:44 RBC 2.38 L (3.80-5.40) m/uL Hgb 7.5 L D (11.4-16.0) gm/dL Hct 23.7 L (34.0-46.0) % RDW 18.0 H (11.5-15.5) % Sodium 136 L (137-145) mmol/L Chloride 110 H (98-107) mmol/L Carbon Dioxide 18 L (22-30) mmol/L BUN 23 H (7-17) mg/dL Creatinine 1.99 H (0.52-1.04) mg/dL Glucose 112 H (74-99) mg/dL Calcium 7.4 L (8.4-10.2) mg/dL Microbiology - Last 24 Hours (Table) 02/27/23 18:45 Gram Stain - Preliminary Arm - Right Wound Culture - Preliminary Enterobacter cloacae 02/28/23 00:38 Blood Culture Gram Stain - Preliminary Blood Blood Culture - Preliminary Gram Neg Bacilli 02/27/23 13:10 Blood Culture - Preliminary Blood 02/28/23 08:50 Urine Culture - Preliminary Urine,Catheterized Gram Neg Bacilli
[2023-03-02] MEDS: SODIUM FERRIC GLUCONAT-SUCROSE 125 MG in SODIUM CHLORIDE 0.9% 100 ML IVPB SCH (14:00)
--- NOTE | 2023-03-02 14:30 | P.PCN ---
Description of Procedure: Preoperative diagnoses is acute chronic renal failure Procedure removal of dialysis catheter right femoral approach this patient had a dialysis catheter placed in the past patient is doing well of the right groin were prepped and stitches was removed and catheter was removed pressure was held pressure dressing applied patient tolerated the procedure well
[2023-03-02] MEDS: LACTATED RINGERS 1,000 ML IV SCH (16:37)
--- NOTE | 2023-03-02 20:01 | US ---
EXAMINATION TYPE: US venous doppler duplex UE RT DATE OF EXAM: 03/02/2023 COMPARISON: NONE CLINICAL INDICATION: Female, 72 years old with history of red, warm, tender, swollen arm; Right arm p ain, recent abscess drainage right arm SIDE PERFORMED: Right Right Arm: Negative for DVT, unable to visualize right basilic vein due to large bandage on right upp er arm IMPRESSION: 1. Right upper extremity ultrasound negative for deep venous thrombosis
[2023-03-02] MEDS: FAMOTIDINE 20 MG TAB PO SCH (20:18)
[2023-03-02] MEDS: ALPRAZolam 1 MG TAB PO PRN ×2 (20:22→23:10)
--- NOTE | 2023-03-02 21:11 | PN ---
PROGRESS NOTE SUBJECTIVE: A 72-year-old white female, remains on cefepime, drug-resistant UTI. Her right arm is more swollen today. She lost more blood. Hemoglobin is down to 7.5, but given . We will have to monitor for blood loss. She is on sodium bicarb. She is on Protonix. Her kidney function is back up to 29 GFR. She is on Aranesp, Pepcid. Anxiety medicines have been continued. OBJECTIVE: VITAL SIGNS: She is 94% on room air, on 2 L, temperature 98.6, pulse 80 to 85, respiratory rate 16 to 18, blood pressure 120s to 150s over 60 to 67, respiratory rate 18 to 20. CARDIOVASCULAR: S1, S2. LUNGS: Scattered rhonchi and wheeze. HEMATOLOGY: Negative Homans. ASSESSMENT: End-stage renal disease, now stage 4 or 3, hypoxic respiratory failure secondary to severe chronic obstructive pulmonary disease, right arm cellulitis versus sepsis. Blood cultures were at the room blood cultures. She has blood cultures positive for gram-negative bacilli. She has a wound culture positive for Enterobacter cloaca and faecalis, and urine culture positive for Klebsiella pneumonia, and E coli. Prognosis extremely guarded. I have to do multiple antibiotics as the patient is drug resistant to multiple medications. Please see further orders. Prognosis guarded. MMODL / IJN: [id number] /
--- NOTE | 2023-03-02 22:19 | P.PN ---
Subjective Progress Note Date: 02/28/23 Principal diagnosis: R arm abscess Patient is a 72-year-old female with multiple comorbidities in this patient presented to the hospital on 02/17/2023, initial presentation for weakness and did have a fall patient did have a renal insufficiency requiring dialysis during this hospital stay patient was noticed to have a cystic mass to the right upper arm area, patient was diagnosed with an abscess and the patient did have a bedside drainage of the abscess by surgery blood cultures were obtained. On today's evaluation that is 02/28/2023 the patient did have a low-grade fever 100.5 F this morning the patient is afebrile since then the patient is breathing comfortably on 2 L nasal cannula patient remains to be lethargic and unable to provide any history no vomiting or diarrhea has been reported. Patient white count did come down to 9.9 from yesterday of 12.3 creatinine is 2.26 procalcitonin 1.75 local cultures currently pending blood cultures pending Objective - Vital Signs Vital signs: Vital Signs Temp 100.5 F H 02/28/23 08:20 Pulse 100 02/28/23 11:52 Resp 16 02/28/23 08:20 BP 147/55 02/28/23 08:20 Pulse Ox 943 H 02/28/23 08:50 FiO2 21 02/28/23 08:50 Intake & Output 02/27/23 02/28/23 02/28/23 18:59 06:59 18:59 Intake Total 220 400 Output Total 950 Balance -730 400 Weight 75 kg Intake: IV 20 Invasive Line 4 20 Oral 200 400 Output: Urine 950 Other: Voiding Method Indwelling Catheter Indwelling Catheter Indwelling Catheter # Voids 1 # Bowel Movements 1 1 - Exam GENERAL DESCRIPTION: Elderly female lying in bed in no distress RESPIRATORY SYSTEM: Unlabored breathing , decreased breath sounds at bases HEART: S1 S2 regular rate and rhythm ,no loud murmurs ABDOMEN: Soft , no tenderness EXTREMITIES: Right upper arm abscess site is currently dressed no drainage on the dressing - Labs CBC & Chem 7: 03/02/23 07:44 03/02/23 07:44 Labs: Abnormal Lab Results - Last 24 Hours (Table) 02/27/23 02/27/23 02/27/23 Range/Units 16:36 17:23 17:23 WBC 12.3 H (3.8-10.6) k/uL RBC 2.76 L (3.80-5.40) m/uL Hgb 9.0 L (11.4-16.0) gm/dL Hct 26.7 L (34.0-46.0) % RDW 18.4 H (11.5-15.5) % Neutrophils # 10.9 H (1.3-7.7) k/uL Lymphocytes # 0.8 L (1.0-4.8) k/uL PT (9.0-12.0) sec INR (<1.2) Chloride 108 H (98-107) mmol/L Carbon Dioxide (22-30) mmol/L BUN 28 H (7-17) mg/dL Creatinine 2.30 H (0.52-1.04) mg/dL Glucose 132 H (74-99) mg/dL POC Glucose (mg/dL) 170 H (70-110) mg/dL Calcium 6.9 L (8.4-10.2) mg/dL Total Protein (6.3-8.2) g/dL Albumin (3.5-5.0) g/dL Procalcitonin (0.02-0.09) ng/mL 02/28/23 02/28/23 02/28/23 Range/Units 00:38 07:45 07:45 WBC (3.8-10.6) k/uL RBC 2.81 L (3.80-5.40) m/uL Hgb 9.1 L (11.4-16.0) gm/dL Hct 27.3 L (34.0-46.0) % RDW 18.2 H (11.5-15.5) % Neutrophils # 8.6 H (1.3-7.7) k/uL Lymphocytes # 0.7 L (1.0-4.8) k/uL PT 12.1 H (9.0-12.0) sec INR 1.2 H (<1.2) Chloride (98-107) mmol/L Carbon Dioxide (22-30) mmol/L BUN (7-17) mg/dL Creatinine (0.52-1.04) mg/dL Glucose (74-99) mg/dL POC Glucose (mg/dL) (70-110) mg/dL Calcium (8.4-10.2) mg/dL Total Protein (6.3-8.2) g/dL Albumin (3.5-5.0) g/dL Procalcitonin 1.75 H (0.02-0.09) ng/mL 02/28/23 Range/Units 07:45 WBC (3.8-10.6) k/uL RBC (3.80-5.40) m/uL Hgb (11.4-16.0) gm/dL Hct (34.0-46.0) % RDW (11.5-15.5) % Neutrophils # (1.3-7.7) k/uL Lymphocytes # (1.0-4.8) k/uL PT (9.0-12.0) sec INR (<1.2) Chloride 110 H (98-107) mmol/L Carbon Dioxide 18 L (22-30) mmol/L BUN 23 H (7-17) mg/dL Creatinine 2.26 H (0.52-1.04) mg/dL Glucose 117 H (74-99) mg/dL POC Glucose (mg/dL) (70-110) mg/dL Calcium 7.3 L (8.4-10.2) mg/dL Total Protein 6.1 L (6.3-8.2) g/dL Albumin 2.8 L (3.5-5.0) g/dL Procalcitonin (0.02-0.09) ng/mL Assessment and Plan (1) Abscess of right arm Current Visit: Yes Status: Acute Code(s): L02.413 - CUTANEOUS ABSCESS OF RIGHT UPPER LIMB SNOMED Code(s): 55048431299637696 Plan: Patient with right upper arm fluctuant area which is swollen red fluctuant and tender to touch in this patient with a low-grade fever elevated white count high clinic suspicious hypokalemia with we will proceed with possible related to an IV during this admission however that could not be confirmed and will need to cover for resistant gram-positive to be the likely pathogen 2-patient with renal insufficiency high risk of nephrotoxicity from vancomycin 3- blood culture has been obtained and results will be followed 4-Pt is S/P vascular surgery I&D of the area and fluid sent for culture 5- patient to continue with on daptomycin while waiting for the cultures to be completed Dictation was produced using [employer] software. please excuse any grammatical, word or spelling errors. Time with Patient: Less than 30
--- NOTE | 2023-03-02 22:22 | P.PN ---
Subjective Progress Note Date: 03/01/23 Principal diagnosis: R arm abscess Patient is a 72-year-old female with multiple comorbidities in this patient presented to the hospital on 02/17/2023, initial presentation for weakness and did have a fall patient did have a renal insufficiency requiring dialysis during this hospital stay patient was noticed to have a cystic mass to the right upper arm area, patient was diagnosed with an abscess and the patient did have a bedside drainage of the abscess by surgery blood cultures were obtained. On today's evaluation that is 03/01/2023 the patient is afebrile today patient is more awake and alert today and is breathing comfortably on room air patient denies having any chest pain or shortness with cough no abdominal pain has been complaining of some pain to the right upper extremity no worsening. No labs has been obtained today patient blood cultures came back positive with gram-negative bacilli Objective - Vital Signs Vital signs: Vital Signs Temp 99.3 F 03/01/23 12:07 Pulse 89 03/01/23 14:00 Resp 18 03/01/23 14:00 BP 128/57 03/01/23 12:07 Pulse Ox 93 L 03/01/23 12:07 FiO2 21 02/28/23 08:50 Intake & Output 02/28/23 03/01/23 03/01/23 18:59 06:59 18:59 Intake Total 370 240 120 Output Total 400 650 800 Balance -30 -410 -680 Weight 60.4 kg Intake: Intake, IV Titration 250 Amount Sodium Chloride 0.9% 1, 250 000 ml @ 50 mls/hr IV . Q20H [facility] Rx#:[id number] Oral 120 240 120 Output: Urine 400 650 800 Uretheral ([place]) 650 Other: Voiding Method Indwelling Catheter Indwelling Catheter Indwelling Catheter # Bowel Movements 1 - Exam GENERAL DESCRIPTION: Elderly female lying in bed in no distress RESPIRATORY SYSTEM: Unlabored breathing , decreased breath sounds at bases HEART: S1 S2 regular rate and rhythm ,no loud murmurs ABDOMEN: Soft , no tenderness EXTREMITIES: Right upper arm abscess site is currently dressed no drainage on the dressing - Labs CBC & Chem 7: 03/02/23 07:44 03/02/23 07:44 Labs: Microbiology - Last 24 Hours (Table) 02/28/23 08:50 Urine Culture - Preliminary Urine,Catheterized Gram Neg Bacilli 02/27/23 18:45 Gram Stain - Preliminary Arm - Right Wound Culture - Preliminary Gram Neg Bacilli 02/28/23 00:38 Blood Culture Gram Stain - Preliminary Blood 02/27/23 13:10 Blood Culture - Preliminary Blood Assessment and Plan (1) Bacteremia due to Gram-negative bacteria Current Visit: Yes Status: Acute Code(s): R78.81 - BACTEREMIA SNOMED Code(s): 685875499574 (2) Abscess of right arm Current Visit: Yes Status: Acute Code(s): L02.413 - CUTANEOUS ABSCESS OF RIGHT UPPER LIMB SNOMED Code(s): 56133304617548259 Plan: Patient with right upper arm fluctuant area which is swollen red fluctuant and tender to touch in this patient with a low-grade fever elevated white count high clinic suspicious hypokalemia with we will proceed with possible related to an IV during this admission however that could not be confirmed and will need to cover for resistant gram-positive to be the likely pathogen 2-patient with renal insufficiency high risk of nephrotoxicity from vancomycin 3- blood culture has been obtained and growing Gram negative 4-Pt is S/P vascular surgery I&D of the area and fluid sent for culture 5- patient to continue with on daptomycin , will add cefepime while waiting for the cultures to be completed Dictation was produced using [employer] dictation software. please excuse any grammatical, word or spelling errors. Time with Patient: Less than 30
--- NOTE | 2023-03-02 22:26 | P.PN ---
Subjective Progress Note Date: 03/02/23 Principal diagnosis: R arm abscess Patient is a 72-year-old female with multiple comorbidities in this patient presented to the hospital on 02/17/2023, initial presentation for weakness and did have a fall patient did have a renal insufficiency requiring dialysis during this hospital stay patient was noticed to have a cystic mass to the right upper arm area, patient was diagnosed with an abscess and the patient did have a bedside drainage of the abscess by surgery blood cultures were obtained. On today's evaluation that is 03/02/2023, the patient remains to be afebrile the patient is breathing comfortably on room AP denies having any chest pain or shortness with occasional cough no abdominal pain pain to the right upper arm has slightly increased in intensity. Patient did have white count of 6.9 creatinine is 1.99 local cultures growing Enterobacter cloacae and Enterococcus faecalis blood cultures with gram-negative bacilli ID sensitivities pending Objective - Vital Signs Vital signs: Vital Signs Temp 98.4 F 03/02/23 07:58 Pulse 86 03/02/23 08:19 Resp 18 03/02/23 08:00 BP 167/70 03/02/23 07:58 Pulse Ox 97 03/02/23 08:03 FiO2 21 02/28/23 08:50 Intake & Output 03/01/23 03/02/23 03/02/23 18:59 06:59 18:59 Intake Total 240 1080 Output Total 1250 1050 Balance -1010 30 Weight 77.5 kg Intake: Intake, IV Titration 700 Amount Cefepime 2 gm In Sodium 100 Chloride 0.9% 100 ml @ 200 mls/hr IVPB ONCE STA Rx#:[id number] Lactated Ringers 1,000 ml 600 @ 75 mls/hr IV .[id number] [facility] Rx#:[id number] Oral 240 380 Output: Urine 1250 1050 Uretheral ([place]) 525 Other: Voiding Method Indwelling Catheter Indwelling Catheter Indwelling Catheter - Exam GENERAL DESCRIPTION: Elderly female lying in bed in no distress RESPIRATORY SYSTEM: Unlabored breathing , decreased breath sounds at bases HEART: S1 S2 regular rate and rhythm ,no loud murmurs ABDOMEN: Soft , no tenderness EXTREMITIES: Right upper arm abscess site is currently dressed no drainage on the dressing - Labs CBC & Chem 7: 03/02/23 07:44 03/02/23 07:44 Labs: Abnormal Lab Results - Last 24 Hours (Table) 03/02/23 03/02/23 Range/Units 07:44 07:44 RBC 2.38 L (3.80-5.40) m/uL Hgb 7.5 L D (11.4-16.0) gm/dL Hct 23.7 L (34.0-46.0) % RDW 18.0 H (11.5-15.5) % Sodium 136 L (137-145) mmol/L Chloride 110 H (98-107) mmol/L Carbon Dioxide 18 L (22-30) mmol/L BUN 23 H (7-17) mg/dL Creatinine 1.99 H (0.52-1.04) mg/dL Glucose 112 H (74-99) mg/dL Calcium 7.4 L (8.4-10.2) mg/dL Microbiology - Last 24 Hours (Table) 02/27/23 18:45 Gram Stain - Preliminary Arm - Right Wound Culture - Preliminary Enterobacter cloacae 02/28/23 00:38 Blood Culture Gram Stain - Preliminary Blood Blood Culture - Preliminary Gram Neg Bacilli 02/27/23 13:10 Blood Culture - Preliminary Blood 02/28/23 08:50 Urine Culture - Preliminary Urine,Catheterized Gram Neg Bacilli Assessment and Plan (1) Abscess of right arm Current Visit: Yes Status: Acute Code(s): L02.413 - CUTANEOUS ABSCESS OF RIGHT UPPER LIMB SNOMED Code(s): 87550478683056965 (2) Bacteremia due to Gram-negative bacteria Current Visit: Yes Status: Acute Code(s): R78.81 - BACTEREMIA SNOMED Code(s): 509100908624 Plan: Patient with right upper arm fluctuant area which is swollen red fluctuant and tender to touch in this patient with a low-grade fever elevated white count High clinical suspicious for the abscess in this patient who is status post surgical drainage of the abscess and local cultures are currently growing Enterococcus and Enterobacter. 2patient also have a positive blood culture with gram-negative bacilli with ID sensitive pending we will repeat the blood culture document clearance of bacteremia. 3we will discontinue cefepime and daptomycin start the patient on Zosyn that should cover for both pathogen Dictation was produced using [employer] dictation software. please excuse any grammatical, word or spelling errors.
[2023-03-02] MEDS: PIPERACILLIN-TAZOBACTAM 3.375 GM in SODIUM CHLORIDE 0.9% 100 ML IVPB SCH (23:10)
[2023-03-03] MEDS: ZOLPIDEM 5 MG TAB PO PRN ×2 (00:33→20:31)
[2023-03-03] MEDS: LACTATED RINGERS 1,000 ML IV SCH ×2 (06:26→16:20)
[2023-03-03] MEDS: PIPERACILLIN-TAZOBACTAM 3.375 GM in SODIUM CHLORIDE 0.9% 100 ML IVPB SCH ×3 (08:53→23:23)
[2023-03-03] MEDS: amLODIPine 10 MG TAB PO SCH (08:53)
[2023-03-03] MEDS: SODIUM BICARBONATE TAB 650 MG TAB PO SCH ×2 (08:53→20:31)
[2023-03-03] MEDS: PANTOPRAZOLE 40 MG TABLET PO SCH ×2 (08:53→20:30)
[2023-03-03] MEDS: METOPROLOL TARTRATE 25 MG TAB PO SCH ×3 (08:53→20:31)
[2023-03-03] MEDS: IPRATROPIUM-ALBUTEROL 3 ML NEB INHALATION SCH ×4 (09:03→21:25)
[2023-03-03] MEDS: BUDESONIDE 0.5 MG/2 ML NEBU INHALATION SCH ×2 (09:03→21:25)
[2023-03-03] MEDS: SODIUM FERRIC GLUCONAT-SUCROSE 125 MG in SODIUM CHLORIDE 0.9% 100 ML IVPB SCH (10:27)
[2023-03-03 10:55] LABS: Appearance,Urine Clear (Clear); Bacteria,Urine Rare /hpf; Bilirubin,Urine Negative (Negative); Blood,Urine Negative (Negative); Color,Urine Colorless; Glucose,Urine (UA) Negative (Negative); Ketones,Urine Negative (Negative); Leukocyte Esterase,Urine Small (Negative); Mucus,Urine Rare /hpf; Nitrite,Urine Negative (Negative); PH, Urine 6.5 (5.0-8.0); Protein,Urine 1+ (Negative); RBC,Urine <1 /hpf (0-5); Specific Gravity,Urine 1.007 (1.001-1.035); Urobilinogen,Urine <2.0 mg/dL (<2.0); WBC,Urine 3 /hpf (0-5)
--- NOTE | 2023-03-03 11:39 | P.PN ---
Subjective Patient is seen for follow-up for acute kidney injury status post 1 treatment of hemodialysis on 02/18/2023. Renal function has been improving. Serum creatinine was down to1.9 mg/dL from 8.5 on initial admission. Maintained on IV fluids Kidney biopsy was ordered due to 14 creatinine ratio 3.5 g. Biopsy was not done as patient was noted to have low-grade temp. blood cultures are growing gram- negative bacilli. Status post drainage of right arm abscess by vascular surgery. No complaints today. Wants to go home. Objective - Vital Signs Vital signs: Vital Signs Temp 98.2 F 03/03/23 09:01 Pulse 86 03/03/23 09:13 Resp 18 03/03/23 09:13 BP 143/61 03/03/23 09:01 Pulse Ox 98 03/03/23 09:03 FiO2 21 02/28/23 08:50 Intake & Output 03/02/23 03/03/23 03/03/23 18:59 06:59 18:59 Intake Total 236 180 Output Total 1100 501 600 Balance -864 -501 -420 Weight 47.8 kg Intake: Oral 236 180 Output: Urine 1100 500 600 Uretheral ([place]) 600 Stool 1 Other: Voiding Method Indwelling Catheter Indwelling Catheter Indwelling Catheter - Exam Patient is awake, comfortable, no acute distress Examination of the heart S1 and S2 Examination of the lungs decreased breath sounds at the bases Dressing noted on the right arm Abdomen is soft nontender Examination of lower extremity shows no significant edema [employer]OPH[employer]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 exam grossly intact - Labs CBC & Chem 7: 03/02/23 07:44 03/02/23 07:44 Labs: Abnormal Lab Results - Last 24 Hours (Table) 03/03/23 Range/Units 10:33 Urine Protein 1+ H (Negative) Ur Leukocyte Esterase Small H (Negative) Urine Bacteria Rare H (None) /hpf Urine Mucus Rare H (None) /hpf Microbiology - Last 24 Hours (Table) 02/28/23 00:38 Blood Culture Gram Stain - Final Blood Blood Culture - Final Enterobacter cloacae 02/27/23 13:10 Blood Culture - Preliminary Blood 02/28/23 08:50 Urine Culture - Final Urine,Catheterized Klebsiella pneumoniae Escherichia coli 02/27/23 18:45 Gram Stain - Final Arm - Right Wound Culture - Final Enterobacter cloacae Enterococcus faecalis Assessment and Plan Assessment: 1. Acute kidney injury ATN, status post one treatment of hemodialysis on 02/18/2023. Renal function has been recovering. UA shows 1+ protein small blood and WBCs 8. Protein creatinine ratio at 3.5. Okay to postpone kidney biopsy to outpatient given the improvement in renal function as well as gram- negative bacteremia. Serologies are negative with free And lambda chains being elevated at 11.1 and 13.2. Dialysis catheter discontinued yesterday. 2. Severe metabolic acidosis secondary to severe acute kidney injury, improved 3. Hyperphosphatemia associated with acute kidney injury, improved 4. A. fib with RVR 5. Acute blood loss anemia status post packed RBCs transfusion. No active bleeding noted. 6. Elevated kappa and lambda chains, being followed by hematology. 7. Cellulitis with possible abscess right antecubital fossa, s/p I and D 8. Gram-negative bacteremia associated with abscess right arm status post IND and maintained on antibiotics. Blood culture and right arm wound culture growing Enterobacter cloacae. Wound cultures also growing Enterococcus faecalis 9. UTI with urine culture growing Klebsiella and E. coli Plan: Continue IV fluids Continue antibiotics as per ID Follow-up as outpatient for CK D
--- NOTE | 2023-03-03 12:55 | P.PN ---
Subjective Progress Note Date: 03/03/23 HISTORY OF PRESENT ILLNESS: This is a 72 year old female with a past medical history significant for co ronary artery disease with previous angioplasty, hypertension, hyperlipidemia, and diabetes. Patient follows in the office with Dr. Rivera. We have been asked to see the patient in consultation for A. fib with RVR. Patient examined at the bedside. The patient presented to the hospital with a chief complaint of generalized weakness. She also reports having a fall approximately one week prior to coming to the hospital. Apparently, the patient is also not been eating or drinking well at home. The patient was found to be in acute renal failure. The patient was also found to be in A. fib with RVR. The patient does not have a history of atrial fibrillation. At the time of examination she rem ains in atrial fibrillation with heart rate between [id number]. She denies any chest pain or pressure. She denies any shortness of breath. She is very thin and appears frail. Her BMI is 18.2. * EKG reveals atrial fibrillation with RVR * Chest xray no acute cardiopulmonary process * Laboratory data: WBC 15.0. Hemoglobin 6.1. Platelet count 200. Sodium 142. Potassium 2.8. BUN 136. Creatinine 6.99. TSH 1.450. * Current home cardiac medications include atenolol 25 mg daily * Most recent echocardiogram obtained in December 2016 at the office revealed ejection fraction 55%, moderate concentric hypertrophy, mild mitral regurgitation, and mild tricuspid regurgitation * Patient underwent dobutamine stress test and December 2016 which was negative for ischemia * Cardiac catheterization history: September 2015 with stenting of the RCA 02/19/2023 Patient examined this morning the bedside. Patient denies chest pain or pressure. She currently denies shortness of breath. Telemetry reveals sinus mechanism with heart rate between 71516. Echocardiogram completed revealing ejection fraction 55-60%, trace mitral regurgitation, trace tricuspid regurgitation 02/28 Cardiology was previously seen the patient for A. fib with RVR. Cardiology signed off on 02/19. We have been reconsulted for hypertension. It appears patient had a blood pressure reading of 162/86 yesterday. She has also been febrile and heart rate 102. She is status post I&D of an abscess in the right upper arm by Dr. Davies patient is followed by Dr. Arias. Blood pressure this morning is 147/55. Patient opens her eyes to verbal stimuli but unable to answer any questions, quickly falls back to sleep. 03/01 Patient seen in follow-up. Patient has minimal response. She continues on treatment for sepsis and/abscess. Heart rate has been in the 80s and 90s, blood pressure 128/57. 03/02 Patient is seen today in follow-up. Patient is sitting up in a chair and awake and alert. She states that her right arm is still quite painful where the I&D was done. No chest pain or palpitations, no lightheadedness or dizziness. Blood pressure remains slightly elevated and amlodipine will be increased. 03/03 Patient is seen today in follow-up. She continues to have pain to the right arm. Blood pressure 143/61. She is continued on amlodipine 10 mg daily and Lopressor 25 mg 3 times daily. potline monitor is a sinus rhythm. PHYSICAL EXAM: VITAL SIGNS: Reviewed. GENERAL: Thin cachectic appearing 72-year-old female in no acute distress. HEENT: Head is normocephalic. Pupils are equal, round. Sclerae anicteric. Mucous membranes of the mouth are dry. LUNGS: Respirations even and unlabored. Lungs essentially clear to auscultation bilaterally. HEART: Regular rate and rhythm. S1 and S2 heard. ABDOMEN: Soft. Nondistended. Nontender. EXTREMITIES: No lower extremity edema ASSESSMENT: Generalized weakness Status post fall at home New-onset atrial fibrillation with RVR currently maintaining sinus mechanism Acute renal failure Metabolic acidosis Anemia Hypokalemia Coronary artery disease with previous stenting of the RCA, September 2015 Hypertension Hyperlipidemia Diabetes Nicotine dependence Sepsis secondary to right arm abscess PLAN: Continue current cardiac medications Increase amlodipine to 10 mg daily for better blood pressure control. Patient is not a candidate for anticoagulation at this time secondary to recent fall and acute anemia Cardiology will sign off this case and follow on an as-needed basis. Please reconsult for any new concerns. Patient may follow-up in the office in one to 2 weeks. Nurse practitioner note has been reviewed by physician. Signing provider agrees with the documented findings, assessment, and plan of care. Objective - Vital Signs Vital signs: Vital Signs Temp 98.2 F 03/03/23 09:01 Pulse 86 03/03/23 09:13 Resp 18 03/03/23 09:13 BP 143/61 03/03/23 09:01 Pulse Ox 98 03/03/23 09:03 FiO2 21 08/03/23 08:50 Intake & Output 03/02/23 03/03/23 03/03/23 18:59 06:59 18:59 Intake Total 236 180 Output Total 1100 501 600 Balance -864 -501 -420 Weight 47.8 kg Intake: Oral 236 180 Output: Urine 1100 500 600 Uretheral (Henley) 600 Stool 1 Other: Voiding Method Indwelling Catheter Indwelling Catheter Indwelling Catheter - Labs CBC & Chem 7: 03/02/23 07:44 03/02/23 07:44 Labs: Abnormal Lab Results - Last 24 Hours (Table) 03/03/23 Range/Units 10:33 Urine Protein 1+ H (Negative) Ur Leukocyte Esterase Small H (Negative) Urine Bacteria Rare H (None) /hpf Urine Mucus Rare H (None) /hpf Microbiology - Last 24 Hours (Table) 02/28/23 00:38 Blood Culture Gram Stain - Final Blood Blood Culture - Final Enterobacter cloacae 02/27/23 13:10 Blood Culture - Preliminary Blood 02/28/23 08:50 Urine Culture - Final Urine,Catheterized Klebsiella pneumoniae Escherichia coli 02/27/23 18:45 Gram Stain - Final Arm - Right Wound Culture - Final Enterobacter cloacae Enterococcus faecalis
[2023-03-03 13:43] LABS: Anisocytosis Slight; Basophils % (A) 0 %; Eosinophils # (A) 0.2 k/uL (0-0.7); Eosinophils % (A) 3 %; HCT 23.6 % (34.0-46.0); HGB 7.7 gm/dL (11.4-16.0); Hypochromasia Moderate; Lymphocytes # (A) 1.1 k/uL (1.0-4.8); Lymphocytes % (A) 19 %; MCHC 32.6 g/dL (31.0-37.0); MCV 98.2 fL (80.0-100.0); Macrocytosis Slight; Mean Platelet Volume 8.6; Monocytes # (A) 0.3 k/uL (0-1.0); Monocytes % (A) 5 %; Neutrophils # (A) 4.3 k/uL (1.3-7.7); Neutrophils % (A) 70 %; Platelet Count 184 k/uL (150-450); RDW 17.3 % (11.5-15.5); WBC 6.2 k/uL (3.8-10.6)
[2023-03-03 14:00] LABS: ALT 26 U/L (4-34); AST 21 U/L (14-36); African American GFR (CKD) 34 (>60 ml/min/1.73 sqM); Albumin 2.4 g/dL (3.5-5.0); Alkaline Phosphatase 72 U/L (38-126); Anion Gap 10 mmol/L; Blood Urea Nitrogen 20 mg/dL (7-17); C Reactive Protein 4.5 mg/dL (<1.0); Calcium 7.4 mg/dL (8.4-10.2); Carbon Dioxide 18 mmol/L (22-30); Chloride 109 mmol/L (98-107); Glucose 104 mg/dL (74-99); Magnesium 1.1 mg/dL (1.6-2.3); Non-African American GFR(CKD) 30 (>60 ml/min/1.73 sqM); Potassium 3.7 mmol/L (3.5-5.1); Sodium 137 mmol/L (137-145); Total Bilirubin 0.4 mg/dL (0.2-1.3); Total Protein 5.6 g/dL (6.3-8.2)
--- NOTE | 2023-03-03 14:47 | PN ---
PROGRESS NOTE SUBJECTIVE: A 72-year-old female, drug-resistant UTI, drug-resistant right arm abscess, cellulitis, local cultures with Enterobacter cloaca, Enterococcus faecalis, gram-negative bacilli in the blood, waiting for further sensitivity and blood cultures. OBJECTIVE: VITAL SIGNS: Temperature 98.4, pulse 80, respiratory rate 16 to 18, blood pressure 160s over 70s, O2 saturation 97%. GENERAL: Elderly female lying in bed. No distress. LUNGS: Unlabored breathing. Decreased breath sounds. HEART: S1, S2. ABDOMEN: Soft, nontender. EXTREMITIES: No cyanosis or clubbing. Right arm upper abscess site is currently dressed. Open abrasions x2 about 3 to 5 mm bilaterally. LABORATORY DATA: Her hemoglobin is down to 7.5, white count is 6.9. Her GFR is now at 29, BUN of 23, creatinine 1.99. She has abscess of the right arm. She has bacteremia with gram-negative bacilli. She has UTI with gram-negative bacilli. She had a low-grade fever suspicious for abscess. Status post surgical treatment growing Enterococcus and Enterobacter. We need to stop cefepime and daptomycin, and order Zosyn to cover both pathogens. Prognosis is guarded. Wait for further urine cultures and blood cultures, and monitor hemoglobin. Continue breathing treatments for COPD and pulmonary hypertension. MMODL / IJN: [id number] /
[2023-03-03] MEDS: MAGNESIUM SULFATE-D5W PMX 1 GM in DEXTROSE/WATER 1 100ML.BAG IVPB SCH ×4 (15:23→18:49)
--- NOTE | 2023-03-03 16:53 | P.PN ---
Subjective Progress Note Date: 03/03/23 Principal diagnosis: R arm abscess Patient is a 72-year-old female with multiple comorbidities in this patient presented to the hospital on 02/17/2023, initial presentation for weakness and did have a fall patient did have a renal insufficiency requiring dialysis during this hospital stay patient was noticed to have a cystic mass to the right upper arm area, patient was diagnosed with an abscess and the patient did have a bedside drainage of the abscess by surgery blood cultures were obtained. On today's evaluation that is 03/03/2023, the patient continues to be afebrile the patient is breathing comfortably on 2 L nasal cannula oxygen, the patient denies having any chest pain or shortness with occasional cough no abdominal pain pain to the right upper arm has slightly increased in intensity. Patient did have white count of 6.2, creatinine is 1.71, local cultures growing Enterobacter cloacae and Enterococcus faecalis blood cultures with Enterobacter, the patient also had urine culture growing Klebsiella and ESBL E. coli, patient did have a repeat UA that was negative Objective - Vital Signs Vital signs: Vital Signs Temp 98.3 F 03/03/23 12:00 Pulse 78 03/03/23 14:00 Resp 18 03/03/23 14:00 BP 137/57 03/03/23 12:00 Pulse Ox 100 03/03/23 12:00 FiO2 21 02/28/23 08:50 Intake & Output 03/02/23 03/03/23 03/03/23 18:59 06:59 18:59 Intake Total 236 180 Output Total 1100 501 600 Balance -864 -501 -420 Weight 47.8 kg Intake: Oral 236 180 Output: Urine 1100 500 600 Uretheral (Henley) 600 Stool 1 Other: Voiding Method Indwelling Catheter Indwelling Catheter Indwelling Catheter - Exam GENERAL DESCRIPTION: Elderly female lying in bed in no distress RESPIRATORY SYSTEM: Unlabored breathing , decreased breath sounds at bases HEART: S1 S2 regular rate and rhythm ,no loud murmurs ABDOMEN: Soft , no tenderness EXTREMITIES: Right upper arm abscess site is currently dressed no drainage on the dressing - Labs CBC & Chem 7: 03/03/23 13:15 03/03/23 13:15 Labs: Abnormal Lab Results - Last 24 Hours (Table) 03/03/23 03/03/23 03/03/23 Range/Units 10:33 13:15 13:15 RBC 2.40 L (3.80-5.40) m/uL Hgb 7.7 L (11.4-16.0) gm/dL Hct 23.6 L (34.0-46.0) % RDW 17.3 H (11.5-15.5) % Chloride 109 H (98-107) mmol/L Carbon Dioxide 18 L (22-30) mmol/L BUN 20 H (7-17) mg/dL Creatinine 1.71 H (0.52-1.04) mg/dL Glucose 104 H (74-99) mg/dL Calcium 7.4 L (8.4-10.2) mg/dL Magnesium 1.1 L (1.6-2.3) mg/dL C-Reactive Protein 4.5 H (<1.0) mg/dL Total Protein 5.6 L (6.3-8.2) g/dL Albumin 2.4 L (3.5-5.0) g/dL Urine Protein 1+ H (Negative) Ur Leukocyte Esterase Small H (Negative) Urine Bacteria Rare H (None) /hpf Urine Mucus Rare H (None) /hpf Microbiology - Last 24 Hours (Table) 02/28/23 00:38 Blood Culture Gram Stain - Final Blood Blood Culture - Final Enterobacter cloacae 02/27/23 13:10 Blood Culture - Preliminary Blood 02/28/23 08:50 Urine Culture - Final Urine,Catheterized Klebsiella pneumoniae Escherichia coli 02/27/23 18:45 Gram Stain - Final Arm - Right Wound Culture - Final Enterobacter cloacae Enterococcus faecalis Assessment and Plan (1) Abscess of right arm Current Visit: Yes Status: Acute Code(s): L02.413 - CUTANEOUS ABSCESS OF RIGHT UPPER LIMB SNOMED Code(s): 00789241356669901 (2) Bacteremia due to Gram-negative bacteria Current Visit: Yes Status: Acute Code(s): R78.81 - BACTEREMIA SNOMED Code(s): 202059729672 Plan: Patient with right upper arm fluctuant area which is swollen red fluctuant and tender to touch in this patient with a low-grade fever elevated white count High clinical suspicious for the abscess in this patient who is status post surgical drainage of the abscess and local cultures are currently growing Enterococcus and Enterobacter. 2patient also have a positive blood culture with Enterobacter blood culture has been repeated to document clearance of bacteremia 3patient urine culture did grow Klebsiella and ESBL E. coli however the patient repeat a UA is negative more likely contamination and no need for interventions 3we will continue the patient on Zosyn that should cover for both pathogen grown from the right upper arm and blood culture and monitor clinical course closely Dictation was produced using [employer] dictation software. please excuse any grammatical, word or spelling errors. Time with Patient: Less than 30
[2023-03-03] MEDS: FAMOTIDINE 20 MG TAB PO SCH (20:31)
[2023-03-03] MEDS: ALPRAZolam 1 MG TAB PO PRN (23:23)
[2023-03-04 06:13] LABS: % Iron Saturation 83.83 (12.00-45.00); Iron 140 UG/DL (50-170); Total Iron Binding Capacity 167 UG/DL (228-460)
[2023-03-04] MEDS: IPRATROPIUM-ALBUTEROL 3 ML NEB INHALATION SCH ×4 (08:02→20:14)
[2023-03-04] MEDS: BUDESONIDE 0.5 MG/2 ML NEBU INHALATION SCH ×2 (08:02→20:14)
[2023-03-04] MEDS: PIPERACILLIN-TAZOBACTAM 3.375 GM in SODIUM CHLORIDE 0.9% 100 ML IVPB SCH ×3 (08:40→22:42)
[2023-03-04] MEDS: amLODIPine 10 MG TAB PO SCH (08:40)
[2023-03-04] MEDS: LACTATED RINGERS 1,000 ML IV SCH (08:40)
[2023-03-04] MEDS: SODIUM BICARBONATE TAB 650 MG TAB PO SCH ×2 (08:40→20:50)
[2023-03-04] MEDS: PANTOPRAZOLE 40 MG TABLET PO SCH ×2 (08:40→20:50)
[2023-03-04] MEDS: METOPROLOL TARTRATE 25 MG TAB PO SCH ×3 (08:40→20:50)
[2023-03-04] MEDS: ALPRAZolam 1 MG TAB PO PRN ×2 (08:46→22:42)
[2023-03-04 10:28] LABS: ALT 22 U/L (4-34); African American GFR (CKD) 36 (>60 ml/min/1.73 sqM); Albumin 2.6 g/dL (3.5-5.0); Anion Gap 14 mmol/L; Blood Urea Nitrogen 17 mg/dL (7-17); Carbon Dioxide 15 mmol/L (22-30); Chloride 112 mmol/L (98-107); Glucose 122 mg/dL (74-99); Non-African American GFR(CKD) 31 (>60 ml/min/1.73 sqM); Sodium 141 mmol/L (137-145); Total Bilirubin 0.5 mg/dL (0.2-1.3); Total Protein 5.6 g/dL (6.3-8.2)
[2023-03-04 10:37] LABS: AST 25 U/L (14-36); Alkaline Phosphatase 64 U/L (38-126); Magnesium 2.3 mg/dL (1.6-2.3); Potassium 4.4 mmol/L (3.5-5.1)
[2023-03-04 11:29] LABS: Anisocytosis Slight; Basophils % (A) 0 %; Eosinophils # (A) 0.2 k/uL (0-0.7); Eosinophils % (A) 3 %; HCT 25.4 % (34.0-46.0); Hypochromasia Marked; Lymphocytes # (A) 1.2 k/uL (1.0-4.8); Lymphocytes % (A) 16 %; MCH 31.6 pg (25.0-35.0); MCHC 31.5 g/dL (31.0-37.0); MCV 100.4 fL (80.0-100.0); Macrocytosis Slight; Mean Platelet Volume 8.9; Monocytes # (A) 0.3 k/uL (0-1.0); Monocytes % (A) 5 %; Neutrophils # (A) 5.4 k/uL (1.3-7.7); Neutrophils % (A) 74 %; Platelet Count 232 k/uL (150-450); RBC 2.53 m/uL (3.80-5.40); RDW 17.3 % (11.5-15.5); WBC 7.3 k/uL (3.8-10.6)
--- NOTE | 2023-03-04 11:35 | P.PN ---
Subjective Patient is seen in follow-up for acute kidney injury. Underwent 1 treatment of dialysis on 02/18/2023. Renal function improving gradually. Creatinine 1.64 today. Nonoliguric. On LR. Hemodynamically stable. Vital signs are stable. General: No acute distress. HEENT: Head exam is unremarkable. LUNGS: No audible rhonchi or wheezes. HEART: Rate and Rhythm are regular. ABDOMEN: Nontender. EXTREMITITES: No edema. Objective - Vital Signs Vital signs: Vital Signs Temp 97.6 F 03/04/23 08:37 Pulse 79 03/04/23 08:51 Resp 17 03/04/23 08:37 BP 149/58 03/04/23 08:37 Pulse Ox 98 03/04/23 08:37 FiO2 21 02/28/23 08:50 Intake & Output 03/03/23 03/04/23 03/04/23 18:59 06:59 18:59 Intake Total 480 200 510 Output Total 950 1450 Balance -470 -1250 510 Intake: Oral 480 200 510 Output: Urine 950 1450 Uretheral (Hen[place]) 350 Other: Voiding Method Indwelling Catheter Indwelling Catheter Indwelling Catheter - Labs CBC & Chem 7: 03/04/23 10:48 03/04/23 09:46 Labs: Abnormal Lab Results - Last 24 Hours (Table) 03/03/23 03/03/23 03/04/23 Range/Units 13:15 13:15 09:46 RBC 2.40 L (3.80-5.40) m/uL Hgb 7.7 L (11.4-16.0) gm/dL Hct 23.6 L (34.0-46.0) % MCV (80.0-100.0) fL RDW 17.3 H (11.5-15.5) % Chloride 109 H 112 H (98-107) mmol/L Carbon Dioxide 18 L 15 L (22-30) mmol/L BUN 20 H (7-17) mg/dL Creatinine 1.71 H 1.64 H (0.52-1.04) mg/dL Glucose 104 H 122 H (74-99) mg/dL Calcium 7.4 L 8.0 L (8.4-10.2) mg/dL Magnesium 1.1 L (1.6-2.3) mg/dL TIBC 167 L (228-460) UG/DL % Saturation 83.83 H (12.00-45.00) Transferrin 119.0 L (204.0-354.0) mg/dL C-Reactive Protein 4.5 H (<1.0) mg/dL Total Protein 5.6 L 5.6 L (6.3-8.2) g/dL Albumin 2.4 L 2.6 L (3.5-5.0) g/dL 03/04/23 Range/Units 10:48 RBC 2.53 L (3.80-5.40) m/uL Hgb 8.0 L (11.4-16.0) gm/dL Hct 25.4 L (34.0-46.0) % MCV 100.4 H (80.0-100.0) fL RDW 17.3 H (11.5-15.5) % Chloride (98-107) mmol/L Carbon Dioxide (22-30) mmol/L BUN (7-17) mg/dL Creatinine (0.52-1.04) mg/dL Glucose (74-99) mg/dL Calcium (8.4-10.2) mg/dL Magnesium (1.6-2.3) mg/dL TIBC (228-460) UG/DL % Saturation (12.00-45.00) Transferrin (204.0-354.0) mg/dL C-Reactive Protein (<1.0) mg/dL Total Protein (6.3-8.2) g/dL Albumin (3.5-5.0) g/dL Microbiology - Last 24 Hours (Table) 02/28/23 00:38 Blood Culture Gram Stain - Final Blood Blood Culture - Final Enterobacter cloacae Assessment and Plan Plan: Assessment: 1. Acute kidney injury secondary to ATN secondary to hypovolemia, anemia and hemodynamic instability. Creatinine 8.52 admission - received 1 treatment of hemodialysis 02/18/2023. Renal function gradually improving. Creatinine 1.64 today. Creatinine 1.4-1.6 in December 2021 - likely has underlying chronic kidney disease. No hydronephrosis noted on kidney ultrasound. 2. Acute blood loss anemia with hemoglobin of 6.1 dated 02/18/2023. Status post blood transfusion. Concern for uremic bleed- received IV DDAVP. On Aranesp. 3. Metabolic acidosis secondary to acute kidney injury. s/p bicarb drip. Acidosis again worsening from GI losses. 4. A. fib with RVR. Cardiology following. Rate controlled. 5. Coronary disease status post cardiac stenting in the past. 6. Hypokalemia from intracellular shifting from IV bicarb and poor intake. Replaced. Improved. 7. Hypomagnesemia from poor intake. Replaced. Better. 8. Hypocalcemia secondary to acute kidney injury. Corrected calcium normal. Plan: Maintain IV fluids - change back to bicarb drip. Encouraged oral intake. Continue to assess daily for need for renal replacement therapy. Patient refusing at this time if dialysis needed. Serologies negative. Kidney biopsy discussed for definitive diagnosis. Biopsy held due to active infection. Will reschedule outpatient. Patient to follow-up outpatient to establish CKD care.
[2023-03-04] MEDS: DEXTROSE 5% IN WATER 1,000 ML with SODIUM BICARB (1 MEQ/ML) 150 ML IV SCH (13:05)
[2023-03-04 14:45] VITALS: BMI 19.9
[2023-03-04] MEDS: ZOLPIDEM 5 MG TAB PO PRN (20:50)
[2023-03-04] MEDS: FAMOTIDINE 20 MG TAB PO SCH (20:50)
[2023-03-05 07:33] LABS: Anisocytosis Slight; Basophils % (A) 1 %; Eosinophils # (A) 0.2 k/uL (0-0.7); Eosinophils % (A) 3 %; HCT 25.2 % (34.0-46.0); HGB 7.9 gm/dL (11.4-16.0); Hypochromasia Marked; Lymphocytes # (A) 1.6 k/uL (1.0-4.8); Lymphocytes % (A) 22 %; MCH 31.4 pg (25.0-35.0); MCHC 31.4 g/dL (31.0-37.0); Macrocytosis Slight; Mean Platelet Volume 8.7; Monocytes # (A) 0.4 k/uL (0-1.0); Monocytes % (A) 5 %; Neutrophils # (A) 4.8 k/uL (1.3-7.7); Neutrophils % (A) 67 %; Platelet Count 258 k/uL (150-450); RBC 2.52 m/uL (3.80-5.40); RDW 17.5 % (11.5-15.5); WBC 7.2 k/uL (3.8-10.6)
[2023-03-05] MEDS: BUDESONIDE 0.5 MG/2 ML NEBU INHALATION SCH ×2 (07:50→21:42)
[2023-03-05] MEDS: IPRATROPIUM-ALBUTEROL 3 ML NEB INHALATION SCH ×4 (07:50→21:42)
[2023-03-05 08:02] LABS: ALT 19 U/L (4-34); AST 16 U/L (14-36); African American GFR (CKD) 38 (>60 ml/min/1.73 sqM); Albumin 2.6 g/dL (3.5-5.0); Alkaline Phosphatase 87 U/L (38-126); Anion Gap 12 mmol/L; Blood Urea Nitrogen 18 mg/dL (7-17); Calcium 7.9 mg/dL (8.4-10.2); Carbon Dioxide 20 mmol/L (22-30); Chloride 108 mmol/L (98-107); Glucose 145 mg/dL (74-99); Magnesium 1.9 mg/dL (1.6-2.3); Non-African American GFR(CKD) 33 (>60 ml/min/1.73 sqM); Phosphorus 3.2 mg/dL (2.5-4.5); Potassium 3.6 mmol/L (3.5-5.1); Sodium 140 mmol/L (137-145); Total Bilirubin 0.3 mg/dL (0.2-1.3); Total Protein 5.6 g/dL (6.3-8.2)
--- NOTE | 2023-03-05 08:05 | PN ---
PROGRESS NOTE SUBJECTIVE: The patient is much better she says. She wears oxygen. OBJECTIVE: VITAL SIGNS: She is saturating high 90s on 2 L. Her breathing treatments she is taking faithfully, respiratory rate 16 to 18, pulse is 70. CARDIOVASCULAR: S1, S2. LUNGS: Decreased breath sounds. PSYCH: She has been alert. MUSCULOSKELETAL: She has been up ambulating a little bit. Her GFR is now 36. Her hemoglobin is up to 8, suspect she will do well at this point. She is to repeat blood cultures to make sure bacteremia and sepsis are improved prior to discharge and then maybe she can go home after blood cultures negative for 72 hours, repeat ones. Home antibiotics per Dr. Arias's recommendations. We will wait another day or 2 and possibly send her home on Saturday or . PROGNOSIS: Guarded, but improved. Please see further orders. MMODL / IJN: [id number] /
[2023-03-05] MEDS: SODIUM BICARBONATE TAB 650 MG TAB PO SCH ×2 (08:15→21:04)
[2023-03-05] MEDS: DEXTROSE 5% IN WATER 1,000 ML with SODIUM BICARB (1 MEQ/ML) 150 ML IV SCH ×2 (08:15→19:02)
[2023-03-05] MEDS: amLODIPine 10 MG TAB PO SCH (08:15)
[2023-03-05] MEDS: PIPERACILLIN-TAZOBACTAM 3.375 GM in SODIUM CHLORIDE 0.9% 100 ML IVPB SCH ×2 (08:15→15:19)
[2023-03-05] MEDS: PANTOPRAZOLE 40 MG TABLET PO SCH ×2 (08:15→21:04)
[2023-03-05] MEDS: METOPROLOL TARTRATE 25 MG TAB PO SCH ×3 (08:15→21:04)
[2023-03-05] MEDS: ALPRAZolam 1 MG TAB PO PRN ×2 (08:15→22:43)
[2023-03-05] MEDS: DARBEPOETIN ALFA 100MCG/0.5ML SYRINGE SQ SCH (11:13)
[2023-03-05] MEDS ORDERED: POTASSIUM CHLORIDE ER 20 MEQ TAB.ER PO STA (11:50)
--- NOTE | 2023-03-05 11:51 | P.PN ---
Subjective Patient is seen in follow-up for acute kidney injury. Underwent 1 treatment of dialysis on 02/18/2023. Renal function improving gradually. Creatinine 1.57 today. Nonoliguric. On bicarb drip. Acidosis improved. Hemodynamically stable. Vital signs are stable. General: No acute distress. HEENT: Head exam is unremarkable. LUNGS: No audible rhonchi or wheezes. HEART: Rate and Rhythm are regular. ABDOMEN: Nontender. EXTREMITITES: No edema. Objective - Vital Signs Vital signs: Vital Signs Temp 98.1 F 03/05/23 08:14 Pulse 80 03/05/23 11:11 Resp 17 03/05/23 11:11 BP 148/65 03/05/23 11:11 Pulse Ox 95 03/05/23 11:11 FiO2 21 03/05/23 07:52 Intake & Output 03/04/23 03/05/23 03/05/23 18:59 06:59 18:59 Intake Total 890 800 180 Output Total 500 350 400 Balance 390 450 -220 Weight 47.8 kg Intake: Oral 890 800 180 Output: Urine 500 350 400 Other: Voiding Method Indwelling Catheter Indwelling Catheter Indwelling Catheter # Bowel Movements 2 - Labs CBC & Chem 7: 03/05/23 06:56 03/05/23 06:56 Labs: Abnormal Lab Results - Last 24 Hours (Table) 03/05/23 03/05/23 Range/Units 06:56 06:56 RBC 2.52 L (3.80-5.40) m/uL Hgb 7.9 L (11.4-16.0) gm/dL Hct 25.2 L (34.0-46.0) % RDW 17.5 H (11.5-15.5) % Chloride 108 H (98-107) mmol/L Carbon Dioxide 20 L (22-30) mmol/L BUN 18 H (7-17) mg/dL Creatinine 1.57 H (0.52-1.04) mg/dL Glucose 145 H (74-99) mg/dL Calcium 7.9 L (8.4-10.2) mg/dL Total Protein 5.6 L (6.3-8.2) g/dL Albumin 2.6 L (3.5-5.0) g/dL Microbiology - Last 24 Hours (Table) 02/27/23 13:10 Blood Culture - Final Blood 03/03/23 09:38 Blood Culture - Preliminary Blood Assessment and Plan Plan: Assessment: 1. Acute kidney injury secondary to ATN secondary to hypovolemia, anemia and hemodynamic instability. Creatinine 8.52 admission - received 1 treatment of hemodialysis 02/18/2023. Renal function gradually improving. Creatinine 1.57 today. Creatinine 1.4-1.6 in December 2021 - likely has underlying chronic kidney disease. No hydronephrosis noted on kidney ultrasound. 2. Acute blood loss anemia with hemoglobin of 6.1 dated 02/18/2023. Status post blood transfusion. Concern for uremic bleed- received IV DDAVP. On Aranesp. 3. Metabolic acidosis secondary to acute kidney injury and GI losses. On bicarb drip. 4. A. fib with RVR. Cardiology following. Rate controlled. 5. Coronary disease status post cardiac stenting in the past. 6. Hypokalemia from intracellular shifting from IV bicarb and poor intake. Replaced. 7. Hypomagnesemia from poor intake. Replaced. Better. 8. Hypocalcemia secondary to acute kidney injury. Corrected calcium normal. Plan: Maintain bicarb drip. Encouraged oral intake. Serologies negative. Kidney biopsy discussed for definitive diagnosis. Biopsy held due to active infection. Will reschedule outpatient. Patient to follow-up outpatient to establish CKD care. Replace potassium.
--- NOTE | 2023-03-05 13:47 | P.PN ---
Subjective Progress Note Date: 03/05/23 Principal diagnosis: Normocytic, normochromic Anemia In follow-up today patient is Alert and anxious to go home. She reports that she doesn't remember much ofher time here in the hospital. She denies any current nausea, fevers, in general she is very weak. Objective - Vital Signs Vital signs: Vital Signs Temp 98.1 F 03/05/23 08:14 Pulse 80 03/05/23 11:51 Resp 17 03/05/23 11:11 BP 148/65 03/05/23 11:11 Pulse Ox 95 03/05/23 11:11 FiO2 21 03/05/23 07:52 Intake & Output 03/04/23 03/05/23 03/05/23 18:59 06:59 18:59 Intake Total 890 800 360 Output Total 500 350 400 Balance 390 450 -40 Weight 47.8 kg Intake: Oral 890 800 360 Output: Urine 500 350 400 Other: Voiding Method Indwelling Catheter Indwelling Catheter Indwelling Catheter # Bowel Movements 2 - Constitutional General appearance: Present: cooperative, no acute distress, thin - EENT Eyes: Present: anicteric sclerae, EOMI ENT: Present: hearing grossly normal - Respiratory Details: Respirations even and unlabored at rest - Neurologic Neurologic: Present: CNII-XII intact (Grossly) - Musculoskeletal Musculoskeletal: Present: generalized weakness - Psychiatric Psychiatric: Present: A&O x's 3, appropriate affect - Labs CBC & Chem 7: 03/05/23 06:56 03/05/23 06:56 Labs: Abnormal Lab Results - Last 24 Hours (Table) 03/05/23 03/05/23 Range/Units 06:56 06:56 RBC 2.52 L (3.80-5.40) m/uL Hgb 7.9 L (11.4-16.0) gm/dL Hct 25.2 L (34.0-46.0) % RDW 17.5 H (11.5-15.5) % Chloride 108 H (98-107) mmol/L Carbon Dioxide 20 L (22-30) mmol/L BUN 18 H (7-17) mg/dL Creatinine 1.57 H (0.52-1.04) mg/dL Glucose 145 H (74-99) mg/dL Calcium 7.9 L (8.4-10.2) mg/dL Total Protein 5.6 L (6.3-8.2) g/dL Albumin 2.6 L (3.5-5.0) g/dL Microbiology - Last 24 Hours (Table) 02/27/23 13:10 Blood Culture - Final Blood 03/03/23 09:38 Blood Culture - Preliminary Blood Assessment and Plan (1) Macrocytic anemia Current Visit: Yes Status: Acute Priority: High Code(s): D53.9 - NUTRITIONAL ANEMIA, UNSPECIFIED SNOMED Code(s): 84879596 Plan: Macrocytic anemia -Hemoglobin today 7.9. Patient received 2 units of blood on 02/18 for hemoglobin of 6.1. Would have anticipated her hemoglobin to increase to about 8.1. Patient's hemoglobin went as high as 9, then over the next few days dropped back into the mid 7 range. Remained in the 7 range until patient had a unit of blood 02/26/23 for hemoglobin of 7.1, the next day her hemoglobin was 9, remained in the 9 range for 3 days then on 03/02 dropped to 7.5. Patient has received no additional units of blood, her hemoglobin has been ranging for about 7-1/2-8. Anemia is multifactorial. Acute on chronic kidney injury, 3 documented sources of infection-urine, blood, and wound. Patient appears to be much better today. -Labs most consistent with anemia of inflammation, chronic kidney disease. Ne rodneyology has seen pt. Patient received IV iron, started on GRIFFIN. Pending renal biopsy, Plan for outpatient -Paraproteinemia Workup negative. [place] and lambda light chains both elevated, normal ratio. -B12 levels 400 range, elevated MMA. Parenteral B12 supplement can be given. -Transfuse for hemoglobin less than 7. -Hematology follow-up when necessary.
--- NOTE | 2023-03-05 16:57 | P.PN ---
Subjective Progress Note Date: 03/04/23 Principal diagnosis: R arm abscess Patient is a 72-year-old female with multiple comorbidities in this patient presented to the hospital on 02/17/2023, initial presentation for weakness and did have a fall patient did have a renal insufficiency requiring dialysis during this hospital stay patient was noticed to have a cystic mass to the right upper arm area, patient was diagnosed with an abscess and the patient did have a bedside drainage of the abscess by surgery blood cultures were obtained. On today's evaluation that is 03/04/2023, the patient remains to be afebrile, the patient is breathing comfortably on 2L nasal cannula oxygen, the patient denies chest pain or shortness of breath, the patient did have occasional cough no abdominal pain pain to the right upper arm has slightly increased in intensity. Patient did have white count of 7.3, creatinine is 1.64, local cultures growing Enterobacter cloacae and Enterococcus faecalis blood cultures with Enterobacter, the patient also had urine culture growing Klebsiella and ESBL E. coli, patient did have a repeat UA that was negative Objective - Vital Signs Vital signs: Vital Signs Temp 97.6 F 03/04/23 08:37 Pulse 76 03/04/23 12:00 Resp 17 03/04/23 11:40 BP 116/54 03/04/23 11:40 Pulse Ox 97 03/04/23 11:40 FiO2 21 02/28/23 08:50 Intake & Output 03/03/23 03/04/23 03/04/23 18:59 06:59 18:59 Intake Total 480 200 510 Output Total 950 1450 Balance -470 -1250 510 Intake: Oral 480 200 510 Output: Urine 950 1450 Uretheral (Hen[place]) 350 Other: Voiding Method Indwelling Catheter Indwelling Catheter Indwelling Catheter - Exam GENERAL DESCRIPTION: Elderly female lying in bed in no distress RESPIRATORY SYSTEM: Unlabored breathing , decreased breath sounds at bases HEART: S1 S2 regular rate and rhythm ,no loud murmurs ABDOMEN: Soft , no tenderness EXTREMITIES: Right upper arm abscess site is currently dressed no drainage on e dressing - Labs CBC & Chem 7: 03/05/23 06:56 03/05/23 06:56 Labs: Abnormal Lab Results - Last 24 Hours (Table) 03/03/23 03/03/23 03/04/23 Range/Units 13:15 13:15 09:46 RBC 2.40 L (3.80-5.40) m/uL Hgb 7.7 L (11.4-16.0) gm/dL Hct 23.6 L (34.0-46.0) % MCV (80.0-100.0) fL RDW 17.3 H (11.5-15.5) % Chloride 109 H 112 H (98-107) mmol/L Carbon Dioxide 18 L 15 L (22-30) mmol/L BUN 20 H (7-17) mg/dL Creatinine 1.71 H 1.64 H (0.52-1.04) mg/dL Glucose 104 H 122 H (74-99) mg/dL Calcium 7.4 L 8.0 L (8.4-10.2) mg/dL Magnesium 1.1 L (1.6-2.3) mg/dL TIBC 167 L (228-460) UG/DL % Saturation 83.83 H (12.00-45.00) Transferrin 119.0 L (204.0-354.0) mg/dL C-Reactive Protein 4.5 H (<1.0) mg/dL Total Protein 5.6 L 5.6 L (6.3-8.2) g/dL Albumin 2.4 L 2.6 L (3.5-5.0) g/dL 03/04/23 Range/Units 10:48 RBC 2.53 L (3.80-5.40) m/uL Hgb 8.0 L (11.4-16.0) gm/dL Hct 25.4 L (34.0-46.0) % MCV 100.4 H (80.0-100.0) fL RDW 17.3 H (11.5-15.5) % Chloride (98-107) mmol/L Carbon Dioxide (22-30) mmol/L BUN (7-17) mg/dL Creatinine (0.52-1.04) mg/dL Glucose (74-99) mg/dL Calcium (8.4-10.2) mg/dL Magnesium (1.6-2.3) mg/dL TIBC (228-460) UG/DL % Saturation (12.00-45.00) Transferrin (204.0-354.0) mg/dL C-Reactive Protein (<1.0) mg/dL Total Protein (6.3-8.2) g/dL Albumin (3.5-5.0) g/dL Microbiology - Last 24 Hours (Table) 02/28/23 00:38 Blood Culture Gram Stain - Final Blood Blood Culture - Final Enterobacter cloacae Assessment and Plan (1) Abscess of right arm Current Visit: Yes Status: Acute Code(s): L02.413 - CUTANEOUS ABSCESS OF RIGHT UPPER LIMB SNOMED Code(s): 87314055660326477 (2) Bacteremia due to Gram-negative bacteria Current Visit: Yes Status: Acute Code(s): R78.81 - BACTEREMIA SNOMED Code(s): 193955221198 Plan: Patient with right upper arm fluctuant area which is swollen red fluctuant and tender to touch in this patient with a low-grade fever elevated white count High clinical suspicious for the abscess in this patient who is status post surgical drainage of the abscess and local cultures are currently growing Enterococcus and Enterobacter. 2patient also have a positive blood culture with Enterobacter blood culture has been repeated to document clearance of bacteremia 3patient urine culture did grow Klebsiella and ESBL E. coli however the patient repeat a UA is negative more likely contamination and no need for IV Invanz or treatment for ESBL in the urine 3the patient will continue the patient on Zosyn that should cover for both pathogen grown from the right upper arm and blood culture and plan to finish therapy with oral antibiotics Dictation was produced using [employer] dictation software. please excuse any grammatical, word or spelling errors. Time with Patient: Less than 30
--- NOTE | 2023-03-05 16:58 | P.PN ---
Subjective Progress Note Date: 03/05/23 Principal diagnosis: R arm abscess Patient is a 72-year-old female with multiple comorbidities in this patient presented to the hospital on 02/17/2023, initial presentation for weakness and did have a fall patient did have a renal insufficiency requiring dialysis during this hospital stay patient was noticed to have a cystic mass to the right upper arm area, patient was diagnosed with an abscess and the patient did have a bedside drainage of the abscess by surgery blood cultures were obtained. On today's evaluation that is 03/05/2023, the patient denies any fever or any chills, the patient is breathing comfortably on 1L nasal cannula oxygen, the patient denies chest pain or shortness of breath, the patient did have occasional dry cough no abdominal pain, no diarrhea, the patient pain to the right upper arm has slightly increased in intensity. Patient did have white count of 7.2, creatinine is 1.57, local cultures growing Enterobacter cloacae and Enterococcus faecalis blood cultures with Enterobacter, the patient also had urine culture growing Klebsiella and ESBL E. coli, patient did have a repeat UA that was negative Objective - Vital Signs Vital signs: Vital Signs Temp 98.1 F 03/05/23 08:14 Pulse 80 03/05/23 11:51 Resp 17 03/05/23 11:11 BP 148/65 03/05/23 11:11 Pulse Ox 95 03/05/23 11:11 FiO2 21 03/05/23 07:52 Intake & Output 03/04/23 03/05/23 03/05/23 18:59 06:59 18:59 Intake Total 890 800 360 Output Total 500 350 400 Balance 390 450 -40 Weight 47.8 kg Intake: Oral 890 800 360 Output: Urine 500 350 400 Other: Voiding Method Indwelling Catheter Indwelling Catheter Indwelling Catheter # Bowel Movements 2 - Exam GENERAL DESCRIPTION: Elderly female lying in bed in no distress RESPIRATORY SYSTEM: Unlabored breathing , decreased breath sounds at bases HEART: S1 S2 regular rate and rhythm ,no loud murmurs ABDOMEN: Soft , no tenderness EXTREMITIES: Right upper arm abscess site is currently dressed no drainage on the dressing - Labs CBC & Chem 7: 03/05/23 06:56 03/05/23 06:56 Labs: Abnormal Lab Results - Last 24 Hours (Table) 03/05/23 03/05/23 Range/Units 06:56 06:56 RBC 2.52 L (3.80-5.40) m/uL Hgb 7.9 L (11.4-16.0) gm/dL Hct 25.2 L (34.0-46.0) % RDW 17.5 H (11.5-15.5) % Chloride 108 H (98-107) mmol/L Carbon Dioxide 20 L (22-30) mmol/L BUN 18 H (7-17) mg/dL Creatinine 1.57 H (0.52-1.04) mg/dL Glucose 145 H (74-99) mg/dL Calcium 7.9 L (8.4-10.2) mg/dL Total Protein 5.6 L (6.3-8.2) g/dL Albumin 2.6 L (3.5-5.0) g/dL Microbiology - Last 24 Hours (Table) 02/27/23 13:10 Blood Culture - Final Blood 03/03/23 09:38 Blood Culture - Preliminary Blood Assessment and Plan (1) Abscess of right arm Current Visit: Yes Status: Acute Code(s): L02.413 - CUTANEOUS ABSCESS OF RIGHT UPPER LIMB SNOMED Code(s): 88355906298672126 (2) Bacteremia due to Gram-negative bacteria Current Visit: Yes Status: Acute Code(s): R78.81 - BACTEREMIA SNOMED Code(s): 097557330838 Plan: Patient with right upper arm fluctuant area which is swollen red fluctuant and tender to touch in this patient with a low-grade fever elevated white count High clinical suspicious for the abscess in this patient who is status post surgical drainage of the abscess and local cultures are currently growing Enterococcus and Enterobacter. 2patient also have a positive blood culture with Enterobacter blood culture has been repeated to document clearance of bacteremia 3patient urine culture did grow Klebsiella and ESBL E. coli however the patient repeat a UA is negative more likely contamination and no need for IV Invanz or treatment for ESBL in the urine 3the patient has 1 clinical improvement and will continue the patient on Zosyn that should cover for both pathogen grown from the right upper arm and blood culture and plan to finish therapy with oral Cipro and Augmentin on discharge Dictation was produced using [email or web address] dictation software. please excuse any grammatical, word or spelling errors. Time with Patient: Less than 30
[2023-03-05] MEDS: FAMOTIDINE 20 MG TAB PO SCH (21:04)
[2023-03-05] MEDS: ZOLPIDEM 5 MG TAB PO PRN (21:04)
--- NOTE | 2023-03-06 00:37 | PN ---
PROGRESS NOTE The patient is sitting on her bed, better every day. She is up ambulating. Hemoglobin 7.9, down from 8, white count 7.2, BUN is 18, creatinine is 1.57, GFR is 38. She is getting better every day, ambulating. She is on IV antibiotics. I do not think Dr. Arias is going to send home on antibiotics when she goes home. C. diff is negative. Possibly go home tomorrow with no antibiotics per Dr. Arias. Prognosis guarded. Continue vent treatments and home oxygen, CPAP . Prognosis guarded. MMODL / IJN: [id number] /
[2023-03-06] MEDS: PIPERACILLIN-TAZOBACTAM 3.375 GM in SODIUM CHLORIDE 0.9% 100 ML IVPB SCH ×2 (01:14→10:09)
[2023-03-06 06:14] VITALS: TEMP 97.8
[2023-03-06 06:43] LABS: African American GFR (CKD) 43 (>60 ml/min/1.73 sqM); Anion Gap 8 mmol/L; Blood Urea Nitrogen 13 mg/dL (7-17); Calcium 8.3 mg/dL (8.4-10.2); Carbon Dioxide 25 mmol/L (22-30); Chloride 107 mmol/L (98-107); Glucose 100 mg/dL (74-99); Magnesium 1.7 mg/dL (1.6-2.3); Non-African American GFR(CKD) 37 (>60 ml/min/1.73 sqM); Sodium 140 mmol/L (137-145)
[2023-03-06] MEDS: IPRATROPIUM-ALBUTEROL 3 ML NEB INHALATION SCH ×3 (07:28→15:27)
[2023-03-06] MEDS: BUDESONIDE 0.5 MG/2 ML NEBU INHALATION SCH (07:28)
[2023-03-06] MEDS: SODIUM BICARBONATE TAB 650 MG TAB PO SCH (10:08)
[2023-03-06] MEDS: ALPRAZolam 1 MG TAB PO PRN (10:08)
[2023-03-06] MEDS: METOPROLOL TARTRATE 25 MG TAB PO SCH (10:08)
[2023-03-06] MEDS: amLODIPine 10 MG TAB PO SCH (10:08)
[2023-03-06] MEDS: PANTOPRAZOLE 40 MG TABLET PO SCH (10:08)
[2023-03-06 11:45] VITALS: BP 163/73; RESP 18
[2023-03-06] MEDS ORDERED: hydrALAZINE HCL 20 MG/ML 1 ML VIAL IVP PRN (12:33)
--- NOTE | 2023-03-06 12:34 | P.PN ---
Subjective Patient is seen in follow-up for acute kidney injury. Underwent 1 treatment of dialysis on 02/18/2023. Renal function improving gradually. Creatinine 1.42 today. Nonoliguric. On bicarb drip. Acidosis improved. Hemodynamically stable. Complains of loose bowel movements. Vital signs are stable. General: No acute distress. HEENT: Head exam is unremarkable. LUNGS: No audible rhonchi or wheezes. HEART: Rate and Rhythm are regular. ABDOMEN: Nontender. EXTREMITITES: No edema. Objective - Vital Signs Vital signs: Vital Signs Temp 97.8 F 03/06/23 08:00 Pulse 76 03/06/23 11:14 Resp 18 03/06/23 08:00 BP 163/73 03/06/23 08:00 Pulse Ox 93 L 03/06/23 08:00 FiO2 21 03/05/23 07:52 Intake & Output 03/05/23 03/06/23 03/06/23 18:59 06:59 18:59 Intake Total 540 200 100 Output Total 750 650 1 Balance -210 -450 99 Intake: Oral 540 200 100 Output: Urine 750 650 Stool 1 Other: Voiding Method Indwelling Catheter Indwelling Catheter # Voids 3 # Bowel Movements 2 1 - Labs CBC & Chem 7: 03/05/23 06:56 03/06/23 05:56 Labs: Abnormal Lab Results - Last 24 Hours (Table) 03/06/23 Range/Units 05:56 Creatinine 1.42 H (0.52-1.04) mg/dL Glucose 100 H (74-99) mg/dL Calcium 8.3 L (8.4-10.2) mg/dL Microbiology - Last 24 Hours (Table) 03/03/23 09:38 Blood Culture - Preliminary Blood Assessment and Plan Plan: Assessment: 1. Acute kidney injury secondary to ATN secondary to hypovolemia, anemia and hemodynamic instability. Creatinine 8.52 admission - received 1 treatment of hemodialysis 02/18/2023. Renal function gradually improving. Creatinine 1.42 today. Creatinine 1.4-1.6 in December 2021 - likely has underlying chronic kidney disease. No hydronephrosis noted on kidney ultrasound. 2. Acute blood loss anemia with hemoglobin of 6.1 dated 02/18/2023. Status post blood transfusion. Concern for uremic bleed- received IV DDAVP. On Aranesp. 3. Metabolic acidosis secondary to acute kidney injury and GI losses. On bicarb drip. 4. A. fib with RVR. Cardiology following. Rate controlled. 5. Coronary disease status post cardiac stenting in the past. 6. Hypokalemia from intracellular shifting from IV bicarb and poor intake. Replaced. Improved. 7. Hypomagnesemia from poor intake. 8. Hypocalcemia secondary to acute kidney injury. Corrected calcium normal. Plan: Stop bicarb drip. Start normal saline at 50 mL an hour. Encouraged oral intake. Serologies negative. Kidney biopsy discussed for definitive diagnosis. Biopsy held due to active infection. Will reschedule outpatient. Patient to follow-up outpatient to establish CKD care. Add oral magnesium oxide. Add when necessary hydralazine.
[2023-03-06] MEDS ORDERED: MAGNESIUM OXIDE 400 MG TAB PO SCH (12:45)
[2023-03-06] MEDS ORDERED: SODIUM CHLORIDE 0.9% 1,000 ML IV SCH (12:45)
[2023-03-06 15:30] VITALS: PULSE 80
--- NOTE | 2023-03-06 16:05 | CDI ---
Documentation Clarification Form Date: 03/06/2023 03:47:39 PM From: Nadine Gomez RN, CCDS Email: [email or web address] Admit Date: 02/17/2023 03:36:00 PM Patient Name: Morena Contreras Visit Number: [id number] Discharge Date: ATTENTION: The Clinical Documentation Specialists (CDI) and [facility] Coding Staff appreciate your assistance in clarifying documentation. Please respond to the clarification below the line at the bottom and electronically sign. The CDI & [facility] Coding staff will review the response and follow-up if needed. Please note: Queries are made part of the Legal Health Record. If you have any questions, please contact the author of this message via ITS. Dr. Abelardo Reardon Respiratory failure is documented in your 03/02 progress note. Based on this information and the findings below, clarification is requested. History/Risk Factors: asthma, severe COPD, CVA/TIA, fibromyalgia. Admitted with acute kidney injury. Tobacco use: current every day smoker. Clinical Indicators: 02/17-current vital signs: RR 16-28, 02/17-current pulse oximetry: 88-100% on room air-4LNC 02/19 CT chest: Moderate to severe emphysema changes. 03/02 IM: "hypoxic respiratory failure secondary to severe chronic obstructive pulmonary disease." 03/04 Lung/Breathing assessment: decreased breath sounds Treatment: Breathing tx: Albuterol/Atrovent QID 02/19-current O2: room air-4LNC Please clarify the diagnosis for this patient: [ ] Acute Hypoxic Respiratory Failure (pO2 <60 mm Hg or SpO2 <91% on room air) [ ] Acute on Chronic Respiratory Failure [ ] Chronic Respiratory Failure [ ] Respiratory failure ruled out [ ] Other Diagnosis, please specify [ ] Unable to determine MTDD
--- NOTE | 2023-03-11 12:04 | CDI ---
Documentation Clarification Form Date: 03/06/2023 03:47:00 PM From: Nadine Gomez RN, CCDS Email: [email or web address] Admit Date: 02/17/2023 03:36:00 PM Patient Name: Morena Contreras Visit Number: [id number] Discharge Date: 03/06/2023 03:47:00 PM ATTENTION: The Clinical Documentation Specialists (CDI) and [facility] Coding Staff appreciate your assistance in clarifying documentation. Please respond to the clarification below the line at the bottom and electronically sign. The CDI & [facility] Coding staff will review the response and follow-up if needed. Please note: Queries are made part of the Legal Health Record. If you have any questions, please contact the author of this message via ITS. Dr. Abelardo Reardon Respiratory failure is documented in your 03/02 progress note. Based on this information and the findings below, clarification is requested. History/Risk Factors: asthma, severe COPD, CVA/TIA, fibromyalgia. Admitted with acute kidney injury. Tobacco use: current every day smoker. Clinical Indicators: 02/17-03/06 vital signs: RR 16-28, 02/17-03/06pulse oximetry: 88-100% on room air-4LNC 02/19 CT chest: Moderate to severe emphysema changes. 03/02 IM: "hypoxic respiratory failure secondary to severe chronic obstructive pulmonary disease." 03/04 Lung/Breathing assessment: decreased breath sounds Treatment: Breathing tx: Albuterol/Atrovent QID 02/19-current O2: room air-4LNC Please clarify the diagnosis for this patient: [ ] Acute Hypoxic Respiratory Failure (pO2 <60 mm Hg or SpO2 <91% on room air) [ ] Acute on Chronic Respiratory Failure [ ] Chronic Respiratory Failure [ ] Respiratory failure ruled out [ ] Other Diagnosis, please specify [ ] Unable to determine MTDD
--- NOTE | 2023-03-13 00:29 | PN ---
PROGRESS NOTE Acute on chronic respiratory failure. MMODL / IJN: [id number] /
--- NOTE | 2023-03-13 22:24 | P.PN ---
Subjective Progress Note Date: 03/06/23 Principal diagnosis: R arm abscess Patient is a 72-year-old female with multiple comorbidities in this patient presented to the hospital on 02/17/2023, initial presentation for weakness and did have a fall patient did have a renal insufficiency requiring dialysis during this hospital stay patient was noticed to have a cystic mass to the right upper arm area, patient was diagnosed with an abscess and the patient did have a bedside drainage of the abscess by surgery blood cultures were obtained. On today's evaluation that is 03/06/2023 the patient remains to be afebrile the patient is breathing comfortably on room air denies any chest pain shortness of the cough no nausea vomiting abdominal pain or diarrhea local cultures growing Enterobacter cloacae and Enterococcus faecalis blood cultures with Enterobacter, the patient also had urine culture growing Klebsiell a and ESBL E. coli, patient did have a repeat UA that was negative Objective - Vital Signs Vital signs: Vital Signs Temp 97.8 F 03/06/23 04:00 Pulse 76 03/06/23 11:14 Resp 16 03/06/23 04:00 BP 176/78 03/06/23 04:00 Pulse Ox 96 03/06/23 07:28 FiO2 21 03/05/23 07:52 Intake & Output 03/05/23 03/06/23 03/06/23 18:59 06:59 18:59 Intake Total 540 200 100 Output Total 750 650 Balance -210 -450 100 Intake: Oral 540 200 100 Output: Urine 750 650 Other: Voiding Method Indwelling Catheter Indwelling Catheter # Voids 3 # Bowel Movements 2 1 - Exam GENERAL DESCRIPTION: Elderly female lying in bed in no distress RESPIRATORY SYSTEM: Unlabored breathing , decreased breath sounds at bases HEART: S1 S2 regular rate and rhythm ,no loud murmurs ABDOMEN: Soft , no tenderness EXTREMITIES: Right upper arm abscess site is currently dressed no drainage on the dressing - Labs CBC & Chem 7: 03/05/23 06:56 03/06/23 05:56 Labs: Abnormal Lab Results - Last 24 Hours (Table) 03/06/23 Range/Units 05:56 Creatinine 1.42 H (0.52-1.04) mg/dL Glucose 100 H (74-99) mg/dL Calcium 8.3 L (8.4-10.2) mg/dL Microbiology - Last 24 Hours (Table) 03/03/23 09:38 Blood Culture - Preliminary Blood Assessment and Plan (1) Abscess of right arm Status: Acute Code(s): L02.413 - CUTANEOUS ABSCESS OF RIGHT UPPER LIMB S NOMED Code(s): 28719471910954229 (2) Bacteremia due to Gram-negative bacteria Status: Acute Code(s): R78.81 - BACTEREMIA SNOMED Code(s): 357685348555 Plan: Patient with right upper arm fluctuant area which is swollen red fluctuant and tender to touch in this patient with a low-grade fever elevated white count High clinical suspicious for the abscess in this patient who is status post surgical drainage of the abscess and local cultures are currently growing Enterococcus and Enterobacter. 2patient also have a positive blood culture with Enterobacter blood culture has been repeated to document clearance of bacteremia 3patient urine culture did grow Klebsiella and ESBL E. coli however the patient repeat a UA is negative more likely contamination and no need for IV Invanz or treatment for ESBL in the urine 3the patient has shown clinical improvement and will finish therapy with oral Cipro and Augmentin on discharge, prescription sent to the pharmacy Dictation was produced using [employer] dictation software. please excuse any grammatical, word or spelling errors. Time with Patient: Less than 30
== END 2023-03-06 15:47 | disposition home health service (06) | DRG 682 ==
LOC: EC 13:23 → 3SCARD 15:36
PROVIDERS: ADMIT Family Medicine; ATTEND Family Medicine
PROC: 30233N1 Transfusion of Nonautologous Red Blood Cells into Peripheral Vein, Percutaneous Approach (ICD-10-PCS; 2023-02-18)
PROC: 5A1D70Z Performance of Urinary Filtration, Intermittent, Less than 6 Hours Per Day (ICD-10-PCS; 2023-02-18)
PROC: 06HY33Z Insertion of Infusion Device into Lower Vein, Percutaneous Approach (ICD-10-PCS; principal; 2023-02-18 16:21)
PROC: 0X980ZZ Drainage of Right Upper Arm, Open Approach (ICD-10-PCS; 2023-02-27)
PROC: 06PY33Z Removal of Infusion Device from Lower Vein, Percutaneous Approach (ICD-10-PCS; 2023-03-02)
DX: N17.0 Acute kidney failure with tubular necrosis (principal); A41.81 Sepsis due to Enterococcus; G93.41 Metabolic encephalopathy; J96.21 Acute and chronic respiratory failure with hypoxia; R64 Cachexia; I69.351 Hemiplegia and hemiparesis following cerebral infarction affecting right dominant side; E87.21 Acute metabolic acidosis; D62 Acute posthemorrhagic anemia; N39.0 Urinary tract infection, site not specified; Z16.24 Resistance to multiple antibiotics; Z68.1 Body mass index [BMI] 19.9 or less, adult; L02.413 Cutaneous abscess of right upper limb; L03.113 Cellulitis of right upper limb; I27.20 Pulmonary hypertension, unspecified; E11.42 Type 2 diabetes mellitus with diabetic polyneuropathy; E11.22 Type 2 diabetes mellitus with diabetic chronic kidney disease; I48.91 Unspecified atrial fibrillation; J44.9 Chronic obstructive pulmonary disease, unspecified; N18.31 Chronic kidney disease, stage 3a; I08.1 Rheumatic disorders of both mitral and tricuspid valves; D53.9 Nutritional anemia, unspecified; D63.1 Anemia in chronic kidney disease; E83.39 Other disorders of phosphorus metabolism; R62.7 Adult failure to thrive; E83.51 Hypocalcemia; R54 Age-related physical debility; I13.10 Hypertensive heart and chronic kidney disease without heart failure, with stage 1 through stage 4 chronic kidney disease, or unspecified chronic kidney disease; E86.0 Dehydration; B95.2 Enterococcus as the cause of diseases classified elsewhere; B96.1 Klebsiella pneumoniae [K. pneumoniae] as the cause of diseases classified elsewhere; K21.9 Gastro-esophageal reflux disease without esophagitis; M79.7 Fibromyalgia; M81.0 Age-related osteoporosis without current pathological fracture; L93.0 Discoid lupus erythematosus; F17.210 Nicotine dependence, cigarettes, uncomplicated; E87.6 Hypokalemia; E78.5 Hyperlipidemia, unspecified; I25.10 Atherosclerotic heart disease of native coronary artery without angina pectoris; B96.20 Unspecified Escherichia coli [E. coli] as the cause of diseases classified elsewhere; R68.0 Hypothermia, not associated with low environmental temperature; N28.1 Cyst of kidney, acquired; E86.1 Hypovolemia; T47.1X5A Adverse effect of other antacids and anti-gastric-secretion drugs, initial encounter; E83.42 Hypomagnesemia; Z53.29 Procedure and treatment not carried out because of patient's decision for other reasons; Z74.1 Need for assistance with personal care; W19.XXXA Unspecified fall, initial encounter; Y92.009 Unspecified place in unspecified non-institutional (private) residence as the place of occurrence of the external cause; Z91.158 Patient's noncompliance with renal dialysis for other reason; Z91.81 History of falling; Z79.82 Long term (current) use of aspirin; Z79.02 Long term (current) use of antithrombotics/antiplatelets; Z88.6 Allergy status to analgesic agent; Z88.8 Allergy status to other drugs, medicaments and biological substances; Z88.2 Allergy status to sulfonamides; Z88.5 Allergy status to narcotic agent; Z91.048 Other nonmedicinal substance allergy status; Z91.041 Radiographic dye allergy status; Z87.440 Personal history of urinary (tract) infections; Z86.72 Personal history of thrombophlebitis; Z95.5 Presence of coronary angioplasty implant and graft; Z79.899 Other long term (current) drug therapy
CPT/HCPCS: 36415; 36556; 70450; 71045; 71046; 71250; 76770; 76937; 80048; 80053; 80074; 81001; 82330; 82525; 82550; 82570; 82607; 82668; 82728; 82746; 83540; 83550; 83605; 83735; 83883; 83921; 84100; 84132; 84145; 84156; 84165; 84439; 84443; 84481; 84484; 85025; 85027; 85610; 85730; 86038; 86140; 86160; 86162; 86225; 86255; 86334; 86335; 86706; 86850; 86900; 86901; 86920; 87040; 87070; 87077; 87086; 87186; 87205; 87324; 87340; 90935; 93005; 93306; 94640; 94760; 94762; 96360; 96361; 99291

== ENCOUNTER → 2023-07-04 | Outpatient (CLI) | payer MEDICARE, OTHER ==
[2023-07-05 02:27] LABS: BUN/Creat Ratio 24.57 Ratio (12.00-20.00); Blood Urea Nitrogen 34.4 mg/dL (9.0-27.0); Calcium 9.3 mg/dL (8.7-10.3); Chloride 110 mmol/L (96-109); Glucose 85 mg/dL (70-110); Potassium 4.9 mmol/L (3.5-5.5); Sodium 138 mmol/L (135-145)
== END | disposition home or self-care (01) ==
LOC: LABWHC1 11:08
PROVIDERS: ATTEND Nurse Practitioner Family
DX: N18.32 Chronic kidney disease, stage 3b (principal)
CPT/HCPCS: 36415; 80048

== ENCOUNTER → 2023-08-21 | Outpatient (CLI) | payer MEDICARE, OTHER ==
[2023-08-21 12:28] LABS: Creatinine,Urine Random 55.9 mg/dL; Protein/Creatinine Ratio,Urine 1.95
[2023-08-21 15:40] LABS: HCT 30.4 % (37.2-46.3); HGB 9.3 g/dL (12.0-15.0); MCHC 30.6 g/dL (32.0-37.0); MCV 114.3 FL (80.0-97.0); Mean Platelet Volume 10.8 FL (9.5-12.2); NRBC Per 100 WBC 0 X 10*3/uL (0.00-0.01); Platelet Count 218 X 10*3/uL (140-440); RBC 2.66 X 10*6/uL (4.10-5.20); RDW 14.2 % (11.5-14.5); WBC 7.43 X 10*3/uL (4.50-10.00)
[2023-08-21 15:45] LABS: Appearance,Urine Clear (Clear); Bilirubin,Urine Negative (Negative); Blood,Urine Negative (Negative); Color,Urine Yellow (Yellow); Ketones,Urine Negative (Negative); Nitrite,Urine Negative (Negative); PH, Urine 5.5; Specific Gravity,Urine 1.023 (1.001-1.030); Urobilinogen,Urine 0.2 E.U./DL
[2023-08-21 16:09] LABS: % Iron Saturation 26.45 (12.00-45.00); Albumin 4.1 g/dL (3.8-4.9); BUN/Creat Ratio 21.06 Ratio (12.00-20.00); Blood Urea Nitrogen 35.8 mg/dL (9.0-27.0); Calcium 9.1 mg/dL (8.7-10.3); Chloride 108 mmol/L (96-109); Glucose 80 mg/dL (70-110); Iron 73 UG/DL (50-170); Phosphorus 3.9 mg/dL (2.4-5.1); Potassium 4.7 mmol/L (3.5-5.5); Sodium 141 mmol/L (135-145); Total Iron Binding Capacity 276 UG/DL (228-460); Uric Acid 4.2 mg/dL (2.9-7.7)
[2023-08-21 16:34] LABS: Bacteria,Urine Trace
[2023-08-21 17:12] LABS: Basophils # (A) 0.06 X 10*3/uL (0.00-0.10); Basophils % (A) 0.8 %; Eosinophils # (A) 0.24 X 10*3/uL (0.04-0.35); Eosinophils % (A) 3.2 %; Lymphocytes # (A) 3.36 X 10*3/uL (0.90-5.00); Lymphocytes % (A) 45.2 %; Macrocytosis (M) 3+; Monocytes # (A) 0.48 X 10*3/uL (0.20-1.00); Monocytes % (A) 6.5 %; Neutrophils # (A) 3.27 X 10*3/uL (1.80-7.70)
== END | disposition home or self-care (01) ==
LOC: LABWHC1 09:33
PROVIDERS: ATTEND Nurse Practitioner Family
DX: N18.32 Chronic kidney disease, stage 3b (principal)
CPT/HCPCS: 36415; 80048; 81001; 82040; 82570; 82728; 83540; 83550; 83735; 83970; 84100; 84156; 84550; 85025

== ENCOUNTER → 2023-08-31 | Outpatient (CLI) | payer MEDICARE, OTHER ==
[2023-08-31 13:33] LABS: BUN/Creat Ratio 19.37 Ratio (12.00-20.00); Blood Urea Nitrogen 36.8 mg/dL (9.0-27.0); Calcium 9.1 mg/dL (8.7-10.3); Carbon Dioxide 18.8 mmol/L (21.6-31.8); Chloride 104 mmol/L (96-109); Glucose 104 mg/dL (70-110); Potassium 5.1 mmol/L (3.5-5.5); Sodium 138 mmol/L (135-145)
== END | disposition home or self-care (01) ==
LOC: LABWHC1 09:17
PROVIDERS: ATTEND Internal Medicine Nephrology
DX: N18.32 Chronic kidney disease, stage 3b (principal)
CPT/HCPCS: 36415; 80048

== ENCOUNTER → 2023-11-06 | Outpatient (CLI) | payer MEDICARE, OTHER ==
[2023-11-06 14:18] LABS: Creatinine,Urine Random 50.3 mg/dL; Protein/Creatinine Ratio,Urine 3.38
[2023-11-06 15:57] LABS: Basophils # (A) 0.05 X 10*3/uL (0.00-0.10); Basophils % (A) 0.6 %; Eosinophils # (A) 0.12 X 10*3/uL (0.04-0.35); Eosinophils % (A) 1.5 %; HCT 35.7 % (37.2-46.3); HGB 11.3 g/dL (12.0-15.0); Lymphocytes # (A) 2.13 X 10*3/uL (0.90-5.00); Lymphocytes % (A) 27.3 %; MCH 34.5 pg (27.0-32.0); MCHC 31.7 g/dL (32.0-37.0); MCV 108.8 FL (80.0-97.0); Monocytes # (A) 0.51 X 10*3/uL (0.20-1.00); Monocytes % (A) 6.5 %; NRBC Per 100 WBC 0 X 10*3/uL (0.00-0.01); Neutrophils # (A) 4.95 X 10*3/uL (1.80-7.70); Neutrophils % (A) 63.6 %; Platelet Count 221 X 10*3/uL (140-440); RBC 3.28 X 10*6/uL (4.10-5.20); RDW 14.3 % (11.5-14.5)
[2023-11-06 16:38] LABS: % Iron Saturation 11.68 (12.00-45.00); Albumin 4.1 g/dL (3.8-4.9); Blood Urea Nitrogen 29.1 mg/dL (9.0-27.0); Calcium 9.4 mg/dL (8.7-10.3); Carbon Dioxide 15.6 mmol/L (21.6-31.8); Chloride 108 mmol/L (96-109); Glucose 95 mg/dL (70-110); Iron 32 UG/DL (50-170); Magnesium 2.2 mg/dL (1.5-2.4); Phosphorus 3.1 mg/dL (2.4-5.1); Potassium 4.5 mmol/L (3.5-5.5); Sodium 140 mmol/L (135-145); Total Iron Binding Capacity 274 UG/DL (228-460); Uric Acid 3.8 mg/dL (2.9-7.7)
[2023-11-06 18:37] LABS: Appearance,Urine Clear (Clear); Bilirubin,Urine Negative (Negative); Blood,Urine Negative (Negative); Color,Urine Yellow (Yellow); Ketones,Urine Negative (Negative); Nitrite,Urine Negative (Negative); PH, Urine 5.5; Specific Gravity,Urine 1.018 (1.001-1.030); Urobilinogen,Urine 0.2 E.U./DL
[2023-11-06 18:40] LABS: Bacteria,Urine None Seen (None Seen)
== END | disposition home or self-care (01) ==
LOC: LABWHC1 12:55
PROVIDERS: ATTEND Internal Medicine Nephrology
DX: N25.81 Secondary hyperparathyroidism of renal origin (principal); M10.9 Gout, unspecified; N39.0 Urinary tract infection, site not specified; N18.32 Chronic kidney disease, stage 3b; D63.1 Anemia in chronic kidney disease; R80.9 Proteinuria, unspecified
CPT/HCPCS: 36415; 80048; 81001; 82040; 82570; 82728; 83540; 83550; 83735; 83970; 84100; 84156; 84550; 85025

== ENCOUNTER 2024-01-29 06:42 | Day surgery (SDC) | payer MEDICARE, OTHER ==
[2024-01-27 13:18] VITALS: BMI 17.9
[~2024-01-29 06:42] MED LIST changes: -LIDOCAINE 1% 20 ML VIAL (10MG/ML) FOR IV START INTRADERMA PRN
[2024-01-29] MEDS: LACTATED RINGERS 1,000 ML IV ONE (07:15)
[2024-01-29] MEDS ORDERED: PROPOFOL 10 MG/ML 20 ML VIAL IV ONE (07:43)
[2024-01-29 07:45] VITALS: TEMP 97.5
--- NOTE | 2024-01-29 08:09 | P.PCN ---
Date of Procedure: 01/29/24 Procedure(s) Performed: Brief history: Patient is a pleasant 73-year-old white female scheduled for an elective upper endoscopy as well as colonoscopy as a part of evaluation of intermittent dysphagia to solids and longstanding history of GERD. She also has alternating diarrhea and constipation. Procedure performed: Esophagogastroduodenoscopy with biopsy Colonoscopy with snare polypectomy Preoperative diagnosis: GERD/intermittent dysphagia to solids Change in bowel habits Anesthesia: MAC Procedure: After informed consent was obtained from the patient was brought into the endoscopy unit and IV sedation was administered by anesthesia under continuous monitoring. Initially upper endoscopy was done. The Olympus GF 160 video endoscope was inserted inserted into the mouth and esophagus intubated without any difficulty and was gradually advanced into the stomach and duodenum and carefully examined. The bulb and second part of the duodenum appeared normal. The scope was then withdrawn to the stomach and adequately insufflated with air. Upon careful examination there is mildly has mild diffuse gastritis and biopsies were done from this area. Mucosa of the and body, cardia and fundus appeared normal. The scope was then withdrawn into the esophagus. The GE junction was located at 40 cm to the incisors. It appeared regular with no erythema erosions or ulcerations. Rest of the esophagus appeared normal. Patient tolerated the procedure well. At this time the patient continued to remain sedation. Initial digital rectal examination was normal. Olympus CF 160 video colonoscope was then inserted into the rectum and gradually advanced to the cecum without any difficulty. Careful examination was performed as the scope was gradually being withdrawn. The prep was excellent. The cecum, had a 1 cm broad-based polyp that was removed by snare polypectomy. Ascending colon, transverse colon, descending colon, sigmoid colon and rectum appeared normal. Scattered sigmoid diverticulosis. Random biopsies were done from the ascending and descending colon rule out microscopic/collagenous colitis. Retroflexion was performed in the rectum and no lesions were noted. Patient tolerated the procedure well. Impression: 1. Upper endoscopy revealed mild antral gastritis but no evidence of esophagitis or peptic ulcer disease. 2. Colonoscopy revealed 1 cm broad-based cecal polyp status post polypectomy and scattered sigmoid diverticulosis Recommendations: Findings of this examination were discussed with the patient as well as her family. She was advised to follow-up with the biopsy results. If the biopsy reveals adenoma, recommended repeat colonoscopy in 3 years. Continue with Protonix 40 mg daily and follow antireflux measures.
[2024-01-29 08:13] VITALS: RESP 12
[2024-01-29 08:37] VITALS: BP 155/62; PULSE 63
== END 2024-01-29 08:48 | disposition home or self-care (01) ==
LOC: ORWHC2ENDO 06:42
PROVIDERS: ATTEND Internal Medicine Gastroenterology
DX: K21.9 Gastro-esophageal reflux disease without esophagitis (principal); K57.30 Diverticulosis of large intestine without perforation or abscess without bleeding; K29.80 Duodenitis without bleeding; K29.50 Unspecified chronic gastritis without bleeding; Z79.899 Other long term (current) drug therapy; D12.0 Benign neoplasm of cecum; G51.0 Bell's palsy; J45.909 Unspecified asthma, uncomplicated; J44.9 Chronic obstructive pulmonary disease, unspecified; I25.119 Atherosclerotic heart disease of native coronary artery with unspecified angina pectoris; N28.9 Disorder of kidney and ureter, unspecified; F32.A Depression, unspecified; F41.0 Panic disorder [episodic paroxysmal anxiety]; M19.90 Unspecified osteoarthritis, unspecified site; Z79.1 Long term (current) use of non-steroidal anti-inflammatories (NSAID); Z88.2 Allergy status to sulfonamides; Z88.8 Allergy status to other drugs, medicaments and biological substances; Z79.52 Long term (current) use of systemic steroids; Z79.82 Long term (current) use of aspirin
CPT/HCPCS: 88305; 45385; 43239; J2704